=== PATIENT | female | born 1940 | race Caucasian/White ===

== ENCOUNTER 2017-08-31 05:53 | Emergency (ER) | payer OTHER ==
[~2017-08-31] VITALS: Ht 165.1 cm; Wt 63.6 kg
[~2017-08-31 05:53] MED LIST: ASPI81TA28 PO; CALC-338 PO; DOXA2TAB PO; MISCCAP80 PO
[2017-08-31 06:11] VITALS: TEMP 37.9; Ht 165.1 cm; Wt 63.6 kg
[2017-08-31] MEDS ORDERED: ASPIRIN 81 MG CHEW PO STA (06:12)
[2017-08-31 06:17] LABS: BASO % 0.3 %; BASO ABS # 0.02 K/uL (0-0.2); EOS % 0.3 %; EOS ABS # 0.02 K/uL (0-0.5); HEMATOCRIT 38.4 % (37-47); HEMOGLOBIN 13.2 g/dL (12.0-16.0); IG# 0.01 K/uL (0.00-0.02); LYMPH % 4.6 %; MEAN CELL VOLUME 92.1 fL (80-100); MEAN CORPUSCULAR HEMOGLOBIN 31.7 pg (25-34); MEAN CORPUSCULAR HGB CONC 34.4 g/dl (32-36); MEAN PLATELET VOLUME 9.7 fL (7.4-10.4); MONO % 6.8 %; MONO ABS # 0.44 K/uL (0.11-0.59); NEUT % 87.8 %; NEUT ABS # 5.68 K/uL (1.4-6.5); PLATELET COUNT 130 K/uL (130-400); RED CELL DISTRIBUTION WIDTH CV 12.9 % (11.5-14.5); RED CELL DISTRIBUTION WIDTH SD 43.2 fL (36.4-46.3); WHITE BLOOD COUNT 6.47 K/uL (4.8-10.8)
--- NOTE | 2017-08-31 06:20 | EMERGENCY ROOM VISIT NOTE ---
History Report prepared by Steven: Jocelyn Aguila Under the Supervision of: Dr. Altagracia Webber M.D. First contact with patient: 06:08 Chief Complaint: CHEST PAIN Stated Complaint: CHEST PAIN History of Present Illness The patient is a 76 year old female who presents to the Emergency Room with complaints of chest pain beginning this morning. The patient describes the pain as a sharp pain. She states that coughing exacerbates the pain. The patient also reports being febrile at 100.5 last night. The patient denies having shortness of breath while sitting, but states that she does get short of breath with exertion. She denies having urinary symptoms. The patient reports that she has had a sinus infection and that she also has a sore throat from the drainage. The patient states that she is not a smoker and denies a history of heart disease. The patient states that she was not given aspirin or nitroglycerin en route. Source of History: patient Onset: this morning Position: chest Quality: sharp Modifying Factors (Worsening): other (coughing ) Associated Symptoms: + fevers, + sorethroat, No urinary symptoms Review of Systems See HPI for pertinent positives & negatives. A total of 10 systems reviewed and were otherwise negative. Past Medical & Surgical Medical Problems: (1) ACUTE APPENDICITIS NOS (2) Appendectomy (3) Bronchitis (4) HYPERTENSION NOS (5) IRRITABLE BOWEL SYNDROME Family History Cancer Diabetes mellitus Diabetes mellitus Hypertension Lung disease Social History Smoking Status: Never Smoker Alcohol Use: occasionally Marital Status: Housing Status: lives with significant other Occupation Status: retired Current/Historical Medications Scheduled Amoxicillin & Pot Clavulanate (Augmentin 875-125 mg), 875 MG PO BID Aspirin (Aspirin Ec), 81 MG PO 3XWK Calcium Citrate-Vitamin D (Citracal + D3 Maximum), 1 TAB PO 3XWK Doxazosin Mesylate (Cardura), 2 MG PO QPM Fluticasone Furoate (Flonase Sensimist), 2 SPRAY JASON DAILY Probiotic Product (Probiotic), 1 CAP PO QPM Allergies Coded Allergies: Nitrates, Organic (Verified Allergy, Severe, HEAD ACHE, 08/31/17) Isosorbide Nitrate (Verified Allergy, Unknown, PAINFUL, 08/31/17) Physical Exam Vital Signs Date Time Temp Pulse Resp B/P (MAP) Pulse Ox O2 Delivery O2 Flow Rate FiO2 08/31/17 07:33 95 28 93 08/31/17 07:30 116/58 08/31/17 07:23 92 21 91 08/31/17 07:17 119/59 08/31/17 06:53 93 31 08/31/17 06:43 81 18 94 08/31/17 06:23 90 23 94 08/31/17 06:16 Room Air 08/31/17 06:13 94 24 94 08/31/17 06:11 37.9 92 20 121/69 94 Room Air 08/31/17 06:03 90 30 95 08/31/17 06:02 91 08/31/17 06:00 130/61 08/31/17 05:58 121/69 Physical Exam Vital signs reviewed. General: Well-appearing female, in no significant distress. HEENT: No scleral icterus, PERRLA, neck supple. Atraumatic. Cardiovascular: Regular rate and rhythm, no extra sounds. Pulmonary: Clear to auscultation bilaterally, normal work of breathing. Abdomen: Soft, nontender, nondistended, positive bowel sounds. Musculoskeletal: Atraumatic, no peripheral edema. Neurologic: Patient awake alert and oriented x 3, full strength in all 4 extremities. Cranial nerves 2 through 12 grossly intact. Skin: Warm, dry, no rash Medical Decision & Procedures ER Provider Diagnostic Interpretation: Radiology results as stated below per my review and radiologist interpretation: CHEST ONE VIEW PORTABLE CLINICAL HISTORY: cough, CP dysphagia COMPARISON STUDY: No previous studies for comparison. FINDINGS: Focal atelectatic change left base. Lungs otherwise are clear. Diaphragms are smooth. No evidence for cardiac enlargement. IMPRESSION: Focal atelectasis left base. Otherwise negative study. The above report was generated using voice recognition software. It may contain grammatical, syntax or spelling errors. Electronically signed by: Kike Lawson M.D. 08/31/2017 6:29 AM Dictated Date/Time: 08/31/2017 6:28 AM The status of this report is Signed. Laboratory Results 08/31/17 05:57 Red Blood Count 4.17, Mean Corpuscular Volume 92.1, Mean Corpuscular Hemoglobin 31.7, Mean Corpuscular Hemoglobin Concent 34.4, Mean Platelet Volume 9.7, Neutrophils (%) (Auto) 87.8, Lymphocytes (%) (Auto) 4.6, Monocytes (%) (Auto) 6.8, Eosinophils (%) (Auto) 0.3, Basophils (%) (Auto) 0.3, Neutrophils # (Auto) 5.68, Lymphocytes # (Auto) 0.30, Monocytes # (Auto) 0.44, Eosinophils # (Auto) 0.02, Basophils # (Auto) 0.02 08/31/17 05:57 Test 08/31/17 05:57 08/31/17 06:25 08/31/17 06:35 08/31/17 06:37 White Blood Count 6.47 K/uL (4.8-10.8) Red Blood Count 4.17 M/uL (4.2-5.4) Hemoglobin 13.2 g/dL (12.0-16.0) Hematocrit 38.4 % (37-47) Mean Corpuscular Volume 92.1 fL (80-100) Mean Corpuscular Hemoglobin 31.7 pg (25-34) Mean Corpuscular Hemoglobin Concent 34.4 g/dl (32-36) Platelet Count 130 K/uL (130-400) Mean Platelet Volume 9.7 fL (7.4-10.4) Neutrophils (%) (Auto) 87.8 % Lymphocytes (%) (Auto) 4.6 % Monocytes (%) (Auto) 6.8 % Eosinophils (%) (Auto) 0.3 % Basophils (%) (Auto) 0.3 % Neutrophils # (Auto) 5.68 K/uL (1.4-6.5) Lymphocytes # (Auto) 0.30 K/uL (1.2-3.4) Monocytes # (Auto) 0.44 K/uL (0.11-0.59) Eosinophils # (Auto) 0.02 K/uL (0-0.5) Basophils # (Auto) 0.02 K/uL (0-0.2) RDW Standard Deviation 43.2 fL (36.4-46.3) RDW Coefficient of Variation 12.9 % (11.5-14.5) Immature Granulocyte % (Auto) 0.2 % Immature Granulocyte # (Auto) 0.01 K/uL (0.00-0.02) Anion Gap 8.0 mmol/L (3-11) Est Creatinine Clear Calc Drug Dose 55.2 ml/min Estimated GFR () 85.6 Estimated GFR (Non- 73.8 BUN/Creatinine Ratio 24.6 (10-20) Calcium Level 8.3 mg/dl (8.5-10.1) Magnesium Level 1.9 mg/dl (1.8-2.4) Total Bilirubin 1.9 mg/dl (0.2-1) Direct Bilirubin 0.2 mg/dl (0-0.2) Aspartate Amino Transf (AST/SGOT) 16 U/L (15-37) Alanine Aminotransferase (ALT/SGPT) 18 U/L (12-78) Alkaline Phosphatase 59 U/L (45-117) Troponin I < 0.015 ng/ml (0-0.045) Total Protein 7.1 gm/dl (6.4-8.2) Albumin 3.3 gm/dl (3.4-5.0) Influenza Type A (RT-PCR) Neg for Influ A (NEG) Influenza Type B (RT-PCR) Neg for Influ B (NEG) Urine Color ORANGE Urine Appearance CLEAR (CLEAR) Urine pH 6.5 (4.5-7.5) Urine Specific [place] 1.021 (1.000-1.030) Urine Protein NEG (NEG) Urine Glucose (UA) NEG (NEG) Urine Ketones 1+ (NEG) Urine Occult Blood 1+ (NEG) Urine Nitrite NEG (NEG) Urine Bilirubin NEG (NEG) Urine Urobilinogen NEG (NEG) Urine Leukocyte Esterase TRACE (NEG) Urine WBC (Auto) 1-5 /hpf (0-5) Urine RBC (Auto) 5-10 /hpf (0-4) Urine Hyaline Casts (Auto) 1-5 /lpf (0-5) Urine Epithelial Cells (Auto) 5-10 /lpf (0-5) Urine Bacteria (Auto) NEG (NEG) Bedside Lactic Acid Venous 1.46 mmol/L (0.90-1.70) Laboratory results per my review. Medications Administered Medications (Trade) Dose Ordered Sig/[place] Route Start Time Stop Time Status Last Admin Dose Admin Aspirin (Aspirin Chew) 324 mg NOW STAT PO 08/31/17 06:12 08/31/17 06:14 DC 08/31/17 06:25 324 MG Acetaminophen (Tylenol Tab) 650 mg NOW STAT PO 08/31/17 06:35 08/31/17 06:36 DC 08/31/17 06:47 650 MG Amoxicillin/ Clavulanate Potassium (Augmentin Tab) 875 mg ONE ONCE PO 08/31/17 07:15 08/31/17 07:16 DC 08/31/17 07:52 875 MG ECG Per My Interpretation Indication: chest pain Rate (beats per minute): 94 Rhythm: normal sinus Findings: no acute ischemic change, no ectopy ED Course 0609: Past medical records reviewed. The patient was evaluated in room B9. A complete history and physical examination was performed. 0612: Ordered Aspirin 324 mg PO. 0635: Ordered Tylenol Tab 650 mg PO. Medical Decision Differentials: Acute coronary syndrome, pulmonary embolus, aortic dissection, musculoskeletal pain, pneumonia, pleural effusion, pneumothorax This patient was evaluated and appeared to be in no significant distress. Physical examination is fairly unrevealing. The patient was given 324 mg of aspirin to chew. Patient was given Tylenol 650 mg for headache. EKG reveals no evidence of acute ischemic change. Laboratory work reveals negative troponin. Chest x-ray is clear to my interpretation. CT scan of the sinuses was performed and reveals diffuse mucosal thickening consistent with a chronic sinusitis. Patient states she has had sinus pressure, sore throat and a cough for several weeks. I suspect she is having some postnasal drip causing sore throat nausea. Patient was placed on Augmentin 875 mg twice daily for 10 days, Flonase nasal spray and Tylenol as needed for pain. She will follow-up with her physician for reevaluation and return to the ER for worsening of symptoms or any medical concerns. Medication Reconcilliation Current Medication List: was personally reviewed by me Blood Pressure Screening Patient's blood pressure: Normal blood pressure Impression Primary Impression: Pleuritic chest pain Additional Impression: Sinusitis Scribe Attestation The scribe's documentation has been prepared under my direction and personally reviewed by me in its entirety. I confirm that the note above accurately reflects all work, treatment, procedures, and medical decision making performed by me. Departure Information Dispostion Home / Self-Care Prescriptions Fluticasone Furoate (Flonase Sensimist) 27.5 Mcg/[place] 2 SPRAY JASON DAILY for 14 Days, #1 BTL Prov: Altagracia Webber M.D. 08/31/17 Amoxicillin & Pot Clavulanate (Augmentin 875-125 mg) 1 Tab Tab 875 MG PO BID for 10 Days, #20 TAB Prov: Altagracia Webber M.D. 08/31/17 Referrals Kirit Simmons M.D. (PCP) Forms Call Back Authorization, HOME CARE DOCUMENTATION FORM, IMPORTANT VISIT INFORMATION Patient Instructions [facility] Problem Qualifiers
[2017-08-31 06:29] LABS: ALBUMIN 3.3 gm/dl (3.4-5.0); ALT/SGPT 18 U/L (12-78); AST/SGOT 16 U/L (15-37); BLOOD UREA NITROGEN 19 mg/dl (7-18); CALCIUM 8.3 mg/dl (8.5-10.1); CARBON DIOXIDE 26 mmol/L (21-32); CREATININE 0.78 mg/dl (0.60-1.20); GLUCOSE 152 mg/dl (70-99); POTASSIUM 3.7 mmol/L (3.5-5.1); SODIUM 137 mmol/L (136-145)
--- NOTE | 2017-08-31 06:30 | DIAGNOSTIC IMAGING REPORT ---
CHEST ONE VIEW PORTABLE CLINICAL HISTORY: cough, CP dysphagia COMPARISON STUDY: No previous studies for comparison. FINDINGS: Focal atelectatic change left base. Lungs otherwise are clear. Diaphragms are smooth. No evidence for cardiac enlargement. IMPRESSION: Focal atelectasis left base. Otherwise negative study. The above report was generated using voice recognition software. It may contain grammatical, syntax or spelling errors. Electronically signed by: Kike Lawson M.D. 08/31/2017 6:29 AM Dictated Date/Time: 08/31/2017 6:28 AM
[2017-08-31] MEDS ORDERED: CALC-279 PO (06:31)
[2017-08-31] MEDS ORDERED: CALC1TAB9 PO (06:33)
[2017-08-31 06:34] LABS: ALKALINE PHOSPHATASE 59 U/L (45-117); TOTAL PROTEIN 7.1 gm/dl (6.4-8.2)
[2017-08-31] MEDS ORDERED: ACETAMINOPHEN 325 MG TAB PO STA (06:35)
[2017-08-31] MEDS ORDERED: AMOXICILLIN/CLAVULANATE TAB 875 MG TAB PO ONE (07:15)
[2017-08-31] MEDS ORDERED: AMOX875T PO (07:16)
[2017-08-31 07:20] LABS: INFLUENZA A PCR Neg for Influ A (NEG); INFLUENZA B PCR Neg for Influ B (NEG)
[2017-08-31 07:30] VITALS: BP 116/58
--- NOTE | 2017-08-31 07:31 | DIAGNOSTIC IMAGING REPORT ---
SINUSES-MAXILLOFACIAL W/O CT DOSE: 269.19 mGycm HISTORY: Pain frontal sinus pain, fever TECHNIQUE: Multiaxial CT images of the paranasal sinuses were performed and reformatted in the coronal plane without the use of contrast. A dose lowering technique was utilized adhering to the principles of ALARA. COMPARISON: None. FINDINGS: Mild mucosal thickening in frontal sinuses. Significant mucosal thickening in the ethmoid sinuses. Moderate mucosal thickening of the right and to a lesser extent left maxillary sinus. Soft tissue narrowing of the ostiomeatal units bilaterally although they are still patent. Mild mucosal thickening of the sphenoid sinus at the anterior margins. Slight hypertrophic change nasal turbinates. No evidence for bony destructive process. The mastoid air cells are clear. The nasal septum is midline. The orbits are unremarkable. IMPRESSION: 1. Mild/moderate mucosal thickening of all major sinuses. 2. The appearance is suggestive of chronic sinus change. 3. Soft tissue narrowing of the ostiomeatal units bilaterally. 4. No evidence for bony destructive process. The above report was generated using voice recognition software. It may contain grammatical, syntax or spelling errors. Electronically signed by: Kike Lawson M.D. 08/31/2017 7:29 AM Dictated Date/Time: 08/31/2017 7:26 AM
[2017-08-31] MEDS ORDERED: FLUT27.53 NAE (07:32)
[2017-08-31 07:33] VITALS: PULSE 95; O2SAT 93
== END 2017-08-31 07:53 | disposition home or self-care (01) ==
LOC: EDBD 05:53 → C.EDB 05:55
DX: R07.9 Chest pain, unspecified (principal); J32.9 Chronic sinusitis, unspecified; I10 Essential (primary) hypertension; Z83.3 Family history of diabetes mellitus

== ENCOUNTER 2017-09-04 11:37 | Inpatient (IN) | payer OTHER ==
[~2017-09-04] VITALS: Ht 166.4 cm; Wt 62.1 kg
[~2017-09-04 11:37] MED LIST changes: +AMOX875T PO; -CALC-338 PO; +CALC1TAB9 PO; +FLUT27.53 NAE
[2017-09-04] MEDS ORDERED: ONDANSETRON INJ 2 MG/ML 2 ML VIAL IV STA (12:01)
[2017-09-04] MEDS ORDERED: SODIUM CHLORIDE 0.9% 1000ML 2,000 ML IV STA (12:01)
--- NOTE | 2017-09-04 12:26 | DIAGNOSTIC IMAGING REPORT ---
CHEST ONE VIEW PORTABLE CLINICAL HISTORY: fever COMPARISON STUDY: 08/31/2017 FINDINGS: The heart is normal in size. There is a suboptimal inspiration with bronchovascular crowding at the lung bases. No be difficult to exclude a superimposed inflammatory component. There is a suspected trace left pleural effusion. There is no overt failure.[ IMPRESSION: Suboptimal inspiration with hypoventilatory changes at the lung bases. It is not possible to exclude a superimposed inflammatory component. Suspected trace left pleural effusion. Electronically signed by: Tanner Ventura M.D. 09/04/2017 12:25 PM Dictated Date/Time: 09/04/2017 12:24 PM
[2017-09-04 12:28] LABS: BASO % 0.1 %; BASO ABS # 0.01 K/uL (0-0.2); EOS % 0.4 %; EOS ABS # 0.05 K/uL (0-0.5); HEMATOCRIT 36.9 % (37-47); HEMOGLOBIN 12.7 g/dL (12.0-16.0); LYMPH % 4.8 %; LYMPH ABS # 0.62 K/uL (1.2-3.4); MEAN CORPUSCULAR HEMOGLOBIN 31.7 pg (25-34); MEAN CORPUSCULAR HGB CONC 34.4 g/dl (32-36); MEAN PLATELET VOLUME 10.6 fL (7.4-10.4); MONO % 2.4 %; MONO ABS # 0.31 K/uL (0.11-0.59); NEUT % 91.5 %; NEUT ABS # 11.77 K/uL (1.4-6.5); PLATELET COUNT 158 K/uL (130-400); RED CELL DISTRIBUTION WIDTH CV 13.1 % (11.5-14.5); RED CELL DISTRIBUTION WIDTH SD 44.3 fL (36.4-46.3); WHITE BLOOD COUNT 12.86 K/uL (4.8-10.8)
[2017-09-04 12:35] LABS: INR 1.1 (0.9-1.1)
[2017-09-04] MEDS ORDERED: AMOX875T PO (13:04)
[2017-09-04] MEDS ORDERED: FLUT0.15 NAE (13:04)
[2017-09-04 13:18] LABS: BLOOD UREA NITROGEN 39 mg/dl (7-18); CALCIUM 8.5 mg/dl (8.5-10.1); CARBON DIOXIDE 22 mmol/L (21-32); CREATININE 1.07 mg/dl (0.60-1.20); GLUCOSE 113 mg/dl (70-99); POTASSIUM 3.4 mmol/L (3.5-5.1); SODIUM 135 mmol/L (136-145)
[2017-09-04 13:19] LABS: ALBUMIN 2.4 gm/dl (3.4-5.0); ALKALINE PHOSPHATASE 57 U/L (45-117); ALT/SGPT 22 U/L (12-78); AST/SGOT 17 U/L (15-37); CKMB 0.8 ng/ml (0.5-3.6); TOTAL PROTEIN 6.7 gm/dl (6.4-8.2)
[2017-09-04 13:39] LABS: ISTAT CREATININE 0.9 mg/dl (0.6-1.3); ISTAT IONIZED CALCIUM 0.82 mmol/l (1.12-1.32); ISTAT POTASSIUM 3.5 mEq/L (3.3-5.0)
[2017-09-04] MEDS ORDERED: OPTIRAY 320 IV PRN (14:15)
--- NOTE | 2017-09-04 15:07 | History and Physical ---
History & Physical Date & Time of Service: Sep 04, 2017 at 14:54 Chief Complaint: Weak,Dehydrated, Woodward, Pleurisy Primary Care Physician: Kirit Simmons M.D. History of Present Illness Source: patient, clinic records, hospital records Patient is a 76-year-old female with a PMH of HTN who presents with generalized weakness 5 days. Patient was seen by PCP a few weeks ago for chronic sinusitis and has been taking Augmentin. Was notified a week ago that she also tested positive for mono. Came to the ED last for chest pain as well as ongoing sinusitis. Had a CT face which showed chronic sinusitis and chest pain was determined as pleurisy. Patient was discharged from ED and noticed a diffuse red rash the next day. Also notes subjective fever and worsening generalized weakness (has been requiring assistance with all ambulation when she can walk independently at baseline). Continued to experience sore throat, postnasal drip as well as decreased appetite/poor fluid intake. Returned to the ED for further evaluation. Currently denies fever, chills, headache, lightheadedness, visual changes, chest pain, shortness of breath, abdominal pain , nausea, vomiting, bowel or bladder changes or LE swelling. Has completed Augmentin course with exception of 1 dose. Denies PCP is [facility]. In ED, was found to be hypotensive at 81/45 but BP improved with IVF to 103/69. Afebrile with leukocytosis of 12.86. D dimer elevated to 5940. Past Medical/Surgical History Medical Problems: (1) Hypertension Status: Chronic (2) Irritable bowel syndrome Status: Chronic Surgical Problems: (1) History of appendectomy Status: Chronic Family History Cancer Diabetes mellitus Diabetes mellitus Hypertension Lung disease Social History Smoking Status: Never Smoker Alcohol Use: none Marital Status: Housing status: lives with significant other Occupational Status: retired Immunizations History of Influenza Vaccine: No History of Tetanus Vaccine?: Yes History of Pneumococcal: No History of Hepatitis B Vaccine: No Allergies Coded Allergies: Nitrates, Organic (Verified Allergy, Severe, HEAD ACHE, 09/04/17) Isosorbide Nitrate (Verified Allergy, Unknown, PAINFUL, 09/04/17) Home Medications Scheduled Amoxicillin & Pot Clavulanate (Augmentin 875-125 mg), 1 TAB PO BID Aspirin (Aspirin Ec), 81 MG PO 3XWK Calcium Citrate-Vitamin D (Citracal + D3 Maximum), 1 TAB PO 3XWK Doxazosin Mesylate (Cardura), 2 MG PO QPM Fluticasone Propionate (Nasal) (Flonase Allergy Relief), 2 SPRAYS JASON DAILY Probiotic Product (Probiotic), 1 CAP PO QPM Review of Systems Constitutional: + fever, + weakness, + fatigue, + problem reported (loss of appetite) ENT: + nasal symptoms, + sore throat Respiratory: + dyspnea on exertion Musculoskeletal: + muscle pain Integumentary: + rash Physical Exam Vital Signs Date Time Temp Pulse Resp B/P (MAP) Pulse Ox O2 Delivery O2 Flow Rate FiO2 09/04/17 13:12 81 20 103/69 100 Room Air 09/04/17 11:57 36.7 79 20 100/62 98 Room Air 09/04/17 11:40 36.7 88 20 81/45 97 Room Air General Appearance: + mild distress Head: normocephalic, atraumatic Eyes: normal inspection, PERRL, sclerae normal ENT: hearing grossly normal, pharynx normal (dry mucous membranes), + pharyngeal erythema Neck: supple, trachea midline, + adenopathy present Respiratory/Chest: chest non-tender, lungs clear, normal breath sounds, no respiratory distress, no accessory muscle use Cardiovascular: regular rate, rhythm, no murmur, normal peripheral pulses Abdomen/GI: non tender, soft, no organomegaly Back: normal inspection Extremities/Musculoskelatal: normal inspection, no calf tenderness, normal capillary refill, no pedal edema Neurologic/Psych: no motor/sensory deficits, alert, normal mood/affect, oriented x 3, + abnormal gait (unsteady ) Skin: warm/dry, + pertinent finding (Diffuse head-to-toe maculopapular rash ) Diagnostics Laboratory Results Results Past 24 Hours Test 09/04/17 12:01 09/04/17 12:10 09/04/17 12:20 09/04/17 12:25 Range/Units Creatine Kinase MB Ratio 0-3.0 White Blood Count 12.86 4.8-10.8 K/uL Red Blood Count 4.01 4.2-5.4 M/uL Hemoglobin 12.7 12.0-16.0 g/dL Hematocrit 36.9 37-47 % Mean Corpuscular Volume 92.0 80-100 fL Mean Corpuscular Hemoglobin 31.7 25-34 pg Mean Corpuscular Hemoglobin Concent 34.4 32-36 g/dl Platelet Count 158 130-400 K/uL Mean Platelet Volume 10.6 7.4-10.4 fL Neutrophils (%) (Auto) 91.5 % Lymphocytes (%) (Auto) 4.8 % Monocytes (%) (Auto) 2.4 % Eosinophils (%) (Auto) 0.4 % Basophils (%) (Auto) 0.1 % Neutrophils # (Auto) 11.77 1.4-6.5 K/uL Lymphocytes # (Auto) 0.62 1.2-3.4 K/uL Monocytes # (Auto) 0.31 0.11-0.59 K/uL Eosinophils # (Auto) 0.05 0-0.5 K/uL Basophils # (Auto) 0.01 0-0.2 K/uL RDW Standard Deviation 44.3 36.4-46.3 fL RDW Coefficient of Variation 13.1 11.5-14.5 % Immature Granulocyte % (Auto) 0.8 % Immature Granulocyte # (Auto) 0.10 0.00-0.02 K/uL Prothrombin Time 11.1 9.0-12.0 SECONDS Prothromb Time International Ratio 1.1 0.9-1.1 D-Dimer 5940 0-500 ug/L FEU Sodium Level 135 136-145 mmol/L Potassium Level 3.4 3.5-5.1 mmol/L Chloride Level 102 98-107 mmol/L Carbon Dioxide Level 22 21-32 mmol/L Anion Gap 11.0 17.0 16-25 mmol/L Blood Urea Nitrogen 39 7-18 mg/dl Creatinine 1.07 0.60-1.20 mg/dl Estimated GFR () 58.4 Estimated GFR (Non- 50.4 BUN/Creatinine Ratio 36.4 10-20 Random Glucose 113 70-99 mg/dl Calcium Level 8.5 8.5-10.1 mg/dl Magnesium Level 2.3 1.8-2.4 mg/dl Total Bilirubin 1.6 0.2-1 mg/dl Direct Bilirubin 0.3 0-0.2 mg/dl Aspartate Amino Transf (AST/SGOT) 17 15-37 U/L Alanine Aminotransferase (ALT/SGPT) 22 12-78 U/L Alkaline Phosphatase 57 45-117 U/L Total Creatine Kinase 91 26-192 U/L Creatine Kinase MB 0.8 0.5-3.6 ng/ml Troponin I < 0.015 0-0.045 ng/ml Total Protein 6.7 6.4-8.2 gm/dl Albumin 2.4 3.4-5.0 gm/dl Bedside Lactic Acid Venous 2.97 0.90-1.70 mmol/L Bedside Hemoglobin 16.3 12.0-16.0 g/dl Bedside Hematocrit 48 37-47 % Bedside Sodium 136 135-144 mEq/L Bedside Potassium 3.5 3.3-5.0 mEq/L Bedside Chloride 102 101-112 mEq/L Bedside Total CO2 22 24-31 mEq/l Bedside Blood Urea Nitrogen 39 7-18 mg/dl Bedside Creatinine 0.9 0.6-1.3 mg/dl Bedside Glucose (other) 117 70-99 mg/dl Bedside Ionized Calcium ([place]) 0.82 1.12-1.32 mmol/l Microbiology Results 09/04/17 Blood Culture, Received Pending 09/04/17 Blood Culture, Received Pending Diagnostic Radiology CXR: IMPRESSION: Suboptimal inspiration with hypoventilatory changes at the lung bases. It is not possible to exclude a superimposed inflammatory component. Suspected trace left pleural effusion. EKG Sinus rhythm with Premature supraventricular complexes at 82 bpm. Impression Assessment and Plan Patient is a 76-year-old female with a PMH of HTN who presents with generalized weakness 5 days. Hypotension: -2/2 poor PO intake, infection -Improving with IVF resuscitation -Hold home antihypertensives Sinusitis: -Has almost completed course of Augmentin -Discontinue final dose due to likely allergic reaction -IV Levaquin -Blood cultures, procalcitonin pending -Nasal Flonase Elevated lactic acidosis: -Likely 2/2 dehydration -IVF resuscitation -Repeat lactate pending Elevated D dimer: -D dimer elevated to 5940 -Denies h/o DVT, PE -No chest pain -CTA chest/thorax pending Diffuse maculopapular rash: -Likely an allergic reaction to Augmentin vs. component of mono -Monitor Mononucleosis: -Cont supportive measures Generalized weakness: -2/2 dehydration, deconditioning, infection -No focal neuro deficits on exam -PT/OT eval and conditioning DVT Ppx: Code status: FULL PCP: [facility] Dispo: Admit to telemetry. Discharge planning ordered. Patient seen in collaboration with Dr. Miller. Please see addendum. ADDENDUM: This is a 76 year old female with a PMH of mono, HTN - presents with weakness/ fatigue. Sepsis secondary to Woodward and Acute Complicated Bronchitis - leukocytosis, lactic acidosis, hypotension - patient with mono as outpatient - presents with weakness, generalized rash after being on Augmentin - will check rapid strep, mono and reflex EBV - hold Augmentin - start Levaquin for acute bronchitis - IVFs; repeat lactic >2, recheck lactic at around 10PM and in AM - check procalcitonin - will start prednisone as well Chronic Sinusitis - start Flonase Generalized Weakness - PT/OT - will likely need placement vs. home health Resuscitation Status VTE Prophylaxis Will order VTE Prophylaxis: Yes
--- NOTE | 2017-09-04 15:32 | DIAGNOSTIC IMAGING REPORT ---
(CHEST FOR PE) ANGIO WITH CLINICAL HISTORY: 76 years-old Female presenting with ^+dd and near syncope w cp, pleurisy. TECHNIQUE: Multidetector CT angiography of the chest was performed after administration of intravenous contrast. 3-D volumetric and/or maximum intensity projection (MIP) images were subsequently reconstructed for review. IV contrast: 93 mL of Optiray 320. A dose lowering technique was used consistent with the principles of ALARA (as low as reasonably achievable). COMPARISON: Chest x-ray performed earlier the same day. CT DOSE (mGy.cm): The estimated cumulative dose is 254.92 mGy.cm. FINDINGS: Communications Tech topogram: Unremarkable. Pulmonary vasculature: The study is adequate for assessment of the pulmonary vascular tree. No filling defect within the pulmonary arteries to suggest embolus. Main pulmonary artery is not enlarged. No flattening of the interventricular septum. No intracardiac filling defect. No reflux of contrast into the hepatic veins. Remaining chest: On soft tissue windows, normal thyroid and thoracic inlet. Few small hilar lymph nodes may be present, right greater than left. Normal aorta. Normal heart size. No pericardial or pleural effusion. Upper abdomen normal. On lung windows, extensive dependent consolidation in the lower lobes. Mosaic attenuation with additional patchy groundglass opacity. Bronchial wall thickening diffusely. No significant interlobular septal thickening. Central airways patent. On bone windows, degenerative changes of the spine. IMPRESSION: 1. No evidence of pulmonary embolus. 2. Extensive dependent consolidation with bronchial wall thickening and mosaic attenuation with patchy groundglass opacity is greater than what is expected for atelectasis may suggest aspiration, reactive airways disease, or viral bronchitis/bronchiolitis. Pulmonary edema is felt to be less likely. Electronically signed by: Christopher Pelletier M.D. 09/04/2017 3:31 PM Dictated Date/Time: 09/04/2017 3:26 PM
[2017-09-04 16:05] VITALS: BP 107/67; PULSE 92; TEMP 37.1; O2SAT 97; Ht 166.4 cm; Wt 62.1 kg
[2017-09-04] MEDS ORDERED: POTASSIUM CHLORIDE 20 MEQ TABCR PO STA (16:32)
[2017-09-04] MEDS: LEVOFLOXACIN / D5W 750 MG in PREMIXED IN D5W 150 ML IV SCH (17:04)
[2017-09-04] MEDS: SODIUM CHLORIDE 0.9% 1000ML 1,000 ML IV SCH (17:05)
--- NOTE | 2017-09-04 17:28 | EMERGENCY ROOM VISIT NOTE ---
History Report prepared by Steven: Dory Sanchez Under the Supervision of: Dr. Elbert Vaughn D.O. First contact with patient: 11:50 Chief Complaint: WEAKNESS Stated Complaint: WEAK,DEHYDRATED, MONO, PLEURISY History of Present Illness The patient is a 76 year old female who presents to the Emergency Room with complaints of worsening weakness beginning about a month ago. The patient reports a fever for the past four days. She notes shortness of breath beginning a week ago.The patient is currently on Augmentin. She reports she only has one dose of her antibiotic left. The patient notes a rash beginning on Monday. She reports her rash started on her arms before spreading. She denies any recent travel or tic bites. She reports decreased appetite. The patient was diagnosed with Mchenry a week ago. She reports she was seen in the ED on for chest pain and was diagnosed with pleurisy. She notes a sorethroat and nasal drainage beginning a couple weeks ago. The patient was seen in the ED on August 31 where she had a CT face which showed chronic sinusitis. Pt denies headache, change in vision, abdominal pain, chest pain, nausea, vomiting, diarrhea, pain with urination, and melena. Source of History: patient Onset: a month ago Position: other (generalized) Quality: other (weakness) Timing: worsening Associated Symptoms: + fevers, + SOB, + weakness, No chest pain, No nausea, No vomiting, No diarrhea, No urinary symptoms Review of Systems See HPI for pertinent positives & negatives. A total of 10 systems reviewed and were otherwise negative. Past Medical & Surgical Medical Problems: (1) Hypertension (2) Irritable bowel syndrome Surgical Problems: (1) History of appendectomy Family History Cancer Diabetes mellitus Diabetes mellitus Hypertension Lung disease Social History Smoking Status: Never Smoker Alcohol Use: occasionally Marital Status: Housing Status: lives with significant other Occupation Status: retired Current/Historical Medications Scheduled Amoxicillin & Pot Clavulanate (Augmentin 875-125 mg), 1 TAB PO BID Aspirin (Aspirin Ec), 81 MG PO 3XWK Calcium Citrate-Vitamin D (Citracal + D3 Maximum), 1 TAB PO 3XWK Doxazosin Mesylate (Cardura), 2 MG PO QPM Fluticasone Propionate (Nasal) (Flonase Allergy Relief), 2 SPRAYS JASON DAILY Probiotic Product (Probiotic), 1 CAP PO QPM Allergies Coded Allergies: Nitrates, Organic (Verified Allergy, Severe, HEAD ACHE, 09/04/17) Isosorbide Nitrate (Verified Allergy, Unknown, PAINFUL, 09/04/17) Physical Exam Vital Signs Date Time Temp Pulse Resp B/P (MAP) Pulse Ox O2 Delivery O2 Flow Rate FiO2 09/04/17 13:12 81 20 103/69 100 Room Air 09/04/17 11:57 36.7 79 20 100/62 98 Room Air 09/04/17 11:40 36.7 88 20 81/45 97 Room Air Physical Exam GENERAL: Sitting up in bed, alert, ill and lethargic appearing, well nourished, mild distress, non-toxic EYE EXAM: normal conjunctiva. PERRL and EOM's grossly intact. OROPHARYNX: no exudate, no erythema, lips, buccal mucosa, and tongue normal and mucous membranes are moist NECK: supple, no nuchal rigidity, no adenopathy, non-tender LUNGS: Clear to auscultation. Normal chest wall mechanics HEART: no murmurs, S1 normal and S2 normal ABDOMEN: abdomen soft, non-tender, normo-active bowel sounds, no masses, no rebound or guarding. BACK: Back is symmetrical on inspection and there is no deformity, no midline tenderness, no CVA tenderness. SKIN: Diffuse erythematous macular/papular rash, negative Nikolsky signs, no petechiae. UPPER EXTREMITIES: upper extremities are grossly normal. LOWER EXTREMITIES: No pitting edema. NEURO EXAM: Normal sensorium, cranial nerves II-XII grossly intact, normal speech, no gross weakness of arms, no gross weakness of legs. Medical Decision & Procedures ER Provider Diagnostic Interpretation: Radiology results as stated below per my review and the radiologist's interpretation: CHEST ONE VIEW PORTABLE FINDINGS: The heart is normal in size. There is a suboptimal inspiration with bronchovascular crowding at the lung bases. No be difficult to exclude a superimposed inflammatory component. There is a suspected trace left pleural effusion. There is no overt failure.[ IMPRESSION: Suboptimal inspiration with hypoventilatory changes at the lung bases. It is not possible to exclude a superimposed inflammatory component. Suspected trace left pleural effusion. Electronically signed by: Tanner Ventura M.D. Laboratory Results 09/04/17 12:10 Red Blood Count 4.01, Mean Corpuscular Volume 92.0, Mean Corpuscular Hemoglobin 31.7, Mean Corpuscular Hemoglobin Concent 34.4, Mean Platelet Volume 10.6, Neutrophils (%) (Auto) 91.5, Lymphocytes (%) (Auto) 4.8, Monocytes (%) (Auto) 2.4, Eosinophils (%) (Auto) 0.4, Basophils (%) (Auto) 0.1, Neutrophils # (Auto) 11.77, Lymphocytes # (Auto) 0.62, Monocytes # (Auto) 0.31, Eosinophils # (Auto) 0.05, Basophils # (Auto) 0.01 09/04/17 12:10 Test 09/04/17 12:01 09/04/17 12:10 09/04/17 12:20 09/04/17 12:25 Creatine Kinase MB Ratio (0-3.0) White Blood Count 12.86 K/uL (4.8-10.8) Red Blood Count 4.01 M/uL (4.2-5.4) Hemoglobin 12.7 g/dL (12.0-16.0) Hematocrit 36.9 % (37-47) Mean Corpuscular Volume 92.0 fL (80-100) Mean Corpuscular Hemoglobin 31.7 pg (25-34) Mean Corpuscular Hemoglobin Concent 34.4 g/dl (32-36) Platelet Count 158 K/uL (130-400) Mean Platelet Volume 10.6 fL (7.4-10.4) Neutrophils (%) (Auto) 91.5 % Lymphocytes (%) (Auto) 4.8 % Monocytes (%) (Auto) 2.4 % Eosinophils (%) (Auto) 0.4 % Basophils (%) (Auto) 0.1 % Neutrophils # (Auto) 11.77 K/uL (1.4-6.5) Lymphocytes # (Auto) 0.62 K/uL (1.2-3.4) Monocytes # (Auto) 0.31 K/uL (0.11-0.59) Eosinophils # (Auto) 0.05 K/uL (0-0.5) Basophils # (Auto) 0.01 K/uL (0-0.2) RDW Standard Deviation 44.3 fL (36.4-46.3) RDW Coefficient of Variation 13.1 % (11.5-14.5) Immature Granulocyte % (Auto) 0.8 % Immature Granulocyte # (Auto) 0.10 K/uL (0.00-0.02) Prothrombin Time 11.1 SECONDS (9.0-12.0) Prothromb Time International Ratio 1.1 (0.9-1.1) D-Dimer 5940 ug/L FEU (0-500) Estimated GFR () 58.4 Estimated GFR (Non- 50.4 BUN/Creatinine Ratio 36.4 (10-20) Calcium Level 8.5 mg/dl (8.5-10.1) Magnesium Level 2.3 mg/dl (1.8-2.4) Total Bilirubin 1.6 mg/dl (0.2-1) Direct Bilirubin 0.3 mg/dl (0-0.2) Aspartate Amino Transf (AST/SGOT) 17 U/L (15-37) Alanine Aminotransferase (ALT/SGPT) 22 U/L (12-78) Alkaline Phosphatase 57 U/L (45-117) Total Creatine Kinase 91 U/L (26-192) Creatine Kinase MB 0.8 ng/ml (0.5-3.6) Troponin I < 0.015 ng/ml (0-0.045) Total Protein 6.7 gm/dl (6.4-8.2) Albumin 2.4 gm/dl (3.4-5.0) Bedside Lactic Acid Venous 2.97 mmol/L (0.90-1.70) Bedside Hemoglobin 16.3 g/dl (12.0-16.0) Bedside Hematocrit 48 % (37-47) Bedside Sodium 136 mEq/L (135-144) Bedside Potassium 3.5 mEq/L (3.3-5.0) Bedside Chloride 102 mEq/L (101-112) Bedside Total CO2 22 mEq/l (24-31) Anion Gap 17.0 mmol/L (16-25) Bedside Blood Urea Nitrogen 39 mg/dl (7-18) Bedside Creatinine 0.9 mg/dl (0.6-1.3) Bedside Glucose (other) 117 mg/dl (70-99) Bedside Ionized Calcium ([place]) 0.82 mmol/l (1.12-1.32) Laboratory results per my review. Medications Administered Medications (Trade) Dose Ordered Sig/[place] Route Start Time Stop Time Status Last Admin Dose Admin Sodium Chloride 2,000 ml @ 999 mls/hr Q2H1M STAT IV 09/04/17 12:01 09/04/17 14:01 DC 09/04/17 12:26 999 MLS/HR Ondansetron HCl (Zofran Inj) 4 mg NOW STAT IV 09/04/17 12:01 09/04/17 12:03 DC 09/04/17 12:26 4 MG ED Course ED COURSE: Vital signs were reviewed and showed hypotensive The patients medical record was reviewed The above diagnostic studies were performed and reviewed. ED treatments and interventions as stated above. 1153: The patient was evaluated in room A11B. A complete history and physical examination was performed. 1201: Ordered Zofran Inj 4 mg IV, Sodium Chloride 2000 ml @ 999 mls/hr IV. 1328: I updated the patient on her test results. Her blood pressure is now out of the 80's. 1342: I reviewed the patient's case with Sandra Hatfield. She will evaluate the patient for further management. 1410: Upon reevaluation, the patient is resting comfortably.I discussed my findings with the patient and she understands and agrees with the treatment plan. Based on the patients age, coexisting illnesses, exam and lab findings the decision to treat as an inpatient was made. The patient remained stable while under my care. The patient will be evaluated for further management. Medical Decision Differential Diagnosis includes but is not limited to dehydration, stroke, anemia, hypoglycemia, hyponatremia, hypernatremia, urinary tract infection, pneumonia, bronchitis, sepsis, gastroenteritis, additional abdominal pathology, metabolic abnormalities and infections. Is a 76-year-old female who presents the ER for weakness and lethargy. She also admits to significant amount dizziness. Upon presentation systolic pressures were in the 60s. She is given 2 L IV wide open. Systolic pressures improved to the 100s. CBC with a mild leukocytosis. BMP along with LFTs is fairly unremarkable. Troponin was negative. T bili was only slightly elevated. D-dimer was elevated at 6000. CT PE was performed just prior to admission and did result after admission. It did show likely aspiration pneumonia. Patient was updated and admitted to internal medicine. Medication Reconcilliation Current Medication List: was personally reviewed by me Blood Pressure Screening Patient's blood pressure: Low blood pressure Consults Time Called: 1335 Consulting Physician: Sandra Hatfield Returned Call: 1342 I reviewed the patient's case with Sandra Hatfield. She will evaluate the patient for further management. Impression Primary Impression: Hypotension Additional Impression: Dizziness Scribe Attestation The scribe's documentation has been prepared under my direction and personally reviewed by me in its entirety. I confirm that the note above accurately reflects all work, treatment, procedures, and medical decision making performed by me. Departure Information Dispostion Being Evaluated By Hospitalist Referrals Kirit Simmons M.D. (PCP) Patient Instructions My [facility] Problem Qualifiers Primary Impression: Hypotension Hypotension type: unspecified hypotension type Qualified Codes: I95.9 - Hypotension, unspecified
[2017-09-04] MEDS ORDERED: NON-FORMULARY MEDICATION (Probiotic Product (Probiotic) 1 CAP) PO SCH (21:00)
[2017-09-04] MEDS: GUAIFENESIN 600 MG TABCR PO SCH (21:43)
[2017-09-04] MEDS: HEPARIN SOD 5000 UNIT/0.5 ML CARP SQ SCH (22:01)
[2017-09-05 00:01] VITALS: BP 100/62; PULSE 92; TEMP 37; O2SAT 93
[2017-09-05 04:00] VITALS: BP 102/64; PULSE 84; TEMP 37; O2SAT 95
[2017-09-05] MEDS: SODIUM CHLORIDE 0.9% 1000ML 1,000 ML IV SCH (04:05)
[2017-09-05] MEDS: HEPARIN SOD 5000 UNIT/0.5 ML CARP SQ SCH ×3 (06:00→21:53)
[2017-09-05 07:00] LABS: HEMATOCRIT 32.2 % (37-47); HEMOGLOBIN 10.8 g/dL (12.0-16.0); MEAN CELL VOLUME 91.7 fL (80-100); MEAN CORPUSCULAR HEMOGLOBIN 30.8 pg (25-34); MEAN CORPUSCULAR HGB CONC 33.5 g/dl (32-36); MEAN PLATELET VOLUME 9.8 fL (7.4-10.4); PLATELET COUNT 151 K/uL (130-400); RED CELL DISTRIBUTION WIDTH CV 13.4 % (11.5-14.5); RED CELL DISTRIBUTION WIDTH SD 44.8 fL (36.4-46.3); WHITE BLOOD COUNT 8.75 K/uL (4.8-10.8)
[2017-09-05] MEDS: ACETAMINOPHEN 325 MG TAB PO PRN ×2 (07:21→21:54)
[2017-09-05 07:27] VITALS: BP 107/70; PULSE 78; TEMP 36.7; O2SAT 96
[2017-09-05 07:34] LABS: CALCIUM 7.8 mg/dl (8.5-10.1); CREATININE 0.7 mg/dl (0.60-1.20); POTASSIUM 3.5 mmol/L (3.5-5.1)
[2017-09-05] MEDS ORDERED: POTASSIUM CHLORIDE 20 MEQ TABCR PO ONE (09:00)
[2017-09-05] MEDS: GUAIFENESIN 600 MG TABCR PO SCH ×2 (09:29→21:52)
[2017-09-05] MEDS: FLUTICASONE PROPIONATE NA SPR 16 GM BTL NAE SCH (09:30)
[2017-09-05 15:36] VITALS: BP 105/69; PULSE 73; TEMP 36.6; O2SAT 98
[2017-09-05] MEDS: LEVOFLOXACIN / D5W 750 MG in PREMIXED IN D5W 150 ML IV SCH (15:52)
--- NOTE | 2017-09-05 17:49 | Progress Note ---
Internal Med Progress Note Date of Service: Sep 05, 2017. Provider Documentation: SUBJECTIVE: Denies shortness of breath or pain OBJECTIVE: General Appearance: no distress Head: normocephalic, atraumatic Eyes: normal inspection, PERRL, sclerae normal ENT: hearing grossly normal Neck: supple, trachea midline, + adenopathy present Respiratory/Chest: chest non-tender, lungs clear, normal breath sounds, no respiratory distress, no accessory muscle use Cardiovascular: regular rate, rhythm Abdomen/GI: non tender, soft, no organomegaly Back: normal inspection Extremities/Musculoskelatal: normal inspection, no calf tenderness, no pedal edema Skin: Diffuse head-to-toe maculopapular rash Neurologic/Psych: alert, normal mood/affect, oriented x 3 ASSESSMENT & PLAN: patient with mono as outpatient, presents with weakness, generalized rash after being on Augmentin -monoscreen negative, EBV labs pending Extensive dependent consolidation with bronchial wall thickening and mosaic attenuation with patchy ground glass opacity is greater than what is expected for atelectasis may suggest aspiration, reactive airways disease, or viral bronchitis/bronchiolitis -is breathing on room air -continue with Levaquin, blood culture pending Chronic Sinusitis - start Flonase Generalized Weakness -patient encouraged to walk - PT/OT DVT ppx Heparin Subcutaneous Disposition: awaiting blood culture results, continue Levaquin for now for possible respiratory disorder but has been afebrile and if blood cultures negative then will stop antibiotics, patient encouraged to walk and participate with PT/OT for the generalized weakness, will continue to monitor the diffuse skin rashes, vitals stable and no obvious signs of sepsis or tachycardia, transferred from telemetry to medical [facility] Vital Signs: Date Time Temp Pulse Resp B/P (MAP) Pulse Ox O2 Delivery O2 Flow Rate FiO2 09/05/17 15:36 36.6 73 20 105/69 (81) 98 Room Air 09/05/17 15:35 Room Air 09/05/17 08:00 Room Air 09/05/17 07:27 36.7 78 19 107/70 (82) 96 Room Air 09/05/17 04:00 37.0 84 16 102/64 (77) 95 Room Air 09/05/17 04:00 Room Air 09/05/17 00:01 37.0 92 19 100/62 (75) 93 Room Air 09/05/17 00:00 Room Air 09/04/17 20:00 Room Air Lab Results: Results Past 24 Hours Test 09/04/17 22:17 09/05/17 00:25 09/05/17 06:47 Range/Units Lactic Acid Level 1.3 1.3 0.4-2.0 mmol/L Urine Color YELLOW Urine Appearance CLEAR CLEAR Urine pH 6.5 4.5-7.5 Urine Specific [place] > 1.045 1.000-1.030 Urine Protein 1+ NEG Urine Glucose (UA) NEG NEG Urine Ketones NEG NEG Urine Occult Blood TRACE NEG Urine Nitrite NEG NEG Urine Bilirubin NEG NEG Urine Urobilinogen NEG NEG Urine Leukocyte Esterase TRACE NEG Urine WBC (Auto) 5-10 0-5 /hpf Urine RBC (Auto) 0-4 0-4 /hpf Urine Hyaline Casts (Auto) 0 0-5 /lpf Urine Epithelial Cells (Auto) >30 0-5 /lpf Urine Bacteria (Auto) NEG NEG White Blood Count 8.75 4.8-10.8 K/uL Red Blood Count 3.51 4.2-5.4 M/uL Hemoglobin 10.8 12.0-16.0 g/dL Hematocrit 32.2 37-47 % Mean Corpuscular Volume 91.7 80-100 fL Mean Corpuscular Hemoglobin 30.8 25-34 pg Mean Corpuscular Hemoglobin Concent 33.5 32-36 g/dl RDW Standard Deviation 44.8 36.4-46.3 fL RDW Coefficient of Variation 13.4 11.5-14.5 % Platelet Count 151 130-400 K/uL Mean Platelet Volume 9.8 7.4-10.4 fL Sodium Level 139 136-145 mmol/L Potassium Level 3.5 3.5-5.1 mmol/L Chloride Level 108 98-107 mmol/L Carbon Dioxide Level 23 21-32 mmol/L Anion Gap 8.0 3-11 mmol/L Blood Urea Nitrogen 21 7-18 mg/dl Creatinine 0.70 0.60-1.20 mg/dl Est Creatinine Clear Calc Drug Dose 62.8 ml/min Estimated GFR () 97.5 Estimated GFR (Non- 84.2 BUN/Creatinine Ratio 29.3 10-20 Random Glucose 110 70-99 mg/dl Calcium Level 7.8 8.5-10.1 mg/dl Magnesium Level 2.1 1.8-2.4 mg/dl Procalcitonin 3.27 0-0.5 ng/ml Thyroid Stimulating Hormone (TSH) 3.230 0.300-4.500 uIu/ml
[2017-09-05 23:43] VITALS: BP 113/75; PULSE 84; TEMP 36.9; O2SAT 97
[2017-09-06] MEDS: HEPARIN SOD 5000 UNIT/0.5 ML CARP SQ SCH ×3 (06:02→21:21)
[2017-09-06 07:18] VITALS: BP 105/62; PULSE 65; TEMP 36.6; O2SAT 99
[2017-09-06] MEDS: GUAIFENESIN 600 MG TABCR PO SCH ×2 (07:31→21:20)
[2017-09-06 07:38] LABS: BASO % 0.2 %; BASO ABS # 0.01 K/uL (0-0.2); EOS % 3.6 %; EOS ABS # 0.16 K/uL (0-0.5); HEMATOCRIT 33.7 % (37-47); HEMOGLOBIN 11.3 g/dL (12.0-16.0); IG# 0.04 K/uL (0.00-0.02); LYMPH % 28.2 %; LYMPH ABS # 1.24 K/uL (1.2-3.4); MEAN CELL VOLUME 92.3 fL (80-100); MEAN CORPUSCULAR HGB CONC 33.5 g/dl (32-36); MONO % 9.8 %; MONO ABS # 0.43 K/uL (0.11-0.59); NEUT % 57.3 %; NEUT ABS # 2.52 K/uL (1.4-6.5); PLATELET COUNT 172 K/uL (130-400); RED CELL DISTRIBUTION WIDTH CV 13.4 % (11.5-14.5)
[2017-09-06 08:00] VITALS: O2SAT 99
[2017-09-06 08:02] LABS: CALCIUM 8.1 mg/dl (8.5-10.1); CREATININE 0.74 mg/dl (0.60-1.20); POTASSIUM 4.1 mmol/L (3.5-5.1)
[2017-09-06] MEDS: FLUTICASONE PROPIONATE NA SPR 16 GM BTL NAE SCH (08:07)
[2017-09-06] MEDS ORDERED: ASPIRIN 81 MG ECTAB PO SCH (09:00)
[2017-09-06] MEDS ORDERED: CALCIUM 600MG + VIT D 400 IU TAB PO SCH (09:00)
--- NOTE | 2017-09-06 10:43 | Clinical Documentation Query ---
GARCIA Haskins : CLINICAL DOCUMENTATION QUERY Patient is a 76 year old female admitted for evaluation of generalized weakness. H&P documentation included "sepsis" in the setting of leukocytosis (12.86) , hypotension (81/45 mmHg) and lactic acidemia 2.97 ng/ml). Repeat lactic acid elevated (2.3 ng/ml) as was procalcitonin (4.91 ng/ml). Initially treated with 2L IV NSS bolus, maintenance IVF, and IV Levaquin. This documentation has been altered to "no obvious signs of sepsis". Additionally, documentation includes the following: "Extensive dependent consolidation with bronchial wall thickening and mosaic attenuation with patchy ground glass opacity is greater than what is expected for atelectasis may suggest aspiration, reactive airways disease, or viral bronchitis". In your clinical opinion is this patient being managed for: ( ) Sepsis, POA, secondary to (possible) aspiration pneumonia, reactive airway disease, and/or viral bronchitis, resolved ( x ) Not Agree ( ) Other explanation of clinical findings (Please Explain) ( ) Unable to determine (Please Define) ( ) Need to Discuss The medical record reflects the following clinical findings, treatment, and risk factors. Clinical Indicators: As above Treatment: As above Risk Factors: [place], ?aspiration pneumonia, viral bronchitis Please clarify and document your clinical opinion in the progress notes and discharge summary. Terms such as "probable", "suspected", "likely", "questionable", "possible", or "still to be ruled out" are acceptable. IF IN AGREEMENT, YOU MUST DOCUMENT ABOVE DIAGNOSTIC STATEMENT IN DAILY PROGRESS NOTES AND DISCHARGE SUMMARY. This document is not part of the patient's record. Thank You, Jonh Mosher, GENE [phone]
[2017-09-06 15:45] VITALS: BP 106/60; PULSE 74; TEMP 36.7; O2SAT 96
--- NOTE | 2017-09-06 18:42 | Progress Note ---
Internal Med Progress Note Date of Service: Sep 06, 2017. Provider Documentation: SUBJECTIVE: Denies shortness of breath or pain OBJECTIVE: General Appearance: no distress Head: normocephalic, atraumatic Eyes: normal inspection, PERRL, sclerae normal ENT: hearing grossly normal Respiratory/Chest: chest non-tender, lungs clear, normal breath sounds, no respiratory distress, no accessory muscle use Cardiovascular: regular rate, rhythm Abdomen/GI: non tender, soft, no organomegaly Extremities/Musculoskelatal: normal inspection, no calf tenderness, no pedal edema Skin: Diffuse head-to-toe maculopapular rash Neurologic/Psych: alert, normal mood/affect, oriented x 3 ASSESSMENT & PLAN: patient with mono as outpatient, presents with weakness, generalized rash after being on Augmentin -monoscreen negative, EBV labs pending Extensive dependent consolidation with bronchial wall thickening and mosaic attenuation with patchy ground glass opacity is greater than what is expected for atelectasis may suggest aspiration, reactive airways disease, or viral bronchitis/bronchiolitis -patient was initially on Levaquin but antibiotics stopped on 09/06/17 as blood cultures is negative and since she has been breathing on room air without fever there is minimal likely garza or a pulmonary infection Leukocytosis has downtrended significantly and blood pressure stable after initial admission IV fluids - possibly patient may have had combination of viral illness and dehydration which is resolving with supportive care Chronic Sinusitis -Flonase Generalized Weakness - PT/OT recommended inpatient rehab DVT ppx Heparin Subcutaneous Vital Signs: Date Time Temp Pulse Resp B/P (MAP) Pulse Ox O2 Delivery O2 Flow Rate FiO2 09/06/17 16:14 Room Air 09/06/17 15:45 36.7 74 17 106/60 (75) 96 Room Air 09/06/17 08:00 99 Room Air 09/06/17 07:18 36.6 65 18 105/62 (76) 99 Room Air 09/06/17 00:40 Room Air 09/05/17 23:43 36.9 84 20 113/75 (88) 97 Room Air Lab Results: Results Past 24 Hours Test 09/06/17 07:16 Range/Units White Blood Count 4.40 4.8-10.8 K/uL Red Blood Count 3.65 4.2-5.4 M/uL Hemoglobin 11.3 12.0-16.0 g/dL Hematocrit 33.7 37-47 % Mean Corpuscular Volume 92.3 80-100 fL Mean Corpuscular Hemoglobin 31.0 25-34 pg Mean Corpuscular Hemoglobin Concent 33.5 32-36 g/dl Platelet Count 172 130-400 K/uL Mean Platelet Volume 10.0 7.4-10.4 fL Neutrophils (%) (Auto) 57.3 % Lymphocytes (%) (Auto) 28.2 % Monocytes (%) (Auto) 9.8 % Eosinophils (%) (Auto) 3.6 % Basophils (%) (Auto) 0.2 % Neutrophils # (Auto) 2.52 1.4-6.5 K/uL Lymphocytes # (Auto) 1.24 1.2-3.4 K/uL Monocytes # (Auto) 0.43 0.11-0.59 K/uL Eosinophils # (Auto) 0.16 0-0.5 K/uL Basophils # (Auto) 0.01 0-0.2 K/uL RDW Standard Deviation 45.0 36.4-46.3 fL RDW Coefficient of Variation 13.4 11.5-14.5 % Immature Granulocyte % (Auto) 0.9 % Immature Granulocyte # (Auto) 0.04 0.00-0.02 K/uL Sodium Level 142 136-145 mmol/L Potassium Level 4.1 3.5-5.1 mmol/L Chloride Level 110 98-107 mmol/L Carbon Dioxide Level 26 21-32 mmol/L Anion Gap 6.0 3-11 mmol/L Blood Urea Nitrogen 23 7-18 mg/dl Creatinine 0.74 0.60-1.20 mg/dl Est Creatinine Clear Calc Drug Dose 59.4 ml/min Estimated GFR () 91.2 Estimated GFR (Non- 78.7 BUN/Creatinine Ratio 31.2 10-20 Random Glucose 90 70-99 mg/dl Calcium Level 8.1 8.5-10.1 mg/dl
[2017-09-06 23:52] VITALS: BP 122/61; PULSE 68; TEMP 37; O2SAT 97
[2017-09-07] MEDS: HEPARIN SOD 5000 UNIT/0.5 ML CARP SQ SCH ×2 (06:15→13:14)
[2017-09-07] MEDS: FLUTICASONE PROPIONATE NA SPR 16 GM BTL NAE SCH (07:16)
[2017-09-07] MEDS: GUAIFENESIN 600 MG TABCR PO SCH (07:16)
[2017-09-07 07:46] VITALS: BP 121/72; PULSE 72; TEMP 36.7; O2SAT 96
[2017-09-07 08:00] VITALS: O2SAT 96
--- NOTE | 2017-09-07 10:55 | Progress Note ---
Internal Med Progress Note Date of Service: Sep 07, 2017. Provider Documentation: SUBJECTIVE: Denies shortness of breath or pain. Reports rash is imparting - less pink OBJECTIVE: General Appearance: no distress Head: normocephalic, atraumatic Eyes: normal inspection, PERRL, sclerae normal ENT: hearing grossly normal Respiratory/Chest: chest non-tender, lungs clear, normal breath sounds, no respiratory distress, no accessory muscle use Cardiovascular: regular rate, rhythm Abdomen/GI: non tender, soft, no organomegaly Extremities/Musculoskelatal: normal inspection, no calf tenderness, no pedal edema Skin: Diffuse head-to-toe maculopapular rash with some resolution Neurologic/Psych: alert, normal mood/affect, oriented x 3 ASSESSMENT & PLAN: patient with mono as outpatient, presents with weakness, generalized rash after being on Augmentin -monoscreen negative, EBV labs positive for mononucleosis exposure (EBV capsid Ag IgM index is less than 36 however elevated EBV nuclear antigen Ab 94, elevated EBV EA Restrict+Diffuse 19.6, elevated EBV capsid Ag IgG Ab 492) Chest X ray: Extensive dependent consolidation with bronchial wall thickening and mosaic attenuation with patchy ground glass opacity is greater than what is expected for atelectasis may suggest aspiration, reactive airways disease, or viral bronchitis/bronchiolitis -patient was initially on Levaquin but antibiotics stopped on 09/06/17 as blood cultures is negative and since she has been breathing on room air without fever there is minimal likelihood of a pulmonary infection such as a bacterial pneumonia; may have had viral bronchitis Leukocytosis has downtrended significantly and blood pressure stable after initial admission IV fluids - possibly patient may have had combination of viral illness and dehydration which is resolving with supportive care Chronic Sinusitis -Flonase Generalized Weakness - PT/OT recommended inpatient rehab Patient to be transferred to [facility] Vital Signs: Date Time Temp Pulse Resp B/P (MAP) Pulse Ox O2 Delivery O2 Flow Rate FiO2 09/07/17 08:00 96 Room Air 09/07/17 07:46 36.7 72 18 121/72 (88) 96 Room Air 09/07/17 00:10 Room Air 09/06/17 23:52 37.0 68 20 122/61 (81) 97 Room Air 09/06/17 20:01 Room Air 09/06/17 16:14 Room Air 09/06/17 15:45 36.7 74 17 106/60 (75) 96 Room Air
[2017-09-07 11:04] VITALS: BP 121/72; PULSE 72; TEMP 36.7; O2SAT 96
--- NOTE | 2017-09-07 11:04 | Discharge Instructions ---
Discharge Instructions Date of Service Sep 07, 2017. Admission Reason for Admission: Dehydration; Sinusitis Discharge Discharge Diagnosis / Problem: mononucleosis, diffuse skin rash, viral bronchitis Discharge Goals Goal(s): Improve function Activity Recommendations Activity Limitations: per Instructions/Follow-up section Shower/Bathe: no limitations . Instructions / Follow-Up Instructions / Follow-Up patient with mono as outpatient, presents with weakness, generalized rash after being on Augmentin -monoscreen negative, EBV labs positive for mononucleosis exposure (EBV capsid Ag IgM index is less than 36 however elevated EBV nuclear antigen Ab 94, elevated EBV EA Restrict+Diffuse 19.6, elevated EBV capsid Ag IgG Ab 492) Chest X ray: Extensive dependent consolidation with bronchial wall thickening and mosaic attenuation with patchy ground glass opacity is greater than what is expected for atelectasis may suggest aspiration, reactive airways disease, or viral bronchitis/bronchiolitis -patient was initially on Levaquin but antibiotics stopped on 09/06/17 as blood cultures is negative and since she has been breathing on room air without fever there is minimal likelihood of a pulmonary infection such as a bacterial pneumonia; may have had viral bronchitis Leukocytosis has downtrended significantly and blood pressure stable after initial admission IV fluids - possibly patient may have had combination of viral illness and dehydration which is resolving with supportive care Chronic Sinusitis -Flonase Generalized Weakness - PT/OT recommended inpatient rehab Patient to be transferred to [facility] Diet Patient's current hospital diet: Low Sodium Diet (2gm Na) Discharge Diet Recommended Diet: Regular Diet Pending Studies Studies pending at discharge: no Laboratory Results 09/06/17 07:16 Red Blood Count 3.65, Mean Corpuscular Volume 92.3, Mean Corpuscular Hemoglobin 31.0, Mean Corpuscular Hemoglobin Concent 33.5, Mean Platelet Volume 10.0, Neutrophils (%) (Auto) 57.3, Lymphocytes (%) (Auto) 28.2, Monocytes (%) (Auto) 9.8, Eosinophils (%) (Auto) 3.6, Basophils (%) (Auto) 0.2, Neutrophils # (Auto) 2.52, Lymphocytes # (Auto) 1.24, Monocytes # (Auto) 0.43, Eosinophils # (Auto) 0.16, Basophils # (Auto) 0.01 09/06/17 07:16 Test 09/04/17 12:01 09/04/17 12:10 09/04/17 12:20 09/04/17 12:25 Creatine Kinase MB Ratio (0-3.0) Prothrombin Time 11.1 SECONDS (9.0-12.0) Prothromb Time International Ratio 1.1 (0.9-1.1) D-Dimer 5940 ug/L FEU (0-500) Total Bilirubin 1.6 mg/dl (0.2-1) Direct Bilirubin 0.3 mg/dl (0-0.2) Aspartate Amino Transf (AST/SGOT) 17 U/L (15-37) Alanine Aminotransferase (ALT/SGPT) 22 U/L (12-78) Alkaline Phosphatase 57 U/L (45-117) Total Creatine Kinase 91 U/L (26-192) Creatine Kinase MB 0.8 ng/ml (0.5-3.6) Troponin I < 0.015 ng/ml (0-0.045) Total Protein 6.7 gm/dl (6.4-8.2) Albumin 2.4 gm/dl (3.4-5.0) Bedside Lactic Acid Venous 2.97 mmol/L (0.90-1.70) Bedside Hemoglobin 16.3 g/dl (12.0-16.0) Bedside Hematocrit 48 % (37-47) Bedside Sodium 136 mEq/L (135-144) Bedside Potassium 3.5 mEq/L (3.3-5.0) Bedside Chloride 102 mEq/L (101-112) Bedside Total CO2 22 mEq/l (24-31) Bedside Blood Urea Nitrogen 39 mg/dl (7-18) Bedside Creatinine 0.9 mg/dl (0.6-1.3) Bedside Glucose (other) 117 mg/dl (70-99) Bedside Ionized Calcium ([place]) 0.82 mmol/l (1.12-1.32) Test 09/04/17 16:56 09/05/17 00:25 09/05/17 06:47 09/06/17 07:16 Wesley-Marquez Virus Capsid Ag IgG Ab 492.00 U/ML E-B Virus Capsid Ag IgM Ab Index < 36.00 U/ML EBV Early Ag Ab (Restrict +Diffuse) 19.60 U/ML Wesley-Marquez Virus Nuclear Ag Ab 94.00 U/ML Monoscreen NEG (NEG) Urine Color YELLOW Urine Appearance CLEAR (CLEAR) Urine pH 6.5 (4.5-7.5) Urine Specific [place] > 1.045 (1.000-1.030) Urine Protein 1+ (NEG) Urine Glucose (UA) NEG (NEG) Urine Ketones NEG (NEG) Urine Occult Blood TRACE (NEG) Urine Nitrite NEG (NEG) Urine Bilirubin NEG (NEG) Urine Urobilinogen NEG (NEG) Urine Leukocyte Esterase TRACE (NEG) Urine WBC (Auto) 5-10 /hpf (0-5) Urine RBC (Auto) 0-4 /hpf (0-4) Urine Hyaline Casts (Auto) 0 /lpf (0-5) Urine Epithelial Cells (Auto) >30 /lpf (0-5) Urine Bacteria (Auto) NEG (NEG) Lactic Acid Level 1.3 mmol/L (0.4-2.0) Magnesium Level 2.1 mg/dl (1.8-2.4) Procalcitonin 3.27 ng/ml (0-0.5) Thyroid Stimulating Hormone (TSH) 3.230 uIu/ml (0.300-4.500) White Blood Count 4.40 K/uL (4.8-10.8) Red Blood Count 3.65 M/uL (4.2-5.4) Hemoglobin 11.3 g/dL (12.0-16.0) Hematocrit 33.7 % (37-47) Mean Corpuscular Volume 92.3 fL (80-100) Mean Corpuscular Hemoglobin 31.0 pg (25-34) Mean Corpuscular Hemoglobin Concent 33.5 g/dl (32-36) Platelet Count 172 K/uL (130-400) Mean Platelet Volume 10.0 fL (7.4-10.4) Neutrophils (%) (Auto) 57.3 % Lymphocytes (%) (Auto) 28.2 % Monocytes (%) (Auto) 9.8 % Eosinophils (%) (Auto) 3.6 % Basophils (%) (Auto) 0.2 % Neutrophils # (Auto) 2.52 K/uL (1.4-6.5) Lymphocytes # (Auto) 1.24 K/uL (1.2-3.4) Monocytes # (Auto) 0.43 K/uL (0.11-0.59) Eosinophils # (Auto) 0.16 K/uL (0-0.5) Basophils # (Auto) 0.01 K/uL (0-0.2) RDW Standard Deviation 45.0 fL (36.4-46.3) RDW Coefficient of Variation 13.4 % (11.5-14.5) Immature Granulocyte % (Auto) 0.9 % Immature Granulocyte # (Auto) 0.04 K/uL (0.00-0.02) Anion Gap 6.0 mmol/L (3-11) Est Creatinine Clear Calc Drug Dose 59.4 ml/min Estimated GFR () 91.2 Estimated GFR (Non- 78.7 BUN/Creatinine Ratio 31.2 (10-20) Calcium Level 8.1 mg/dl (8.5-10.1) Date/Time Source Procedure Growth Status 09/04/17 12:15 Blood Blood Culture - Preliminary NO GROWTH TO DATE. Resulted Medical Emergencies . Who to Call and When: Medical Emergencies: If at any time you feel your situation is an emergency, please call 911 immediately. . Non-Emergent Contact Non-Emergency issues call your: Primary Care Provider . . "Provider Documentation" section prepared by Homer Cabello. .
--- NOTE | 2017-09-07 11:05 | Discharge Summary ---
Discharge Summary Date of Service Sep 07, 2017. Discharge Summary Admission Date: Sep 04, 2017 at 14:43 Discharge Date: Sep 07, 2017 Discharge Disposition: Rehab ([facility]) Principal Diagnosis: mononucleosis, diffuse skin rash, viral bronchitis Medication Reconciliation Continued Medications: Aspirin (Aspirin Ec) 81 Mg Tab 81 MG PO 3XWK mon/wed/fri Calcium Citrate-Vitamin D (Citracal + D3 Maximum) 1 Tab Tab 1 TAB PO 3XWK mon/wed/fri Doxazosin Mesylate (Cardura) 2 Mg Tab 2 MG PO QPM, TAB Fluticasone Propionate (Nasal) (Flonase Allergy Relief) 50 Mcg/Act Spr 2 SPRAYS JASON DAILY hasn't started yet Probiotic Product (Probiotic) 1 Cap Cap 1 CAP PO QPM Discontinued Medications: Amoxicillin & Pot Clavulanate (Augmentin 875-125 mg) 1 Tab Tab 1 TAB PO BID 1 day left Admission Information HPI (per Admitting provider): Patient is a 76-year-old female with a PMH of HTN who presents with generalized weakness 5 days. Patient was seen by PCP a few weeks ago for chronic sinusitis and has been taking Augmentin. Was notified a week ago that she also tested positive for mono. Came to the ED last for chest pain as well as ongoing sinusitis. Had a CT face which showed chronic sinusitis and chest pain was determined as pleurisy. Patient was discharged from ED and noticed a diffuse red rash the next day. Also notes subjective fever and worsening generalized weakness (has been requiring assistance with all ambulation when she can walk independently at baseline). Continued to experience sore throat, postnasal drip as well as decreased appetite/poor fluid intake. Returned to the ED for further evaluation. Currently denies fever, chills, headache, lightheadedness, visual changes, chest pain, shortness of breath, abdominal pain , nausea, vomiting, bowel or bladder changes or LE swelling. Has completed Augmentin course with exception of 1 dose. Denies PCP is [facility]. In ED, was found to be hypotensive at 81/45 but BP improved with IVF to 103/69. Afebrile with leukocytosis of 12.86. D dimer elevated to 5940. Physical Exam (per Admitting): General Appearance: + mild distress Head: normocephalic, atraumatic Eyes: normal inspection, PERRL, sclerae normal ENT: hearing grossly normal, pharynx normal (dry mucous membranes), + pharyngeal erythema Neck: supple, trachea midline, + adenopathy present Respiratory/Chest: chest non-tender, lungs clear, normal breath sounds, no respiratory distress, no accessory muscle use Cardiovascular: regular rate, rhythm, no murmur, normal peripheral pulses Abdomen/GI: non tender, soft, no organomegaly Back: normal inspection Extremities/Musculoskelatal: normal inspection, no calf tenderness, normal capillary refill, no pedal edema Neurologic/Psych: no motor/sensory deficits, alert, normal mood/affect, oriented x 3, + abnormal gait (unsteady ) Skin: warm/dry, + pertinent finding (Diffuse head-to-toe maculopapular rash ) Hospital Course patient with mono as outpatient, presents with weakness, generalized rash after being on Augmentin -monoscreen negative, EBV labs positive for mononucleosis exposure (EBV capsid Ag IgM index is less than 36 however elevated EBV nuclear antigen Ab 94, elevated EBV EA Restrict+Diffuse 19.6, elevated EBV capsid Ag IgG Ab 492) Chest X ray: Extensive dependent consolidation with bronchial wall thickening and mosaic attenuation with patchy ground glass opacity is greater than what is expected for atelectasis may suggest aspiration, reactive airways disease, or viral bronchitis/bronchiolitis -patient was initially on Levaquin but antibiotics stopped on 09/06/17 as blood cultures is negative and since she has been breathing on room air without fever there is minimal likelihood of a pulmonary infection such as a bacterial pneumonia; may have had viral bronchitis Leukocytosis has downtrended significantly and blood pressure stable after initial admission IV fluids - possibly patient may have had combination of viral illness and dehydration which is resolving with supportive care Chronic Sinusitis -Flonase Generalized Weakness - PT/OT recommended inpatient rehab Patient to be transferred to [facility] Total time spent on discharge = 40 minutes This includes examination of the patient, discharge planning, medication reconciliation, and communication with other providers. Discharge Instructions see above
== END 2017-09-07 13:25 | DRG 202 ==
LOC: C.EDB 11:39 → C.2T 14:43 → ENRESERV 14:48 → C.MS2W 09-05 10:10
PROVIDERS: ADMIT Family Medicine; ATTEND Hospitalist
DX: J20.8 Acute bronchitis due to other specified organisms (principal); E87.2 Acidosis; B27.90 Infectious mononucleosis, unspecified without complication; I10 Essential (primary) hypertension; K58.9 Irritable bowel syndrome, unspecified; R21 Rash and other nonspecific skin eruption; D72.829 Elevated white blood cell count, unspecified; I95.9 Hypotension, unspecified; E86.0 Dehydration; J32.9 Chronic sinusitis, unspecified; R79.1 Abnormal coagulation profile; Z79.82 Long term (current) use of aspirin; Z82.49 Family history of ischemic heart disease and other diseases of the circulatory system; Z83.3 Family history of diabetes mellitus; Z80.9 Family history of malignant neoplasm, unspecified

== ENCOUNTER → 2017-10-02 | Outpatient (CLI) | payer OTHER ==
[~2017-10-02] MED LIST changes: -AMOX875T PO; +FLUT0.15 NAE; -FLUT27.53 NAE
[2017-10-02 10:38] LABS: HEMATOCRIT 39.7 % (37-47); HEMOGLOBIN 13.4 g/dL (12.0-16.0); MEAN CELL VOLUME 92.8 fL (80-100); MEAN CORPUSCULAR HEMOGLOBIN 31.3 pg (25-34); MEAN CORPUSCULAR HGB CONC 33.8 g/dl (32-36); MEAN PLATELET VOLUME 10.5 fL (7.4-10.4); PLATELET COUNT 162 K/uL (130-400); RED CELL DISTRIBUTION WIDTH SD 47.1 fL (36.4-46.3); WHITE BLOOD COUNT 5.61 K/uL (4.8-10.8)
[2017-10-02 10:46] LABS: ALT/SGPT 36 U/L (12-78); AST/SGOT 25 U/L (15-37); BLOOD UREA NITROGEN 19 mg/dl (7-18); CALCIUM 8.4 mg/dl (8.5-10.1); CARBON DIOXIDE 26 mmol/L (21-32); CREATININE 0.57 mg/dl (0.60-1.20); GLUCOSE 96 mg/dl (70-99); POTASSIUM 4.2 mmol/L (3.5-5.1); SODIUM 142 mmol/L (136-145)
[2017-10-02 10:49] LABS: ALKALINE PHOSPHATASE 55 U/L (45-117)
== END | disposition home or self-care (01) ==
LOC: C.LABSPEC 10:05
PROVIDERS: ATTEND Internal Medicine
DX: B27.90 Infectious mononucleosis, unspecified without complication (principal); J32.9 Chronic sinusitis, unspecified; R21 Rash and other nonspecific skin eruption

== ENCOUNTER 2019-10-11 17:36 | Inpatient (IN) ==
[2019-10-11] MEDS ORDERED: ACETAMINOPHEN 325 MG TAB PO STA (17:59)
[2019-10-11] MEDS ORDERED: SODIUM CHLORIDE 0.9% 1000ML 1,000 ML IV ONE (17:59)
--- NOTE | 2019-10-11 18:04 | Emergency Department Note ---
History of Present Illness General Chief complaint: Weakness Stated complaint: weakness loss of appetite Time Seen by Provider: 10/11/19 17:50 Source: patient Mode of arrival: ambulatory Limitations: no limitations History of Present Illness Patient comes in for evaluation of weakness since yesterday. She did feels diffusely weak. She also had a fever that started today. She has had some sinus symptoms. She has had no cough or shortness of breath. She has been at home for the last month with her has had no exposures to COVID. Denies dysuria hematuria. No abdominal pain no muscle aches. No rash or redness or swelling. No fall or trauma. No significant headache neck pain or stiffness. Home Medications Home Medications Medication Instructions Recorded Confirmed Type calcium citrate-vitamin D3 1 tab PO 3XWK #0 08/31/17 10/11/19 History [Calcium Citrate + D] PreserVision AREDS 1 tab PO BID #0 tab 12/18/17 10/11/19 History Lactobacillus acidophilus 1 tab PO 2XWK 10/11/19 10/11/19 History [Acidophilus] doxazosin 1 mg PO DAILY 10/11/19 10/11/19 History pantoprazole 20 mg PO QAM 10/11/19 10/11/19 History Allergies Allergy/AdvReac Type Severity Reaction Status Date / Time amoxicillin Allergy Severe RASH Verified 10/11/19 18:56 clavulanic acid Allergy Severe RASH Verified 10/11/19 18:56 Nitrate Analogues AdvReac Severe HEAD ACHE Verified 10/11/19 18:56 isosorbide AdvReac Unknown PAINFUL Verified 10/11/19 18:56 Past Med/Surg History Medical History Bronchitis Chronic back pain Depression Hypertension (Chronic) Irritable bowel syndrome (Chronic) Osteoarthritis Surgical History H/O eye surgery History of appendectomy (Chronic) History of cataract surgery 12/27/17. 2mg versed. no issues. History of colonoscopy History of laparoscopy Family History Other No significant family history Social History Preferred Language: Luxembourger Communication Ability: Effective Beliefs That Will Affect Care: None Current Living Situation: Spouse Feels Safe at Home: Yes Smoking Status: Never smoker Second Hand Exposure: No ; Hx Alcohol Use: No Hx Substance Use: No Review of Systems A total of 10 systems reviewed and were otherwise negative Physical Exam Vital Signs Vital Signs - 24 hr 10/11/19 17:39 10/11/19 18:20 10/11/19 18:30 Temperature 38.8 C H Temperature Source Oral Pulse Rate 105 H 89 89 Pulse Rate [Apical] Respiratory Rate 20 17 17 Respiratory Effort / Characteristics Respiratory Depth Blood Pressure 152/70 H 137/70 144/81 H Blood Pressure [Left Arm] Blood Pressure Mean 97 96 105 Blood Pressure Mean [Left Arm] Pulse Oximetry 96 97 97 Oxygen Delivery Method Room Air Room Air Room Air Oxygen Flow Rate Sepsis Recent Fever Within 48 Hours Yes Sepsis New/Unexplained Change in Mental Status No Sepsis Action Taken by Nursing No Action Required 10/11/19 19:00 10/11/19 19:37 10/11/19 19:38 Temperature Temperature Source Oral Pulse Rate 89 Pulse Rate [Apical] 90 Respiratory Rate 22 18 Respiratory Effort / Characteristics Non-Labored Respiratory Depth Normal Blood Pressure 137/75 Blood Pressure [Left Arm] 138/69 Blood Pressure Mean 93 Blood Pressure Mean [Left Arm] 92 Pulse Oximetry 94 Oxygen Delivery Method Room Air Room Air Oxygen Flow Rate 94 Sepsis Recent Fever Within 48 Hours Sepsis New/Unexplained Change in Mental Status Sepsis Action Taken by Nursing 10/11/19 19:39 Temperature 37.5 C Temperature Source Oral Pulse Rate Pulse Rate [Apical] Respiratory Rate Respiratory Effort / Characteristics Respiratory Depth Blood Pressure Blood Pressure [Left Arm] Blood Pressure Mean Blood Pressure Mean [Left Arm] Pulse Oximetry Oxygen Delivery Method Oxygen Flow Rate Sepsis Recent Fever Within 48 Hours Sepsis New/Unexplained Change in Mental Status Sepsis Action Taken by Nursing General: Well developed well nourished older female who appears in no acute distress, breathing comfortably on room air. Normal speech HEENT: Normal cephalic atraumatic. Pupils are equal round and reactive to light. Extraocular movements are intact. Oropharynx is pink with moist mucous membranes. No swelling of the mouth lips or tongue. Neck: Supple with a midline trachea. No meningeal signs or stiffness, no JVD or bruits. No Stridor. Chest: Clear to auscultation bilaterally. No wheezes or rhonchi. No increased work of breathing. Heart: Regular rate and rhythm without murmurs or gallops. Abdomen: Soft nontender, nondistended without rebound guarding or rigidity. Extremities: No cyanosis clubbing or edema. No calf tenderness or assymetry Spine/Back. Non tender to palpation. No CVA tenderness Skin: Good turgor without rashes. Neurologic exam: Cranial nerves two through 12 are intact. Motor and sensation are intact and symmetrical throughout. No tremor. Course Administered Medications Discontinued Medications Acetaminophen (Tylenol) 650 mg PO NOW STA Stop: 10/11/19 18:00 Last Admin: 10/11/19 18:17 Dose: 650 mg Documented by: [id number] Sodium Chloride (Nss 1000ml) 1,000 mls @ 999 mls/hr IV .[id number] ONE Stop: 10/11/19 18:59 Last Infusion: 10/11/19 19:00 Dose: 0 mls/hr Documented by: [id number] Admin: 10/11/19 18:17 Dose: 999 mls/hr Documented by: [id number] Cefepime HCl (Maxipime) 2,000 mg in 20 mls @ 5 mls/min IV NOW STA Stop: 10/11/19 18:48 Last Admin: 10/11/19 19:44 Dose: 5 mls/min Documented by: [id number] Doxycycline Hyclate 100 mg/ (Dextrose) 110 mls @ 50 mls/hr IV NOW STA Stop: 10/11/19 22:11 Last Admin: 10/11/19 21:17 Dose: 50 mls/hr Documented by: [id number] Medical Decision Making Differential Diagnosis Differential diagnosis includes but is not limited to: Sepsis, pneumonia, UTI, viral illness, COVID, cardiac disease, electrolyte or metabolic abnormalities, mononucleosis Medical Records Attestation: I reviewed the patient's medical records. Home Medications Current Medication List: was personally reviewed by me Laboratory Data Attestation: I reviewed the patient's lab results. Result diagrams: 10/11/19 18:00 10/11/19 18:00 Lab Results 10/11/19 10/11/19 10/11/19 Range/Units 18:00 18:00 18:00 WBC 2.44 L (4.8-10.8) K/uL RBC 4.39 (4.2-5.4) M/uL Hgb 13.8 (12.0-16.0) g/dL Hct 41.2 (37-47) % MCV 93.8 (80-100) fL MCH 31.4 (25-34) pg MCHC 33.5 (32-36) g/dL RDW Std Deviation 44.5 (36.4-46.3) fL RDW Coeff of Heriberto 13.0 (11.5-14.5) % Plt Count 110 L (130-400) K/uL MPV 10.0 (7.4-10.4) fL Immature Gran % (Auto) 0.0 % Neut % (Auto) 78.3 % Lymph % (Auto) 13.9 % [place] % (Auto) 7.4 % Eos % (Auto) 0.0 % Baso % (Auto) 0.4 % Immature Gran # (Auto) 0.00 (0.00-0.02) K/uL Neut # (Auto) 1.91 (1.4-6.5) K/uL Lymph # (Auto) 0.34 L (1.2-3.4) K/uL [place] # (Auto) 0.18 (0.11-0.59) K/uL Eos # (Auto) 0.00 (0-0.5) K/uL Baso # (Auto) 0.01 (0-0.2) K/uL PT 11.4 (9.0-12.0) Seconds INR 1.1 (0.9-1.1) APTT 25.0 (21.0-31.0) Seconds PTT Ratio 0.9 Sodium (136-145) mmol/L Potassium (3.5-5.1) mmol/L Chloride (98-107) mmol/L Carbon Dioxide (21-32) mmol/L Anion Gap (3-11) BUN (7-18) mg/dl Creatinine (0.6-1.2) mg/dl Est Cr Clr Drug Dosing ml/min Est GFR ( Amer) Est GFR (Non-Af Amer) BUN/Creatinine Ratio (10-20) Glucose (70-99) mg/dl Lactate (0.4-2.0) mmol/L Calcium (8.5-10.1) mg/dl Magnesium (1.8-2.4) mg/dl Total Bilirubin (0.2-1) mg/dl AST (15-37) U/L ALT (12-78) U/L Alkaline Phosphatase (45-117) U/L Troponin I (0-0.045) ng/ml Total Protein (6.4-8.2) gm/dl Albumin (3.4-5.0) gm/dl Globulin (2.5-4.0) gm/dl Albumin/Globulin Ratio (0.9-2) Procalcitonin 0.26 (0-0.5) ng/ml Adenovirus (PCR) (NotDetected) Anaplasma Smear See Comment B. pertussis DNA (PCR) (NotDetected) B.parapertussis DNA PCR (NotDetected) Lyme Disease IgG Ab (Negative) Lyme Disease IgM Ab (Negative) C. pneumoniae DNA (PCR) (NotDetected) Coronavirus OC43 (PCR) (NotDetected) Coronavirus HKU1 (PCR) (NotDetected) Coronavirus 229E (PCR) (NotDetected) COVID-19 PCR (Negative) Coronavirus NL63 (PCR) (NotDetected) Human Metapneumovir PCR (NotDetected) Influenza Type A (PCR) (NotDetected) Influenza Type B (PCR) (NotDetected) M. pneumoniae (PCR) (NotDetected) Parainfluenza 1 (PCR) (NotDetected) Parainfluenza 2 (PCR) (NotDetected) Parainfluenza 3 (PCR) (NotDetected) Parainfluenza 4 (PCR) (NotDetected) RSV (PCR) (NotDetected) Entero/Rhino (PCR) (NotDetected) SARS-CoV-2 RNA (RT-PCR) 10/11/19 10/11/19 10/11/19 Range/Units 18:00 18:00 18:00 WBC (4.8-10.8) K/uL RBC (4.2-5.4) M/uL Hgb (12.0-16.0) g/dL Hct (37-47) % MCV (80-100) fL MCH (25-34) pg MCHC (32-36) g/dL RDW Std Deviation (36.4-46.3) fL RDW Coeff of Heriberto (11.5-14.5) % Plt Count (130-400) K/uL MPV (7.4-10.4) fL Immature Gran % (Auto) % Neut % (Auto) % Lymph % (Auto) % [place] % (Auto) % Eos % (Auto) % Baso % (Auto) % Immature Gran # (Auto) (0.00-0.02) K/uL Neut # (Auto) (1.4-6.5) K/uL Lymph # (Auto) (1.2-3.4) K/uL [place] # (Auto) (0.11-0.59) K/uL Eos # (Auto) (0-0.5) K/uL Baso # (Auto) (0-0.2) K/uL PT (9.0-12.0) Seconds INR (0.9-1.1) APTT (21.0-31.0) Seconds PTT Ratio Sodium 138 (136-145) mmol/L Potassium 3.8 (3.5-5.1) mmol/L Chloride 106 (98-107) mmol/L Carbon Dioxide 24 (21-32) mmol/L Anion Gap 8.0 (3-11) BUN 17 (7-18) mg/dl Creatinine 0.73 (0.6-1.2) mg/dl Est Cr Clr Drug Dosing 58.2 ml/min Est GFR ( Amer) 90.8 Est GFR (Non-Af Amer) 78.3 BUN/Creatinine Ratio 23.4 H (10-20) Glucose 126 H (70-99) mg/dl Lactate 1.4 (0.4-2.0) mmol/L Calcium 8.3 L (8.5-10.1) mg/dl Magnesium 2.0 (1.8-2.4) mg/dl Total Bilirubin 1.2 H (0.2-1) mg/dl AST 17 (15-37) U/L ALT 19 (12-78) U/L Alkaline Phosphatase 65 (45-117) U/L Troponin I < 0.015 (0-0.045) ng/ml Total Protein 7.2 (6.4-8.2) gm/dl Albumin 3.5 (3.4-5.0) gm/dl Globulin 3.7 (2.5-4.0) gm/dl Albumin/Globulin Ratio 0.9 (0.9-2) Procalcitonin (0-0.5) ng/ml Adenovirus (PCR) (NotDetected) Anaplasma Smear B. pertussis DNA (PCR) (NotDetected) B.parapertussis DNA PCR (NotDetected) Lyme Disease IgG Ab Positive A (Negative) Lyme Disease IgM Ab Negative (Negative) C. pneumoniae DNA (PCR) (NotDetected) Coronavirus OC43 (PCR) (NotDetected) Coronavirus HKU1 (PCR) (NotDetected) Coronavirus 229E (PCR) (NotDetected) COVID-19 PCR (Negative) Coronavirus NL63 (PCR) (NotDetected) Human Metapneumovir PCR (NotDetected) Influenza Type A (PCR) (NotDetected) Influenza Type B (PCR) (NotDetected) M. pneumoniae (PCR) (NotDetected) Parainfluenza 1 (PCR) (NotDetected) Parainfluenza 2 (PCR) (NotDetected) Parainfluenza 3 (PCR) (NotDetected) Parainfluenza 4 (PCR) (NotDetected) RSV (PCR) (NotDetected) Entero/Rhino (PCR) (NotDetected) SARS-CoV-2 RNA (RT-PCR) 10/11/19 10/11/19 10/11/19 Range/Units 19:40 19:40 19:40 WBC (4.8-10.8) K/uL RBC (4.2-5.4) M/uL Hgb (12.0-16.0) g/dL Hct (37-47) % MCV (80-100) fL MCH (25-34) pg MCHC (32-36) g/dL RDW Std Deviation (36.4-46.3) fL RDW Coeff of Heriberto (11.5-14.5) % Plt Count (130-400) K/uL MPV (7.4-10.4) fL Immature Gran % (Auto) % Neut % (Auto) % Lymph % (Auto) % [place] % (Auto) % Eos % (Auto) % Baso % (Auto) % Immature Gran # (Auto) (0.00-0.02) K/uL Neut # (Auto) (1.4-6.5) K/uL Lymph # (Auto) (1.2-3.4) K/uL [place] # (Auto) (0.11-0.59) K/uL Eos # (Auto) (0-0.5) K/uL Baso # (Auto) (0-0.2) K/uL PT (9.0-12.0) Seconds INR (0.9-1.1) APTT (21.0-31.0) Seconds PTT Ratio Sodium (136-145) mmol/L Potassium (3.5-5.1) mmol/L Chloride (98-107) mmol/L Carbon Dioxide (21-32) mmol/L Anion Gap (3-11) BUN (7-18) mg/dl Creatinine (0.6-1.2) mg/dl Est Cr Clr Drug Dosing ml/min Est GFR ( Amer) Est GFR (Non-Af Amer) BUN/Creatinine Ratio (10-20) Glucose (70-99) mg/dl Lactate (0.4-2.0) mmol/L Calcium (8.5-10.1) mg/dl Magnesium (1.8-2.4) mg/dl Total Bilirubin (0.2-1) mg/dl AST (15-37) U/L ALT (12-78) U/L Alkaline Phosphatase (45-117) U/L Troponin I (0-0.045) ng/ml Total Protein (6.4-8.2) gm/dl Albumin (3.4-5.0) gm/dl Globulin (2.5-4.0) gm/dl Albumin/Globulin Ratio (0.9-2) Procalcitonin (0-0.5) ng/ml Adenovirus (PCR) Not Detected (NotDetected) Anaplasma Smear B. pertussis DNA (PCR) Not Detected (NotDetected) B.parapertussis DNA PCR Not Detected (NotDetected) Lyme Disease IgG Ab (Negative) Lyme Disease IgM Ab (Negative) C. pneumoniae DNA (PCR) Not Detected (NotDetected) Coronavirus OC43 (PCR) Not Detected (NotDetected) Coronavirus HKU1 (PCR) Not Detected (NotDetected) Coronavirus 229E (PCR) Not Detected (NotDetected) COVID-19 PCR (Negative) Coronavirus NL63 (PCR) Not Detected (NotDetected) Human Metapneumovir PCR Not Detected (NotDetected) Influenza Type A (PCR) Not Detected Cancelled (NotDetected) Influenza Type B (PCR) Not Detected Cancelled (NotDetected) M. pneumoniae (PCR) Not Detected (NotDetected) Parainfluenza 1 (PCR) Not Detected (NotDetected) Parainfluenza 2 (PCR) Not Detected (NotDetected) Parainfluenza 3 (PCR) Not Detected (NotDetected) Parainfluenza 4 (PCR) Not Detected (NotDetected) RSV (PCR) Not Detected (NotDetected) Entero/Rhino (PCR) Not Detected (NotDetected) SARS-CoV-2 RNA (RT-PCR) Cancelled 10/11/19 Range/Units 19:40 WBC (4.8-10.8) K/uL RBC (4.2-5.4) M/uL Hgb (12.0-16.0) g/dL Hct (37-47) % MCV (80-100) fL MCH (25-34) pg MCHC (32-36) g/dL RDW Std Deviation (36.4-46.3) fL RDW Coeff of Heriberto (11.5-14.5) % Plt Count (130-400) K/uL MPV (7.4-10.4) fL Immature Gran % (Auto) % Neut % (Auto) % Lymph % (Auto) % [place] % (Auto) % Eos % (Auto) % Baso % (Auto) % Immature Gran # (Auto) (0.00-0.02) K/uL Neut # (Auto) (1.4-6.5) K/uL Lymph # (Auto) (1.2-3.4) K/uL [place] # (Auto) (0.11-0.59) K/uL Eos # (Auto) (0-0.5) K/uL Baso # (Auto) (0-0.2) K/uL PT (9.0-12.0) Seconds INR (0.9-1.1) APTT (21.0-31.0) Seconds PTT Ratio Sodium (136-145) mmol/L Potassium (3.5-5.1) mmol/L Chloride (98-107) mmol/L Carbon Dioxide (21-32) mmol/L Anion Gap (3-11) BUN (7-18) mg/dl Creatinine (0.6-1.2) mg/dl Est Cr Clr Drug Dosing ml/min Est GFR ( Amer) Est GFR (Non-Af Amer) BUN/Creatinine Ratio (10-20) Glucose (70-99) mg/dl Lactate (0.4-2.0) mmol/L Calcium (8.5-10.1) mg/dl Magnesium (1.8-2.4) mg/dl Total Bilirubin (0.2-1) mg/dl AST (15-37) U/L ALT (12-78) U/L Alkaline Phosphatase (45-117) U/L Troponin I (0-0.045) ng/ml Total Protein (6.4-8.2) gm/dl Albumin (3.4-5.0) gm/dl Globulin (2.5-4.0) gm/dl Albumin/Globulin Ratio (0.9-2) Procalcitonin (0-0.5) ng/ml Adenovirus (PCR) (NotDetected) Anaplasma Smear B. pertussis DNA (PCR) (NotDetected) B.parapertussis DNA PCR (NotDetected) Lyme Disease IgG Ab (Negative) Lyme Disease IgM Ab (Negative) C. pneumoniae DNA (PCR) (NotDetected) Coronavirus OC43 (PCR) (NotDetected) Coronavirus HKU1 (PCR) (NotDetected) Coronavirus 229E (PCR) (NotDetected) COVID-19 PCR NEGATIVE (Negative) Coronavirus NL63 (PCR) (NotDetected) Human Metapneumovir PCR (NotDetected) Influenza Type A (PCR) (NotDetected) Influenza Type B (PCR) (NotDetected) M. pneumoniae (PCR) (NotDetected) Parainfluenza 1 (PCR) (NotDetected) Parainfluenza 2 (PCR) (NotDetected) Parainfluenza 3 (PCR) (NotDetected) Parainfluenza 4 (PCR) (NotDetected) RSV (PCR) (NotDetected) Entero/Rhino (PCR) (NotDetected) SARS-CoV-2 RNA (RT-PCR) Imaging Data Attestation: I personally reviewed and interpreted this imaging study as follows: My Impression: Chest x-ray: No acute infiltrate, failure, pneumothorax seen ECG Data Attestation: I personally reviewed and interpreted this ECG as follows: Indication: + weakness Rate (beats per minute): 85 Rhythm: + normal sinus ECG Intervals/blocks: + Normal QRS, + Normal QT and + Normal SC ECG [place]: + Normal ECG ST segments: + Normal ST segments ECG Findings: no PACs and no PVCs Comparison ECG Date: from (09/04/17) Additional Comments: PreMature beats are now absent Blood Pressure Blood Pressure Findings: Elevated blood pressure Blood Pressure Disposition: elevated BP felt to be situational MDM Narrative This patient comes in with weakness and fever. She has a normal neurologic exam is diffusely weak I do not suspect stroke. She does have a fever and thus the concern is for infection. I did a full sepsis work-up. This included a chest x-ray and urinalysis and culture. She denies that she has any COVID exposure and does not have classic COVID type symptoms. White count was actually low she does tend to run low but was on the lower side going more along with a viral type illness. She also had a low platelet count at just above 100. She denies any tick bites and that she does not spend much time outside and does not think she has any tick borne illness. I did add labs looking for anaplasmosis and Lyme. She has no significant electrolyte or metabolic abnormalities. Chest x-r ay does not show pneumonia or pneumonia or CHF. EKG was unremarkable. Her lactic acid was not elevated which would go against sepsis. UA was pending however she has no urinary symptoms so far. I did give her cefepime 2 g IV for broad-spectrum coverage. I did discuss COVID testing with the admitting team. They feel that we should do COVID testing and in light of this I did order COVID testing as well as a bio fire. She will be seen by the [facility] hospitalist. Continous court recording monitor note: Due to the patient's weakness and concern for sepsis, an order was placed for cardiac monitoring and she was placed on a continuous court recording monitor. She was noted to be in normal sinus rhythm with a rate of 89. Impression & Plan Weakness, Sepsis, Thrombocytopenia, Dehydration Discharge Plan Visit Data *Final* Discharge Date/Time: 10/11/19 21:52 Chief Complaint: Weakness Stated Complaint: weakness loss of appetite ED Provider: Jonh Olson Discharge Problem: Weakness, Sepsis, Thrombocytopenia, Dehydration Patient Disposition: Admitted As Inpatient Discharge Instructions Interventions: ED Discharge Assessment Last Done: 10/11/19 21:52 Discharge Problem: Sepsis Qualifiers: Sepsis type: sepsis due to unspecified organism Sepsis acute organ dysfunction status: without acute organ dysfunction Qualified Code(s): A41.9 - Sepsis, unspecified organism
--- NOTE | 2019-10-11 18:14 | XRay Report ---
XR chest 1V portable CLINICAL HISTORY: SEPSIS dyspnea COMPARISON STUDY: 09/04/2017 FINDINGS: The bones soft tissues and hemidiaphragms are normal. The cardiomediastinal silhouette is n ormal. The lungs are clear. The pulmonary vasculature is normal. IMPRESSION: Negative chest. ACT 112: Negative or not required by law. The above report was generated using voice recognition software. It may contain grammatical, syntax or spelling errors. Electronically signed by: Kike Lawson M.D. 10/11/2019 6:13 PM
[2019-10-11 18:17] LABS: Basophils # (auto) 0.01 K/uL (0-0.2); Basophils % (auto) 0.4 %; Hematocrit (blood only) 41.2 % (37-47); Hemoglobin 13.8 g/dL (12.0-16.0); Lymphocytes # (auto) 0.34 K/uL (1.2-3.4); Lymphocytes % (auto) 13.9 %; Mean Corpuscular Hemoglobin 31.4 pg (25-34); Mean Corpuscular Hgb Conc 33.5 g/dL (32-36); Mean Corpuscular Volume 93.8 fL (80-100); Monocytes # (auto) 0.18 K/uL (0.11-0.59); Monocytes % (auto) 7.4 %; Neutrophils # (auto) 1.91 K/uL (1.4-6.5); Neutrophils % (auto) 78.3 %; Platelet Count 110 K/uL (130-400); RDW Standard Deviation 44.5 fL (36.4-46.3); Red Blood Count 4.39 M/uL (4.2-5.4); White Blood Count 2.44 K/uL (4.8-10.8)
[2019-10-11 18:35] LABS: Alanine Aminotransferase 19 U/L (12-78); Albumin Level 3.5 gm/dl (3.4-5.0); Aspartate Aminotransferase 17 U/L (15-37); BUN Creatinine Ratio 23.4 (10-20); Blood Urea Nitrogen 17 mg/dl (7-18); Calcium 8.3 mg/dl (8.5-10.1); Carbon Dioxide 24 mmol/L (21-32); Chloride 106 mmol/L (98-107); Creatinine Clr Calc Pharmacy 58.2 ml/min; Est GFR (African American) 90.8; Est GFR (Non-African American) 78.3; Glucose 126 mg/dl (70-99); INR 1.1 (0.9-1.1); Partial Thromboplastin Ratio 0.9; Potassium 3.8 mmol/L (3.5-5.1); Prothrombin Time 11.4 Seconds (9.0-12.0); Sodium 138 mmol/L (136-145)
[2019-10-11 18:40] LABS: Albumin Globulin Ratio 0.9 (0.9-2); Alkaline Phosphatase 65 U/L (45-117); Bilirubin,Total 1.2 mg/dl (0.2-1); Globulin 3.7 gm/dl (2.5-4.0); Total Protein 7.2 gm/dl (6.4-8.2); Troponin I < 0.015 ng/ml (0-0.045)
[2019-10-11] MEDS ORDERED: CEFEPIME 2,000 MG/20 ML VIAL IV STA (18:45)
[2019-10-11 19:30] LABS: Lyme Ab IgM w/WB Rflx Negative (Negative)
[2019-10-11 19:52] LABS: Lyme Ab IgG w/WB Rflx Positive (Negative)
[2019-10-11] MEDS ORDERED: DOXYCYCLINE HYCLATE 100 MG CAP PO STA (19:56)
--- NOTE | 2019-10-11 19:56 | History & Physical Report ---
Date of Service October 11, 2019 Assessment & Plan (1) Fever: With abnormal Lyme screen, abnormal LFTs, thrombocytopenia Possible tickborne illness Hypertension, slight elevated Hyperglycemia rule out DM OBS GMF Follow final Lyme screen and tick panel results. Doxycycline for now. ID consult RE fever with abnormal Lyme screen Check hemoglobin A1c DVT prophylaxis. SCDs RE thrombocytopenia Full code Text document was generated using Wire voice recognition software. It may contain grammatical or spelling errors. Kindly contact undersigned for clarification of any documentation item in question. History of Present Illness Chief Complaint: Generalized weakness, fever Primary Care Provider: Kirit Simmons History obtained from patient and records. Medical history significant for hypertension, irritable bowel syndrome as per records Last confinement September 2017 for infectious mononucleosis. Patient noted generalized weakness since yesterday. Low-grade fever today. Clear sinus drainage. No chest pain, no S OB, no cough. No abdominal pain, dysuria, diarrhea. No known sick contacts or recent out-of-town travel. No recollection of recent tick bites although there are ticks where she resides. At the ER, patient received Cefepime. MEDICAL HISTORY: As above. SURGICAL HISTORY: Appendectomy. Hysterectomy. Eye surgery FAMILY HISTORY: hypertension. Heart disease, diabetes, stroke PERSONAL SOCIAL HISTORY: Nonsmoker. 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 Allergies Allergy/AdvReac Type Severity Reaction Status Date / Time amoxicillin Allergy Severe RASH Verified 10/11/19 18:56 clavulanic acid Allergy Severe RASH Verified 10/11/19 18:56 Nitrate Analogues AdvReac Severe HEAD ACHE Verified 10/11/19 18:56 isosorbide AdvReac Unknown PAINFUL Verified 10/11/19 18:56 Home Medications Home Medications Medication Instructions Recorded Confirmed Type calcium citrate-vitamin D3 1 tab PO 3XWK #0 08/31/17 10/11/19 History [Calcium Citrate + D] PreserVision AREDS 1 tab PO BID #0 tab 12/18/17 10/11/19 History Lactobacillus acidophilus 1 tab PO 2XWK 10/11/19 10/11/19 History [Acidophilus] doxazosin 1 mg PO DAILY 10/11/19 10/11/19 History pantoprazole 20 mg PO QAM 10/11/19 10/11/19 History Past Med/Surg History Medical History Bronchitis Chronic back pain Depression Hypertension (Chronic) Irritable bowel syndrome (Chronic) Osteoarthritis Surgical History H/O eye surgery History of appendectomy (Chronic) History of cataract surgery 12/27/17. 2mg versed. no issues. 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: No Beliefs That Will Affect Care: None Current Living Situation: Spouse Other Information That Helps Us Care for You: No Feels Safe at Home: Yes Safety Concerns: Feels Safe At This Time Smoking Status: Never smoker Do You Dip or Chew Tobacco: No ; Second Hand Exposure: No ; Tobacco Cessation Education Requested by Patient: No Hx Alcohol Use: No Hx Substance Use: No Review of Systems Review of Systems: As per HPI, all 10 systems reviewed, all other ROS negative Physical Exam Physical Exam: GENERAL: Comfortable, slightly anxious, pleasant, no respiratory distress SKIN: Normal color, warm HEENT: Bespectacled, [place] palpebral conjunctivae, no ptosis, dry buccal mucosa NECK : Supple, no tenderness CHEST : CTA, no tenderness HEART : RRR, no obvious murmurs ABDOMEN: Some distention, nontender EXTREMITIES : No LE swelling/tenderness, no other conspicuous deformities noted NEUROLOGIC : Coherent, no facial asymmetry, no other gross focality Results & Data Results & Data ([facility]) Vital Signs (Past 12 Hours) Vital Signs Temp Pulse Pulse Resp BP BP Pulse Ox 10/11/19 19:39 37.5 C 10/11/19 19:37 90 18 138/69 94 10/11/19 19:00 89 22 137/75 10/11/19 18:30 89 17 144/81 H 97 10/11/19 18:20 89 17 137/70 97 10/11/19 17:39 38.8 C H 105 H 20 152/70 H 96 Laboratory Results Laboratory Results WBC 2.44 K/uL (4.8-10.8) L 10/11/19 18:00 RBC 4.39 M/uL (4.2-5.4) 10/11/19 18:00 Hgb 13.8 g/dL (12.0-16.0) 10/11/19 18:00 Hct 41.2 % (37-47) 10/11/19 18:00 MCV 93.8 fL (80-100) 10/11/19 18:00 MCH 31.4 pg (25-34) 10/11/19 18:00 MCHC 33.5 g/dL (32-36) 10/11/19 18:00 RDW Std Deviation 44.5 fL (36.4-46.3) 10/11/19 18:00 RDW Coeff of Heriberto 13.0 % (11.5-14.5) 10/11/19 18:00 Plt Count 110 K/uL (130-400) L 10/11/19 18:00 MPV 10.0 fL (7.4-10.4) 10/11/19 18:00 Immature Gran % (Auto) 0.0 % 10/11/19 18:00 Neut % (Auto) 78.3 % 10/11/19 18:00 Lymph % (Auto) 13.9 % 10/11/19 18:00 [place] % (Auto) 7.4 % 10/11/19 18:00 Eos % (Auto) 0.0 % 10/11/19 18:00 Baso % (Auto) 0.4 % 10/11/19 18:00 Immature Gran # (Auto) 0.00 K/uL (0.00-0.02) 10/11/19 18:00 Neut # (Auto) 1.91 K/uL (1.4-6.5) 10/11/19 18:00 Lymph # (Auto) 0.34 K/uL (1.2-3.4) L 10/11/19 18:00 [place] # (Auto) 0.18 K/uL (0.11-0.59) 10/11/19 18:00 Eos # (Auto) 0.00 K/uL (0-0.5) 10/11/19 18:00 Baso # (Auto) 0.01 K/uL (0-0.2) 10/11/19 18:00 PT 11.4 Seconds (9.0-12.0) 10/11/19 18:00 INR 1.1 (0.9-1.1) 10/11/19 18:00 APTT 25.0 Seconds (21.0-31.0) 10/11/19 18:00 PTT Ratio 0.9 10/11/19 18:00 Sodium 138 mmol/L (136-145) 10/11/19 18:00 Potassium 3.8 mmol/L (3.5-5.1) 10/11/19 18:00 Chloride 106 mmol/L (98-107) 10/11/19 18:00 Carbon Dioxide 24 mmol/L (21-32) 10/11/19 18:00 Anion Gap 8.0 (3-11) 10/11/19 18:00 BUN 17 mg/dl (7-18) 10/11/19 18:00 Creatinine 0.73 mg/dl (0.6-1.2) 10/11/19 18:00 Est Cr Clr Drug Dosing 58.2 ml/min 10/11/19 18:00 Est GFR ( Amer) 90.8 10/11/19 18:00 Est GFR (Non-Af Amer) 78.3 10/11/19 18:00 BUN/Creatinine Ratio 23.4 (10-20) H 10/11/19 18:00 Glucose 126 mg/dl (70-99) H 10/11/19 18:00 Lactate 1.4 mmol/L (0.4-2.0) 10/11/19 18:00 Calcium 8.3 mg/dl (8.5-10.1) L 10/11/19 18:00 Magnesium 2.0 mg/dl (1.8-2.4) 10/11/19 18:00 Total Bilirubin 1.2 mg/dl (0.2-1) H 10/11/19 18:00 AST 17 U/L (15-37) 10/11/19 18:00 ALT 19 U/L (12-78) 10/11/19 18:00 Alkaline Phosphatase 65 U/L (45-117) 10/11/19 18:00 Troponin I < 0.015 ng/ml (0-0.045) 10/11/19 18:00 Total Protein 7.2 gm/dl (6.4-8.2) 10/11/19 18:00 Albumin 3.5 gm/dl (3.4-5.0) 10/11/19 18:00 Globulin 3.7 gm/dl (2.5-4.0) 10/11/19 18:00 Albumin/Globulin Ratio 0.9 (0.9-2) 10/11/19 18:00 Procalcitonin 0.26 ng/ml (0-0.5) 10/11/19 18:00 Anaplasma Smear See Comment 10/11/19 18:00 Lyme Disease IgG Ab Positive (Negative) A 10/11/19 18:00 Lyme Disease IgM Ab Negative (Negative) 10/11/19 18:00 Influenza Type A (PCR) Cancelled 10/11/19 19:40 Influenza Type B (PCR) Cancelled 10/11/19 19:40 SARS-CoV-2 RNA (RT-PCR) Cancelled 10/11/19 19:40 Diagnostic Findings Chest x-ray : Negative chest. EKG as per my interpretation : Rate 85, NSR, LAD, LAFB, no ischemia
[2019-10-11] MEDS ORDERED: DOXYCYCLINE HYCLATE 100 MG in DEXTROSE 5% 100 ML IV STA (20:00)
[2019-10-11 21:12] LABS: Adenovirus PCR Not Detected (NotDetected); Bordetella parapertussis PCR Not Detected (NotDetected); Bordetella pertussis PCR Not Detected (NotDetected); Chlamydia pneumoniae PCR Not Detected (NotDetected); Coronavirus 229E PCR Not Detected (NotDetected); Coronavirus HKU1 PCR Not Detected (NotDetected); Coronavirus NL63 PCR Not Detected (NotDetected); Coronavirus OC43PCR Not Detected (NotDetected); Human Metapneumovirus PCR Not Detected (NotDetected); Influenza A PCR Not Detected (NotDetected); Influenza B PCR Not Detected (NotDetected); Mycoplasma pneumoniae PCR Not Detected (NotDetected); Parainfluenza Virus 1 PCR Not Detected (NotDetected); Parainfluenza Virus 2 PCR Not Detected (NotDetected); Parainfluenza Virus 3 PCR Not Detected (NotDetected); Parainfluenza Virus 4 PCR Not Detected (NotDetected); Respiratory Syncytial VirusPCR Not Detected (NotDetected); Rhinovirus/Enterovirus PCR Not Detected (NotDetected)
[2019-10-11 21:33] LABS: Appearance Urine Clear (Clear); Bacteria Urine Automated Negative (Negative); Bilirubin Urine Negative (Negative); Blood Urine Negative (Negative); Color Urine Yellow; Epithelial Cell Urine Auto 20-30 /lpf (0-5); Glucose Urine UA Negative (Negative); Ketones Urine 1+ (Negative); Leukocyte Esterase Urine Trace (Negative); Nitrite Urine Negative (Negative); Protein Urine Negative (Negative); RBC Urine Automated 0-4 /hpf (0-4); Specific Gravity Urine 1.009 (1.000-1.030); Urobilinogen Urine Negative (Negative); pH Urine 7.5 (4.5-7.5)
[2019-10-11] MEDS ORDERED: ACETAMINOPHEN 325 MG TAB PO PRN (22:29)
[2019-10-11] MEDS ORDERED: PROMETHAZINE HCL 12.5 MG in SODIUM CHLORIDE 0.9% 50 ML IV PRN (22:29)
[2019-10-11] MEDS ORDERED: LACTOBACILLUS ACIDOPHILUS PO SCH (22:29)
[2019-10-11] MEDS ORDERED: NSS + 20MEQ KCL 20 MEQ/1,000 ML BAG IV ONE (23:00)
[2019-10-12] MEDS: PANTOprazole 40 MG TAB PO SCH (05:54)
[2019-10-12] MEDS: CEROVITE ADV FORMULA TAB PO SCH ×2 (05:54→18:30)
[2019-10-12 06:28] LABS: Hemoglobin 12.2 g/dL (12.0-16.0); Mean Corpuscular Hemoglobin 31.5 pg (25-34); Mean Corpuscular Hgb Conc 33.9 g/dL (32-36); RDW Coefficient of Variation 13.2 % (11.5-14.5); RDW Standard Deviation 44.5 fL (36.4-46.3); Red Blood Count 3.87 M/uL (4.2-5.4); White Blood Count 1.42 K/uL (4.8-10.8)
[2019-10-12 06:52] LABS: Albumin Level 2.7 gm/dl (3.4-5.0); BUN Creatinine Ratio 21.2 (10-20); Calcium 7.8 mg/dl (8.5-10.1); Creatinine Clr Calc Pharmacy 59.6 ml/min; Est GFR (African American) 99.9; Est GFR (Non-African American) 86.2; Potassium 3.6 mmol/L (3.5-5.1)
[2019-10-12 07:01] LABS: Albumin Globulin Ratio 0.9 (0.9-2); Bilirubin,Total 0.9 mg/dl (0.2-1); Total Protein 5.7 gm/dl (6.4-8.2)
[2019-10-12 07:07] LABS: Mean Platelet Volume 9.8 fL (7.4-10.4); Platelet Count 92 K/uL (130-400)
[2019-10-12 07:11] LABS: Lymphocytes # (auto) 0.31 K/uL (1.2-3.4); Lymphocytes % (auto) 21.8 %; Monocytes # (auto) 0.23 K/uL (0.11-0.59); Monocytes % (auto) 16.2 %; Neutrophils # (auto) 0.88 K/uL (1.4-6.5); Platelet Estimate Decreased (Normal)
[2019-10-12 07:26] LABS: Estimated Average Glucose 117 mg/dl; Hemoglobin A1C 5.7 % (4.5-5.6)
[2019-10-12] MEDS: DOXYCYCLINE HYCLATE 100 MG CAP PO SCH ×2 (08:13→20:03)
[2019-10-12] MEDS ORDERED: DOXAZOSIN MESYLATE 1 MG TAB PO SCH (09:00)
--- NOTE | 2019-10-12 15:50 | Hospitalist Progress Note ---
Date of Service October 12, 2019 Assessment & Plan (1) Fever: 79-year-old female with history of hypertension presented with fever and weakness x2 days. Fever, likely secondary to tickborne illness-Lyme versus anaplasmosis --Afebrile since yesterday, clinically improving -- WBC down from 2.4-1.4 Platelet down from 1 10-92 Hemoglobin down from 13.8-12.2 --Lyme Western blot: Pending Anaplasmosis DNA: Pending --Blood cultures: Pending --Improving with empiric doxycycline 100 mg p.o. twice daily, continue Hypertension --BP improved, continue prazosin Hyperglycemia --A1c 5.7 --Follow-up as outpatient DVT prophylaxis. SCDs RE thrombocytopenia Full code Admission and Anticipated Discharge Date Admission Date: October 11, 2019 Subjective Follow-up for fever, weakness Seen resting in bed, comfortable, not in distress Afebrile overnight States that she feels improved compared to yesterday Denies headache, dizziness, chest pain, shortness of breath, cough, sore throat, abdominal pain, problems with urination or bowel movement No bleeding No other symptoms Review of Systems Review of Systems: All systems reviewed & are unremarkable except as noted in HPI & below Physical Exam Physical Exam: General- oriented x 3, not in distress, speaks in sentences with no effort or accessory muscle use Head- atraumatic Eyes- PERRL, EOMI, anicteric ENT- oropharynx clear Neck- supple, no JVD, no adenopathy, no thyromegaly; carotids +2/2, no bruits appreciated Lungs- clear to auscultation bilaterally, no rales/wheezes Heart- normal rate, regular rhythm; no murmur, no gallop, no rub appreciated Abdomen- normal bowel sounds, nondistended, soft, nontender, no masses or hepatosplenomegaly Extremities- no pretibial edema, no calf tenderness; peripheral pulses intact Neuro- alert, oriented x 3; CN 2-12 grossly intact; motor 5/5 bilaterally;sensation 100% on all extremities; no other gross focal neurologic deficits Skin- warm & dry Results & Data Results & Data ([facility]) Vital Signs (Past 12 Hours) Vital Signs Temp Pulse Pulse Resp BP Pulse Ox 10/12/19 15:12 37.2 C 69 16 121/57 L 95 10/12/19 07:34 36.6 C 80 16 153/81 H 95 10/12/19 03:57 36.8 C 66 20 132/77 95 Laboratory Results Laboratory Results - last 24 hr 10/11/19 10/11/19 10/11/19 18:00 18:00 18:00 WBC 2.44 L RBC 4.39 Hgb 13.8 Hct 41.2 MCV 93.8 MCH 31.4 MCHC 33.5 RDW Std Deviation 44.5 RDW Coeff of Heriberto 13.0 Plt Count 110 L MPV 10.0 Immature Gran % (Auto) 0.0 Neut % (Auto) 78.3 Lymph % (Auto) 13.9 [place] % (Auto) 7.4 Eos % (Auto) 0.0 Baso % (Auto) 0.4 Immature Gran # (Auto) 0.00 Neut # (Auto) 1.91 Lymph # (Auto) 0.34 L [place] # (Auto) 0.18 Eos # (Auto) 0.00 Baso # (Auto) 0.01 Platelet Estimate Peripher Smr Path Cons PT 11.4 INR 1.1 APTT 25.0 PTT Ratio 0.9 Sodium Potassium Chloride Carbon Dioxide Anion Gap BUN Creatinine Est Cr Clr Drug Dosing Est GFR ( Amer) Est GFR (Non-Af Amer) BUN/Creatinine Ratio Glucose Estimat Average Glucose Hemoglobin A1c Lactate Calcium Magnesium Total Bilirubin AST ALT Alkaline Phosphatase Troponin I Total Protein Albumin Globulin Albumin/Globulin Ratio Procalcitonin 0.26 TSH Urine Color Urine Appearance Urine pH Ur Specific [place] Urine Protein Urine Glucose (UA) Urine Ketones Urine Blood Urine Nitrite Urine Bilirubin Urine Urobilinogen Ur Leukocyte Esterase Urine WBC (Auto) Urine RBC (Auto) U Hyaline Cast (Auto) U Epithel Cells (Auto) Urine Bacteria (Auto) Adenovirus (PCR) Anaplasma Smear See Comment A. phagocytophilum DNA B. pertussis DNA (PCR) B.parapertussis DNA PCR Lyme Disease IgG Ab Lyme IgG (Western Blot) Lyme IgG 18 kDa Band Lyme IgG 23 kDa Band Lyme IgG 28 kDa Band Lyme IgG 30 kDa Band Lyme IgG 39 kDa Band Lyme IgG 41 kDa Band Lyme IgG 45 kDa Band Lyme IgG 58 kDa Band Lyme IgG 66 kDa Band Lyme IgG 93 kDa Band Lyme IgM Ab (WB) Lyme Disease IgM Ab Lyme IgM 23 kDa Band Lyme IgM 39 kDa Band Lyme IgM 41 kDa Band C. pneumoniae DNA (PCR) Coronavirus OC43 (PCR) Coronavirus HKU1 (PCR) Coronavirus 229E (PCR) COVID-19 PCR Coronavirus NL63 (PCR) EBV Capsid Ag IgG Ab EBV Capsid Ag IgM Ab EBV Nuclear Antigen Ab EBV Antibody Interp Human Metapneumovir PCR Influenza Type A (PCR) Influenza Type B (PCR) M. pneumoniae (PCR) Parainfluenza 1 (PCR) Parainfluenza 2 (PCR) Parainfluenza 3 (PCR) Parainfluenza 4 (PCR) RSV (PCR) Entero/Rhino (PCR) SARS-CoV-2 RNA (RT-PCR) 10/11/19 10/11/19 10/11/19 18:00 18:00 18:00 WBC RBC Hgb Hct MCV MCH MCHC RDW Std Deviation RDW Coeff of Heriberto Plt Count MPV Immature Gran % (Auto) Neut % (Auto) Lymph % (Auto) [place] % (Auto) Eos % (Auto) Baso % (Auto) Immature Gran # (Auto) Neut # (Auto) Lymph # (Auto) [place] # (Auto) Eos # (Auto) Baso # (Auto) Platelet Estimate Peripher Smr Path Cons PT INR APTT PTT Ratio Sodium 138 Potassium 3.8 Chloride 106 Carbon Dioxide 24 Anion Gap 8.0 BUN 17 Creatinine 0.73 Est Cr Clr Drug Dosing 58.2 Est GFR ( Amer) 90.8 Est GFR (Non-Af Amer) 78.3 BUN/Creatinine Ratio 23.4 H Glucose 126 H Estimat Average Glucose Hemoglobin A1c Lactate 1.4 Calcium 8.3 L Magnesium 2.0 Total Bilirubin 1.2 H AST 17 ALT 19 Alkaline Phosphatase 65 Troponin I < 0.015 Total Protein 7.2 Albumin 3.5 Globulin 3.7 Albumin/Globulin Ratio 0.9 Procalcitonin TSH Urine Color Urine Appearance Urine pH Ur Specific [place] Urine Protein Urine Glucose (UA) Urine Ketones Urine Blood Urine Nitrite Urine Bilirubin Urine Urobilinogen Ur Leukocyte Esterase Urine WBC (Auto) Urine RBC (Auto) U Hyaline Cast (Auto) U Epithel Cells (Auto) Urine Bacteria (Auto) Adenovirus (PCR) Anaplasma Smear A. phagocytophilum DNA B. pertussis DNA (PCR) B.parapertussis DNA PCR Lyme Disease IgG Ab Lyme IgG (Western Blot) Lyme IgG 18 kDa Band Lyme IgG 23 kDa Band Lyme IgG 28 kDa Band Lyme IgG 30 kDa Band Lyme IgG 39 kDa Band Lyme IgG 41 kDa Band Lyme IgG 45 kDa Band Lyme IgG 58 kDa Band Lyme IgG 66 kDa Band Lyme IgG 93 kDa Band Lyme IgM Ab (WB) Lyme Disease IgM Ab Lyme IgM 23 kDa Band Lyme IgM 39 kDa Band Lyme IgM 41 kDa Band C. pneumoniae DNA (PCR) Coronavirus OC43 (PCR) Coronavirus HKU1 (PCR) Coronavirus 229E (PCR) COVID-19 PCR Coronavirus NL63 (PCR) EBV Capsid Ag IgG Ab Pending EBV Capsid Ag IgM Ab Pending EBV Nuclear Antigen Ab Pending EBV Antibody Interp Pending Human Metapneumovir PCR Influenza Type A (PCR) Influenza Type B (PCR) M. pneumoniae (PCR) Parainfluenza 1 (PCR) Parainfluenza 2 (PCR) Parainfluenza 3 (PCR) Parainfluenza 4 (PCR) RSV (PCR) Entero/Rhino (PCR) SARS-CoV-2 RNA (RT-PCR) 10/11/19 10/11/19 10/11/19 18:00 18:00 18:00 WBC RBC Hgb Hct MCV MCH MCHC RDW Std Deviation RDW Coeff of Heriberto Plt Count MPV Immature Gran % (Auto) Neut % (Auto) Lymph % (Auto) [place] % (Auto) Eos % (Auto) Baso % (Auto) Immature Gran # (Auto) Neut # (Auto) Lymph # (Auto) [place] # (Auto) Eos # (Auto) Baso # (Auto) Platelet Estimate Peripher Smr Path Cons PT INR APTT PTT Ratio Sodium Potassium Chloride Carbon Dioxide Anion Gap BUN Creatinine Est Cr Clr Drug Dosing Est GFR ( Amer) Est GFR (Non-Af Amer) BUN/Creatinine Ratio Glucose Estimat Average Glucose Hemoglobin A1c Lactate Calcium Magnesium Total Bilirubin AST ALT Alkaline Phosphatase Troponin I Total Protein Albumin Globulin Albumin/Globulin Ratio Procalcitonin TSH Urine Color Urine Appearance Urine pH Ur Specific [place] Urine Protein Urine Glucose (UA) Urine Ketones Urine Blood Urine Nitrite Urine Bilirubin Urine Urobilinogen Ur Leukocyte Esterase Urine WBC (Auto) Urine RBC (Auto) U Hyaline Cast (Auto) U Epithel Cells (Auto) Urine Bacteria (Auto) Adenovirus (PCR) Anaplasma Smear A. phagocytophilum DNA Pending B. pertussis DNA (PCR) B.parapertussis DNA PCR Lyme Disease IgG Ab Positive A Lyme IgG (Western Blot) Pending Lyme IgG 18 kDa Band Pending Lyme IgG 23 kDa Band Pending Lyme IgG 28 kDa Band Pending Lyme IgG 30 kDa Band Pending Lyme IgG 39 kDa Band Pending Lyme IgG 41 kDa Band Pending Lyme IgG 45 kDa Band Pending Lyme IgG 58 kDa Band Pending Lyme IgG 66 kDa Band Pending Lyme IgG 93 kDa Band Pending Lyme IgM Ab (WB) Pending Lyme Disease IgM Ab Negative Lyme IgM 23 kDa Band Pending Lyme IgM 39 kDa Band Pending Lyme IgM 41 kDa Band Pending C. pneumoniae DNA (PCR) Coronavirus OC43 (PCR) Coronavirus HKU1 (PCR) Coronavirus 229E (PCR) COVID-19 PCR Coronavirus NL63 (PCR) EBV Capsid Ag IgG Ab EBV Capsid Ag IgM Ab EBV Nuclear Antigen Ab EBV Antibody Interp Human Metapneumovir PCR Influenza Type A (PCR) Influenza Type B (PCR) M. pneumoniae (PCR) Parainfluenza 1 (PCR) Parainfluenza 2 (PCR) Parainfluenza 3 (PCR) Parainfluenza 4 (PCR) RSV (PCR) Entero/Rhino (PCR) SARS-CoV-2 RNA (RT-PCR) 10/11/19 10/11/19 10/11/19 19:40 19:40 19:40 WBC RBC Hgb Hct MCV MCH MCHC RDW Std Deviation RDW Coeff of Heriberto Plt Count MPV Immature Gran % (Auto) Neut % (Auto) Lymph % (Auto) [place] % (Auto) Eos % (Auto) Baso % (Auto) Immature Gran # (Auto) Neut # (Auto) Lymph # (Auto) [place] # (Auto) Eos # (Auto) Baso # (Auto) Platelet Estimate Peripher Smr Path Cons PT INR APTT PTT Ratio Sodium Potassium Chloride Carbon Dioxide Anion Gap BUN Creatinine Est Cr Clr Drug Dosing Est GFR ( Amer) Est GFR (Non-Af Amer) BUN/Creatinine Ratio Glucose Estimat Average Glucose Hemoglobin A1c Lactate Calcium Magnesium Total Bilirubin AST ALT Alkaline Phosphatase Troponin I Total Protein Albumin Globulin Albumin/Globulin Ratio Procalcitonin TSH Urine Color Urine Appearance Urine pH Ur Specific [place] Urine Protein Urine Glucose (UA) Urine Ketones Urine Blood Urine Nitrite Urine Bilirubin Urine Urobilinogen Ur Leukocyte Esterase Urine WBC (Auto) Urine RBC (Auto) U Hyaline Cast (Auto) U Epithel Cells (Auto) Urine Bacteria (Auto) Adenovirus (PCR) Not Detected Anaplasma Smear A. phagocytophilum DNA B. pertussis DNA (PCR) Not Detected B.parapertussis DNA PCR Not Detected Lyme Disease IgG Ab Lyme IgG (Western Blot) Lyme IgG 18 kDa Band Lyme IgG 23 kDa Band Lyme IgG 28 kDa Band Lyme IgG 30 kDa Band Lyme IgG 39 kDa Band Lyme IgG 41 kDa Band Lyme IgG 45 kDa Band Lyme IgG 58 kDa Band Lyme IgG 66 kDa Band Lyme IgG 93 kDa Band Lyme IgM Ab (WB) Lyme Disease IgM Ab Lyme IgM 23 kDa Band Lyme IgM 39 kDa Band Lyme IgM 41 kDa Band C. pneumoniae DNA (PCR) Not Detected Coronavirus OC43 (PCR) Not Detected Coronavirus HKU1 (PCR) Not Detected Coronavirus 229E (PCR) Not Detected COVID-19 PCR Coronavirus NL63 (PCR) Not Detected EBV Capsid Ag IgG Ab EBV Capsid Ag IgM Ab EBV Nuclear Antigen Ab EBV Antibody Interp Human Metapneumovir PCR Not Detected Influenza Type A (PCR) Not Detected Cancelled Influenza Type B (PCR) Not Detected Cancelled M. pneumoniae (PCR) Not Detected Parainfluenza 1 (PCR) Not Detected Parainfluenza 2 (PCR) Not Detected Parainfluenza 3 (PCR) Not Detected Parainfluenza 4 (PCR) Not Detected RSV (PCR) Not Detected Entero/Rhino (PCR) Not Detected SARS-CoV-2 RNA (RT-PCR) Cancelled 10/11/19 10/11/19 10/11/19 19:40 20:10 21:15 WBC RBC Hgb Hct MCV MCH MCHC RDW Std Deviation RDW Coeff of Heriberto Plt Count MPV Immature Gran % (Auto) Neut % (Auto) Lymph % (Auto) [place] % (Auto) Eos % (Auto) Baso % (Auto) Immature Gran # (Auto) Neut # (Auto) Lymph # (Auto) [place] # (Auto) Eos # (Auto) Baso # (Auto) Platelet Estimate Peripher Smr Path Cons PT INR APTT PTT Ratio Sodium Potassium Chloride Carbon Dioxide Anion Gap BUN Creatinine Est Cr Clr Drug Dosing Est GFR ( Amer) Est GFR (Non-Af Amer) BUN/Creatinine Ratio Glucose Estimat Average Glucose Hemoglobin A1c Lactate Calcium Magnesium Total Bilirubin AST ALT Alkaline Phosphatase Troponin I Total Protein Albumin Globulin Albumin/Globulin Ratio Procalcitonin TSH 0.411 Urine Color Yellow Urine Appearance Clear Urine pH 7.5 Ur Specific [place] 1.009 Urine Protein Negative Urine Glucose (UA) Negative Urine Ketones 1+ H Urine Blood Negative Urine Nitrite Negative Urine Bilirubin Negative Urine Urobilinogen Negative Ur Leukocyte Esterase Trace H Urine WBC (Auto) 5-10 H Urine RBC (Auto) 0-4 U Hyaline Cast (Auto) 1-5 U Epithel Cells (Auto) 20-30 H Urine Bacteria (Auto) Negative Adenovirus (PCR) Anaplasma Smear A. phagocytophilum DNA B. pertussis DNA (PCR) B.parapertussis DNA PCR Lyme Disease IgG Ab Lyme IgG (Western Blot) Lyme IgG 18 kDa Band Lyme IgG 23 kDa Band Lyme IgG 28 kDa Band Lyme IgG 30 kDa Band Lyme IgG 39 kDa Band Lyme IgG 41 kDa Band Lyme IgG 45 kDa Band Lyme IgG 58 kDa Band Lyme IgG 66 kDa Band Lyme IgG 93 kDa Band Lyme IgM Ab (WB) Lyme Disease IgM Ab Lyme IgM 23 kDa Band Lyme IgM 39 kDa Band Lyme IgM 41 kDa Band C. pneumoniae DNA (PCR) Coronavirus OC43 (PCR) Coronavirus HKU1 (PCR) Coronavirus 229E (PCR) COVID-19 PCR NEGATIVE Coronavirus NL63 (PCR) EBV Capsid Ag IgG Ab EBV Capsid Ag IgM Ab EBV Nuclear Antigen Ab EBV Antibody Interp Human Metapneumovir PCR Influenza Type A (PCR) Influenza Type B (PCR) M. pneumoniae (PCR) Parainfluenza 1 (PCR) Parainfluenza 2 (PCR) Parainfluenza 3 (PCR) Parainfluenza 4 (PCR) RSV (PCR) Entero/Rhino (PCR) SARS-CoV-2 RNA (RT-PCR) 10/12/19 10/12/19 10/12/19 06:08 06:08 06:08 WBC 1.42 L RBC 3.87 L Hgb 12.2 Hct 36.0 L MCV 93.0 MCH 31.5 MCHC 33.9 RDW Std Deviation 44.5 RDW Coeff of Heriberto 13.2 Plt Count 92 L MPV 9.8 Immature Gran % (Auto) 0.0 Neut % (Auto) 62.0 Lymph % (Auto) 21.8 [place] % (Auto) 16.2 Eos % (Auto) 0.0 Baso % (Auto) 0.0 Immature Gran # (Auto) 0.00 Neut # (Auto) 0.88 L* Lymph # (Auto) 0.31 L [place] # (Auto) 0.23 Eos # (Auto) 0.00 Baso # (Auto) 0.00 Platelet Estimate Decreased L Peripher Smr Path Cons Pending PT INR APTT PTT Ratio Sodium 141 Potassium 3.6 Chloride 111 H Carbon Dioxide 24 Anion Gap 6.0 BUN 13 Creatinine 0.61 Est Cr Clr Drug Dosing 59.6 Est GFR ( Amer) 99.9 Est GFR (Non-Af Amer) 86.2 BUN/Creatinine Ratio 21.2 H Glucose 97 Estimat Average Glucose 117 Hemoglobin A1c 5.7 H Lactate Calcium 7.8 L Magnesium Total Bilirubin 0.9 AST 18 ALT 17 Alkaline Phosphatase 51 Troponin I Total Protein 5.7 L D Albumin 2.7 L Globulin 3.0 Albumin/Globulin Ratio 0.9 Procalcitonin TSH Urine Color Urine Appearance Urine pH Ur Specific [place] Urine Protein Urine Glucose (UA) Urine Ketones Urine Blood Urine Nitrite Urine Bilirubin Urine Urobilinogen Ur Leukocyte Esterase Urine WBC (Auto) Urine RBC (Auto) U Hyaline Cast (Auto) U Epithel Cells (Auto) Urine Bacteria (Auto) Adenovirus (PCR) Anaplasma Smear A. phagocytophilum DNA B. pertussis DNA (PCR) B.parapertussis DNA PCR Lyme Disease IgG Ab Lyme IgG (Western Blot) Lyme IgG 18 kDa Band Lyme IgG 23 kDa Band Lyme IgG 28 kDa Band Lyme IgG 30 kDa Band Lyme IgG 39 kDa Band Lyme IgG 41 kDa Band Lyme IgG 45 kDa Band Lyme IgG 58 kDa Band Lyme IgG 66 kDa Band Lyme IgG 93 kDa Band Lyme IgM Ab (WB) Lyme Disease IgM Ab Lyme IgM 23 kDa Band Lyme IgM 39 kDa Band Lyme IgM 41 kDa Band C. pneumoniae DNA (PCR) Coronavirus OC43 (PCR) Coronavirus HKU1 (PCR) Coronavirus 229E (PCR) COVID-19 PCR Coronavirus NL63 (PCR) EBV Capsid Ag IgG Ab EBV Capsid Ag IgM Ab EBV Nuclear Antigen Ab EBV Antibody Interp Human Metapneumovir PCR Influenza Type A (PCR) Influenza Type B (PCR) M. pneumoniae (PCR) Parainfluenza 1 (PCR) Parainfluenza 2 (PCR) Parainfluenza 3 (PCR) Parainfluenza 4 (PCR) RSV (PCR) Entero/Rhino (PCR) SARS-CoV-2 RNA (RT-PCR)
[2019-10-12] MEDS: DOXAZOSIN MESYLATE 1 MG TAB PO SCH (18:27)
--- NOTE | 2019-10-12 21:50 | Electrocardiogram Report ---
Test Reason : Blood Pressure : / mmHG Vent. Rate : 085 BPM Atrial Rate : 085 BPM P-R Int : 160 ms QRS Dur : 074 ms QT Int : 358 ms P-R-T Axes : 069 -12 062 degrees QTc Int : 426 ms Normal sinus rhythm Normal ECG When compared with ECG of 04-SEP-2017 12:34, Premature supraventricular complexes are no longer Present Confirmed by Doug Brunner ([id number]) on 10/12/2019 9:49:56 PM Referred By: REFERRED SELF Confirmed By:Doug Brunner
[2019-10-13] MEDS: CEROVITE ADV FORMULA TAB PO SCH ×2 (06:33→17:18)
[2019-10-13] MEDS: PANTOprazole 40 MG TAB PO SCH (06:33)
[2019-10-13 07:20] LABS: Calcium 7.9 mg/dl (8.5-10.1); Creatinine Clr Calc Pharmacy 50.5 ml/min; Est GFR (African American) 92.3; Est GFR (Non-African American) 79.7; Potassium 3.7 mmol/L (3.5-5.1)
[2019-10-13] MEDS: DOXYCYCLINE HYCLATE 100 MG CAP PO SCH ×2 (08:41→21:13)
[2019-10-13 09:59] LABS: Hematocrit (blood only) 36.7 % (37-47); Hemoglobin 12.2 g/dL (12.0-16.0); Mean Corpuscular Hemoglobin 31.2 pg (25-34); Mean Corpuscular Hgb Conc 33.2 g/dL (32-36); Mean Corpuscular Volume 93.9 fL (80-100); Nucleated RBC # (auto) 0.03 K/uL (0-0); Nucleated RBC % (auto) 1.4 %; RDW Coefficient of Variation 13.4 % (11.5-14.5); Red Blood Count 3.91 M/uL (4.2-5.4); White Blood Count 2.03 K/uL (4.8-10.8)
[2019-10-13 10:22] LABS: Mean Platelet Volume 10.2 fL (7.4-10.4); Platelet Count 92 K/uL (130-400)
[2019-10-13 10:50] LABS: ALC (manual) 1.44 K/uL (1.2-3.4); ANC (manual) 0.46 K/uL (1.4-6.5); Basophils # (manual) 0.02 K/uL (0-0.2); Basophils % (manual) 0.9 %; Eosinophils # (manual) 0.04 K/uL (0-0.5); Eosinophils % (manual) 1.8 %; Lymphocytes # (manual) 1.44 K/uL (1.2-3.4); Monocytes # (manual) 0.07 K/uL (0.11-0.59); Monocytes % (manual) 3.5 %; Neutrophils # (manual) 0.46 K/uL (1.4-6.5); Neutrophils % (manual) 22.8 %
--- NOTE | 2019-10-13 17:43 | Hospitalist Progress Note ---
Date of Service October 13, 2019 Assessment & Plan (1) Fever: 79-year-old female with history of hypertension presented with fever and weakness x2 days. Fever, likely secondary to tickborne illness-Lyme versus anaplasmosis --Afebrile since admission, continues to improve clinically -- WBC 2.4-1.4-2.03 Platelet down from 110-92-92 Hemoglobin 13.8-12.2-12.2 --Lyme Western blot: Pending Anaplasmosis DNA: Pending --Blood cultures: Pending --Improving with empiric doxycycline 100 mg p.o. twice daily, continue Hypertension --BP improved, continue prazosin Hyperglycemia --A1c 5.7 --Follow-up as outpatient DVT prophylaxis. SCDs RE thrombocytopenia Full code Admission and Anticipated Discharge Date Admission Date: October 13, 2019 Subjective ff up for fever, weakness seen resting in bed, comfortable, in good spirits states she felt lightheaded while coming back from the bathroom today, this is resolved States she feels improved compared to admission, no chills Weakness also improving Denies cough, shortness of breath, headache, abdominal pain, problems with urination or bowel movement No bleeding No other symptoms Review of Systems Review of Systems: All systems reviewed & are unremarkable except as noted in HPI & below Physical Exam Physical Exam: General- oriented x 3, not in distress, speaks in sentences with no effort or accessory muscle use Eyes- anicteric Neck- no JVD Lungs- clear breath sounds bilaterally, no crackles, no wheezing bilaterally Heart- normal rate, regular rhythm; no murmurs Abdomen- normal bowel sounds, nondistended, soft, nontender Extremities- no pretibial edema, no calf tenderness No rashes, no petechiae Neuro- alert, oriented x 3; no gross focal neurologic deficits Skin- warm & dry Results & Data Results & Data ([facility]) Vital Signs (Past 12 Hours) Vital Signs Temp Pulse Resp BP Pulse Ox 10/13/19 15:16 36.4 C L 69 16 154/75 H 99 10/13/19 07:30 36.7 C 58 L 18 145/78 H 97
[2019-10-13] MEDS: DOXAZOSIN MESYLATE 1 MG TAB PO SCH (21:14)
[2019-10-14] MEDS: CEROVITE ADV FORMULA TAB PO SCH ×2 (05:14→18:14)
[2019-10-14 06:47] LABS: Hematocrit (blood only) 37.3 % (37-47); Hemoglobin 12.3 g/dL (12.0-16.0); Mean Corpuscular Hemoglobin 30.8 pg (25-34); Mean Corpuscular Volume 93.5 fL (80-100); RDW Coefficient of Variation 13.2 % (11.5-14.5); RDW Standard Deviation 44.9 fL (36.4-46.3); Red Blood Count 3.99 M/uL (4.2-5.4); White Blood Count 2.58 K/uL (4.8-10.8)
[2019-10-14 06:51] LABS: Mean Platelet Volume 10.7 fL (7.4-10.4); Platelet Count 96 K/uL (130-400)
[2019-10-14 07:15] LABS: BUN Creatinine Ratio 36.8 (10-20); Calcium 8.1 mg/dl (8.5-10.1); Creatinine Clr Calc Pharmacy 59.6 ml/min; Est GFR (African American) 99.9; Est GFR (Non-African American) 86.2; Potassium 3.7 mmol/L (3.5-5.1)
[2019-10-14 07:28] LABS: RBC Morphology Unremarkable
[2019-10-14 07:35] LABS: ALC (manual) 1.49 K/uL (1.2-3.4); ANC (manual) 0.97 K/uL (1.4-6.5); Eosinophils # (manual) 0.02 K/uL (0-0.5); Eosinophils % (manual) 0.9 %; Lymphocytes # (manual) 0.95 K/uL (1.2-3.4); Lymphocytes % (manual) 36.8 %; Monocytes # (manual) 0.09 K/uL (0.11-0.59); Monocytes % (manual) 3.5 %; Neutrophils # (manual) 0.97 K/uL (1.4-6.5); Neutrophils % (manual) 37.7 %; Reactive Lymphocytes # (manual) 0.54 K/uL; Reactive Lymphocytes % (manual) 21.1 %
[2019-10-14] MEDS: DOXYCYCLINE HYCLATE 100 MG CAP PO SCH ×2 (08:05→18:14)
[2019-10-14] MEDS: PANTOprazole 40 MG TAB PO SCH (08:05)
--- NOTE | 2019-10-14 10:13 | Infectious Disease Consult ---
Date of Consultation October 14, 2019 Assessment & Plan (1) Lyme disease: western blot pending, but highly concerned for tick borne illness, especially anaplasma due to pancytopenia, pcr pending. would suggest doxy x 14 days. ok for d/c from ID standpoint when otherwise stable. History of Present Illness Attending Physician: Carlos Alberto Butler MD pt admitted with weakness, sob and fever. Covid testing negative, afebrile since admission. wbc low 1.4, plateltes low, 92, LFTS and creat normal. lyme screen +, western blot pending, Anaplasma smear negative, PCR pending. she is on doxy and tolerating well. no f/c since admission, overall feeling much better, ambulating without difficulty, no cp, sob, cough, no abd pain, no n/v/d. no gu sympotms. no rash, no joint pain, no knonw tick bite. oob to chair on my exam. Allergies Allergy/AdvReac Type Severity Reaction Status Date / Time amoxicillin Allergy Severe RASH Verified 10/11/19 18:56 clavulanic acid Allergy Severe RASH Verified 10/11/19 18:56 Nitrate Analogues AdvReac Severe HEAD ACHE Verified 10/11/19 18:56 isosorbide AdvReac Unknown PAINFUL Verified 10/11/19 18:56 Home Medications Home Medications Medication Instructions Recorded Confirmed Type calcium citrate-vitamin D3 1 tab PO 3XWK #0 08/31/17 10/11/19 History [Calcium Citrate + D] PreserVision AREDS 1 tab PO BID #0 tab 12/18/17 10/11/19 History Lactobacillus acidophilus 1 tab PO 2XWK 10/11/19 10/11/19 History [Acidophilus] doxazosin 1 mg PO DAILY 10/11/19 10/11/19 History pantoprazole 20 mg PO QAM 10/11/19 10/11/19 History Patient History Medical History Bronchitis Chronic back pain Depression Hypertension (Chronic) Irritable bowel syndrome (Chronic) Osteoarthritis Surgical History H/O eye surgery History of appendectomy (Chronic) History of cataract surgery 12/27/17. 2mg versed. no issues. 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 Required: No Beliefs That Will Affect Care: None Current Living Situation: Spouse Other Information That Helps Us Care for You: No Feels Safe at Home: Yes Safety Concerns: Feels Safe At This Time Smoking Status: Never smoker Do You Dip or Chew Tobacco: No ; Second Hand Exposure: No ; Tobacco Cessation Education Requested by Patient: No Hx Alcohol Use: No Hx Substance Use: No Review of Systems Review of Systems: All systems reviewed & are unremarkable except as noted in HPI & below Physical Exam Constitutional: WD/WN, vitals as above Eyes: PERRL, conjunctivae normal, anicteric sclerae ENMT: external ear and nose normal, oropharynx normal Neck: normal visual inspection Respiratory: normal respiratory effort, lungs clear to auscultation Cardiovascular: RRR, no murmur, no edema Gastrointestinal (Abdomen): normal bowel sounds, soft, nontender, no hepatosplenomegaly Musculoskeletal: no cyanosis or clubbing, extremities motor strength 5/5 Skin: no rashes, warm and dry Psychiatric: A+Ox3, euthymic affect Results & Data ([facility]) Vital Signs (Past 12 Hours) Vital Signs Temp Pulse Pulse Resp BP Pulse Ox 10/14/19 07:36 36.4 C L 68 68 16 153/78 H 96 10/13/19 23:14 36.7 C 63 17 127/84 94 Laboratory Results Microbiology 10/11/19 18:56 Blood Aerobic Blood Culture - Preliminary No growth in Aerobic bottle after 48 hours. 10/11/19 18:56 Blood Anaerobic Blood Culture - Preliminary No growth in Anaerobic bottle after 48 hours. 10/11/19 18:00 Blood Aerobic Blood Culture - Preliminary No growth in Aerobic bottle after 48 hours. 10/11/19 18:00 Blood Anaerobic Blood Culture - Preliminary No growth in Anaerobic bottle after 48 hours. PG Care Time/CCT Total # of Minutes Spent Total Time Spent with Patient: Total time spent is greater than 50% in coordination of care (as documented) at patient's floor/unit and/or counseling patient: Coding Level of Care Code 52904 Inpt Consult Level 4 Diagnoses Lyme disease A69.20
--- NOTE | 2019-10-14 15:18 | Hospitalist Progress Note ---
Date of Service October 14, 2019 Assessment & Plan (1) Fever: 79-year-old female with history of hypertension presented with fever and weakness x2 days. Fever, likely secondary to tickborne illness-Lyme versus anaplasmosis --Afebrile since admission, continues to improve clinically with Doxycycline PO 100mg BID -- WBC 2.4-1.4-2.03--> 2.58 ANC 1.9-0.88-0.46 --> 0.97 Platelet down from 110-92-92--> 96 Hemoglobin 13.8-12.2-12.2 --> 12.3 -- Peripheral smear: The medical record, peripheral smear and CBC are reviewed. Smear review reveals the white cell count to be decreased. Granulocytes predominate within the differential and appear mature. No overt dysplastic features are identified. No anaplasmosis is identified. Lymphocytes are morphologically unremarkable. No blasts are identified. The red blood cells are morphologically unremarkable. No increase in spherocytes or schistocytes is noted. No nucleated red blood cells are seen. Platelets appear adequate in number with unremarkable morphology. No significant platelet clumping is identified. The CBC is remarkable for leukopenia (WBC 1.42) and thrombocytopenia (PLT 92). The morphologic features of the smear are nonspecific. The patient presents with fever and malaise. Lyme serology is positive. The differential includes infection, drug reaction and primary marrow disorder such as myelodysplasia. No anaplasmosis is identified. No dysplasia or malignancy is identified. Followup is suggested. --Lyme Western blot: Pending Anaplasmosis DNA: Pending --Blood cultures: Negative --Improving with empiric doxycycline 100 mg p.o. twice daily, continue x 7 more days to complete 10 days therapy will follow up Lyme Western blot and Anaplasmosis final results repeat CBC on Monday10/16/19 if CBC not improving and/or if Lyme Western blot and Anaplasmosis tests negative, will need to refer to Environmental Field Office Manager Hypertension --BP improved, continue prazosin Hyperglycemia --A1c 5.7 --Follow-up as outpatient DVT prophylaxis. SCDs RE thrombocytopenia Full code Disposition d/c home ff up with PCP Dr. Simmons this week if CBC not improving and/or if Lyme Western blot and Anaplasmosis tests negative, will need to refer to Environmental Field Office Manager Admission and Anticipated Discharge Date Admission Date: October 13, 2019 Subjective ff up for fever, weakness possible lyme vs. anaplasmosis seen sitting up in bed, comfortable states she feels fine overall denies weakness, dizziness, chills no headache, chest pain, SOB, abdominal pain, bleeding appetite is good no other symptoms states she is ready and would like to be discharged today Review of Systems Review of Systems: All systems reviewed & are unremarkable except as noted in HPI & below Physical Exam Physical Exam: General- oriented x 3, not in distress, speaks in sentences with no effort or accessory muscle use Eyes- anicteric Neck- no JVD Lungs- clear breath sounds bilaterally Heart- normal rate, regular rhythm; no murmurs Abdomen- normal bowel sounds, nondistended, soft, nontender Extremities- no pretibial edema, no calf tenderness no rashes Neuro- alert, oriented x 3; no gross focal neurologic deficits Skin- warm & dry Results & Data Results & Data ([facility]) Vital Signs (Past 12 Hours) Vital Signs Temp Pulse Pulse Resp BP Pulse Ox 10/14/19 07:36 36.4 C L 68 68 16 153/78 H 96 Laboratory Results Laboratory Results - last 24 hr 10/11/19 10/12/19 10/14/19 20:10 06:08 06:16 WBC RBC Hgb Hct MCV MCH MCHC RDW Std Deviation RDW Coeff of Heriberto Plt Count MPV Neutrophils % (Manual) Lymphocytes % (Manual) Reactive Lymphs % (Man) Monocytes % (Manual) Eosinophils % (Manual) Neutrophils # (Manual) Total Absolute Neuts Lymphocytes # (Manual) Reactive Lymphs # Total Abs Lymphocytes Monocytes # (Manual) Eosinophils # (Manual) RBC Morphology Peripher Smr Path Cons Sodium 142 Potassium 3.7 Chloride 110 H Carbon Dioxide 24 Anion Gap 8.0 BUN 22 H Creatinine 0.61 Est Cr Clr Drug Dosing 59.6 Est GFR ( Amer) 99.9 Est GFR (Non-Af Amer) 86.2 BUN/Creatinine Ratio 36.8 H Glucose 92 Calcium 8.1 L EBV Capsid Ag IgG Ab 740.00 H EBV Capsid Ag IgM Ab <36.00 EBV Nuclear Antigen Ab 88.70 H EBV Antibody Interp SEE NOTE 10/14/19 06:16 WBC 2.58 L RBC 3.99 L Hgb 12.3 Hct 37.3 MCV 93.5 MCH 30.8 MCHC 33.0 RDW Std Deviation 44.9 RDW Coeff of Heriberto 13.2 Plt Count 96 L MPV 10.7 H Neutrophils % (Manual) 37.7 Lymphocytes % (Manual) 36.8 Reactive Lymphs % (Man) 21.1 Monocytes % (Manual) 3.5 Eosinophils % (Manual) 0.9 Neutrophils # (Manual) 0.97 L Total Absolute Neuts 0.97 L* Lymphocytes # (Manual) 0.95 L Reactive Lymphs # 0.54 Total Abs Lymphocytes 1.49 Monocytes # (Manual) 0.09 L Eosinophils # (Manual) 0.02 RBC Morphology Unremarkable Peripher Smr Path Cons Sodium Potassium Chloride Carbon Dioxide Anion Gap BUN Creatinine Est Cr Clr Drug Dosing Est GFR ( Amer) Est GFR (Non-Af Amer) BUN/Creatinine Ratio Glucose Calcium EBV Capsid Ag IgG Ab EBV Capsid Ag IgM Ab EBV Nuclear Antigen Ab EBV Antibody Interp
--- NOTE | 2019-10-14 15:52 | Discharge Summary ---
Date of Service October 14, 2019 Admission HPI Per Admitting Provider History obtained from patient and records. Medical history significant for hypertension, irritable bowel syndrome as per records Last confinement September 2017 for infectious mononucleosis. Patient noted generalized weakness since yesterday. Low-grade fever today. Clear sinus drainage. No chest pain, no S OB, no cough. No abdominal pain, dysuria, diarrhea. No known sick contacts or recent out-of-town travel. No recollection of recent tick bites although there are ticks where she resides. At the ER, patient received Cefepime. MEDICAL HISTORY: As above. SURGICAL HISTORY: Appendectomy. Hysterectomy. Eye surgery FAMILY HISTORY: hypertension. Heart disease, diabetes, stroke PERSONAL SOCIAL HISTORY: Nonsmoker. 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 Admission Exam Per Admitting Provider GENERAL: Comfortable, slightly anxious, pleasant, no respiratory distress SKIN: Normal color, warm HEENT: Bespectacled, Icard palpebral conjunctivae, no ptosis, dry buccal mucosa NECK : Supple, no tenderness CHEST : CTA, no tenderness HEART : RRR, no obvious murmurs ABDOMEN: Some distention, nontender EXTREMITIES : No LE swelling/tenderness, no other conspicuous deformities noted NEUROLOGIC : Coherent, no facial asymmetry, no other gross focality Principal Diagnosis Fever, with neutropenia and thrombocytopenia, likely secondary to tickborne illness-Lyme versus anaplasmosis Discharge Exam General- oriented x 3, not in distress, speaks in sentences with no effort or accessory muscle use Eyes- anicteric Neck- no JVD Lungs- clear breath sounds bilaterally Heart- normal rate, regular rhythm; no murmurs Abdomen- normal bowel sounds, nondistended, soft, nontender Extremities- no pretibial edema, no calf tenderness no rashes Neuro- alert, oriented x 3; no gross focal neurologic deficits Skin- warm & dry Discharge Data Allergies Allergy/AdvReac Type Severity Reaction Status Date / Time amoxicillin Allergy Severe RASH Verified 10/11/19 18:56 clavulanic acid Allergy Severe RASH Verified 10/11/19 18:56 Nitrate Analogues AdvReac Severe HEAD ACHE Verified 10/11/19 18:56 isosorbide AdvReac Unknown PAINFUL Verified 10/11/19 18:56 Consultations 10/11/19 18:58 ED Decision to Admit Stat 10/11/19 22:29 Consult Infectious Diseases Routine Hospital Course (1) Fever: 79-year-old female with history of hypertension presented with fever and weakness x2 days. Fever, with Neutropenia and Thrombocytopenia, likely secondary to tickborne illness-Lyme versus anaplasmosis --Afebrile since admission, continues to improve clinically with Doxycycline PO 100mg BID -- WBC and Plt gradually increasing WBC 2.4-1.4-2.03--> 2.58 ANC 1.9-0.88-0.46 --> 0.97 Platelets 110-92-92--> 96 Hemoglobin 13.8-12.2-12.2 --> 12.3 -- Peripheral smear: The medical record, peripheral smear and CBC are reviewed. Smear review reveals the white cell count to be decreased. Granulocytes predominate within the differential and appear mature. No overt dysplastic features are identified. No anaplasmosis is identified. Lymphocytes are morphologically unremarkable. No blasts are identified. The red blood cells are morphologically unremarkable. No increase in spherocytes or schistocytes is noted. No nucleated red blood cells are seen. Platelets appear adequate in number with unremarkable morphology. No significant platelet clumping is identified. The CBC is remarkable for leukopenia (WBC 1.42) and thrombocytopenia (PLT 92). The morphologic features of the smear are nonspecific. The patient presents with fever and malaise. Lyme serology is positive. The differential includes infection, drug reaction and primary marrow disorder such as myelodysplasia. No anaplasmosis is identified. No dysplasia or malignancy is identified. Followup is suggested. --Lyme Western blot: Pending Anaplasmosis DNA: Pending --Blood cultures: Negative --Improving with empiric doxycycline 100 mg p.o. twice daily, continue x 7 more days to complete 10 days therapy follow up Lyme Western blot and Anaplasmosis final results repeat CBC on Monday10/16/19 ff up with PCP 10/17/19 if CBC not improving and/or if Lyme Western blot and Anaplasmosis tests negative, will need to refer to Home Demonstrator, possible myelodysplastic syndrome Hypertension --BP improved, continue prazosin Hyperglycemia --A1c 5.7 --Follow-up as outpatient DVT prophylaxis. SCDs only RE thrombocytopenia Full code Disposition d/c home ff up with PCP Dr. Simmons this week if CBC not improving and/or if Lyme Western blot and Anaplasmosis tests negative, will need to refer to Home Demonstrator Total Time Total Time Spent Total Time Spent (In Minutes): 50 Discharge Plan Discharge Items Patient Disposition: Home - Self-Care Reason For Visit: FEVER Discharge Diagnosis: FEVER, WEAKNESS, POSSIBLE TICK-BORNE INFECTION: LYME DISEASE VERSUS ANAPLASMOSIS Activity: Resume your previous activity Activity Comment: GRADUALLY TOLERATED Driving/Machine Use: NO DRIVING UNTIL RE-EVALUATED AND ALLOWED BY PRIMARY CARE PHYSICIAN Non-emergency contact: Primary Care Provider Call non-emergency contact if: you have any medication questions, your symptoms worsen and you have a fever Follow-up/Referrals: Kirit Simmons [Primary Care Provider] - Diet: Heart Healthy Ambulatory Orders: Complete Blood Count with Diff (Routine) Timeframe: 2 Days Location: Determined by Patient Ordered By: Carlos Alberto Sharif Addlavern Attending Provider Instructions: THE FINAL RESULT FOR THE LYME AND ANAPLASMOSIS TEST IS STILL PENDING. DR. SHARIF WILL CALL YOU WITH THE RESULTS THIS WEEK. FOR NOW, PLEASE TAKE AN ANTIBIOTIC CALLED DOXYCYCLINE X 7 DAYS WITH FOOD. DRINK PLENTY OF WATER. STAY WELL HYDRATED. TAKE A PROBIOTIC OR EAT YOGURT DAILY X AT LEAST 2 WEEKS. YOU NEED A REPEAT BLOODWORK ON Monday10/16/19. PLEASE HAVE RESULTS FORWARDED TO DR. SIMMONS'S OFFICE. PLEASE FOLLOW UP WITH DR. SIMMONS WITHIN 1 WEEK. PLEASE CALL HER OFFICE FOR AN APPOINTMENT AND REQUEST THEIR OFFICE TO OBTAIN YOUR DISCHARGE SUMMARY FROM THE HOSPITAL. CALL PRIMARY CARE PHYSICIAN OR RETURN TO THE ER IMMEDIATELY IF WITH RECURRENCE OF SYMPTOMS, FEVER/CHILLS, WEAKNESS, SHORTNESS OF BREATH, BLEEDING. YOUR WHITE BLOOD CELL COUNT IS STILL LOW, DO NOT BE EXPOSED TO SICK CONTACTS, AND AVOID HAVING VISITORS AT HOME, DO NOT TAKE PROBIOTICS YET, UNTIL YOUR PRIMARY CARE PHYSICIAN ALLOWS YOU. WASH YOUR HANDS FREQUENTLY WITH SOAP AND WATER. YOUR PLATELET COUNT IS STILL LOW. DO NOT TAKE MEDICATIONS UNDER THE CLASS OF NSAID'S INCLUDING IBUPROFEN, NAPROXEN, ETC. THIS MAY INCREASE YOUR BLEEDING RISK. Pending Studies at Discharge: Yes Studies:: FINAL RESULTS OF LYME WESTERN BLOT AND ANAPLASMOSIS TEST; REPEAT BLOOD WORK - COMPLETE BLOOD COUNT- ON Monday10/16/19 Stand-Alone Forms: [employer] [facility], Smoking Cessation Medications and DC Order Prescriptions: New doxycycline hyclate 100 mg Capsule 100 mg PO BID Qty: 14 RF: 0 Continued calcium citrate-vitamin D3 [Calcium Citrate + D] 315-200 mg-unit Tablet 1 tab PO 3XWK Qty: 0 RF: 0 PreserVision AREDS 7,160-113-100 [id number] Tablet 1 tab PO BID Qty: 0 RF: 0 doxazosin 1 mg tablet 1 mg PO DAILY RF: 0 pantoprazole 20 mg tablet,delayed release (DR/EC) 20 mg PO QAM RF: 0 Discontinued Acidophilus Tablet,Chewable 1 tab PO 2XWK RF: 0 Discharge Orders: Discharge Order (Routine); Ordered 10/14/19 Ordered By: Carlos Alberto Fay/Other Patient Handouts: Lyme Disease Prevent, Tick Bites, ED Lyme Disease Admission Data Admit Date/Time: 10/13/19 14:13 Attending Provider: Carlos Alberto Sharif Admit Provider: Eduar Rubin Primary Care Provider: Kirit Simmons Other Providers: Jarred Santiago ; Laurence Mcdermott Other Interventions: Discharge Summary Assessment (RN) Last Done: 10/14/19 17:41
[2019-10-14] MEDS: DOXAZOSIN MESYLATE 1 MG TAB PO SCH (18:14)
[2019-10-14] MEDS ORDERED: DOXYCYCLINE HYCLATE 100 MG CAP PO SCH ×2 (18:15→18:20)
[2019-10-16 01:59] LABS: 18KDIGG Band NON-REACTIVE; 23KDIGG Band NON-REACTIVE; 23KDIGM Band NON-REACTIVE; 28KDIGG Band NON-REACTIVE; 30KDIGG Band NON-REACTIVE; 39KDIGG Band NON-REACTIVE; 39KDIGM Band NON-REACTIVE; 41KDIGG Band NON-REACTIVE; 41KDIGM Band NON-REACTIVE; 45KDIGG Band NON-REACTIVE; 58KDIGG Band NON-REACTIVE; 66KDIGG Band NON-REACTIVE; 93KDIGG Band NON-REACTIVE; Lyme Antibodies, WB IgG NEGATIVE (NEGATIVE); Lyme Antibodies, WB IgM NEGATIVE (NEGATIVE)
== END 2019-10-14 18:30 | disposition home or self-care (01) | DRG 869 ==
LOC: 3E 17:36 → ED 17:36 → SUATTDRO 20:00 → 3E 21:52

== ENCOUNTER 2023-01-31 12:07 | Observation (INO) ==
[2023-01-31 12:51] LABS: Partial Thromboplastin Ratio 0.8; Partial Thromboplastin Time 21.4 Seconds (21.0-31.0); Prothrombin Time 10.9 Seconds (9.0-12.0)
[2023-01-31 12:57] LABS: Basophils # (auto) 0.01 K/uL (0.00-0.20); Basophils % (auto) 0.2 %; Eosinophils # (auto) 0.03 K/uL (0.00-0.50); Eosinophils % (auto) 0.6 %; Hematocrit (blood only) 34.9 % (37.0-47.0); Hemoglobin 11.9 g/dl (12.0-16.0); Immature Granulocytes # (auto) 0.03 K/uL (0.01-0.20); Immature Granulocytes % (auto) 0.6 %; Lymphocytes # (auto) 1.35 K/uL (1.20-3.40); Lymphocytes % (auto) 26.1 %; Mean Corpuscular Hemoglobin 32.2 pg (25.0-34.0); Mean Corpuscular Hgb Conc 34.1 g/dL (32.0-36.0); Mean Corpuscular Volume 94.3 fL (80.0-100.0); Mean Platelet Volume 9.8 fL (9.4-12.4); Monocytes # (auto) 0.44 K/uL (0.11-0.59); Monocytes % (auto) 8.5 %; Neutrophils # (auto) 3.32 K/uL (1.40-6.50); Platelet Count 150 K/uL (130-400); RDW Coefficient of Variation 14.6 % (11.5-14.5); RDW Standard Deviation 49.9 fL (36.4-46.3); White Blood Count 5.18 K/ul (4.8-10.8)
[2023-01-31 13:14] LABS: Alanine Aminotransferase 20 U/L (7-52); Albumin Globulin Ratio 1.6 (0.9-2); Albumin Level 4.2 gm/dl (3.4-5.0); Alkaline Phosphatase 55 U/L (34-104); Anion Gap 7 (3-11); Aspartate Aminotransferase 23 U/L (13-39); BUN Creatinine Ratio 41.3 (10-20); Bilirubin,Total 1.6 mg/dl (0.2-1.0); Blood Urea Nitrogen 26 mg/dl (6-23); Calcium 9.2 mg/dl (8.6-10.3); Carbon Dioxide 26 mmol/L (21-32); Chloride 107 mmol/L (98-107); Est GFR (African American) 96.8 ml/min; Est GFR (Non-African American) 83.5 ml/min; Globulin 2.7 gm/dl (2.5-4.0); Glucose 87 mg/dl (70-99(Fasting)); Potassium 3.9 mmol/L (3.5-5.1); Sodium 140 mmol/L (136-145); Total Protein 6.9 gm/dl (6.0-8.3)
[2023-01-31 13:20] LABS: Troponin I High Sensitivity 3.9 pg/ml (0-14)
--- NOTE | 2023-01-31 13:21 | XRay Report ---
SINGLE VIEW CHEST CLINICAL HISTORY: Atypical chest pain. FINDINGS: A PA chest radiograph is compared to study dated 11/18/2022. The cardiomediastinal silhouett e is unremarkable. There is mild elevation of the right hemidiaphragm. The lungs and pleural spaces a re clear. No pneumothorax is seen. The skeletal structures are osteopenic. The bony thorax is grossly intact. There is mild degenerative change and scoliosis seen in the spine. IMPRESSION: No active disease in the chest. ACT 112: Negative or not required by law. Electronically signed by: Nehemias Lin M.D. 01/31/2023 1:20 PM
[2023-01-31 16:32] LABS: D Dimer 2010 ug/L FEU (0-500)
[2023-01-31] MEDS ORDERED: IOVERSOL 350 MG 125mL Prefilled Syringe IV ONE (17:00)
--- NOTE | 2023-01-31 17:14 | CT Scan Report ---
CT angio chest PE protocol CLINICAL HISTORY: ro PE TECHNIQUE: Multidetector row helical CT of the chest was performed with angiographic protocol. Portillo l and sagittal reformations were obtained. Coronal and sagittal MIPS were obtained from the axial bola a set and were submitted for review. Automated dose lowering techniques and/or adjustment according to patient size were utilized for this exam. CT DOSE: 573.27 mGy.cm Comparison: None available at the time of this dictation. FINDINGS: Lungs and pleura: Atelectasis versus scarring is seen in the dependent portions of the lungs. Heart and pericardium: Heart size is normal. No pericardial effusion. Vessels: No evidence of pulmonary embolism. Mediastinum and alejandro: Unremarkable. Chest wall and lower neck: Unremarkable. Abdomen: Unremarkable. Bones: Degenerative changes in the thoracic spine. Old healed sternal fracture is seen. There is a we dge deformity of the C2 vertebral body which is new from the prior exam but appears chronic. IMPRESSION: 1. No acute abnormality and in particular no evidence of pulmonary embolus. 2. Mediastinal lymph nodes are seen. 3. Additional findings as above. ACT 112: Negative or not required by law. Electronically signed by: James Ibanez M.D. 01/31/2023 5:13 PM
--- NOTE | 2023-01-31 18:12 | History & Physical Report ---
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 Atypical, doubt ACS. R sided, intermittent, occurs at rest. Possibly multifactorial given ongoing WRIGHT, dysphagia as below D dimer elevated >2,000 but CTA chest negative for PE Troponin negative x 2 Following with [facility], recent evaluation did not feel CP was cardiac, underwent resting echo in December 2022 with EF 60%, grade 1 diastolic dysfunction, mild mitral regurg, mild-mod tricuspid regurg, mild elevated pulm artery pressure Trend trop x 1 more, telemetry overnight (2) Dysphagia: Plan: Notably worsened over past month, difficulty swallowing pills, early satiety, PCP interested in GI involvement as well. Continue Pepcid, GI consulted, NPO @ [place] in case of EGD (3) WRIGHT (dyspnea on exertion): Plan: Worsening WRIGHT now following with Robin villatoro. Received recent PFTs and do not feel they are consistent with COPD diagnosis from prior but more so within range for patient's age. 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 Will order PRN supplemental O2 HS DVT Ppx: SQ heparin Code status: FULL PCP: Iris Dispo: Observation med tele Patient seen in collaboration with Dr. Rios. Please see addendum. 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 Had a chest pressure across her chest while sitting in [place]ze on Monday that lasted for 20 minutes before resolving. Had an episode this morning while having a virtual appointment with Robin villatoro and was directed to ED for further evaluation. Endorses non- specific chest pain across chest intermittently over the past few months that mostly occurs at rest. Follows with Rohini MORENO with [facility] cardiology and had an outpatient echo done recently. Family is unsure of results and I cannot see in EMR. Pain is non-radiating and not associated with nausea, vomiting or diaphoresis. Progressive SOB over the past year and following with pulm, even more SOB over past week. Has a chronic dry cough but no recent known infection, fever of chills. Also endorsing increased difficulty with swallowing and "feeling full" in AM before eating. Feels like its difficult to even get fluids down in AM. Denies any unintentional weight loss. Lives with family and a mbulates with a walker. No lightheadedness, headache, nausea, vomiting, abdominal pain, dysuria, diarrhea or constipation. Allergies Allergy/AdvReac Type Severity Reaction Status Date / Time amoxicillin Allergy Severe RASH Verified 01/31/23 17:35 clavulanic acid Allergy Severe RASH Verified 01/31/23 17:35 Nitrate Analogues AdvReac Severe HEAD ACHE Verified 01/31/23 17:35 isosorbide AdvReac Intermediate PAINFUL Verified 01/31/23 17:35 Home Medications Medication Instructions Recorded Confirmed Type calcium citrate 315 mg-vitamin D3 1 tab PO QAM ##0 08/31/17 01/31/23 History 5 mcg (200 unit) tablet (Calcium Citrate + D) vitamins A,C,M-wihm-qzsizd 2,148 1 tab PO BID #0 tabs 12/18/17 01/31/23 History mcg-113 mg-45 mg-17.4 mg tablet (PreserVision AREDS) doxazosin 1 mg tablet 1 mg PO QPM 10/11/19 01/31/23 History albuterol sulfate 90 mcg/actuation 2 puff inhalation QID PRN 01/31/23 01/31/23 History aerosol inhaler Shortness Of Breath Or Wheezing ascorbic acid (vitamin C) 500 mg 500 mg PO QPM 01/31/23 01/31/23 History tablet (Vitamin C) cholecalciferol (vitamin D3) 125 250 mcg PO WK 01/31/23 01/31/23 History mcg (5,000 unit) tablet (Vitamin D3) famotidine 20 mg tablet 20 mg PO DAILYBB 01/31/23 01/31/23 History fluticasone furoate 100 1 inh inhalation DAILY 01/31/23 01/31/23 History mcg-vilanterol 25 mcg/dose inhalation powder (Breo Ellipta) levothyroxine 25 mcg tablet 25 mcg PO DAILYBB 01/31/23 01/31/23 History zinc acetate 50 mg (zinc) capsule 50 mg PO QPM 01/31/23 01/31/23 History Past Med/Surg History Medical History (Updated 01/31/23 @ 20:29 by Marlys Barton PA-C) Bronchitis Chronic back pain Depression WRIGHT (dyspnea on exertion) Hypertension Hypothyroidism Irritable bowel syndrome Nocturnal hypoxia Osteoarthritis Surgical History H/O eye surgery History of appendectomy History of cataract surgery 12/27/17. 2mg versed. no issues. 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 Physical Exam Physical Exam: General Appearance: WD/WN, vitals as above, NAD, sitting up in bed, pleasant, conversing easily Head: normocephalic, atraumatic Eyes: normal inspection, PERRL, conjunctivae normal, anicteric sclerae ENT: external ear and nose normal, oropharynx normal Neck: normal visual inspection, trachea midline, no thyromegaly Respiratory: normal respiratory effort, lungs clear to auscultation, no wheeze, rales, rhonchi. No accessory muscle use Cardiovascular: regular rate, rhythm, no murmur, normal peripheral pulses, no BLE edema. Vessels: no JVD Chest: normal inspection of chest, cp not reproducible on palpation Abdomen/GI: normal bowel sounds, soft, nontender, no hepatosplenomegaly Extremities/Musculoskeletal: no cyanosis or clubbing, extremities motor strength 5/5 Neurologic: PERRL, EOMI, accommodation nl, no face palsy, no dysarthria, CN's II-XI intact bilaterally and moves all extremities Psychiatric: A+Ox3, euthymic affect Skin: no rashes, normal color, warm/dry Results & Data Results & Data Vital Signs (Past 12 Hours) Vital Signs Temp Pulse Pulse Resp BP BP Pulse Ox 01/31/23 17:10 99 H 20 98 01/31/23 17:04 102 H 15 98 01/31/23 16:50 76 13 95 01/31/23 16:44 146/82 H 01/31/23 16:44 77 18 100 01/31/23 16:40 87 34 H 98 01/31/23 16:30 82 19 100 01/31/23 16:20 78 26 H 100 01/31/23 16:10 84 25 H 98 01/31/23 16:04 89 25 H 100 01/31/23 16:07 83 20 180/77 H 100 01/31/23 16:07 92 H 01/31/23 12:14 36.5 C 69 20 156/81 H 100 O2 Del Method 01/31/23 17:10 01/31/23 17:04 01/31/23 16:50 01/31/23 16:44 01/31/23 16:44 01/31/23 16:40 01/31/23 16:30 01/31/23 16:20 01/31/23 16:10 01/31/23 16:04 01/31/23 16:07 Room Air 01/31/23 16:07 01/31/23 12:14 Room Air Laboratory Results Short CBC 01/31/23 Range/Units 12:30 WBC 5.18 (4.8-10.8) K/ul Hgb 11.9 L (12.0-16.0) g/dl Hct 34.9 L (37.0-47.0) % Plt Count 150 (130-400) K/uL BMP 01/31/23 12:30 Sodium 140 Potassium 3.9 Chloride 107 Carbon Dioxide 26 BUN 26 H Creatinine 0.63 Glucose 87 Calcium 9.2 Liver Function 01/31/23 Range/Units 12:30 Total Bilirubin 1.6 H (0.2-1.0) mg/dl AST 23 (13-39) U/L ALT 20 (7-52) U/L Alkaline Phosphatase 55 (34-104) U/L Albumin 4.2 (3.4-5.0) gm/dl Diagnostic Findings Chest X-Ray 01/31/23 12:18 SINGLE VIEW CHEST CLINICAL HISTORY: Atypical chest pain. FINDINGS: A PA chest radiograph is compared to study dated 11/18/2022. The cardiomediastinal silhouette is unremarkable. There is mild elevation of the right hemidiaphragm. The lungs and pleural spaces are clear. No pneumothorax is seen. The skeletal structures are osteopenic. The bony thorax is grossly intact. There is mild degenerative change and scoliosis seen in the spine. IMPRESSION: No active disease in the chest. ACT 112: Negative or not required by law. Electronically signed by: Nehemias Lin M.D. 01/31/2023 1:20 PM Chest CTA 01/31/23 16:37 CT angio chest PE protocol CLINICAL HISTORY: ro PE TECHNIQUE: Multidetector row helical CT of the chest was performed with angiographic protocol. Coronal and sagittal reformations were obtained. Coronal and sagittal MIPS were obtained from the axial data set and were submitted for review. Automated dose lowering techniques and/or adjustment according to patient size were utilized for this exam. CT DOSE: 573.27 mGy.cm Comparison: None available at the time of this dictation. FINDINGS: Lungs and pleura: Atelectasis versus scarring is seen in the dependent portions of the lungs. Heart and pericardium: Heart size is normal. No pericardial effusion. Vessels: No evidence of pulmonary embolism. Mediastinum and alejandro: Unremarkable. Chest wall and lower neck: Unremarkable. Abdomen: Unremarkable. Bones: Degenerative changes in the thoracic spine. Old healed sternal fracture is seen. There is a wedge deformity of the C2 vertebral body which is new from the prior exam but appears chronic. IMPRESSION: 1. No acute abnormality and in particular no evidence of pulmonary embolus. 2. Mediastinal lymph nodes are seen. 3. Additional findings as above. ACT 112: Negative or not required by law. Electronically signed by: James Ibanez M.D. 01/31/2023 5:13 PM Supervising Physician Co-Signing Physician Notes 82 year old with intermittent chest pain unlikely to be cardiac ( negative ekg and negative trops) will get a gi evalution because of concerns of difficulty in swallowing
[2023-01-31] MEDS ORDERED: ACETAMINOPHEN 325 MG TAB PO PRN (20:57)
[2023-01-31] MEDS ORDERED: ONDANSETRON INJ 2 MG/ML 2 ML VIAL IV PRN (20:57)
[2023-01-31] MEDS ORDERED: POLYETHYLENE (MIRALAX) 17 GM PACK PO PRN (20:57)
[2023-01-31] MEDS ORDERED: ALBUTEROL HFA 8 GM INHALER INH PRN (22:09)
[2023-01-31] MEDS ORDERED: guaiFENesin/CODEINE 100MG/10MG 5ML UDC PO PRN (22:45)
--- NOTE | 2023-01-31 23:00 | Emergency Department Note ---
History of Present Illness General Chief Complaint: Chest Pain Stated Complaint: REF BY , CHEST PAIN, SOB Time Seen by Provider: 01/31/23 15:56 History of Present Illness Provider Complaint: chest pain Time: 11:00 Duration: now resolved Onset: during exertion Pain Location: right chest Pain Radiation: none Current Pain Intensity: 0 Quality: + heaviness Relieved By: + nothing Exacerbated By: + nothing Context: no recent illness, no recent surgery, no recent immobilization, no recent travel, no trauma/injury, no new medications or no history of DVT/PE Associated symptoms: + dyspnea; no vomiting, no diaphoresis, no syncope, no pa lpitations, no fever, no cough or no leg swelling Daughter at bedside reports that the patient has been having intermittent chest pain and difficulty breathing for the last month that is worse with exertion. Home Medications Medication Instructions Recorded Confirmed Type calcium citrate 315 mg-vitamin D3 1 tab PO QAM ##0 08/31/17 01/31/23 History 5 mcg (200 unit) tablet (Calcium Citrate + D) vitamins A,C,[id number] 2,148 1 tab PO BID #0 tabs 12/18/17 01/31/23 History mcg-113 mg-45 mg-17.4 mg tablet (PreserVision AREDS) doxazosin 1 mg tablet 1 mg PO QPM 10/11/19 01/31/23 History albuterol sulfate 90 mcg/actuation 2 puff inhalation QID PRN 01/31/23 01/31/23 History aerosol inhaler Shortness Of Breath Or Wheezing ascorbic acid (vitamin C) 500 mg 500 mg PO QPM 01/31/23 01/31/23 History tablet (Vitamin C) cholecalciferol (vitamin D3) 125 250 mcg PO WK 01/31/23 01/31/23 History mcg (5,000 unit) tablet (Vitamin D3) famotidine 20 mg tablet 20 mg PO DAILYBB 01/31/23 01/31/23 History fluticasone furoate 100 1 inh inhalation DAILY 01/31/23 01/31/23 History mcg-vilanterol 25 mcg/dose inhalation powder (Breo Ellipta) levothyroxine 25 mcg tablet 25 mcg PO DAILYBB 01/31/23 01/31/23 History zinc acetate 50 mg (zinc) capsule 50 mg PO QPM 01/31/23 01/31/23 History Allergies Allergy/AdvReac Type Severity Reaction Status Date / Time amoxicillin Allergy Severe RASH Verified 01/31/23 17:35 clavulanic acid Allergy Severe RASH Verified 01/31/23 17:35 Nitrate Analogues AdvReac Severe HEAD ACHE Verified 01/31/23 17:35 isosorbide AdvReac Intermediate PAINFUL Verified 01/31/23 17:35 Past Med/Surg History Medical History Bronchitis Chronic back pain Depression WRIGHT (dyspnea on exertion) Hypertension Hypothyroidism Irritable bowel syndrome Nocturnal hypoxia Osteoarthritis Surgical History H/O eye surgery History of appendectomy History of cataract surgery 12/27/17. 2mg versed. no issues. 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 Required: No Beliefs That Will Affect Care: None Current Living Situation: Spouse Feels Safe at Home: Yes Assistive Devices: Walker Physical Exam Vital Signs Vital Signs - 24 hr 01/31/23 12:14 01/31/23 12:14 01/31/23 16:07 Temperature 36.5 C Temperature Source Temporal Artery Scan Pulse Rate 69 92 H Pulse Rate [Apical] Pulse Rate from SpO2 Sensor Respiratory Rate 20 Respiratory Effort / Characteristics SOB on Exertion Blood Pressure 156/81 H Blood Pressure [Right Arm] Blood Pressure Mean 106 Blood Pressure Mean [Right Arm] Blood Pressure Position [Right Arm] Pulse Oximetry 100 Oxygen Delivery Method Room Air Sepsis Recent Fever Within 48 Hours No Sepsis New/Unexplained Change in Mental Status N/A Sepsis Action Taken by Nursing No Action Required 01/31/23 16:07 01/31/23 16:04 01/31/23 16:10 Temperature Temperature Source Pulse Rate 89 84 Pulse Rate [Apical] 83 Pulse Rate from SpO2 Sensor 88 82 Respiratory Rate 20 25 H 25 H Respiratory Effort / Characteristics Blood Pressure Blood Pressure [Right Arm] 180/77 H Blood Pressure Mean Blood Pressure Mean [Right Arm] 111 Blood Pressure Position [Right Arm] Lying Pulse Oximetry 100 100 98 Oxygen Delivery Method Room Air Sepsis Recent Fever Within 48 Hours Sepsis New/Unexplained Change in Mental Status Sepsis Action Taken by Nursing 01/31/23 16:20 01/31/23 16:30 01/31/23 16:40 Temperature Temperature Source Pulse Rate 78 82 87 Pulse Rate [Apical] Pulse Rate from SpO2 Sensor 79 79 79 Respiratory Rate 26 H 19 34 H Respiratory Effort / Characteristics Blood Pressure Blood Pressure [Right Arm] Blood Pressure Mean Blood Pressure Mean [Right Arm] Blood Pressure Position [Right Arm] Pulse Oximetry 100 100 98 Oxygen Delivery Method Sepsis Recent Fever Within 48 Hours Sepsis New/Unexplained Change in Mental Status Sepsis Action Taken by Nursing 01/31/23 16:44 01/31/23 16:44 01/31/23 16:50 Temperature Temperature Source Pulse Rate 77 76 Pulse Rate [Apical] Pulse Rate from SpO2 Sensor 74 72 Respiratory Rate 18 13 Respiratory Effort / Characteristics Blood Pressure 146/82 H Blood Pressure [Right Arm] Blood Pressure Mean 103 Blood Pressure Mean [Right Arm] Blood Pressure Position [Right Arm] Pulse Oximetry 100 95 Oxygen Delivery Method Sepsis Recent Fever Within 48 Hours Sepsis New/Unexplained Change in Mental Status Sepsis Action Taken by Nursing 01/31/23 17:04 01/31/23 17:10 01/31/23 17:22 Temperature Temperature Source Pulse Rate 102 H 99 H 110 H Pulse Rate [Apical] Pulse Rate from SpO2 Sensor 101 H 99 H 102 H Respiratory Rate 15 20 22 Respiratory Effort / Characteristics Blood Pressure Blood Pressure [Right Arm] Blood Pressure Mean Blood Pressure Mean [Right Arm] Blood Pressure Position [Right Arm] Pulse Oximetry 98 98 93 Oxygen Delivery Method Sepsis Recent Fever Within 48 Hours Sepsis New/Unexplained Change in Mental Status Sepsis Action Taken by Nursing 01/31/23 17:30 01/31/23 17:40 01/31/23 17:50 Temperature Temperature Source Pulse Rate 79 78 75 Pulse Rate [Apical] Pulse Rate from SpO2 Sensor 79 80 74 Respiratory Rate 15 13 24 Respiratory Effort / Characteristics Blood Pressure Blood Pressure [Right Arm] Blood Pressure Mean Blood Pressure Mean [Right Arm] Blood Pressure Position [Right Arm] Pulse Oximetry 100 97 99 Oxygen Delivery Method Sepsis Recent Fever Within 48 Hours Sepsis New/Unexplained Change in Mental Status Sepsis Action Taken by Nursing 01/31/23 18:00 01/31/23 18:00 Temperature Temperature Source Pulse Rate 72 Pulse Rate [Apical] Pulse Rate from SpO2 Sensor 72 Respiratory Rate 14 Respiratory Effort / Characteristics Blood Pressure 133/89 Blood Pressure [Right Arm] Blood Pressure Mean 103 Blood Pressure Mean [Right Arm] Blood Pressure Position [Right Arm] Pulse Oximetry 96 Oxygen Delivery Method Sepsis Recent Fever Within 48 Hours Sepsis New/Unexplained Change in Mental Status Sepsis Action Taken by Nursing Physical Exam GENERAL: oriented to person, place, and time. appears well-developed and well- nourished. HENT: Exam performed. - Head: Normocephalic and atraumatic. EYES: Conjunctivae and EOM are normal. Right eye exhibits no discharge. Left eye exhibits no discharge. No scleral icterus. NECK: Normal range of motion. Neck supple. No JVD present. CV: Normal rate, regular rhythm, normal heart sounds and intact distal pulses. There is no peripheral edema. Palpable radial pulses bue. PULM/CHEST: Effort normal and breath sounds normal. No respiratory distress. No stridor. no wheezes. no rales. ABD: The abdomen is soft. There is no tenderness. NEURO: Motor and sensation grossly intact. SKIN: Skin is warm and dry. He is not diaphoretic. PSYCH: normal mood and affect. Behavior is normal. Judgment and thought content normal. Course Course 1556: The patient was evaluated in room A4. A complete history and physical exam was performed Cardiac monitoring: An order was placed for continuous cardiac monitoring. The monitor shows a rate of 80 with sinus rhythm interpreted by me Patient was seen during a time of extreme volume and extreme acuity in the emergency department. Nursing triage protocols were initiated and labs were drawn by protocol in the triage area. Labs are within normal limits including initial troponin which was negative. We will conduct delta troponin as well as D-dimer given the patient's right-sided chest pain and exertional dyspnea. 1745: Vital signs stable. D-dimer was elevated however CTA of the chest was negative for PE. Delta troponin negative. Patient reporting no chest pain at rest however the patient has been having exertional dyspnea and chest pain over the last month. Patient will be admitted to the [facility] team for chest pain rule out ACS. Administered Medications Discontinued Medications Ioversol (Ioversol 350 Mg 125ml Prefilled Syringe) 116 ml IV ONCE ONE Stop: 01/31/23 17:01 Last Admin: 01/31/23 17:01 Dose: 116 ml Documented By: TAI Medical Decision Making Laboratory Data Attestation: I reviewed the patient's lab results. 01/31/23 12:30 01/31/23 12:30 Labs: Lab Results 01/31/23 01/31/23 01/31/23 Range/Units 12:30 12:30 12:30 WBC 5.18 (4.8-10.8) K/ul RBC 3.70 L (4.20-5.40) M/uL Hgb 11.9 L (12.0-16.0) g/dl Hct 34.9 L (37.0-47.0) % MCV 94.3 (80.0-100.0) fL MCH 32.2 (25.0-34.0) pg MCHC 34.1 (32.0-36.0) g/dL RDW Std Deviation 49.9 H (36.4-46.3) fL RDW Coeff of Heriberto 14.6 H (11.5-14.5) % Plt Count 150 (130-400) K/uL MPV 9.8 (9.4-12.4) fL Immature Gran % (Auto) 0.6 % Neut % (Auto) 64.0 % Lymph % (Auto) 26.1 % [place] % (Auto) 8.5 % Eos % (Auto) 0.6 % Baso % (Auto) 0.2 % Neut # (Auto) 3.32 (1.40-6.50) K/uL Lymph # (Auto) 1.35 (1.20-3.40) K/uL [place] # (Auto) 0.44 (0.11-0.59) K/uL Eos # (Auto) 0.03 (0.00-0.50) K/uL Baso # (Auto) 0.01 (0.00-0.20) K/uL Immature Gran # (Auto) 0.03 (0.01-0.20) K/uL PT 10.9 (9.0-12.0) Seconds INR 1.0 (0.9-1.1) APTT 21.4 (21.0-31.0) Seconds PTT Ratio 0.8 D-Dimer (0-500) ug/L FEU Sodium 140 (136-145) mmol/L Potassium 3.9 (3.5-5.1) mmol/L Chloride 107 (98-107) mmol/L Carbon Dioxide 26 (21-32) mmol/L Anion Gap 7 (3-11) BUN 26 H (6-23) mg/dl Creatinine 0.63 (0.6-1.2) mg/dl Est Cr Clr Drug Dosing Not Reportable Est GFR ( Amer) 96.8 ml/min Est GFR (Non-Af Amer) 83.5 ml/min BUN/Creatinine Ratio 41.3 H (10-20) Glucose 87 (70-99(Fasting)) mg/dl Calcium 9.2 (8.6-10.3) mg/dl Total Bilirubin 1.6 H (0.2-1.0) mg/dl AST 23 (13-39) U/L ALT 20 (7-52) U/L Alkaline Phosphatase 55 (34-104) U/L Troponin I High Sens 3.9 (0-14) pg/ml B-Natriuretic Peptide (0-100) pg/ml Total Protein 6.9 (6.0-8.3) gm/dl Albumin 4.2 (3.4-5.0) gm/dl Globulin 2.7 (2.5-4.0) gm/dl Albumin/Globulin Ratio 1.6 (0.9-2) 01/31/23 01/31/23 01/31/23 Range/Units 12:30 16:19 16:19 WBC (4.8-10.8) K/ul RBC (4.20-5.40) M/uL Hgb (12.0-16.0) g/dl Hct (37.0-47.0) % MCV (80.0-100.0) fL MCH (25.0-34.0) pg MCHC (32.0-36.0) g/dL RDW Std Deviation (36.4-46.3) fL RDW Coeff of Heriberto (11.5-14.5) % Plt Count (130-400) K/uL MPV (9.4-12.4) fL Immature Gran % (Auto) % Neut % (Auto) % Lymph % (Auto) % [place] % (Auto) % Eos % (Auto) % Baso % (Auto) % Neut # (Auto) (1.40-6.50) K/uL Lymph # (Auto) (1.20-3.40) K/uL [place] # (Auto) (0.11-0.59) K/uL Eos # (Auto) (0.00-0.50) K/uL Baso # (Auto) (0.00-0.20) K/uL Immature Gran # (Auto) (0.01-0.20) K/uL PT (9.0-12.0) Seconds INR (0.9-1.1) APTT (21.0-31.0) Seconds PTT Ratio D-Dimer 2009 H* (0-500) ug/L FEU Sodium (136-145) mmol/L Potassium (3.5-5.1) mmol/L Chloride (98-107) mmol/L Carbon Dioxide (21-32) mmol/L Anion Gap (3-11) BUN (6-23) mg/dl Creatinine (0.6-1.2) mg/dl Est Cr Clr Drug Dosing Est GFR ( Amer) ml/min Est GFR (Non-Af Amer) ml/min BUN/Creatinine Ratio (10-20) Glucose (70-99(Fasting)) mg/dl Calcium (8.6-10.3) mg/dl Total Bilirubin (0.2-1.0) mg/dl AST (13-39) U/L ALT (7-52) U/L Alkaline Phosphatase (34-104) U/L Troponin I High Sens 4.3 (0-14) pg/ml B-Natriuretic Peptide 41 (0-100) pg/ml Total Protein (6.0-8.3) gm/dl Albumin (3.4-5.0) gm/dl Globulin (2.5-4.0) gm/dl Albumin/Globulin Ratio (0.9-2) Imaging Data Chest x-ray: Attestation: I personally reviewed and interpreted this imaging study as follows: My impression: Chest x-ray negative. Airway clear. No pneumothorax. No consolidation. No cardiomegaly or cephalization.. No free air under the diaphragm. No fractures of the skeletal structures. Radiologist's impression: SINGLE VIEW CHEST CLINICAL HISTORY: Atypical chest pain. FINDINGS: A PA chest radiograph is compared to study dated 11/18/2022. The cardiomediastinal silhouette is unremarkable. There is mild elevation of the right hemidiaphragm. The lungs and pleural spaces are clear. No pneumothorax is seen. The skeletal structures are osteopenic. The bony thorax is grossly intact. There is mild degenerative change and scoliosis seen in the spine. IMPRESSION: No active disease in the chest. ACT 112: Negative or not required by law. Electronically signed by: Nehemias Lin M.D. 01/31/2023 1:20 PM Dictated:01/31/23 1319 Transcribed: 01/31/231318 CT scan - chest: Radiologist's impression: CT angio chest PE protocol CLINICAL HISTORY: ro PE TECHNIQUE: Multidetector row helical CT of the chest was performed with angiographic protocol. Coronal and sagittal reformations were obtained. Coronal and sagittal MIPS were obtained from the axial data set and were submitted for review. Automated dose lowering techniques and/or adjustment according to patient size were utilized for this exam. CT DOSE: 573.27 mGy.cm Comparison: None available at the time of this dictation. FINDINGS: Lungs and pleura: Atelectasis versus scarring is seen in the dependent portions of the lungs. Heart and pericardium: Heart size is normal. No pericardial effusion. Vessels: No evidence of pulmonary embolism. Mediastinum and alejandro: Unremarkable. Chest wall and lower neck: Unremarkable. Abdomen: Unremarkable. Bones: Degenerative changes in the thoracic spine. Old healed sternal fracture is seen. There is a wedge deformity of the C2 vertebral body which is new from the prior exam but appears chronic. IMPRESSION: 1. No acute abnormality and in particular no evidence of pulmonary embolus. 2. Mediastinal lymph nodes are seen. 3. Additional findings as above. ACT 112: Negative or not required by law. Electronically signed by: James Ibanez M.D. 01/31/2023 5:13 PM Dictated:01/31/23 1708 Transcribed: 01/31/231707 ECG Data Attestation: I personally reviewed and interpreted this ECG as follows: Indication: chest pain Rate (beats per minute): 78 Rhythm: sinus with SA Findings: no ST depression, no ST elevation or no prolonged QT Additional Comments: QRS 74 MDM Narrative 1556: The patient was evaluated in room A4. A complete history and physical exam was performed Cardiac monitoring: An order was placed for continuous cardiac monitoring. The monitor shows a rate of 80 with sinus rhythm interpreted by me Patient was seen during a time of extreme volume and extreme acuity in the emerg ency department. Nursing triage protocols were initiated and labs were drawn by protocol in the triage area. Labs are within normal limits including initial troponin which was negative. We will conduct delta troponin as well as D-dimer given the patient's right-sided chest pain and exertional dyspnea. 1745: Vital signs stable. D-dimer was elevated however CTA of the chest was negative for PE. Delta troponin negative. Patient reporting no chest pain at rest however the patient has been having exertional dyspnea and chest pain over the last month. Patient will be admitted to the [facility] team for chest pain rule out ACS. Impression & Plan Chest pain Discharge Plan Visit Data Chief Complaint: Chest Pain Stated Complaint: REF BY , CHEST PAIN, SOB ED Provider: Carlos Aviles Discharge Problem: Chest pain Patient Disposition: Admitted As Inpatient Discharge Instructions Interventions: ED Discharge Assessment Last Done: 01/31/23 20:14
[2023-01-31] MEDS: DOXAZOSIN MESYLATE 1 MG TAB PO SCH (23:03)
[2023-01-31] MEDS: PANTOprazole 40 MG TAB PO SCH (23:03)
[2023-02-01] MEDS: LEVOTHYROXINE SODIUM 25 MCG TABLET PO SCH (04:53)
[2023-02-01] MEDS: FAMOTIDINE 20 MG TAB PO SCH (04:54)
[2023-02-01 06:58] LABS: Hematocrit (blood only) 32.6 % (37.0-47.0); Mean Corpuscular Hemoglobin 31.6 pg (25.0-34.0); Mean Corpuscular Hgb Conc 33.7 g/dL (32.0-36.0); Mean Corpuscular Volume 93.7 fL (80.0-100.0); Mean Platelet Volume 9.7 fL (9.4-12.4); Platelet Count 136 K/uL (130-400); RDW Coefficient of Variation 14.5 % (11.5-14.5); Red Blood Count 3.48 M/uL (4.20-5.40); White Blood Count 3.79 K/ul (4.8-10.8)
[2023-02-01 07:21] LABS: BUN Creatinine Ratio 44.4 (10-20); Calcium 8.6 mg/dl (8.6-10.3); Creatinine Clr Calc Pharmacy 54.5 ml/min; Est GFR (African American) 96.8 ml/min; Est GFR (Non-African American) 83.5 ml/min; Potassium 4.1 mmol/L (3.5-5.1)
--- NOTE | 2023-02-01 08:30 | Gastrointestinal Consultation ---
Date of Consultation February 01, 2023 Assessment & Plan (1) Dysphagia: (2) Chest pain: (3) WRIGHT (dyspnea on exertion): Plan This is an 82 y/o female with multiple co-morbidities, chronic issues with intermittent chest pain, WRIGHT and was admitted for chest pain, and we are consulted for worsening difficulties with swallowing, heartburn/regurgitation. She describes both oropharyngeal and esophageal dysphagia symptoms; has not had EGD to evaluate this. - Keep NPO - Supportive care with IVF - Continue PPI daily - Continue famotidine 20 mg daily - Will plan EGD today to evaluate her swallowing complaints for esophageal pathology - Will also ask that cardiology see her for pre-op evaluation given her presenting complaints of chest discomfort, SOB Thank you for allowing us to participate in the care of this patient. Please call with any acute changes, questions or concerns. Please see addendum below with additional recommendation from my supervising physician. Supervising Physician Co-Signing Physician Notes I have seen and examined the patient with Milly Alicia PA-C whose note reflects our fidnings and plan. EGD today to further evaluate the complaints of weeks of dysphagia. 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 She's had intermittent chest pain and SOB on a chronic basis over the last year, following with both [facility] pul and [facility] [place] cardiology; recent resting echo 12/2022 w/ LVEF 60%; mild MR/TR, elevated PA pressure. Recent PFTs not consistent with COPD; possible ILD. She was admitted after being sent yesterday by her community resource officer as pt was c/o chest discomfort while sitting in nondenominational on Monday and again prior to coming in. In the ER troponin negative, chest CTA neg for PE; nonacute. EKG w/ sinus with SA. HGB 12->11, PLT, creatinine WNL. She's been intermittently hypertensive; satting well on room air. We are consulted as she is complaining of worsening trouble swallowing. For the last year or so she says she chokes at times when she swallows liquids>foods; it can even happen with saliva. She will get frequent coughing episodes after eating. In addition she often has fullness in her chest upon swallowing food and also feels food stuck in her chest at times. Doesn't matter what type of food she eats. Has intermittent regurgitation/indigestion as well. In addition she has felt her voice has changed over the last few years; says it's weaker. She takes a daily antacid but doesn't feel it helps. Feels symptoms are getting worse. Denies weight loss. She said she is able to eat and eats well despite her symptoms. No nausea, vomiting, abd pain, change in BMs, melena, hematochezia. Currently denies CP. Has chronic intermittent SOB. Resting comfortably in bed currently. Never had EGD. No ETOH, tobacco, NSAIDs. Surgical hx: Appendectomy Allergies Allergy/AdvReac Type Severity Reaction Status Date / Time amoxicillin Allergy Severe RASH Verified 01/31/23 17:35 clavulanic acid Allergy Severe RASH Verified 01/31/23 17:35 Nitrate Analogues AdvReac Severe HEAD ACHE Verified 01/31/23 17:35 isosorbide AdvReac Intermediate PAINFUL Verified 01/31/23 17:35 Home Medications Medication Instructions Recorded Confirmed Type calcium citrate 315 mg-vitamin D3 1 tab PO QAM ##0 08/31/17 01/31/23 History 5 mcg (200 unit) tablet (Calcium Citrate + D) vitamins A,C,Y-hwnz-[id number] 2,148 1 tab PO BID #0 tabs 12/18/17 01/31/23 History mcg-113 mg-45 mg-17.4 mg tablet (PreserVision AREDS) doxazosin 1 mg tablet 1 mg PO QPM 10/11/19 01/31/23 History albuterol sulfate 90 mcg/actuation 2 puff inhalation QID PRN 01/31/23 01/31/23 History aerosol inhaler Shortness Of Breath Or Wheezing ascorbic acid (vitamin C) 500 mg 500 mg PO QPM 01/31/23 01/31/23 History tablet (Vitamin C) cholecalciferol (vitamin D3) 125 250 mcg PO WK 01/31/23 01/31/23 History mcg (5,000 unit) tablet (Vitamin D3) famotidine 20 mg tablet 20 mg PO DAILYBB 01/31/23 01/31/23 History fluticasone furoate 100 1 inh inhalation DAILY 01/31/23 01/31/23 History mcg-vilanterol 25 mcg/dose inhalation powder (Breo Ellipta) levothyroxine 25 mcg tablet 25 mcg PO DAILYBB 01/31/23 01/31/23 History zinc acetate 50 mg (zinc) capsule 50 mg PO QPM 01/31/23 01/31/23 History Patient History Medical History Bronchitis Chronic back pain Depression WRIGHT (dyspnea on exertion) Hypertension Hypothyroidism Irritable bowel syndrome Nocturnal hypoxia Osteoarthritis Surgical History H/O eye surgery History of appendectomy History of cataract surgery 12/27/17. 2mg versed. no issues. History of colonoscopy History of laparoscopy Family History Other Diabetes Heart disease No significant family history Social History Smoking Status: Never smoker Second Hand Exposure: No; Do You Dip or Chew Tobacco: No; Hx Alcohol Use: No Hx Substance Use: No Preferred Language: Icelandic Communication Ability: Effective Correspondence School Instructor Required: No Beliefs That Will Affect Care: None Current Living Situation: Family Feels Safe at Home: Yes Safety Concerns: Feels Safe At This Time Assistive Devices: Walker Review of Systems Review of Systems: All systems reviewed & are unremarkable except as noted in HPI & below Physical Exam Constitutional: well developed, well nourished and comfortable; no acute distress chronically ill Eyes: Sclera anicteric, no conjunctival injection ENMT: moist mucous membranes, no pallor Neck: trachea midline supple Respiratory: normal respiratory effort, lungs clear to auscultation Cardiovascular: RRR, no murmur, no edema Gastrointestinal (Abdomen): normal bowel sounds, soft, nontender, no hepa tosplenomegaly Inspection/Auscultation: abdomen not distended Skin: no rashes, warm and dry Neurologic: alert and oriented x 3, no obvious focal neuro deficit Psychiatric: normal mood and affect Results & Data Vital Signs (Past 12 Hours) Vital Signs Temp Pulse Pulse Pulse Resp BP Pulse Ox 02/01/23 07:35 36.4 C L 60 16 165/92 H 97 02/01/23 03:52 36.8 C 64 18 127/82 96 02/01/23 03:09 36.6 C 88 20 168/79 H 97 02/01/23 02:57 02/01/23 00:00 74 01/31/23 20:46 68 01/31/23 21:00 94 01/31/23 22:28 36.5 C 79 18 148/81 H 95 O2 Del Method O2 Flow Rate 02/01/23 07:35 Room Air 02/01/23 03:52 Room Air 02/01/23 03:09 Room Air 02/01/23 02:57 Room Air 02/01/23 00:00 01/31/23 20:46 01/31/23 21:00 Room Air 0 01/31/23 22:28 Room Air Laboratory Results 02/01/23 02/01/23 01/31/23 Range/Units 06:08 06:08 22:40 WBC 3.79 L (4.8-10.8) K/ul RBC 3.48 L (4.20-5.40) M/uL Hgb 11.0 L (12.0-16.0) g/dl Hct 32.6 L (37.0-47.0) % MCV 93.7 (80.0-100.0) fL MCH 31.6 (25.0-34.0) pg MCHC 33.7 (32.0-36.0) g/dL RDW Std Deviation 49.0 H (36.4-46.3) fL RDW Coeff of Heriberto 14.5 (11.5-14.5) % Plt Count 136 (130-400) K/uL MPV 9.7 (9.4-12.4) fL Immature Gran % (Auto) % Neut % (Auto) % Lymph % (Auto) % Levy % (Auto) % Eos % (Auto) % Baso % (Auto) % Neut # (Auto) (1.40-6.50) K/uL Lymph # (Auto) (1.20-3.40) K/uL Levy # (Auto) (0.11-0.59) K/uL Eos # (Auto) (0.00-0.50) K/uL Baso # (Auto) (0.00-0.20) K/uL Immature Gran # (Auto) (0.01-0.20) K/uL PT (9.0-12.0) Seconds INR (0.9-1.1) APTT (21.0-31.0) Seconds PTT Ratio D-Dimer (0-500) ug/L FEU Sodium 142 (136-145) mmol/L Potassium 4.1 (3.5-5.1) mmol/L Chloride 109 H (98-107) mmol/L Carbon Dioxide 28 (21-32) mmol/L Anion Gap 5 (3-11) BUN 28 H (6-23) mg/dl Creatinine 0.63 (0.6-1.2) mg/dl Est Cr Clr Drug Dosing 54.5 Est GFR ( Amer) 96.8 ml/min Est GFR (Non-Af Amer) 83.5 ml/min BUN/Creatinine Ratio 44.4 H (10-20) Glucose 94 (70-99(Fasting)) mg/dl Calcium 8.6 (8.6-10.3) mg/dl Total Bilirubin (0.2-1.0) mg/dl AST (13-39) U/L ALT (7-52) U/L Alkaline Phosphatase (34-104) U/L Troponin I High Sens 6.3 (0-14) pg/ml B-Natriuretic Peptide (0-100) pg/ml Total Protein (6.0-8.3) gm/dl Albumin (3.4-5.0) gm/dl Globulin (2.5-4.0) gm/dl Albumin/Globulin Ratio (0.9-2) 01/31/23 01/31/23 01/31/23 Range/Units 16:19 16:19 12:30 WBC (4.8-10.8) K/ul RBC (4.20-5.40) M/uL Hgb (12.0-16.0) g/dl Hct (37.0-47.0) % MCV (80.0-100.0) fL MCH (25.0-34.0) pg MCHC (32.0-36.0) g/dL RDW Std Deviation (36.4-46.3) fL RDW Coeff of Heriberto (11.5-14.5) % Plt Count (130-400) K/uL MPV (9.4-12.4) fL Immature Gran % (Auto) % Neut % (Auto) % Lymph % (Auto) % Levy % (Auto) % Eos % (Auto) % Baso % (Auto) % Neut # (Auto) (1.40-6.50) K/uL Lymph # (Auto) (1.20-3.40) K/uL Levy # (Auto) (0.11-0.59) K/uL Eos # (Auto) (0.00-0.50) K/uL Baso # (Auto) (0.00-0.20) K/uL Immature Gran # (Auto) (0.01-0.20) K/uL PT (9.0-12.0) Seconds INR (0.9-1.1) APTT (21.0-31.0) Seconds PTT Ratio D-Dimer 2009 H* (0-500) ug/L FEU Sodium (136-145) mmol/L Potassium (3.5-5.1) mmol/L Chloride (98-107) mmol/L Carbon Dioxide (21-32) mmol/L Anion Gap (3-11) BUN (6-23) mg/dl Creatinine (0.6-1.2) mg/dl Est Cr Clr Drug Dosing Est GFR ( Amer) ml/min Est GFR (Non-Af Amer) ml/min BUN/Creatinine Ratio (10-20) Glucose (70-99(Fasting)) mg/dl Calcium (8.6-10.3) mg/dl Total Bilirubin (0.2-1.0) mg/dl AST (13-39) U/L ALT (7-52) U/L Alkaline Phosphatase (34-104) U/L Troponin I High Sens 4.3 (0-14) pg/ml B-Natriuretic Peptide 41 (0-100) pg/ml Total Protein (6.0-8.3) gm/dl Albumin (3.4-5.0) gm/dl Globulin (2.5-4.0) gm/dl Albumin/Globulin Ratio (0.9-2) 01/31/23 01/31/23 01/31/23 Range/Units 12:30 12:30 12:30 WBC 5.18 (4.8-10.8) K/ul RBC 3.70 L (4.20-5.40) M/uL Hgb 11.9 L (12.0-16.0) g/dl Hct 34.9 L (37.0-47.0) % MCV 94.3 (80.0-100.0) fL MCH 32.2 (25.0-34.0) pg MCHC 34.1 (32.0-36.0) g/dL RDW Std Deviation 49.9 H (36.4-46.3) fL RDW Coeff of Heriberto 14.6 H (11.5-14.5) % Plt Count 150 (130-400) K/uL MPV 9.8 (9.4-12.4) fL Immature Gran % (Auto) 0.6 % Neut % (Auto) 64.0 % Lymph % (Auto) 26.1 % Levy % (Auto) 8.5 % Eos % (Auto) 0.6 % Baso % (Auto) 0.2 % Neut # (Auto) 3.32 (1.40-6.50) K/uL Lymph # (Auto) 1.35 (1.20-3.40) K/uL Levy # (Auto) 0.44 (0.11-0.59) K/uL Eos # (Auto) 0.03 (0.00-0.50) K/uL Baso # (Auto) 0.01 (0.00-0.20) K/uL Immature Gran # (Auto) 0.03 (0.01-0.20) K/uL PT 10.9 (9.0-12.0) Seconds INR 1.0 (0.9-1.1) APTT 21.4 (21.0-31.0) Seconds PTT Ratio 0.8 D-Dimer (0-500) ug/L FEU Sodium 140 (136-145) mmol/L Potassium 3.9 (3.5-5.1) mmol/L Chloride 107 (98-107) mmol/L Carbon Dioxide 26 (21-32) mmol/L Anion Gap 7 (3-11) BUN 26 H (6-23) mg/dl Creatinine 0.63 (0.6-1.2) mg/dl Est Cr Clr Drug Dosing Not Reportable Est GFR ( Amer) 96.8 ml/min Est GFR (Non-Af Amer) 83.5 ml/min BUN/Creatinine Ratio 41.3 H (10-20) Glucose 87 (70-99(Fasting)) mg/dl Calcium 9.2 (8.6-10.3) mg/dl Total Bilirubin 1.6 H (0.2-1.0) mg/dl AST 23 (13-39) U/L ALT 20 (7-52) U/L Alkaline Phosphatase 55 (34-104) U/L Troponin I High Sens 3.9 (0-14) pg/ml B-Natriuretic Peptide (0-100) pg/ml Total Protein 6.9 (6.0-8.3) gm/dl Albumin 4.2 (3.4-5.0) gm/dl Globulin 2.7 (2.5-4.0) gm/dl Albumin/Globulin Ratio 1.6 (0.9-2) Diagnostic Findings Chest CTA: FINDINGS: Lungs and pleura: Atelectasis versus scarring is seen in the dependent portions of the lungs. Heart and pericardium: Heart size is normal. No pericardial effusion. Vessels: No evidence of pulmonary embolism. Mediastinum and alejandro: Unremarkable. Chest wall and lower neck: Unremarkable. Abdomen: Unremarkable. Bones: Degenerative changes in the thoracic spine. Old healed sternal fracture is seen. There is a wedge deformity of the C2 vertebral body which is new from the prior exam but appears chronic. IMPRESSION: 1. No acute abnormality and in particular no evidence of pulmonary embolus. 2. Mediastinal lymph nodes are seen. 3. Additional findings as above. (2) Chest pain Chest pain type: unspecified Qualified Code(s): R07.9 - Chest pain, unspecified
[2023-02-01] MEDS: CEROVITE ADV FORMULA TAB PO SCH (09:13)
[2023-02-01] MEDS: CALCIUM 600MG + VIT D 400 IU TAB PO SCH (09:13)
[2023-02-01] MEDS: HEPARIN SOD 5,000 UNIT/0.5 ML VIAL SQ SCH ×2 (09:13→20:24)
--- NOTE | 2023-02-01 10:25 | Anesthesiology Consultation ---
Date of Service February 01, 2023 Assessment & Plan Chart Review Chart Review: Acceptable Risk for Surgery and Patient NOT seen in Pre Admission Testing Consults Requested none ASA ASA3 Proposed Anesthesia Anesthesia Type: MAC Risk / Benefits Reviewed With: PT / POA / Parent / Guardian, Accepts Plan and Informed Consent Obtained History Surgery Operation Date: 02/01/23 16:30 Proposed Procedures p Esophagogastroduodenoscopy Dr Rodriguez - Kelsea Rodriguez, DO Height/Weight Height: 5 ft 2 in Weight: 57.7 kg Allergies Allergy/AdvReac Type Severity Reaction Status Date / Time amoxicillin Allergy Severe RASH Verified 01/31/23 17:35 clavulanic acid Allergy Severe RASH Verified 01/31/23 17:35 Nitrate Analogues AdvReac Severe HEAD ACHE Verified 01/31/23 17:35 isosorbide AdvReac Intermediate PAINFUL Verified 01/31/23 17:35 Medications Home Medications Medication Instructions Recorded Confirmed Last Taken calcium citrate 315 mg-vitamin D3 1 tab PO QAM ##0 08/31/17 01/31/23 01/31/23 5 mcg (200 unit) tablet (Calcium Citrate + D) vitamins A,C,J-ensx-cepdjy 2,148 1 tab PO BID #0 tabs 12/18/17 01/31/23 01/31/23 08:00 mcg-113 mg-45 mg-17.4 mg tablet (PreserVision AREDS) doxazosin 1 mg tablet 1 mg PO QPM 10/11/19 01/31/23 01/30/23 albuterol sulfate 90 mcg/actuation 2 puff inhalation QID PRN 01/31/23 01/31/23 01/31/23 aerosol inhaler Shortness Of Breath Or Wheezing ascorbic acid (vitamin C) 500 mg 500 mg PO QPM 01/31/23 01/31/23 01/30/23 tablet (Vitamin C) cholecalciferol (vitamin D3) 125 250 mcg PO WK 01/31/23 01/31/23 01/30/23 mcg (5,000 unit) tablet (Vitamin D3) famotidine 20 mg tablet 20 mg PO DAILYBB 01/31/23 01/31/23 01/31/23 fluticasone furoate 100 1 inh inhalation DAILY 01/31/23 01/31/23 01/31/23 mcg-vilanterol 25 mcg/dose inhalation powder (Breo Ellipta) levothyroxine 25 mcg tablet 25 mcg PO DAILYBB 01/31/23 01/31/23 01/31/23 zinc acetate 50 mg (zinc) capsule 50 mg PO QPM 01/31/23 01/31/23 01/30/23 Active Medications Generic Name Dose Route Start Last Admin Trade Name Freq PRN Reason Stop Dose Admin Calcium/Vitamin D 1 tab 02/01/23 09:00 02/01/23 09:13 Calcium 600mg + Vit D 400 Iu Tab PO 03/03/23 08:59 1 tab QAM ANNE Administration Doxazosin Mesylate 1 mg 01/31/23 22:10 01/31/23 23:03 Doxazosin Mesylate 1 Mg Tab PO 03/02/23 22:09 1 mg QPM ANNE Administration Famotidine 20 mg 02/01/23 06:30 02/01/23 04:54 Famotidine 20 Mg Tab PO 03/03/23 06:29 20 mg DAILYBB ANNE Administration Guaifenesin/Codeine Phosphate 5 ml 01/31/23 22:45 01/31/23 23:03 Guaifenesin/Codeine 100mg/10mg 5ml Udc PO 03/02/23 22:44 5 ml Q6H PRN Administration Cough Heparin Sodium (Porcine) 5,000 units 02/01/23 09:00 02/01/23 09:13 Heparin Sod 5,000 Unit/0.5 Ml Vial SQ 03/03/23 08:59 5,000 units Q12 ANNE Administration Levothyroxine Sodium 25 mcg 02/01/23 06:30 02/01/23 04:53 Levothyroxine Sodium 25 Mcg Tablet PO 03/03/23 06:29 25 mcg DAILYBB ANNE Administration Multivitamins/Minerals 1 tab 02/01/23 09:00 02/01/23 09:13 Cerovite Adv Formula Tab PO 03/03/23 08:59 1 tab DAILY ANNE Administration Pantoprazole Sodium 40 mg 01/31/23 21:00 01/31/23 23:03 Pantoprazole 40 Mg Tab PO 03/02/23 20:59 40 mg HS ANNE Administration Past Medical History Medical History Bronchitis Chronic back pain Depression WRIGHT (dyspnea on exertion) Hypertension Hypothyroidism Irritable bowel syndrome Nocturnal hypoxia Osteoarthritis Exercise / Class Metabolic Activity II 4-5 Yardwork/Stairs/Walk up hill Past Family History Family History Other Diabetes Heart disease No significant family history Past Surgical History Surgical History H/O eye surgery History of appendectomy History of cataract surgery 12/27/17. 2mg versed. no issues. History of colonoscopy History of laparoscopy Past Anesthesia History No Hx of Anesthesia Complications and No Family Hx of Anesthesia Complications History of PONV No Hx of PONV and No Hx of Motion Sickness Social History Smoking Status: Never smoker Do You Dip or Chew Tobacco: No Hx Alcohol Use: No Hx Substance Use: No substance use type: does not use Physical Exam Vital Signs Last Vital Signs Temp 36.4 C L 02/01/23 07:35 Pulse 60 02/01/23 07:35 Resp 16 02/01/23 07:35 BP 165/92 H 02/01/23 07:35 Pulse Ox 97 02/01/23 07:35 O2 Del Method Room Air 02/01/23 07:35 O2 Flow Rate 0 01/31/23 21:00 ENMT Mouth: + poor dentition Thyromental Distance: > or= 3.5 Finger Breadths Mallampati Class: II Neck normal visual inspection Respiratory normal respiratory effort Auscultation: lungs clear to auscultation bilaterally and + diminished lung sounds Cardiovascular Rate/Rhythm: regular rate and regular rhythm Psychiatric Orientation: alert Testing Laboratory Results 02/01/23 06:08 02/01/23 06:08 PT 10.9 Seconds (9.0-12.0) 01/31/23 12:30 INR 1.0 (0.9-1.1) 01/31/23 12:30 APTT 21.4 Seconds (21.0-31.0) 01/31/23 12:30
[2023-02-01] MEDS ORDERED: LIDOCAINE 2% 2 ML VIAL/AMP(20MG/ML) INFIL ONE (10:27)
[2023-02-01] MEDS ORDERED: PROPOFOL IV EMULSION 10 MG/ML 20 ML VIAL IV ONE (10:27)
--- NOTE | 2023-02-01 11:18 | GI REPORT ---
Patient Name: Alta Plunkett Procedure Date: 02/01/2023 10:53 AM Date of : 1940 Admit Type: Inpatient Age: 82 Gender: Female Attending MD: Kelsea Rodriguez DO, Procedure: Upper GI endoscopy Providers: Kelsea Rodriguez DO Referring MD: Bryan River Indications: Oropharyngeal phase dysphagia Medicines: Propofol per Anesthesia Complications: No immediate complications. Estimated blood loss: None. Estimated Blood Loss: Estimated blood loss: none. Procedure: Pre-Anesthesia Assessment: - Prior to the procedure, a History and Physical was performed, and patient medications, allergies and sensitivities were reviewed. The patient's tolerance of previous anesthesia was reviewed. - The risks and benefits of the procedure and the sedation options and risks were discussed with the patient. All questions were answered and informed consent was obtained. - Patient identification and proposed procedure were verified prior to the procedure by the physician and the nurse. The procedure was verified in the pre-procedure area in the procedure room. - Mental Status Examination: alert and oriented. Airway Examination: normal oropharyngeal airway and neck mobility. Respiratory Examination: clear to auscultation. CV Examination: normal. Abdominal Examination: bowel sounds present, abdomen soft and non-tender, no masses or organomegaly noted. - ASA Grade Assessment: III - A patient with severe systemic disease. After obtaining informed consent, the endoscope was passed under direct vision. Throughout the procedure, the patient's blood pressure, pulse, and oxygen saturations were monitored continuously. The Endoscope was introduced through the mouth, and advanced to the second part of duodenum. The upper GI endoscopy was accomplished without difficulty. The patient tolerated the procedure well. Findings: The esophagus was normal. The stomach was normal. The examined duodenum was normal. Impression: - Normal esophagus. - Normal stomach. - Normal examined duodenum. - No specimens collected. Recommendation: - Consider video swallow evaluation given patient's main complaint of dysphagia with liquids and sensation of choking on liquids. - Return patient to [facility] for [facility] care. Cece Durán DO 02/01/2023 11:17:45 AM This report has been signed electronically. Note Initiated On: 02/01/2023 10:53 AM Number of Addenda: 0 I attest to the content of the Intraoperative Record and orders documented therein, exceptions below {[id number]}
--- NOTE | 2023-02-01 11:22 | Anesthesiology Progress Note ---
Date of Service February 01, 2023 Anesthesia Post Procedure Vital Signs Vital Signs: Temp Pulse Pulse Pulse Resp BP BP 02/01/23 08:45 02/01/23 11:06 65 18 02/01/23 10:22 36.2 C L 65 18 02/01/23 07:35 36.4 C L 60 16 165/92 H 02/01/23 03:52 36.8 C 64 18 127/82 02/01/23 03:09 36.6 C 88 20 168/79 H 02/01/23 02:57 02/01/23 00:00 74 01/31/23 20:46 68 01/31/23 21:00 01/31/23 22:28 36.5 C 79 18 148/81 H 01/31/23 19:45 60 01/31/23 20:10 76 15 01/31/23 20:00 74 15 01/31/23 20:00 140/78 01/31/23 19:50 66 22 01/31/23 19:40 71 15 01/31/23 19:30 66 17 01/31/23 19:20 66 15 01/31/23 19:10 70 20 01/31/23 19:00 66 20 01/31/23 19:00 153/82 H 01/31/23 18:50 65 21 01/31/23 18:40 76 19 01/31/23 18:30 77 20 01/31/23 18:20 75 17 01/31/23 18:10 68 15 01/31/23 18:00 72 14 01/31/23 18:00 133/89 01/31/23 17:50 75 24 01/31/23 17:40 78 13 01/31/23 17:30 79 15 01/31/23 17:22 110 H 22 01/31/23 18:16 01/31/23 17:10 99 H 20 01/31/23 17:04 102 H 15 01/31/23 16:50 76 13 01/31/23 16:44 146/82 H 01/31/23 16:44 77 18 01/31/23 16:40 87 34 H 01/31/23 16:30 82 19 01/31/23 16:20 78 26 H 01/31/23 16:10 84 25 H 01/31/23 16:04 89 25 H 01/31/23 16:07 83 20 01/31/23 16:07 92 H 01/31/23 12:14 36.5 C 69 20 156/81 H BP Pulse Ox O2 Del Method O2 Flow Rate 02/01/23 08:45 Room Air 02/01/23 11:06 107/63 96 Room Air 02/01/23 10:22 165/80 H 99 Room Air 02/01/23 07:35 97 Room Air 02/01/23 03:52 96 Room Air 02/01/23 03:09 97 Room Air 02/01/23 02:57 Room Air 02/01/23 00:00 01/31/23 20:46 01/31/23 21:00 94 Room Air 0 01/31/23 22:28 95 Room Air 01/31/23 19:45 01/31/23 20:10 93 01/31/23 20:00 94 01/31/23 20:00 01/31/23 19:50 94 01/31/23 19:40 94 01/31/23 19:30 96 01/31/23 19:20 94 01/31/23 19:10 97 01/31/23 19:00 96 01/31/23 19:00 01/31/23 18:50 95 01/31/23 18:40 98 01/31/23 18:30 94 01/31/23 18:20 96 01/31/23 18:10 93 01/31/23 18:00 96 01/31/23 18:00 01/31/23 17:50 99 01/31/23 17:40 97 01/31/23 17:30 100 01/31/23 17:22 93 01/31/23 18:16 97 Room Air 0 01/31/23 17:10 98 01/31/23 17:04 98 01/31/23 16:50 95 01/31/23 16:44 01/31/23 16:44 100 01/31/23 16:40 98 01/31/23 16:30 100 01/31/23 16:20 100 01/31/23 16:10 98 01/31/23 16:04 100 01/31/23 16:07 180/77 H 100 Room Air 01/31/23 16:07 01/31/23 12:14 100 Room Air Transfer of Care Handoff Completed per policy Notes Mental Status: alert / awake / arousable Patient Amnestic to Procedure: Yes Nausea / Vomiting: adequately controlled Pain: adequately controlled Airway Patency, RR, SpO2: stable & adequate BP & HR: stable & adequate Hydration State: stable & adequate Anesthetic Complications: no major complications apparent
--- NOTE | 2023-02-01 16:02 | Hospitalist Progress Note ---
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 Atypical, doubt ACS. R sided, intermittent, occurs at rest. Possibly multifactorial given ongoing WRIGHT, dysphagia as below D dimer elevated >2,000 but CTA chest negative for PE Serial troponins did not support any ACS, EKG remains sinus bradycardia and otherwise normal Following with [facility], recent evaluation did not feel CP was cardiac, underwent resting echo in December 2022 with EF 60%, grade 1 diastolic dysfunction, mild mitral regurg, mild-mod tricuspid regurg, mild elevated pulm artery pressure Doubt the chest pain is cardiac origin Undergoing evaluation for dysphagia (2) Dysphagia: Plan: Notably worsened over past month, difficulty swallowing pills, early satiety, PCP interested in GI involvement as well. Continue Pepcid, GI consulted, NPO @ m[place] in case of EGD Status post negative EGD Appreciate speech evaluation and possible fluoroscopic study tomorrow (3) WRIGHT (dyspnea on exertion): Plan: Worsening WRIGHT now following with Robin villatoro. Received recent PFTs and do not feel they are consistent with COPD diagnosis from prior but more so within range for patient's age. 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 Will order PRN supplemental O2 HS DVT Ppx: SQ heparin Code status: FULL PCP: Iris Dispo: Observation med tele Admission and Anticipated Discharge Date Admission Date: January 31, 2023 Subjective 02/01/2023 The patient was seen and examined in medical telemetry unit She is status post negative EGD Awaiting speech evaluation Denies any chest pain, palpitation or shortness of breath at rest Complains to have shortness of breath with exertion Review of Systems Review of Systems: All systems reviewed and are unremarkable except as noted below Physical Exam Physical Exam: 6 lying in bed without any acute distress but is very anxious Constitutional: well developed, well nourished and average body habitus; not ill appearing Eyes: PERRL, conjunctivae normal, anicteric sclerae ENMT: external ear and nose normal, oropharynx normal Neck: trachea midline, no thyromegaly Respiratory: no respiratory distress Auscultation: lungs clear to auscultation bilaterally Cardiovascular: Rate/Rhythm: regular rate, regular rhythm and + bradycardic Heart Sounds: normal S1 and normal S2; no murmur Extremities: no edema Gastrointestinal (Abdomen): Inspection/Auscultation: normal bowel sounds; abdomen not distended Percussion/Palpation: abdomen soft; abdomen nontender Musculoskeletal: No acute arthritis involving any of the joint Neurologic: normal touch/pain/proprioception and moves all extremities; no focal motor deficits Psychiatric: A+Ox3, euthymic affect Lymphatic: no cervical or axillary lymphadenopathy Results & Data Results & Data Vital Signs (Past 12 Hours) Vital Signs Temp Pulse Pulse Resp BP BP Pulse Ox 02/01/23 15:46 36.8 C 59 L 16 136/66 98 02/01/23 12:20 36.5 C 64 16 162/74 H 95 02/01/23 08:45 02/01/23 11:34 61 18 127/79 99 02/01/23 11:22 62 18 118/86 95 02/01/23 11:06 65 18 107/63 96 02/01/23 10:22 36.2 C L 65 18 165/80 H 99 02/01/23 07:35 36.4 C L 60 16 165/92 H 97 O2 Del Method 02/01/23 15:46 Room Air 02/01/23 12:20 Room Air 02/01/23 08:45 Room Air 02/01/23 11:34 Room Air 02/01/23 11:22 Room Air 02/01/23 11:06 Room Air 02/01/23 10:22 Room Air 02/01/23 07:35 Room Air Laboratory Results Short CBC 02/01/23 Range/Units 06:08 WBC 3.79 L (4.8-10.8) K/ul Hgb 11.0 L (12.0-16.0) g/dl Hct 32.6 L (37.0-47.0) % Plt Count 136 (130-400) K/uL BMP 02/01/23 06:08 Sodium 142 Potassium 4.1 Chloride 109 H Carbon Dioxide 28 BUN 28 H Creatinine 0.63 Glucose 94 Calcium 8.6 Medications Administered Current Inpatient Medications Acetaminophen (Acetaminophen 325 Mg Tab) 650 mg PO Q4H PRN PRN Reason: Pain or Fever Stop: 03/02/23 20:56 Albuterol (Albuterol Hfa 8 Gm Inhaler) 2 puffs INH QID PRN PRN Reason: Shortness Of Breath Or Wheezin Stop: 03/02/23 22:08 Ascorbic Acid (Ascorbic Acid 500 Mg Tab) 500 mg PO QPM [facility] Stop: 03/03/23 20:59 Calcium/Vitamin D (Calcium 600mg + Vit D 400 Iu Tab) 1 tab PO QAM ANNE Stop: 03/03/23 08:59 Last Admin: 02/01/23 09:13 Dose: 1 tab Doxazosin Mesylate (Doxazosin Mesylate 1 Mg Tab) 1 mg PO QPM ANNE Stop: 03/02/23 22:09 Last Admin: 01/31/23 23:03 Dose: 1 mg Famotidine (Famotidine 20 Mg Tab) 20 mg PO DAILYBB [facility] Stop: 03/03/23 06:29 Last Admin: 02/01/23 04:54 Dose: 20 mg Guaifenesin/Codeine Phosphate (Guaifenesin/Codeine 100mg/10mg 5ml Udc) 5 ml PO Q6H PRN PRN Reason: Cough Stop: 03/02/23 22:44 Last Admin: 01/31/23 23:03 Dose: 5 ml Heparin Sodium (Porcine) (Heparin Sod 5,000 Unit/0.5 Ml Vial) 5,000 units SQ Q12 ANNE Stop: 03/03/23 08:59 Last Admin: 02/01/23 09:13 Dose: 5,000 units Levothyroxine Sodium (Levothyroxine Sodium 25 Mcg Tablet) 25 mcg PO DAILYBB [facility] Stop: 03/03/23 06:29 Last Admin: 02/01/23 04:53 Dose: 25 mcg Multivitamins/Minerals (Cerovite Adv Formula Tab) 1 tab PO DAILY ANNE Stop: 03/03/23 08:59 Last Admin: 02/01/23 09:13 Dose: 1 tab Ondansetron HCl (Ondansetron Inj 2 Mg/Ml 2 Ml Vial) 4 mg IV Q6H PRN PRN Reason: Nausea Stop: 03/02/23 20:56 Pantoprazole Sodium (Pantoprazole 40 Mg Tab) 40 mg PO HS ANNE Stop: 03/02/23 20:59 Last Admin: 01/31/23 23:03 Dose: 40 mg Polyethylene Glycol (Polyethylene (Miralax) 17 Gm Pack) 17 gm PO DAILY PRN PRN Reason: Constipation Stop: 03/02/23 20:56
[2023-02-01] MEDS: PANTOprazole 40 MG TAB PO SCH (20:25)
[2023-02-01] MEDS: DOXAZOSIN MESYLATE 1 MG TAB PO SCH (20:26)
[2023-02-01] MEDS ORDERED: DOXAZOSIN MESYLATE 1 MG TAB PO SCH (21:00)
[2023-02-01] MEDS ORDERED: ASCORBIC ACID 500 MG TAB PO SCH (21:00)
[2023-02-02] MEDS: FAMOTIDINE 20 MG TAB PO SCH (06:06)
[2023-02-02] MEDS: LEVOTHYROXINE SODIUM 25 MCG TABLET PO SCH (06:07)
[2023-02-02 08:08] VITALS: O2SAT 97
[2023-02-02] MEDS: CEROVITE ADV FORMULA TAB PO SCH (09:04)
[2023-02-02] MEDS: CALCIUM 600MG + VIT D 400 IU TAB PO SCH (09:04)
[2023-02-02] MEDS: HEPARIN SOD 5,000 UNIT/0.5 ML VIAL SQ SCH (09:04)
[2023-02-02 11:34] VITALS: TEMP 97.9
--- NOTE | 2023-02-02 13:23 | Hospitalist Progress Note ---
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 Atypical, doubt ACS. R sided, intermittent, occurs at rest. Possibly multifactorial given ongoing WRIGHT, dysphagia as below D dimer elevated >2,000 but CTA chest negative for PE Serial troponins did not support any ACS, EKG remains sinus bradycardia and otherwise normal Following with [facility], recent evaluation did not feel CP was cardiac, underwent resting echo in December 2022 with EF 60%, grade 1 diastolic dysfunction, mild mitral regurg, mild-mod tricuspid regurg, mild elevated pulm artery pressure Doubt the chest pain is cardiac origin Undergoing evaluation for dysphagia No more chest pain and/or palpitation and no shortness of breath at rest (2) Dysphagia: Plan: Notably worsened over past month, difficulty swallowing pills, early satiety, PCP interested in GI involvement as well. Continue Pepcid, GI consulted, NPO @ [place] in case of EGD Status post negative EGD Appreciate speech evaluation and possible fluoroscopic study tomorrow Videofluoroscopic test was negative for any aspiration She has been tolerating regular diet and will be sent home this afternoon (3) WRIGHT (dyspnea on exertion): Plan: Worsening WRIGHT now following with Robin villatoro. Received recent PFTs and do not feel they are consistent with COPD diagnosis from prior but more so within range for patient's age. 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 Will order PRN supplemental O2 HS DVT Ppx: SQ heparin Code status: FULL PCP: Iris Dispo: Observation med tele Discharge home this afternoon Admission and Anticipated Discharge Date Admission Date: January 31, 2023 Subjective 02/01/2023 The patient was seen and examined in medical telemetry unit She is status post negative EGD Awaiting speech evaluation Denies any chest pain, palpitation or shortness of breath at rest Complains to have shortness of breath with exertion 02/02/2023 The patient was seen and examined in medical telemetry unit She is a status post negative video swallow Started on regular diet and has been tolerating Denies any chest pain and her palpitation She will be discharged home this afternoon Review of Systems Review of Systems: All systems reviewed and are unremarkable except as noted below Physical Exam Physical Exam: Lying in bed without any acute distress Constitutional: well developed, well nourished and average body habitus; not ill appearing Eyes: PERRL, conjunctivae normal, anicteric sclerae ENMT: external ear and nose normal, oropharynx normal Neck: trachea midline, no thyromegaly Respiratory: no respiratory distress Auscultation: lungs clear to auscultation bilaterally Cardiovascular: Rate/Rhythm: regular rate, regular rhythm and + bradycardic Heart Sounds: normal S1 and normal S2; no murmur Extremities: no edema Gastrointestinal (Abdomen): Inspection/Auscultation: normal bowel sounds; abdomen not distended Percussion/Palpation: abdomen soft; abdomen nontender Neurologic: normal touch/pain/proprioception and moves all extremities; no focal motor deficits Psychiatric: A+Ox3, euthymic affect Lymphatic: no cervical or axillary lymphadenopathy Results & Data Results & Data Vital Signs (Past 12 Hours) Vital Signs Temp Pulse Pulse Resp BP BP Pulse Ox 02/02/23 11:33 36.6 C 66 18 144/67 H 97 02/02/23 08:00 67 02/02/23 08:07 36.8 C 78 18 129/76 97 02/02/23 05:11 36.6 C 59 L 18 139/76 96 O2 Del Method 02/02/23 11:33 Room Air 02/02/23 08:00 02/02/23 08:07 Room Air 02/02/23 05:11 Room Air Medications Administered Current Inpatient Medications Acetaminophen (Acetaminophen 325 Mg Tab) 650 mg PO Q4H PRN PRN Reason: Pain or Fever Stop: 03/02/23 20:56 Albuterol (Albuterol Hfa 8 Gm Inhaler) 2 puffs INH QID PRN PRN Reason: Shortness Of Breath Or Wheezin Stop: 03/02/23 22:08 Ascorbic Acid (Ascorbic Acid 500 Mg Tab) 500 mg PO QPM ANNE Stop: 03/03/23 20:59 Last Admin: 02/01/23 20:26 Dose: 500 mg Calcium/Vitamin D (Calcium 600mg + Vit D 400 Iu Tab) 1 tab PO QAM ANNE Stop: 03/03/23 08:59 Last Admin: 02/02/23 09:04 Dose: Not Given Doxazosin Mesylate (Doxazosin Mesylate 1 Mg Tab) 1 mg PO QPM ANNE Stop: 03/02/23 22:09 Last Admin: 02/01/23 20:26 Dose: 1 mg Famotidine (Famotidine 20 Mg Tab) 20 mg PO DAILYBB [facility] Stop: 03/03/23 06:29 Last Admin: 02/02/23 06:06 Dose: 20 mg Guaifenesin/Codeine Phosphate (Guaifenesin/Codeine 100mg/10mg 5ml Udc) 5 ml PO Q6H PRN PRN Reason: Cough Stop: 03/02/23 22:44 Last Admin: 01/31/23 23:03 Dose: 5 ml Heparin Sodium (Porcine) (Heparin Sod 5,000 Unit/0.5 Ml Vial) 5,000 units SQ Q12 ANNE Stop: 03/03/23 08:59 Last Admin: 02/02/23 09:04 Dose: Not Given Levothyroxine Sodium (Levothyroxine Sodium 25 Mcg Tablet) 25 mcg PO DAILYBB [facility] Stop: 03/03/23 06:29 Last Admin: 02/02/23 06:07 Dose: 25 mcg Multivitamins/Minerals (Cerovite Adv Formula Tab) 1 tab PO DAILY ANNE Stop: 03/03/23 08:59 Last Admin: 02/02/23 09:04 Dose: Not Given Ondansetron HCl (Ondansetron Inj 2 Mg/Ml 2 Ml Vial) 4 mg IV Q6H PRN PRN Reason: Nausea Stop: 03/02/23 20:56 Pantoprazole Sodium (Pantoprazole 40 Mg Tab) 40 mg PO HS [facility] Stop: 03/02/23 20:59 Last Admin: 02/01/23 20:25 Dose: 40 mg Polyethylene Glycol (Polyethylene (Miralax) 17 Gm Pack) 17 gm PO DAILY PRN PRN Reason: Constipation Stop: 03/02/23 20:56
[2023-02-02 13:35] VITALS: BP 139/76; PULSE 64
--- NOTE | 2023-02-02 14:21 | Fluoroscopy Report ---
MODIFIED BARIUM SWALLOW CLINICAL HISTORY: r/o aspiration COMPARISON STUDY: None. FLUOROSCOPY TIME: 1.55 minutes. Ka, r: 7.08 mGy. TECHNIQUE: A modified barium swallow was performed in conjunction with Speech Pathology. The patient ingested varying consistencies of barium containing material. Video fluoroscopy was performed. FINDINGS: No tracheal aspiration was identified by thin liquids by spoon or cup. There was no trachea l aspiration with nectar thick liquids, pudding or cracker and pudding consistency. Epiglottic invers ion was normal. Laryngeal elevation was normal. IMPRESSION: 1. No tracheal aspiration. Intact swallowing mechanism. 2. Full recommendations by Speech pathology to follow. ACT 112: Negative or not required by law. Electronically signed by: Deep Camacho M.D. 02/02/2023 2:20 PM
--- OUTSIDE RECORDS SUMMARY | 2023-02-03 13:01 | External Medical Summary | Continuity of Care Document ---
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 Name Role Phone Letty Simomns Primary Care Physician [phone] [id number] Date(s): 12/09/22 - 12/09/22 [facility] [address] [address], [address] [place] [address] [phone] Encounter Diagnosis WRIGHT (dyspnea on exertion)(Discharge Diagnosis) - 12/09/22 Generalized weakness(Discharge Diagnosis) - 12/09/22 Discharge Disposition: Home or Self Care Attending Physician: TIFFANIE Oconnell Sarah A Referring Physician: MD Simmons H Jeanne Assessment and Plan Extracted from: Title:Cardiology Office Visit Note Author:TIFFANIE Patel rd, Sarah A Date:12/09/22 Impression: 1. Dyspnea on exertion 2. Generalized weakness 3. HTN I reviewed Ms. Plunkett's visit to the ED on 11/18/22. Her EKG was without ischemic changes. She had a normal troponin. She was treated for COPD exacerbation. I thinkgiven herextended time frame of progressive weakness, her symptoms are unlikelyto be fromheart disease. Her limitingfactoris not so much anginaas generalized weakness although she does getsome shortness of breathwhen she isexerting herself. I reviewed her PFTs from 2019. Even back that bradford was too weak tosuccessfullycomplete the study. I would recommend consideration of a neuromuscular work-upespecially given her increasing weakness includinglosing her voice. I will defer orderinga NIF test to her pulmonology visitcoming up this summer. I will order an echocardiogram to ensure that pulmonary hypertension is not playing a role. She appears euvolemicand does not have symptoms of heart failure. She will return to the clinic in 2 months after herpulmonology visitwe can decide if any further cardiac work-up is warranted. Medications Albuterol (Eqv-ProAir HFA) 90 mcg/inh inhalation aerosol Start: 12/09/22 14:01:00 EDT Start Date: 12/09/22 Status: Ordered Breo Ellipta 100 mcg-25 mcg/inh inhalation powder Start: 12/09/22 14:02:00 EDT, 1 puff, inhaled, Daily, Disp# 1 each Start Date: 12/09/22 Stop Date: 01/08/23 Status: Ordered clobetasol 0.05% topical ointment Start: 12/09/22 14:01:00 EDT, 1 appl, topical, Daily Start Date: 12/09/22 Status: Ordered clobetasol 0.05% topical ointment Start: 12/09/22 14:03:00 EDT Start Date: 12/09/22 Status: Ordered doxazosin 1 mg oral tablet Start: 12/09/22 14:02:00 EDT, 1 tab, PO, Daily Start Date: 12/09/22 Status: Ordered hydrocortisone 1% topical cream Start: 12/09/22 14:05:00 EDT, 1 appl, topical, bid Start Date: 12/09/22 Status: Ordered PreserVision AREDS Start: 12/09/22 14:06:00 EDT, 1 mg =, PO, Daily Start Date: 12/09/22 Status: Ordered Vital-D Start: 12/09/22 14:05:00 EDT Start Date: 12/09/22 Status: Ordered Zinc Start: 12/09/22 14:04:00 EDT Start Date: 12/09/22 Status: Ordered Mental Status 12/09/22 Barriers to Learning one year None evide nt Mandatory Health Literacy Documentation Yes Health Literacy Communication Barriers N ever Primary Language German Problem List Diagnosis Diagnosis Type Effective Dates Health Status Clinical Service Informant WRIGHT (dyspnea on exertion) Discharge Diagnosis 12/09/22 Non-Specified Generalized weakness Discharge Diagnosis 12/09/22 Non-Specified Vital Signs Most recent to oldest [Reference Range]: 1 Patient Weight 57.4 kg (12/09/22 1:52 PM) Heart Rate 75 bpm (12/09/22 1:52 PM) Respiratory Rate 18 br/min (12/09/22 1:52 PM) Blood Pressure 118/70mmHg (12/09/22 1:52 PM) BP Location # 1 Right Arm (12/09/22 1:52 PM) Social History Social History Type Response Smoking Status Never smoked cigaret elian Sex Cardiology Outpatient Note * TIFFANIE Oconnell Rohini Rolanda: PERFORM, MODIFY, MODIFY, MODIFY Event Display: Cardiology Outpt Note Authored Date: [id number] Primary Care Provider MD Simmons H Jeanne Referring Provider MD Simmons H Jeanne Chief Complaint Hospital ER follow up SOB dizziness or lightheadedness feeling week and shaky denies resentchest pain Palpitations, heart racing, , - no edema noted. History of Present Illness Ms. Plunkett presents for evaluation of dyspnea on exertion. She notes that in the last few months she has had more sob and less and less energy. This goes backabout four years to when she had a mono infection. She had COVID in the fall which she also feelsshe never quite recovered from. If she walks from one end of her small house to the other twice sheis totally wiped out. A few months ago she could at least go to the grocery store but now she can'tdue to sob and weakness. She notes that she is losing her voice. She also feels like she can never get her throat clear and has a dry cough. She does not have chest pain with exertion. She does occasionally have fleeting chest pain at rest. [facility] 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 Respiratory: Lungs are clear to auscultation, Respirations are non-labored. Cardiovascular: Normal rate, Regular rhythm, No murmur, No edema Neurologic: Alert, Oriented. Cognition and Speech: Speech clear and coherent. Psychiatric: Cooperative, Appropriate mood & affect. Assessment/Plan Impression: 1. Dyspnea on exertion 2. Generalized weakness 3. HTN I reviewed Ms. Plunkett's visit to the ED on 11/18/22. Her EKG was without ischemic changes. She had a normal troponin. She was treated for COPD exacerbation. I thinkgiven herextended time frame of progressive weakness, her symptoms are unlikelyto be fromheart disease. Her limitingfactoris not so much anginaas generalized weakness although she does getsome shortness of breathwhenshe isexerting herself. I reviewed her PFTs from 2019. Even back that bradford was too weak tosuccessfullycomplete the study. I would recommend consideration of a neuromuscular work-upespecially given her increasing weakness includinglosing her voice. I will defer orderinga NIF test to her pulmonology visitcoming up this summer. I will order an echocardiogram to ensure that pulmonary hypertension is not playing a role. She appears euvolemicand does not have symptoms of heart failure. She will return to the clinic in 2 months after herpulmonology visitwe can decide if any further cardiac work-up is warranted. Medications albuterol(Albuterol (Eqv-ProAir HFA) 90 mcg/inh inhalation aerosol) clobetasol topical(clobetasol 0.05% topical ointment), 1 appl, topical, Daily clobetasol topical(clobetasol 0.05% topical ointment) doxazosin(doxazosin 1 mg oral tablet), 1 mg= 1 tab, PO, Daily fluticasone-vilanterol(Breo Ellipta 100 mcg-25 mcg/inh inhalation powder), 1 puff, inhaled, Daily hydrocortisone topical(hydrocortisone 1% topical cream), 1 appl, topical, bid multivitamin with minerals(PreserVision AREDS), 1 mg, PO, Daily multivitamin with minerals(Vital-D) zinc sulfate(Zinc) Social History Smoking Status Never smoked cigarettes Electronic Signature on File CC: Letty Simmons MD [address] [facility] [id number] * Electronically Reviewed/Signed by: TIFFANIE Woodward Author Signature Dt/Tm:12/09/2022 03:47 PM [facility] Patient Care team information Care Team Personnel Name: MD Simmons H Jeanne Position: Referring Member Role: Primary Care Provider Address: Address: [address] [place] [id number]
--- OUTSIDE RECORDS SUMMARY | 2023-02-03 13:01 | External Medical Summary | Summary of Care ---
Author Name Unknown Organization [facility] Address [address] [facility] [place] [address] Phone [phone] Care Team Providers Care Board Member Name Role Phone Selam Simmons MD Primary Care Provider [phone] Encounter Details Date Type Department Care Team Description 11/18/2022 Orders Only Pulmonary Medicine Eliane Colin [address] [phone] Foreign Dunaway MD [address] [address] Allergies Active Allergy Reactions Severity Noted Date Comments Amoxicillin 01/03/2023 Rash Clavulanic Acid 01/03/2023 Isosorbide Nitrate 12/02/2015 Levofloxacin 01/03/2023 Diarrhea Metronidazole 01/03/2023 Diarrhea documented as of this encounter (statuses as of 01/03/2023) Medications Medication Sig Dispensed Refills Start Date End Date Status TYLENOL ARTHRITIS PAIN 650 MG PO TBCR 1 tablet as directed as needed 0 Active CITRACAL + D 315-200 MG-UNIT PO TABS 1 capsule twice daily 0 Active doxazosin (CARDURA) 2 MG Tablet Take 0.5 Tablets by mouth at bedtime. 0 11/16/2015 Active Fluocinonide 0.05 % cream 0 11/09/2015 Active clobetasol propionate (TEMOVATE) 0.05 % cream Apply topically to affected area 2 times a day. Apply to affected area 0 Active Aspirin 81 MG TBEC Take 81 mg by mouth daily. 0 Active Probiotic Product (PROBIOTIC ACIDOPHILUS) Capsule Take 1 Cap by mouth three times a day with meals. 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 documented as of this encounter (statuses as of 01/03/2023) Immunizations Name Administration Dates Next Due Seasonal Influenza Virus Vac cine, Unspecified Formulation 03/30/2019 Seasonal Influenza, Quadriva lent, No Preserve, Adjuvanted, 65+ Yrs, IM 02/26/2020 Seasonal Influenza, Trivalent, Adjuvanted, 65+ y rs 03/30/2019 documented as of this encounter Social History Tobacco Use Types Packs/Day Years Used Date Smoking Tobacco: Never Smokeless Tobacco: Never Alcohol Use Standard Drinks/Week Comments No 0 (1 standard drink = 0.6 oz pur e alcohol) Sex Assigned at Date Recorded Not on file Job Start Date Occupation Industry Not on file Not on file Not on file documented as of this encounter Plan of Treatment Upcoming Encounters Date Type Specialty Care Team Description 01/04/2023 PulmDiagnostic Pulmonary Function [place], Pft [address] [place] [address] 01/31/2023 Telemedicine Pulmonary Christopher Goode MD [address] [place] [address] Cart, Telemed Pulm Gw [address] [place] [address] Health Maintenance Due Date Last Done Comments COVID-19 Vaccine (#1) 03/12/1941 Depression Screening, Annual for Pts 12 and Over 1952 DTaP,Tdap,and Td Vaccines (1 - Tdap) 09/11/1959 Zoster Vaccines (1 of 2) 1990 Pneumococcal Vaccine: 65+ Years (1 - PCV) 2005 DXA Scan 10/06/2022 10/07/2015 Influenza Vaccine (FLU shot) (#1) 2023 02/26/2020, 03/30/2019, 03/30/2019 GARDASIL-HPV IMMUNIZATION SERIES Aged Out No longer eligible b ased on patient's age to complete this topic Hepatitis B Aged Out No longer eligi ble based on patient's age to complete this topic MENINGOCOCCAL (MENACTRA/MENVEO) Aged Out No longer eligible b ased on patient's age to complete this topic documented as of this encounter Medical Devices Not on filedocumented as of this encounter Procedures Procedure Name Priority Date/Time Associated Diagnosis Comments RADIOLOGY EXAM - GENERAL RAD (IMAGES ONLY,NO REPORT) Routine 11/18/2022 9:20 AM EDT documented in this encounter Results * RADIOLOGY EXAM - GENERAL RAD (IMAGES ONLY,NO REPORT) (11/18/2022 9:20 AM EDT) 11/18/2022 9:17 AM EDT Narrative Scheduling, Silent - 01/03/2023 2:54 PM EDT This is an imaging study not interpreted or resulted by a [employer] or [employer] contracted radiologist. Foreign Dunaway MD RADIOLOGY (RAD GENERAL) documented in this encounter Care Teams Board Member Relationship Specialty Start Date End Date Selam Simmons MD [address] [place] [address] [place] [id number] PCP - General 06/09/03 documented as of this encounter
--- OUTSIDE RECORDS SUMMARY | 2023-02-03 13:01 | External Medical Summary | Summary of Care ---
Author Name Unknown Organization [facility] Address [address] [facility] [place] [address] Phone [phone] Care Team Providers Care Maintenance Apprentice Name Role Phone Selam Simmons MD Primary Care Provider [phone] Reason for Visit * Reason Onset Date Comments Oxygen Assessment 01/06/2023 NPO Encounter Details Date Type Department Care Team Description 01/06/2023 Telephone Pulmonary Medicine, [facility] [address] [facility] [place] [address] Foreign Dunaway MD [address] [facility] [place] [address] Oxygen Assessment (NPO) Allergies Active Allergy Reactions Severity Noted Date Comments Amoxicillin 01/03/2023 Rash Clavulanic Acid 01/03/2023 Isosorbide Nitrate 12/02/2015 Levofloxacin 01/03/2023 Diarrhea Metronidazole 01/03/2023 Diarrhea documented as of this encounter (statuses as of 01/06/2023) Medications Medication Sig Dispensed Refills Start Date [...] times a day with meals. 0 Active Fluticasone Furoate-Vilanterol 100-25 MCG/ACT Inhalation Aerosol Powder Breath Activated Inhale 1 Puff by mouth in the morning. 0 Active Vitamin C 500 MG Oral Tablet (Ascorbic Acid) Take 1 Tablet by mouth in the morning and 1 Tablet before bedtime. 0 Active Clotrimazole 1 % External Ointment (Alevazol) Apply topically to affected area. Apply to affected area 0 Active Famotidine 20 MG Oral Tablet (Pepcid) Take 1 Tablet by mouth in the morning and 1 Tablet before bedtime. 0 Active Levothyroxine Sodium 25 MCG Oral Tablet (Levoxyl) Take 1 Tablet by mouth daily first thing in the morning. (at least 30 min prior to breakfast or other meds) 0 Active PreserVision AREDS 2+Multi Vit Oral Capsule Take by mouth 2 times a day. 0 Active DULoxetine HCl 20 MG Oral Capsule Delayed Release Particles (duloxetine) Take 1 Capsule by mouth in the morning. 0 Active Melatonin 5 MG Oral Capsule Take 1 Capsule by mouth at bedtime. 0 Active Zinc 220 (50 Zn) MG Oral Capsule Take by mouth daily. 0 Active Albuterol Sulfate (sensor) 108 (90 Base) MCG/ACT Aerosol Powder Breath Activated Inhale by mouth. 0 Active Hospital, Clinic, or Other Facility Administered Medication Ordered Dose Route Frequency Start Date End Date Status Albuterol Sulfate (Proventil) (2.5 MG/3ML) 0.083% inhalation solution 2.5 mgIndications:Dyspnea and respiratory abnormalities 2.5 mg NEBULIZER PRN 01/03/2023 01/03/2024 Active Albuterol Sulfate (Proventil) (5 MG/ML) 0.5% *conc* inhalation solution 2.5 mgIndications:Dyspnea and respiratory abnormalities 2.5 mg NEBULIZER PRN 01/03/2023 01/03/2024 Active documented as of this encounter (statuses as of 01/06/2023) Active Problems Problem Noted Date Dyspnea and respiratory abnormalities Deviated nasal septum 06/27/2016 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 06/27/2016 Chronic rhinitis 06/27/2016 Postnasal drip 06/27/2016 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 documented as of this encounter (statuses as of 01/06/2023) Immunizations Name Administration Dates Next Due Seasonal [...] on file documented as of this encounter Miscellaneous Notes * Telephone Encounter - Coco Hammer LPN - 01/06/2023 2:13 PM EDT Pt's NPO order was entered into [facility] documented in this encounter Plan of Treatment Upcoming Encounters Date Type Specialty Care Team Description 01/31/2023 Telemedicine Pulmonary Christopher Goode MD [address] [facility] [place] [address] [facility] [address] [facility] Maintenance Due Date Last Done Comments COVID-19 Vaccine (#1) 03/12/1941 Pneumococcal Vaccine: 65+ Years (1 - PCV) 1946 Depression Screening, Annual for Pts 12 and Over 1952 DTaP,Tdap,and Td Vaccines (1 - Tdap) 09/11/1959 Zoster Vaccines (1 of 2) 1990 DXA Scan 10/06/2022 10/07/2015 TSH 12/20/2022 12/20/2021, 12/08/2020, 02/19/2020, Additional history exists Influenza Vaccine (FLU shot) (#1) 2023 02/26/2020, 03/30/2019, 03/30/2019 GARDASIL-HPV IMMUNIZATION SERIES Aged Out No longer eligible based on patient's age to complete this topic Hepatitis B Aged Out No longer eligi ble based on patient's age to complete this topic MENINGOCOCCAL (MENACTRA/MENVEO) Aged Out No longer eligible based on patient's age to complete this topic documented as of this encounter Medical Devices Not on filedocumented as of this encounter Care Teams Maintenance Apprentice Relationship Specialty Start Date End Date Selam Simmons MD [address] [place] [address] [place] [id number] PCP - General 06/09/03 documented as of this encounter
--- OUTSIDE RECORDS SUMMARY | 2023-02-03 13:01 | External Medical Summary | Summary of Care ---
Author Name Unknown Organization [facility] Address [address] [facility] [place] [address] Phone [phone] Care Team Providers Care Sack Lifter Name Role Phone Selam Simmons MD Primary Care Provider [phone] Reason for Visit * Reason Comments Pulmonary Function Test PFT with broncho dilator Oxygen Assessment [address] Encounter Details Date Type Department Care Team Description 01/04/2023 PulmDiagnostic Pulmonary Function Lab, [facility] [address] [place] [address] [place], [address] [facility] [place] [address] Dyspnea and respiratory abnormalities* Allergies Active Allergy Reactions Severity Noted Date Comments Amoxicillin 01/03/2023 Rash Clavulanic Acid 01/03/2023 Isosorbide Nitrate 12/02/2015 Levofloxacin 01/03/2023 Diarrhea Metronidazole 01/03/2023 Diarrhea documented as of this encounter (statuses as of 01/04/2023) Medications Medication Sig Dispensed Refills Start Date [...] as of this encounter (statuses as of 01/04/2023) Active Problems Problem Noted Date Dyspnea and respiratory abnormalities Deviated nasal septum 06/27/2016 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 06/27/2016 Chronic rhinitis 06/27/2016 Postnasal drip 06/27/2016 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 documented as of this encounter (statuses as of 01/04/2023) Immunizations Name Administration Dates Next Due Seasonal Influenza Virus Vac cine, Unspecified Formulation 03/30/2019 Seasonal Influenza, Quadriva lent, No Preserve, Adjuvanted, 65+ Yrs, IM 02/26/2020 Seasonal Influenza, Trivalent, Adjuvanted, 65+ y rs 03/30/2019 documented as of this encounter Social History Tobacco Use Types Packs/Day Years Used Date Smoking Tobacco: Never Smokeless Tobacco: Never Tobacco Cessation:Counseling Given: Not Answered Alcohol Use Standard Drinks/Week Comments No 0 (1 standard drink = 0.6 oz pur e alcohol) Sex Assigned at Date Recorded Not on file Job Start Date Occupation Industry Not on file Not on file Not on file documented as of this encounter Last Filed Vital Signs Vital Sign Reading Time Taken Comments Blood Pressure 120/76 01/04/2023 2:17 PM EDT Pulse 97 01/04/2023 2:17 PM EDT Temperature 36.2 C (97.1 F) 01/04/2023 2:17 PM ED T Respiratory Rate 18 01/04/2023 2:17 PM EDT Oxygen Saturation 96% 01/04/2023 2:17 PM EDT Inhaled Oxygen Concentration - - Weight 59.4 kg (130 lb 15.3 oz) 01/04/2023 2:17 PM EDT Height 157.5 cm (5' 2.01") 01/04/2023 2:17 PM ED T Body Mass Index 23.95 01/04/2023 2:17 PM EDT documented in this encounter Nursing Notes * Jhon Barker, DELIVERY REPRESENTATIVE - 01/04/2023 2:22 PM EDT Alta Plunkett was identified by name, Date of : (1940), and . Vitals were obtained for testing. Body mass index is 23.95 kg/m. 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 Spirometry, DLCO, RAW, and TGV performed. A slow volume nebulizer treatment of 0.5ml of albuterol in 3 ml of NSS was given. The proper method ofuse, as well as anticipated side effects, of this svn are discussed and demonstrated to the patient. Patient demonstrates adequate delivery. Exercise oximetry performed on room air x 6 minutes. Pt ambulated with a walker 870 feet/ 265 meters. No rest periods were required. Lowest SPO2 on room air was 94%. Administrations This Visit Albuterol Sulfate (Proventil) (5 MG/ML) 0.5% *conc* inhalation solution 2.5 mg Admin Date 01/04/2023 Action Given Dose 2.5 mg Route Nebulizer Administered By Jhon Barker RRT documented in this encounter Plan of Treatment Upcoming Encounters Date Type Specialty Care Team Description 01/31/2023 Telemedicine Pulmonary Christopher Goode MD [address] [place] [address] Cart, Telemed Pulm Gw [address] [place] [address] Pending Results Name Type Priority Associated Diagnoses Date /Time SPIROMETRY B/A BRONCHODILATOR Procedures Routine Dyspnea and respiratory abnormalities 01/04/2023 2:14 PM EDT LUNG VOLUMES (PLETHYSMOGRAPHY) Procedures Routine Dyspnea and respiratory abnormalities 01/04/2023 2:14 PM EDT DIFFUSION CAPACITY (DLCO) Procedures Routine Dyspnea and respiratory abnormalities 01/04/2023 2:14 PM EDT Health Maintenance Due Date Last Done Comments COVID-19 Vaccine (#1) 03/12/1941 Pneumococcal Vaccine: 65+ Years (1 - PCV) 1946 Depression Screening, Annual for Pts 12 and Over 1952 DTaP,Tdap,and Td Vaccines (1 - Tdap) 09/11/1959 Zoster Vaccines (1 of 2) 1990 DXA Scan 10/06/2022 10/07/2015 TSH 12/20/2022 12/20/2021, 12/2 08/2020, 02/19/2020, Additional history exists Influenza Vaccine (FLU [...] Procedure Name Priority Date/Time Associated Diagnosis Comments DIFFUSION CAPACITY (DLCO) Routine 2022 2:14 PM EDT Dyspnea and respiratory abnormalities LUNG VOLUMES (PLETHYSMOGRAPHY) Routine 01/04/2023 2:14 PM EDT Dyspnea and respiratory abnormalities SPIROMETRY B/A BRONCHODILATOR Routine 01/04/2023 2:14 PM EDT Dyspnea and respiratory abnormalities documented in this encounter Visit Diagnoses Diagnosis Dyspnea and respiratory abnormalities- Primary Other dyspnea and respiratory abnormality documented in this encounter Administered Medications Active Administered Medications - up to 3 most recent administrations Medication Order MAR Action Action Date Dose Rate Site Albuterol Sulfate (Proventil) (5 MG/ML) 0.5% *conc* inhalation solution 2.5 mg 2.5 mg, Nebulizer, PRN Other, for Pulmonary Function Testing, Starting on Mon01/03/23 at 1331, Until Mon01/03/24 at 1330, For 365 days, *Dilute with 0.9% saline IF needed Given 01/04/2023 1:54 PM EDT 2.5 mg documented in this encounter Care Teams Sack Lifter Relationship Specialty Start Date End Date Selam Simmons MD [address] [place] [address] [place] [address] PCP - General 06/09/03 documented as of this encounter
--- OUTSIDE RECORDS SUMMARY | 2023-02-03 13:01 | External Medical Summary | Summary of Care ---
Author Name Unknown Organization [facility] Address [address] [facility] [place] [address] Phone [phone] Care Team Providers Care Video Tape Transferrer Name Role Phone Selam Simmons MD Primary Care Provider [phone] Reason for Visit * Reason Comments NEW PATIENT Encounter Details Date Type Department Care Team Description 01/03/2023 Office Visit Pulmonary Medicine, [facility] [address] [facility] [place] [address] Foreign Dunaway MD [address] [facility] [place] [address] Dyspnea and respiratory abnormalities*; Other secondary pulmonary hypertension (HCC); Mild intermittent asthma, uncomplicated; Mild persistent asthma, uncomplicated Allergies Active Allergy Reactions Severity Noted Date [...] 100-25 MCG/ACT Inhalation Aerosol Powder Breath Activated (BREO ellipta) Inhale 1 Puff by mouth in the [...] Capsule Take by mouth daily. 0 Active Hospital, Clinic, or Other Facility [...] of 01/03/2023) Active Problems Problem Noted Date Dyspnea and [...] Sign Reading Time Taken Comments Blood Pressure 140/78 01/03/2023 12:49 PM EDT Pulse 77 01/03/2023 12:49 PM EDT Temperature 36.7 C (98 F) 01/03/2023 12:49 PM EDT Respiratory Rate 20 01/03/2023 12:49 PM EDT Oxygen Saturation 98% 01/03/2023 12:50 PM EDT ra, amb Inhaled Oxygen Concentration - - Weight 59.4 kg (131 lb) 01/03/2023 12:49 PM EDT Height 157.5 cm (5' 2") 01/03/2023 12:49 PM EDT Body Mass Index 23.96 01/03/2023 12:49 PM EDT documented in this encounter Progress Notes * Foreign Dunaway MD - 01/03/2023 12:59 PM EDT 01/03/2023 Pulmonary Medicine, [address] [place] [id number] [id number] Al[place] Plunkett 1940 female 82 year old Attending Physician Documentation: 82-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 Patient describes shortness of breath with minimal activities of daily living. Symptoms have been worsening over last 3 years. Denies cough, expectoration, lower extremity swelling. Family reports 1 episode of dizziness with low blood pressure although patient denies history of recurrent syncope, lightheadedness chest pain or palpitations. Patient recently completed 2 episodes of prednisone taper for worsening respiratory symptoms with partial improvement. Also reports history of COVID viral illness for which patient recuperated at home. Current bronchodilator regimen includes Breo and rescue albuterol. Patient uses Breo daily and rescue albuterol as needed. Physical examination is significant for class 2 throat, kyphosis, clear lung weinstein anteriorly withminimal wheezing posteriorly, regular cardiac rhythm, no evidence of volume overload and nonlateralizing Neuro examination. Echocardiogram December 2022 at [facility] revealed EF 60%, pulmonary artery pressure 36 mmHg. Overall clinical picture is consistent with multifactorial dyspnea. Differential diagnosis includesdeconditioning, reactive airway disease, hypothyroidism. We will proceed with baseline pulmonary diagnostic workup including PFT, nocturnal pulse oximetry and 6 minute walk test. Radiology records from [facility] will be requested. Baseline bronchodilator regimenincluding Breo and albuterol will be continued. Importance of maintaining physically active status was discussed. Fall precautions were discussed. Patient will be followed up in 4 weeks to reassess symptoms status and discuss results of above-mentioned diagnostic workup. Assessment Multifactorial dyspnea Ambulatory dysfunction Deconditioning History of reactive airway disease Hypothyroidism Follow Up: Return in about 4 weeks (around 01/31/2023) for Clinic Visit, Video to Clinic. | For: Clinic Visit, Video to Clinic | Check-out note: WRIGHT Hx of Reactive Airways Disease Hypothyroidism Echo [facility] 12/21/2022 EF 60%, PAP 36 mmHg Breo, Albuterol Ambulatory Dysfunction Deconditioning Plan: 6 MWT NPOX PFT Request CXR records from [facility] F/u 4 weeks Foreign Dunaway MD Subjective CC: Chief Complaint Patient presents with NEW PATIENT HPI: Nursing Notes: Tara Carroll LPN 01/03/23 1300 Addendum New pt referred for evaluation of SOB. MMRC Dyspnea Scale = 4 (I am too breathless to leave the house or I am breathless when dressing) Interm History/Respiratory Symptoms Cough: occasional, dry Hemoptysis: no Sinus Symptoms: drainage Hospitalizations: no ED Trips: [facility] approximately 2 months ago for SOB Triggers: exertion Nocturnal: no problems, sleeps with head elevated CPAP/BiPAP/O2: no Flu Vaccine: yes, unsure of date Pneumovax: yes, unsure of date Prevnar: yes, unsure of date COVID 19: yes, unsure of dates Objective Filed Vitals: 01/03/23 1249 01/03/23 1250 BP: 140/78 Pulse: 77 Resp: 20 Temp: 36.7 C (98 F) TempSrc: Tympanic SpO2: 98% 98% Weight: 59.4 kg (131 lb) Height: 1.575 m (5' 2") Exam: Const: No signs of acute distress present. Head/Face: Normal on inspection. Eyes: Conjunctivae clear. Pupils equal round and reactive to light. ENMT: Oropharynx: No erythema, exudate or masses. Posterior pharynx is normal. Neck: Supple and symmetric. Resp: Respiratory examination as outlined above CV: Rate is regular. Rhythm is regular. No heart murmur appreciated. Extremities: No edema of the lower limbs bilaterally. Abdomen: Positive bowel sounds. Palpation of the abdomen reveals softness, but no distension or tenderness. No palpable hepatosplenomegaly. Musculo: Walks with a normal gait. Skin: Skin is warm and dry. Neuro: Coordination normal. No involuntary movement. Psych: Patient's attitude is cooperative. Mood is normal. Affect is normal. Tests reviewed with the patient: No imaging results in the last 6 months Available Radiologic data was reviewed by me in PACS. The images were shown to the patient and findings were discussed with the patient. HOME MEDICATIONS: Clotrimazole 1 % External Ointment (Alevazol) DULoxetine HCl 20 MG Oral Capsule Delayed Release Particles (duloxetine) Famotidine 20 MG Oral Tablet (Pepcid) Fluticasone Furoate-Vilanterol 100-25 MCG/ACT Inhalation Aerosol Powder Breath Activated (BREO ellipta) Levothyroxine Sodium 25 MCG Oral Tablet (Levoxyl) Melatonin 5 MG Oral Capsule PreserVision AREDS 2+Multi Vit Oral Capsule Vitamin C 500 MG Oral Tablet (Ascorbic Acid) Zinc 220 (50 Zn) MG Oral Capsule clobetasol propionate (TEMOVATE) 0.05 % cream doxazosin (CARDURA) 2 MG Tablet CITRACAL + D 315-200 MG-UNIT PO TABS TYLENOL ARTHRITIS PAIN 650 MG PO TBCR Aspirin 81 MG TBEC Fluocinonide 0.05 % cream Probiotic Product (PROBIOTIC ACIDOPHILUS) Capsule ROS: No reported history of Hemoptysis, Hematemesis, Melena No reported history of Dysuria, Hematuria, Flank Pain No reported history of chronic headache, seizures No reported history of Fall or trauma . No reported history of recent change in weight or appetite. Past Medical History: Diagnosis Date Epiretinal membrane Nuclear senile cataract Presbyopia Tear film insufficiency Past Surgical History: Procedure Laterality Date REMOVAL OF APPENDIX Social History Socioeconomic History Marital status: Tobacco Use Smoking status: Never Smokeless tobacco: Never Vaping Use Vaping Use: Never used Substance and Sexual Activity Alcohol use: No Drug use: No Social History Narrative No pets. No mold. Family History Problem Relation Age of Onset Stroke Mother Heart Disorder Mother Prostate cancer Father No Known Problems Sister No Known Problems Sister Heart Disorder Brother Heart disease Brother Cancer Uncle (Unspecified) Diabetes Grandmother (Paternal) Thyroid Disorder None Eye Problems None Patient denies HX AMD, glaucoma, retinal detachments or blindness Review of patient's allergies indicates: Allergen Reactions Amoxicillin Rash Clavulanic Acid Isosorbide Nitrate Levaquin [Levofloxacin] Diarrhea Metronidazole Diarrhea documented in this encounter Nursing Notes * Tara Carroll LPN - 01/03/2023 12:42 PM EDT New pt referred for evaluation of SOB. MMRC Dyspnea Scale = 4 (I am too breathless to leave the house or I am breathless when dressing) Interm History/Respiratory Symptoms Cough: occasional, dry Hemoptysis: no Sinus Symptoms: drainage Hospitalizations: no ED Trips: [facility] approximately 2 months ago for SOB Triggers: exertion Nocturnal: no problems, sleeps with head elevated CPAP/BiPAP/O2: no Flu Vaccine: yes, unsure of date Pneumovax: yes, unsure of date Prevnar: yes, unsure of date COVID 19: yes, unsure of dates documented in this encounter Plan of Treatment Upcoming Encounters Date Type Specialty Care Team Description 01/04/2023 PulmDiagnostic Pulmonary Function [place], Pft [address] [place] [address] 01/31/2023 Telemedicine Pulmonary Christopher Goode MD [address] [place] [address] Cart, Telemed Pulm Gw [address] [place] [address] Scheduled Orders Name Type Priority Associated Diagnoses Orde r Schedule NOCTURNAL HOME OXIMETRY (OP) Procedures Routine Dyspnea and respiratory abnormalities Other secondary pulmonary hypertension (HCC) Ordered: 01/03/2023 PULMONARY STRESS TESTING Procedures Routine Dyspnea and respiratory abnormalities Expected: 01/04/2023, Expires: 02/04/2024 DIFFUSION CAPACITY (DLCO) Procedures Routine Dyspnea and respiratory abnormalities Expected: 01/10/2023, Expires: 02/04/2024 LUNG VOLUMES (PLETHYSMOGRAPHY) Procedures Routine Dyspnea and respiratory abnormalities Expected: 01/10/2023, Expires: 02/04/2024 SPIROMETRY B/A BRONCHODILATOR Procedures Routine Dyspnea and respiratory abnormalities Expected: 01/10/2023, Expires: 02/04/2024 [facility] IGE PROFILE Lab Routine Dyspnea and respiratory abnormalities Mild intermittent asthma, uncomplicated Expected: 01/03/2023 (Approximate), Expires: 01/04/2024 IGE Lab Routine Dyspnea and respiratory abnormalities Mild persistent asthma, uncomplicated Expected: 01/03/2023 (Approximate), Expires: 01/04/2024 ERYTHROCYTE SEDIMENTATION RATE (ESR) Lab Routine Dyspnea and respiratory abnormalities Expected: 01/10/2023, Expires: 01/04/2024 Health Maintenance Due Date Last Done Comments [...] Not on filedocumented as of this encounter Visit Diagnoses Diagnosis Dyspnea and respiratory abnormalities- Primary Other dyspnea and respiratory abnormality Other secondary pulmonary hypertension (HCC) Mild intermittent asthma, uncomplicated Unspecified asthma Mild persistent asthma, uncomplicated Unspecified asthma documented in this encounter Care Teams Video Tape Transferrer Relationship Specialty Start Date End Date Selam Simmons MD [address] [place] [address] [place] [address] PCP - General 06/09/03 documented as of this encounter
--- OUTSIDE RECORDS SUMMARY | 2023-02-03 13:01 | External Medical Summary | Summary of Care ---
Author Name Unknown Organization [facility] Address [address] [place] [address] Phone [phone] Care Team Providers Care Drying Room Supervisor Name Role Phone Selam Simmons MD Primary Care Provider [phone] Encounter Details Date Type Department Care Team Description 11/18/2022 Hospital Encounter Radiology Film File [address] [facility] [place] [address] Allergies Active Allergy Reactions Severity Noted Date [...] PulmDiagnostic Pulmonary Function [place], Pft [address] [place] [address] 01/31/2023 Telemedicine Pulmonary Christopher Goode MD [address] [place] [address] Cart, Telemed Pulm Gw [address] [place] [address] Health Maintenance Due Date Last Done Comments [...] study not interpreted or resulted by a [facility] or [facility] contracted radiologist. Foreign Dunaway MD RADIOLOGY (RAD GENERAL) documented in this encounter Care Teams Drying Room Supervisor Relationship Specialty Start Date End Date Selam Simmons MD [address] [place] [address] [place] [address] PCP - General 06/09/03 documented as of this encounter
--- OUTSIDE RECORDS SUMMARY | 2023-02-03 13:01 | External Medical Summary | Summary of Care ---
Author Name Unknown Organization [facility] Address [address] [facility] [place] [address] Phone [phone] Care Team Providers Care Pretzel Packer Name Role Phone Selam Simmons MD Primary Care Provider [phone] Reason for Visit * Reason Comments NEW PATIENT Encounter Details Date Type Department Care Team Description 01/03/2023 Office Visit Pulmonary Medicine, [facility] [address] [facility] [place] [address] Foreign García MD [address] [facility] [place] [address] Dyspnea and respiratory abnormalities*; Other secondary pulmonary hypertension (HCC); Mild intermittent asthma, uncomplicated; Mild persistent asthma, uncomplicated; Chronic respiratory failure with hypoxia (HCC) Allergies Active Allergy Reactions Severity Noted Date Comments Amoxicillin 01/03/2023 Rash Clavulanic Acid 01/03/2023 Isosorbide Nitrate 12/02/2015 Levofloxacin 01/03/2023 Diarrhea Metronidazole 01/03/2023 Diarrhea documented as of this encounter (statuses as of 01/24/2023) Medications Medication Sig Dispensed Refills Start Date [...] as of this encounter (statuses as of 01/24/2023) Active Problems Problem Noted Date Dyspnea and respiratory abnormalities Deviated nasal septum 06/27/2016 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 06/27/2016 Chronic rhinitis 06/27/2016 Postnasal drip 06/27/2016 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 documented as of this encounter (statuses as of 01/24/2023) Immunizations Name Administration Dates Next Due Season Influenza, Quad, PF, Adjuvanted, 65+ Yrs, IM (FLUAD) 02/26/2020 Seasonal Influenza Virus Vac cine, Unspecified Formulation 03/30/2019 Seasonal Influenza, Trivalent, Adjuvanted, 65+ y rs [...] in this encounter Progress Notes * Foreign García MD - 01/03/2023 12:59 PM EDT 01/03/2023 Pulmonary Medicine, [address] [place] [id number] Alta Plunkett 1940 female 82 year old Attending Physician Documentation: 82-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 Echocardiogram December 2022 at [facility] revealed EF 60%, pulmonary artery pressure 36 mmHg. Overall clinical picture is consistent with multifactorial dyspnea. Differential diagnosis includesdeconditioning, reactive airway disease, hypothyroidism. We will proceed with baseline pulmonary diagnostic workup including PFT, nocturnal pulse oximetry and 6 minute walk test. Radiology records from [facility] will be requested. Baseline bronchodilator regimenincluding [...] Hx of Reactive Airways Disease Hypothyroidism Echo [facility] 12/21/2022 EF 60%, PAP 36 mmHg Breo, Albuterol Ambulatory Dysfunction Deconditioning Plan: 6 MWT NPOX PFT Request CXR records from [facility] F/u 4 weeks Foreign García MD Subjective CC: Chief Complaint Patient presents with NEW PATIENT HPI: Nursing Notes: Tara Carroll LPN 01/03/23 1300 Addendum New pt referred for evaluation of SOB. MMRC Dyspnea Scale = 4 (I am too breathless to leave the house or I am breathless when dressing) Interm History/Respiratory Symptoms Cough: occasional, dry Hemoptysis: no Sinus Symptoms: drainage Hospitalizations: no ED Trips: [facility] approximately 2 months ago for SOB Triggers: [...] Sinus Symptoms: drainage Hospitalizations: no ED Trips: [facility] approximately 2 months ago for SOB Triggers: exertion Nocturnal: no problems, sleeps with head elevated CPAP/BiPAP/O2: no Flu Vaccine: yes, unsure of date Pneumovax: yes, unsure of date Prevnar: yes, unsure of date COVID 19: yes, unsure of dates documented in this encounter Miscellaneous Notes * Addendum Note - Foreign García MD - 01/24/2023 5:53 PM EDTAddended by: FOREIGN GARCÍA on: 01/24/2023 05:53 PM Modules accepted: Orders * Result Encounter Note - Foreign García MD - 01/24/2023 5:52 PM EDT Your recent nocturnal pulse oximetry study showed episodes of significant drops in oxygen levels through the night. We would recommend use of oxygen therapy while sleeping at night. Prescription will be submitted to a [employer], who will be contacting you for set up home oxygen for nighttime use. Please contact the office with any additional questions. Sincerely Dr. García documented in this encounter Plan of Treatment Upcoming Encounters Date Type Specialty Care Team Description 01/31/2023 Telemedicine Pulmonary Christopher Goode MD [address] [place] [address] Cart, Telemed Pulm [address] [place] [address] Scheduled Orders Name Type Priority Associated Diagnoses Orde r Schedule [facility] IGE PROFILE Lab Routine Dyspnea and respiratory [...] Procedure Name Priority Date/Time Associated Diagnosis Comments NOCTURNAL HOME OXIMETRY (OP) Routine 01/11/2023 Dyspnea and respiratory abnormalities Other secondary pulmonary hypertension (HCC) documented in this encounter Results * NOCTURNAL HOME OXIMETRY (OP) (01/11/2023) Foreign García MD MEDICINE * SPIROMETRY B/A BRONCHODILATOR (01/04/2023 2:14 PM EDT) FVC Actual Pre 2.14 L [facility] FVC Actual Pre %Predict 92 % [facility] FVC Actual Post 2.00 L DAMIR WON B[facility] FVC Actual Post %Change -6 % [facility] FEV1 Actual Pre 1.36 L DAMIR WON [facility] FEV1 Actual Pre %Predict 77 % [facility] FEV1 Actual Post 1.22 L [facility] FEV1 Actual Post %Change -8 % [facility] FEV1/FVC Actual Pre 64 % [facility] FEV1/FVC Actual Post 61 % [facility] FEF 25-75% Actual Pre 1.20 L/sec [facility] FEF 25-75% Actual Pre %Predict 83 % [facility] FEF 25-75% Actual Post 1.00 L/sec [facility] FEF 25-75% Actual Post %Change -16 % [facility] 01/04/2023 2:14 PM EDT Narrative [facility] - 01/04/2023 2:14 PM EDT Pulmonary function testing shows mild obstructive ventilatory pattern. FEV1 is 1.36 L, 77% of predicted. No bronchodilator response is noted. Flow volume loop shows mild obstruction. Normal lung volumes. Normal gas transfer. No hyperinflation noted. OVERALL IMPRESSION: MILD Obstructive Ventilatory Pattern.6 minute walk test showed stable oxygen saturation on room air while patient ambulated for 6 minutes and covered 870 ft/ 265 m.This interpretation has been electronically signed: FOREIGN GARCÍA DR. 01/09/2023 02:39:11 PM Foreign García MD MEDICINE [facility] * LUNG VOLUMES (PLETHYSMOGRAPHY) (01/04/2023 2:14 PM EDT) SVC Actual Pre 2.06 L [facility] NGER [facility] SVC Actual Pre %Predict 88 % [facility] IC Actual Pre 1.74 L [facility] MARILU [facility] IC Actual Pre %Predict 86 % [facility] ERV Actual Pre 0.25 L [facility] ERV Actual Pre %Predict 82 % [facility] TGV Actual Pre 2.61 L [facility] TGV Actual Pre %Predict 95 % [facility] RV (Pleth) Actual Pre 2.29 L [facility] RV (Pleth) Actual Pre %Predict 98 % [facility] TLC(Pleth) Actual Pre 4.35 L [facility] TLC (Pleth) Actual Pre %Predict 91 % [facility] RV/TLC (Pleth) Actual Pre 53 % [facility] 01/04/2023 2:14 PM EDT Narrative [facility] - 01/04/2023 2:14 PM EDT Pulmonary function testing shows mild obstructive ventilatory pattern. FEV1 is 1.36 L, 77% of predicted. No bronchodilator response is noted. Flow volume loop shows mild obstruction. Normal lung volumes. Normal gas transfer. No hyperinflation noted. OVERALL IMPRESSION: MILD Obstructive Ventilatory Pattern.6 minute walk test showed stable oxygen saturation on room air while patient ambulated for 6 minutes and covered 870 ft/ 265 m.This interpretation has been electronically signed: FOREIGN GARCÍA DR. 01/09/2023 02:39:11 PM Foreign García MD MEDICINE Performing Organization Address [facility] Co de Phone Number CELSO SORIANO * DIFFUSION CAPACITY (DLCO) (01/04/2023 2:14 PM EDT) DLCO Uncorrect Actual Pre 12.57 ml/min/mmH g BARIJOVITAORQUIDEA SNOWMARY ANNE DLCO Uncorrect Actual Pre %Predict 72 % ANNIEORQUIDEA CHRISTIE 01/04/2023 2:14 PM EDT Narrative ANNIEORQUIDEA CHRISTIE - 01/04/2023 2:14 PM EDT Pulmonary function testing shows mild obstructive ventilatory pattern. FEV1 is 1.36 L, 77% of predicted. No bronchodilator response is noted. Flow volume loop shows mild obstruction. Normal lung volumes. Normal gas transfer. No hyperinflation noted. OVERALL IMPRESSION: MILD Obstructive Ventilatory Pattern.6 minute walk test showed stable oxygen saturation on room air while patient ambulated for 6 minutes and covered 870 ft/ 265 m.This interpretation has been electronically signed: FOREIGN GARCÍA DR. 01/09/2023 02:39:11 PM Foreign CANDELARIA Performing Organization Address [facility] de Phone Number CELSO ARTEAGAParvin * PULMONARY STRESS TESTING (01/04/2023) 01/04/2023 Foreign CANDELARIA documented in this encounter Visit Diagnoses Diagnosis Dyspnea and respiratory abnormalities- Primary Other dyspnea and respiratory abnormality Other secondary pulmonary hypertension (HCC) Mild intermittent asthma, uncomplicated Unspecified asthma Mild persistent asthma, uncomplicated Unspecified asthma Chronic respiratory failure with hypoxia (HCC) Chronic respiratory failure Dyspnea and respiratory abnormalities- Primary Other dyspnea and respiratory abnormality documented in this encounter Care Teams Pretzel Packer Relationship Specialty Start Date End Date Selam Simmons MD [address] [place] [address] [place] [address] PCP - General 06/09/03 documented as of this encounter
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
--- OUTSIDE RECORDS SUMMARY | 2023-02-03 13:01 | External Medical Summary | Continuity of Care Document ---
Author Name Unknown Organization [address] Address [address] [place], [place] [id number] Care Team Providers Care Motorboat Mechanic Name Role Phone Letty Simmons Primary Care Physician [phone] [id number] Date(s): 12/20/22 - 12/20/22 [facility] [address] [address] [facility] [address] [place] [address] [phone] Discharge Disposition: Home or Self Care Attending Physician: TIFFANIE Oconnell Sarah A Referring Physician: TIFFANIE Oconnell Sarah A Medications Albuterol (Eqv-ProAir HFA) 90 mcg/inh inhalation [...] 14:04:00 EDT Start Date: 12/09/22 Status: Ordered Results Radiology Reports * Exam Date Time Procedure Performing Provider Status 12/20/22 3:55 PM Echo TransTHORacic TTE Complete Daniela Parsons; Final Notes: (Echo TransTHORacic TTE Complete) Reason For Exam: dyspnea on exertion Echo TransTHORacic TTE Complete Report Signatures Finalized by Dr. Luis Antonio Cross MD on 12/21/2022 09:30 AM [place] Act 112: No-No further action needed Summary 1. Small, under-filled left ventricle. 2. Normal left ventricular size and systolic function with no regional wall motion abnormalities. 3. Ejection fraction as calculated by Biplane Simpsons method is 60%. 4. 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 5. Grade I diastolic dysfunction of the left ventricle (impaired relaxation pattern) with normal left atrial pressure. 6. No MICHAEL or LVOT obstruction. 7. Normal right ventricular size and function. 8. Normal biatrial size. 9. Mild mitral regurgitation. 10. Mild to moderate tricuspid regurgitation. 11. Mildly elevated pulmonary artery pressures, estimated PASP 36 mmHg. 12. No prior studies for comparison. Patient Info Name: REGGIE MCCARTHY Age: 82 years : 1940 Gender: Female Ht: 165 cm Wt: 57 kg BSA: 1.61 m2 HR: 59 bpm BP: 118 / 70 mmHg Heart Rhythm: Sinus Rhythm Technical Quality: Fair Exam Date: 12/20/2022 3:00 PM Exam Location: [facility] Patient Status: Outpatient Staff Ordering Physician: Rohini Oconnell Development Writer: Daniela Parsons RDCS, RVT Attending Physician: Rohini Oconnell Study Info CPT 29457 - Indications R0600 - Dyspnea, unspecified Procedure(s) * A complete two-dimensional, color flow and Doppler transthoracic echocardiogram was performed. Exam Type: Cardiac Basic Left Ventricle Small, under-filled left ventricle. Normal left ventricular size and systolic function with no regional wall motion abnormalities. Ejection fraction as calculated by Biplane Simpsons method is 60%. 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 Grade I diastolic dysfunction of the left ventricle (impaired relaxation pattern) with normal left atrial pressure. No MICHAEL or LVOT obstruction. Right Ventricle Normal right ventricular size and function. TAPSE is normal, 1.8 cm. Left Atrium Normal left atrial size. Right Atrium Normal right atrial size. Atrial Septum Appears intact. Aortic Valve Normal, tricuspid aortic valve without stenosis or insufficiency. Pulmonic Valve Unremarkable pulmonic valve. Mitral Valve Structurally normal mitral valve. Mild mitral regurgitation. Tricuspid Valve Mild to moderate tricuspid regurgitation. Mildly elevated pulmonary artery pressures, estimated PASP 36 mmHg. Pericardium/Pleural No pericardial effusion. Inferior Vena Cava Dilated IVC with normal inspiratory collapse. Aorta Normal aortic root, ascending aorta and aortic arch. Left Ventricular Outflow Tract Name Value Normal LVOT 2D LVOT Diameter 1.9 cm LVOT Doppler LVOT Peak Velocity 1.01 m/s LVOT Mean Gradient 2 mmHg LVOT VTI 27.50 cm LVOT Stroke Volume 77.16 ml LVOT Stroke Volume Index 0.05 l/m2 LVOT Cardiac Output 4.55 l/min LVOT Cardiac Index 2.83 L/min/m2 Pulmonic Valve Name Value Normal PV 2D RVOT Diameter (2D) 1.6 cm 1.7-2.7 RVOT Doppler RVOT Peak Velocity 0.89 m/s PV Doppler PV Peak Velocity 0.88 m/s Mitral Valve Name Value Normal MV Doppler MV PHT 73 ms MV Diastolic Function MV E Peak Velocity 0.65 m/s <=0.50 MV A Peak Velocity 0.84 m/s MV E/A 0.76 <=0.80 MV Decel Time 250 ms MV Annular TDI MV Septal s' Velocity 5.87 cm/s MV Septal e' Velocity 5.17 cm/s >=7.00 MV E/e' (Septal) 12.5 <=8.0 MV Lateral s' Velocity 8.32 cm/s MV Lateral e' Velocity 5.96 cm/s >=10.00 MV E/e' (Lateral) 10.82 <=8.00 MV e' Average 5.57 MV E/e' (Average) 11.65 <=14.00 Tricuspid Valve Name Value Normal TV Regurgitation Doppler TR Peak Velocity 2.64 m/s <=2.80 Estimated PAP/RSVP RA Pressure 8 mmHg <=5 PA Systolic Pressure 36 mmHg <40 TV Diastolic Function TV E Peak Velocity 0.38 m/s TV A Peak Velocity 0.34 m/s TV E/A 1.11 0.80-2.00 TV Decel Time 222 ms >=120 TV Annular TDI TV Lateral Peace s' Velocity 14.5 cm/s 9.5-18.7 TV Lateral Peace e' Velocity 11.8 cm/s <7.8 TV E/e' 3.22 2.00-6.00 Aorta Name Value Normal Ascending Aorta Sinus of Valsalva Diameter 3.0 cm 2.7-3.3 Sinus of Valsalva Index 1.86 cm/m2 1.60-2.00 Prox Asc Ao Diameter 3.0 cm 2.3-3.1 Prox Asc Ao Diameter Index 1.89 cm/m2 1.30-1.90 Thoracic Aorta Ao Arch Diameter 2.3 cm Desc Ao Peak Velocity 0.69 m/s Desc Ao Peak Gradient 2 mmHg Venous Name Value Normal IVC/SVC IVC Diameter (Insp 2D) 0.6 cm IVC Diameter (Exp 2D) 2.4 cm <=2.1 IVC Diameter Percent Change (2D) 76 % >=50 Aortic Valve Name Value Normal AV Doppler AV Peak Velocity 1.20 m/s <2.00 AV Area (Cont Eq Rafat) 2.4 cm2 AV Area Index (Cont Eq Rafat) 1.47 cm2/m2 AV V1/V2 Ratio 0.84 AV Regurgitation 2D LVOT Area 2.8 cm2 Ventricles Name Value Normal LV Dimensions 2D/MM IVS Diastolic Thickness (2D) 1.4 cm 0.6-0.9 LVID Diastole (2D) 3.6 cm 3.3-5.1 LVIW Diastolic Thickness (2D) 1.0 cm 0.6-0.9 LVID Systole (2D) 1.9 cm 2.2-3.5 LVOT Diameter 1.9 cm LV Fractional Shortening/Ejection Fraction 2D/MM LV Diastolic Volume (4C MOD) 42 ml LV Diastolic Volume (2C MOD) 43 ml LV Diastolic Volume (BP MOD) 42 ml 46-106 LV Diastolic Volume Index (BP MOD) 26.05 ml/m2 29.00-61.00 LV Systolic Volume (BP MOD) 17 ml 14-42 LV Systolic Volume Index (BP MOD) 10.74 ml/m2 8.00-24.00 LV EF (BP MOD) 59 % 58-69 LV SV (BP MOD) 24.66 ml RV Dimensions 2D/MM RV Basal Diastolic Dimension 3.6 cm 2.5-4.1 TAPSE 1.8 cm >=1.7 Atria Name Value Normal LA Dimensions LA Area (4C) 11.0 cm2 LA Length (4C) 3.8 cm LA Area (2C) 13.4 cm2 LA Length (2C) 4.8 cm LA Volume (4C A-L) 26.85 ml LA Volume (2C A-L) 31.94 ml LA Volume (BP A-L) 33 ml 22-52 LA Volume Index (BP A-L) 20.33 ml/m2 <=34.00 RA Dimensions RA Area (4C) 13.8 cm2 <=18.0 Final Signed by:DO Cross Jason D Signed (Electronic Signature):12/20/2022 3:00 p Social History Social History Type Response Smoking Status Never smoked cigaret elian Sex US Heart Transthoracic * DO Cross Jason D: VERIFY, PERFORM, VERIFY Event Display: Report Authored Date: [id number] Report Signatures Finalized by Dr. Luis Antonio Cross MD on 12/21/2022 09:30 AM [place] Act 112: No-No further action needed Summary 1. Small, under-filled left ventricle. 2. Normal left ventricular size and systolic function with no regional wall motion abnormalities. 3. Ejection fraction as calculated by Biplane Simpsons method is 60%. 4. 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 5. Grade I diastolic dysfunction of the left ventricle (impaired relaxation pattern) with normal left atrial pressure. 6. No MICHAEL or LVOT obstruction. 7. Normal right ventricular size and function. 8. Normal biatrial size. 9. Mild mitral regurgitation. 10. Mild to moderate tricuspid regurgitation. 11. Mildly elevated pulmonary artery pressures, estimated PASP 36 mmHg. 12. No prior studies for comparison. Patient Info Name: REGGIE MCCARTHY Age: 82 years : 1940 Gender: Female Ht: 165 cm Wt: 57 kg BSA: 1.61 m2 HR: 59 bpm BP: 118 / 70 mmHg Heart Rhythm: Sinus Rhythm Technical Quality: Fair Exam Date: 12/20/2022 3:00 PM Exam Location: [facility] Patient Status: Outpatient Staff Ordering Physician: Rohini Oconnell Development Writer: Daniela Parsons RDCS, RVT Attending Physician: Rohini Oconnell Study Info CPT 34355 - Indications R0600 - Dyspnea, unspecified Procedure(s) * A complete two-dimensional, color flow and Doppler transthoracic echocardiogram was performed. Exam Type: Cardiac Basic Left Ventricle Small, under-filled left ventricle. Normal left ventricular size and systolic function with no regional wall motion abnormalities. Ejection fraction as calculated by Biplane Simpsons method is 60%. 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 Grade I diastolic dysfunction of the left ventricle (impaired relaxation pattern) with normal left atrial pressure. No MICHAEL or LVOT obstruction. Right Ventricle Normal right ventricular size and function. TAPSE is normal, 1.8 cm. Left Atrium Normal left atrial size. Right Atrium Normal right atrial size. Atrial Septum Appears intact. Aortic Valve Normal, tricuspid aortic valve without stenosis or insufficiency. Pulmonic Valve Unremarkable pulmonic valve. Mitral Valve Structurally normal mitral valve. Mild mitral regurgitation. Tricuspid Valve Mild to moderate tricuspid regurgitation. Mildly elevated pulmonary artery pressures, estimated PASP 36 mmHg. Pericardium/Pleural No pericardial effusion. Inferior Vena Cava Dilated IVC with normal inspiratory collapse. Aorta Normal aortic root, ascending aorta and aortic arch. Left Ventricular Outflow Tract Name Value Normal LVOT 2D LVOT Diameter 1.9 cm LVOT Doppler LVOT Peak Velocity 1.01 m/s LVOT Mean Gradient 2 mmHg LVOT VTI 27.50 cm LVOT Stroke Volume 77.16 ml LVOT Stroke Volume Index 0.05 l/m2 LVOT Cardiac Output 4.55 l/min LVOT Cardiac Index 2.83 L/min/m2 Pulmonic Valve Name Value Normal PV 2D RVOT Diameter (2D) 1.6 cm 1.7-2.7 RVOT Doppler RVOT Peak Velocity 0.89 m/s PV Doppler PV Peak Velocity 0.88 m/s Mitral Valve Name Value Normal MV Doppler MV PHT 73 ms MV Diastolic Function MV E Peak Velocity 0.65 m/s <=0.50 MV A Peak Velocity 0.84 m/s MV E/A 0.76 <=0.80 MV Decel Time 250 ms MV Annular TDI MV Septal s' Velocity 5.87 cm/s MV Septal e' Velocity 5.17 cm/s >=7.00 MV E/e' (Septal) 12.5 <=8.0 MV Lateral s' Velocity 8.32 cm/s MV Lateral e' Velocity 5.96 cm/s >=10.00 MV E/e' (Lateral) 10.82 <=8.00 MV e' Average 5.57 MV E/e' (Average) 11.65 <=14.00 Tricuspid Valve Name Value Normal TV Regurgitation Doppler TR Peak Velocity 2.64 m/s <=2.80 Estimated PAP/RSVP RA Pressure 8 mmHg <=5 PA Systolic Pressure 36 mmHg <40 TV Diastolic Function TV E Peak Velocity 0.38 m/s TV A Peak Velocity 0.34 m/s TV E/A 1.11 0.80-2.00 TV Decel Time 222 ms >=120 TV Annular TDI TV Lateral Peace s' Velocity 14.5 cm/s 9.5-18.7 TV Lateral Peace e' Velocity 11.8 cm/s <7.8 TV E/e' 3.22 2.00-6.00 Aorta Name Value Normal Ascending Aorta Sinus of Valsalva Diameter 3.0 cm 2.7-3.3 Sinus of Valsalva Index 1.86 cm/m2 1.60-2.00 Prox Asc Ao Diameter 3.0 cm 2.3-3.1 Prox Asc Ao Diameter Index 1.89 cm/m2 1.30-1.90 Thoracic Aorta Ao Arch Diameter 2.3 cm Desc Ao Peak Velocity 0.69 m/s Desc Ao Peak Gradient 2 mmHg Venous Name Value Normal IVC/SVC IVC Diameter (Insp 2D) 0.6 cm IVC Diameter (Exp 2D) 2.4 cm <=2.1 IVC Diameter Percent Change (2D) 76 % >=50 Aortic Valve Name Value Normal AV Doppler AV Peak Velocity 1.20 m/s <2.00 AV Area (Cont Eq Rafat) 2.4 cm2 AV Area Index (Cont Eq Rafat) 1.47 cm2/m2 AV V1/V2 Ratio 0.84 AV Regurgitation 2D LVOT Area 2.8 cm2 Ventricles Name Value Normal LV Dimensions 2D/MM IVS Diastolic Thickness (2D) 1.4 cm 0.6-0.9 LVID Diastole (2D) 3.6 cm 3.3-5.1 LVIW Diastolic Thickness (2D) 1.0 cm 0.6-0.9 LVID Systole (2D) 1.9 cm 2.2-3.5 LVOT Diameter 1.9 cm LV Fractional Shortening/Ejection Fraction 2D/MM LV Diastolic Volume (4C MOD) 42 ml LV Diastolic Volume (2C MOD) 43 ml LV Diastolic Volume (BP MOD) 42 ml 46-106 LV Diastolic Volume Index (BP MOD) 26.05 ml/m2 29.00-61.00 LV Systolic Volume (BP MOD) 17 ml 14-42 LV Systolic Volume Index (BP MOD) 10.74 ml/m2 8.00-24.00 LV EF (BP MOD) 59 % 58-69 LV SV (BP MOD) 24.66 ml RV Dimensions 2D/MM RV Basal Diastolic Dimension 3.6 cm 2.5-4.1 TAPSE 1.8 cm >=1.7 Atria Name Value Normal LA Dimensions LA Area (4C) 11.0 cm2 LA Length (4C) 3.8 cm LA Area (2C) 13.4 cm2 LA Length (2C) 4.8 cm LA Volume (4C A-L) 26.85 ml LA Volume (2C A-L) 31.94 ml LA Volume (BP A-L) 33 ml 22-52 LA Volume Index (BP A-L) 20.33 ml/m2 <=34.00 RA Dimensions RA Area (4C) 13.8 cm2 <=18.0 Final Signed by:DO Cross Jason D Signed (Electronic Signature):12/20/2022 3:00 p Patient Care team information Care Team Personnel Name: MD Simmons H Jeanne Position: Referring Member Role: Primary Care Provider Address: Address: [address] [place], [place] [id number] [place]
--- OUTSIDE RECORDS SUMMARY | 2023-02-03 13:02 | External Medical Summary ---
Author Name Unknown Address Unknown Organization [id number]:[facility] [address] [place] [address] Laboratory Report Ordering Provider Test Date Status JAYDON NOVAK 12/20/2021 10:21:38 Final Observation Date Value Abnormality Reference (Units ) Status T4, Free 12/20/2021 10:21:38 1.5 0.9-1.7 (n g/dL) Final Performing Location [facility] - [address] [place] [address]
--- OUTSIDE RECORDS SUMMARY | 2023-02-03 13:02 | External Medical Summary ---
Author Name Unknown Address Unknown Organization [id number]:[facility]ATORY [facility] [address] [place] [address] Laboratory Report Ordering Provider Test Date Status JYADON NOVAK 12/20/2021 10:21:38 Final Observation Date Value Abnormality Reference (Units ) Status WBC, Total 12/20/2021 10:21:38 4.54 4.00-10.8 0 (K/uL) Final RBC 12/20/2021 10:21:38 4.42 3.85-5.15 (M/uL) Final Hemoglobin 12/20/2021 10:21:38 13.7 12.0-15.3 (g/dL) Final HCT 12/20/2021 10:21:38 42.2 36.0-45.2 (%) Final MCV 12/20/2021 10:21:38 95.5 81.5-97.5 (fL) Final MCH 12/20/2021 10:21:38 31.0 27.0-34.0 (pg) Final MCHC 12/20/2021 10:21:38 32.5 32.0-36.0 (g/dL) Final RDW 12/20/2021 10:21:38 13.5 11.5-15.5 (%) Final Platelets 12/20/2021 10:21:38 177 140-400 (K /uL) Final MPV 12/20/2021 10:21:38 9.9 6.6-11.1 ( fL) Final Performing Location LABORATORY [facility] [address] [place] [address]
--- OUTSIDE RECORDS SUMMARY | 2023-02-03 13:02 | External Medical Summary | Summary of Care ---
Author Name Unknown Organization [facility] [address] Care Team Providers Care Projection Technician Name Role Phone Selam Simmons MD Primary Care Provider [phone] Reason for Visit * Reason Comments Outpatient Testing Encounter Details Date Type Department Care Team Description 05/27/2021 Laboratory Laboratory, [facility] [address] [facility] [place] [id number] [facility] [address] Lyme disease*; HTN, goal below 140/90; Hypothyroidism; Vitamin D deficiency Allergies Active Allergy Reactions Severity Noted Date Comments Isosorbide Nitrate 12/02/2015 documented as of this encounter (statuses as of 05/27/2021) Medications Medication Sig Dispensed Refills Start Date End Date Status TYLENOL ARTHRITIS PAIN 650 MG PO TBCR 1 tablet as directed as needed 0 Active CITRACAL + D 315-200 MG-UNIT PO TABS 1 capsule twice daily 0 Active doxazosin (CARDURA) 2 MG Tablet 0 11/16/2015 Active Fluocinonide 0.05 % cream [...] as of this encounter (statuses as of 05/27/2021) Active Problems Problem Noted Date Deviated nasal septum 06/27/2016 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 06/27/2016 Chronic rhinitis 06/27/2016 Postnasal drip 06/27/2016 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 documented as of this encounter (statuses as of 05/27/2021) Immunizations Name Administration Dates Next Due Seasonal Influenza, Trivalent, Adjuvanted, 65+ y rs 03/30/2019 documented as of this encounter Social History Tobacco Use Types Packs/Day Years Used Date Never Smoker Smokeless Tobacco: Never Used Alcohol Use Standard Drinks/Week Comments No 0 (1 standard drink = 0.6 oz pur e alcohol) Sex Assigned at Date Recorded Not on file Job Start Date Occupation Industry Not on file Not on file Not on file documented as of this encounter Plan of Treatment Pending Results Name Type Priority Associated Diagnoses Date /Time CBC WITH WBC DIFFERENTIAL Lab Routine Lyme disease 05/27/2021 9:35 AM EST COMPREHENSIVE METABOLIC PANEL Lab Routine HTN, goal below 140/90 05/27/2021 9:35 AM EST TSH Lab Routine Hypothyroidism 05/27/2021 9:35 AM EST T4, FREE Lab Routine Hypothyroidism 05/27/2021 9:35 AM EST T3, FREE Lab Routine Hypothyroidism 05/27/2021 9:35 AM EST 25-HYDROXY VITAMIN D Lab Routine Vitamin D deficiency 05/27/2021 9:35 AM EST CBC Lab Routine Lyme disease 05/27/2021 9:35 AM EST DIFFERENTIAL, AUTOMATED Lab Routine Lyme disease 05/27/2021 9:35 AM EST Scheduled Orders Name Type Priority Associated Diagnoses Orde r Schedule CBC WITH WBC DIFFERENTIAL Lab Routine Lyme disease Expected: 05/27/2021, Expires: 05/27/2022 COMPREHENSIVE METABOLIC PANEL Lab Routine HTN, goal below 140/90 Expected: 05/27/2021, Expires: 05/27/2022 TSH Lab Routine Hypothyroidism Expected: 05/27/2021, Expires: 05/27/2022 T4, FREE Lab Routine Hypothyroidism Expected: 05/27/2021, Expires: 05/27/2022 T3, FREE Lab Routine Hypothyroidism Expected: 05/27/2021, Expires: 05/27/2022 25-HYDROXY VITAMIN D Lab Routine Vitamin D deficiency Expected: 05/27/2021, Expires: 05/27/2022 Health Maintenance Due Date Last Done Comments COVID-19 Vaccine (1) 1945 Depression Screening, Annual for Pts 12 and Over 1952 DTaP,Tdap,and Td Vaccines (1 - Tdap) 09/11/1959 Zoster Vaccines (1 of 2) 1990 Pneumococcal Vaccine: 65+ Years (1 of 1 - PPSV23) 2005 Influenza Vaccine (FLU shot) (#1) 2021 03/30/2019, 03/30/2019 Dexa Scan 10/06/2022 10/07/2015 DIABETES SCREEN EVERY 3 YRS-AGE 45 AND ABOVE 06/29/2023 06/29/2020, 02/19/2020, 11/19/2019, Additional history exists MENINGOCOCCAL (MENACTRA/MENVEO) Aged Out No longer eligible based on patient's age to complete this topic documented as of this encounter Implants Not on filedocumented as of this encounter Visit Diagnoses Diagnosis Lyme disease- Primary HTN, goal below 140/90 Unspecified essential hypertension Hypothyroidism Unspecified hypothyroidism Vitamin D deficiency Unspecified vitamin D deficiency documented in this encounter Advance Directives Documents on File Type Date Recorded Patient Local Government Legislator Expl anation Advanced Directive Advanced Directive Advanced Directive Advanced Directive Care Teams Projection Technician Relationship Specialty Start Date End Date Selam Simmons MD [address] [place] [address] [place] [phone] PCP - General 06/09/03 documented as of this encounter
--- OUTSIDE RECORDS SUMMARY | 2023-02-03 13:02 | External Medical Summary ---
Author Name Unknown Address Unknown Organization [id number]:LABORATORY [facility] - [facility] [address] [place] [address] Laboratory Report Ordering Provider Test Date Status JAYDON NOVAK 11/16/2022 10:00:35 Final Observation Date Value Abnormality Reference (Units ) Status WBC, Total 11/16/2022 10:00:35 3.56 Below low normal 4.00-10.80 (K/uL) Final RBC 11/16/2022 10:00:35 4.29 3.85-5.15 (M/uL) Final Hemoglobin 11/16/2022 10:00:35 13.8 12.0-15.3 (g/dL) Final HCT 11/16/2022 10:00:35 42.7 36.0-45.2 (%) Final MCV 11/16/2022 10:00:35 99.5 81.5-97.5 (fL) Final MCH 11/16/2022 10:00:35 32.2 27.0-34.0 (pg) Final MCHC 11/16/2022 10:00:35 32.3 32.0-36.0 (g/dL) Final RDW 11/16/2022 10:00:35 13.2 11.5-15.5 (%) Final Platelets 11/16/2022 10:00:35 165 140-400 (K/uL) Final MPV 11/16/2022 10:00:35 10.6 6.6-11.1 (fL) Final Nucleated erythrocytes/100 leukocytes [Ratio] in Blood by Automated count 11/16/2022 10:00:35 0 <=0 (/100 WBCs) Final Performing Location LABORATORY [facility] - [address] [place] [address]
--- OUTSIDE RECORDS SUMMARY | 2023-02-03 13:02 | External Medical Summary ---
Author Name Unknown Address Unknown Organization K01:LABORATORY [facility] [place] - [address] [place] [address] Laboratory Report Ordering Provider Test Date Status KISHOREJAYDON 12/20/2021 10:21:38 Final Observation Date Value Abnormality Reference (Units ) Status 25-OH Vitamin D total 12/20/2021 10:21:38 99 >19 (ng/mL) Final Performing Location [facility] - [address] [place] [address]
--- OUTSIDE RECORDS SUMMARY | 2023-02-03 13:02 | External Medical Summary ---
Author Name Unknown Address Unknown Organization K0G:LAB[facility]ATORY [place] [address] [place] [address] Laboratory Report Ordering Provider Test Date Status JAYDON NOVAK 12/20/2021 10:21:38 Final Observation Date Value Abnormality Reference (Units ) Status BUN 12/20/2021 10:21:38 26 Above high normal 6-20 (mg/dL) Final Creatinine 12/20/2021 10:21:38 0.6 0.5-1.0 (mg/dL) Final Glomerular filtration rate/1.73 sq M.predicted [Volume Rate/Area] in Serum, Plasma or Blood by Creatinine-based formula (CKD-EPI) 12/20/2021 10:21:38 89 >=60 (mL/min) Final Performing Location LAB[facility]ATORY [facility] [address] [place] [address]
--- OUTSIDE RECORDS SUMMARY | 2023-02-03 13:02 | External Medical Summary ---
Author Name Unknown Address Unknown Organization K01:[facility] - [address] [place] [address] Laboratory Report Ordering Provider Test Date Status JAYDON NOVAK 11/16/2022 10:00:35 Final Observation Date Value Abnormality Reference (Units ) Status T3, Free 11/16/2022 10:00:35 2.7 2.5-4.3 (p g/mL) Final Performing Location [facility] - [address] [place] [address]
--- OUTSIDE RECORDS SUMMARY | 2023-02-03 13:02 | External Medical Summary ---
Author Name Unknown Address Unknown Organization K01:LABORATORY [facility] - [address] [facility] [place] [address] Laboratory Report Ordering Provider Test Date Status JAYDON NOVAK 11/16/2022 10:00:35 Final Observation Date Value Abnormality Reference (Units ) Status SYNC LEUKOCYTES IN BLOOD BY AUTOMATED COUNT 11/16/2022 10:00:35 3.56 Below low normal 4.00-10.80 (K/uL) Final Segs 11/16/2022 10:00:35 59.2 40.0-75.0 (%) Final Lymphs % 11/16/2022 10:00:35 29.5 18.0-42.0 (%) Final Monos 11/16/2022 10:00:35 9.3 1.0-11.0 (%) Final Eosinophils 11/16/2022 10:00:35 1.4 0.0-6.0 (%) Final Basos 11/16/2022 10:00:35 0.3 0.0-2.0 (%) Final Immature Granulocyte, Percent 11/16/2022 10:00:35 0.3 0.0-2.0 (%) Final Absolute Segs 11/16/2022 10:00:35 2.11 1.80-7.70 (K/uL) Final Lymphs, absolute 11/16/2022 10:00:35 1.05 1.00-4.80 (K/ul) Final Monos, Abs 11/16/2022 10:00:35 0.33 0.00-1.10 (K/uL) Final Eos, Abs 11/16/2022 10:00:35 0.05 0.00-0.70 (K/uL) Final Basos, Abs 11/16/2022 10:00:35 0.01 0.00-0.20 (K/uL) Final Immature Granulocytes, Number 11/16/2022 10:00:35 0.01 0.00-0.20 (K/uL) Final Performing Location LABORATORY [facility] - [facility][note 3] [address] [facility] [address]
--- OUTSIDE RECORDS SUMMARY | 2023-02-03 13:02 | External Medical Summary ---
Author Name Unknown Address Unknown Organization K01:[facility] - [address] [place] [address] Laboratory Report Ordering Provider Test Date Status JAYDON NOVAK 11/16/2022 10:00:35 Final Observation Date Value Abnormality Reference (Units ) Status T4, Free 11/16/2022 10:00:35 1.4 0.9-1.7 (n g/dL) Final Performing Location [facility] - [address] [place] [address]
--- OUTSIDE RECORDS SUMMARY | 2023-02-03 13:02 | External Medical Summary | Summary of Care ---
Author Name Unknown Organization [place] [address] Care Team Providers Care Hardness Inspector Name Role Phone Selam Simmons MD Primary Care Provider [phone] [phone] Reason for Visit * Reason Comments Outpatient Testing Encounter Details Date Type Department Care Team Description 12/20/2021 Laboratory Laboratory, [facility] 132 [facility] [place] [address] [facility] [address] Senile asthenia Allergies Active Allergy Reactions Severity Noted Date Comments Isosorbide Nitrate 12/02/2015 documented as of this encounter (statuses as of 12/20/2021) Medications Medication Sig Dispensed Refills Start Date [...] as of this encounter (statuses as of 12/20/2021) Active Problems Problem Noted Date Deviated nasal septum 06/27/2016 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 06/27/2016 Chronic rhinitis 06/27/2016 Postnasal drip 06/27/2016 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 documented as of this encounter (statuses as of 12/20/2021) Immunizations Name Administration Dates Next Due Seasonal [...] Name Type Priority Associated Diagnoses Date /Time T4, FREE Lab Routine Senile asthenia 12/20/2021 10:21 AM EDT TSH Lab Routine Senile asthenia 12/20/2021 10:21 AM EDT T3, FREE Lab Routine Senile asthenia 12/20/2021 10:21 AM EDT CBC WITH WBC DIFFERENTIAL Lab Routine Senile asthenia 12/20/2021 10:21 AM EDT COMPREHENSIVE METABOLIC PANEL Lab Routine Senile asthenia 12/20/2021 10:21 AM EDT 25-HYDROXY VITAMIN D Lab Routine Senile asthenia 12/20/2021 10:21 AM EDT CBC Lab Routine Senile asthenia 12/20/2021 10:21 AM EDT DIFFERENTIAL, AUTOMATED Lab Routine Senile asthenia 12/20/2021 10:21 AM EDT Health Maintenance Due Date Last Done Comments COVID-19 Vaccine (#1) 03/12/1941 Depression Screening, Annual for Pts 12 and Over 1952 DTaP,Tdap,and Td Vaccines (1 - Tdap) 09/11/1959 Zoster Vaccines (1 of 2) 1990 Pneumococcal Vaccine: 65+ Years (1 - PCV) 2005 Influenza Vaccine (FLU shot) (#1) 2022 03/30/2019, 03/30/2019 DXA Scan 10/06/2022 10/07/2015 GARDASIL-HPV IMMUNIZATION SERIES Aged Out No longer eligible b ased on patient's age to complete this topic MENINGOCOCCAL (MENACTRA/MENVEO) Aged Out No longer eligible b ased on patient's age to complete this topic documented as of this encounter Implants Not on filedocumented as of this encounter Visit Diagnoses Diagnosis 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
--- OUTSIDE RECORDS SUMMARY | 2023-02-03 13:02 | External Medical Summary ---
Author Name Unknown Address Unknown Organization [id number]:LABORATORY [facility] [place] [address] [place] [address] Laboratory Report Ordering Provider Test Date Status KISHOREJAYDON 11/16/2022 10:00:35 Final Observation Date Value Abnormality Reference (Units ) Status Ferritin 11/16/2022 10:00:35 185 Above high normal 13 -150 (ng/mL) Final Performing Location [facility] - [address] [place] [address]
--- OUTSIDE RECORDS SUMMARY | 2023-02-03 13:02 | External Medical Summary | Summary of Care ---
Author Name Unknown Organization [facility] Address [address] [place] [address] Phone [phone] Care Team Providers Care Flosser Name Role Phone Selam Simmons MD Primary Care Provider [phone] [phone] Reason for Visit * Reason Comments Outpatient Testing Encounter Details Date Type Department Care Team Description 11/16/2022 Laboratory Laboratory, [place] [address] [place] [address] [place] [address] [place] [address] Senile asthenia; Low iron; Screening for iron deficiency anemia; Hypothyroidism; HTN, goal below 140/90 Allergies Active Allergy Reactions Severity Noted Date Comments Isosorbide Nitrate 12/02/2015 documented as of this encounter (statuses as of 11/16/2022) Medications Medication Sig Dispensed Refills Start Date [...] as of this encounter (statuses as of 11/16/2022) Active Problems Problem Noted Date Deviated nasal septum 06/27/2016 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 06/27/2016 Chronic rhinitis 06/27/2016 Postnasal drip 06/27/2016 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 documented as of this encounter (statuses as of 11/16/2022) Immunizations Name Administration Dates Next Due Seasonal [...] /Time CBC WITH WBC DIFFERENTIAL Lab Routine Senile asthenia Low iron Screening for iron deficiency anemia Hypothyroidism HTN, goal below 140/90 11/16/2022 10:00 AM EDT IRON SCREEN, INCLUDING TIBC Lab Routine Senile asthenia Low iron Screening for iron deficiency anemia Hypothyroidism HTN, goal below 140/90 11/16/2022 10:00 AM EDT FERRITIN Lab Routine Senile asthenia Low iron Screening for iron deficiency anemia Hypothyroidism HTN, goal below 140/90 11/16/2022 10:00 AM EDT T4, FREE Lab Routine Senile asthenia Low iron Screening for iron deficiency anemia Hypothyroidism HTN, goal below 140/90 11/16/2022 10:00 AM EDT T3, FREE Lab Routine Senile asthenia Low iron Screening for iron deficiency anemia Hypothyroidism HTN, goal below 140/90 11/16/2022 10:00 AM EDT COMPREHENSIVE METABOLIC PANEL Lab Routine Senile asthenia Low iron Screening for iron deficiency anemia Hypothyroidism HTN, goal below 140/90 11/16/2022 10:00 AM EDT CBC Lab Routine Senile asthenia Low iron Screening for iron deficiency anemia Hypothyroidism HTN, goal below 140/90 11/16/2022 10:00 AM EDT DIFFERENTIAL, AUTOMATED Lab Routine Senile asthenia Low iron Screening for iron deficiency anemia Hypothyroidism HTN, goal below 140/90 11/16/2022 10:00 AM EDT Health Maintenance Due Date Last Done Comments COVID-19 Vaccine (#1) 03/12/1941 Depression Screening, Annual for Pts 12 and Over 1952 DTaP,Tdap,and Td Vaccines (1 - Tdap) 09/11/1959 Zoster Vaccines (1 of 2) 1990 Pneumococcal Vaccine: 65+ Years (1 - PCV) 2005 DXA Scan 10/06/2022 10/07/2015 Influenza Vaccine (FLU shot) (Season Ended) 2023 03/30/2019, 03/30/2019 GARDASIL-HPV IMMUNIZATION SERIES Aged Out [...] 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
--- OUTSIDE RECORDS SUMMARY | 2023-02-03 13:02 | External Medical Summary ---
Author Name Unknown Address Unknown Organization [id number]:LABORATORY [facility] - [address] [place] [address] Laboratory Report Ordering Provider Test Date Status JAYDON NOVAK 11/16/2022 10:00:35 Final Observation Date Value Abnormality Reference (Units ) Status Iron 11/16/2022 10:00:35 68 33-151 (ug /dL) Final Iron-binding capacity 11/16/2022 10:00:35 294 250-425 (ug/dL) Final Transferrin Sat % 11/16/2022 10:00:35 23 15 -55 (%) Final Performing Location [facility] - [address] [place] [address]
--- OUTSIDE RECORDS SUMMARY | 2023-02-03 13:02 | External Medical Summary ---
Author Name Unknown Address Unknown Organization [id number] [address] [place] [address] Laboratory Report Ordering Provider Test Date Status JAYDON NOVAK 12/20/2021 10:21:38 Final Observation Date Value Abnormality Reference (Units ) Status SYNC LEUKOCYTES IN BLOOD BY AUTOMATED COUNT 12/20/2021 10:21:38 4.54 4.00-10.80 (K/uL) Final Segs 12/20/2021 10:21:38 60.5 40.0-75.0 (%) Final Lymphs % 12/20/2021 10:21:38 28.9 18.0-42.0 (%) Final Monos 12/20/2021 10:21:38 9.3 1.0-11.0 (%) Final Eosinophils 12/20/2021 10:21:38 1.1 0.0-6.0 (%) Final Basos 12/20/2021 10:21:38 0.2 0.0-2.0 (%) Final Absolute Segs 12/20/2021 10:21:38 2.75 1.80-7.70 (K/uL) Final Lymphs, absolute 12/20/2021 10:21:38 1.31 1.00-4.80 (K/ul) Final Monos, Abs 12/20/2021 10:21:38 0.42 0.00-1.10 (K/uL) Final Eos, Abs 12/20/2021 10:21:38 0.05 0.00-0.70 (K/uL) Final Basos, Abs 12/20/2021 10:21:38 0.01 0.00-0.20 (K/uL) Final Performing Location LABORATORY [facility] [place] 57-1 0 - [address] [place] [address]
--- OUTSIDE RECORDS SUMMARY | 2023-02-03 13:02 | External Medical Summary ---
Author Name Unknown Address Unknown Organization [id number]:LABORATORY [facility] [place] - [address] [place] [address] Laboratory Report Ordering Provider Test Date Status JAYDON NOVAK 11/16/2022 10:00:35 Final Observation Date Value Abnormality Reference (Units ) Status BUN 11/16/2022 10:00:35 23 Above high normal 6-20 (mg/dL) Final Creatinine 11/16/2022 10:00:35 0.7 0.5-1.0 (mg/dL) Final Glomerular filtration rate/1.73 sq M.predicted [Volume Rate/Area] in Serum, Plasma or Blood by Creatinine-based formula (CKD-EPI) 11/16/2022 10:00:35 87 >=60 (mL/min) Final Performing Location LABORATORY [facility] [place] - [address] [place] [address]
--- OUTSIDE RECORDS SUMMARY | 2023-02-03 13:02 | External Medical Summary ---
Author Name Unknown Address Unknown Organization [id number]:LABORATORY [facility] [place] - [address] [place] [address] Laboratory Report Ordering Provider Test Date Status KISHOREJAYDON 12/20/2021 10:21:38 Final Observation Date Value Abnormality Reference (Units ) Status TSH 12/20/2021 10:21:38 2.17 0.27-4.20 (uIU/mL) Final Performing Location [facility] - [address] [place] [address]
--- OUTSIDE RECORDS SUMMARY | 2023-02-03 13:02 | External Medical Summary | Summary of Care ---
Author Name Unknown Organization [place] [address] Care Team Providers Care Insulation Supervisor Name Role Phone Selam Simmons MD Primary Care Provider [phone] [phone] Reason for Visit * Reason Comments Outpatient Testing Encounter Details Date Type Department Care Team Description 05/27/2021 Laboratory Laboratory, [facility] 132 [facility] [place] [address] [facility] [address] Lyme disease*; HTN, goal below 140/90; Hypothyroidism; [...] Documents on File Type Date Recorded Patient Brancher Expl anation Advanced Directive Advanced Directive Advanced Directive Advanced Directive Care Teams Insulation Supervisor Relationship Specialty Start Date End Date Selam Simmons MD [address] [place] [address] [place] [phone] PCP - General 06/09/03 documented as of this encounter
--- OUTSIDE RECORDS SUMMARY | 2023-02-03 13:02 | External Medical Summary ---
Author Name Unknown Address Unknown Organization K01:LABORATORY [facility] - [address] [place] [address] Laboratory Report Ordering Provider Test Date Status JAYDON NOVAK 12/20/2021 10:21:38 Final Observation Date Value Abnormality Reference (Units ) Status T3, Free 12/20/2021 10:21:38 2.8 2.5-4.3 (p g/mL) Final Performing Location [facility] - [address] [place] [address]
--- OUTSIDE RECORDS SUMMARY | 2023-02-03 13:03 | External Medical Summary ---
Author Name Unknown Address [facility] [address] Phone Organization K01:[place] [id number] Laboratory Report Ordering Provider Test Date Status JAYDON NOVAK 11/19/2019 15:19:00 Final Observation Date Value Abnormality Reference (Units ) Status 25-OH Vitamin D total 11/19/2019 22:38 36 > 19 (ng/mL) Final Performing Location [address] [address]
--- OUTSIDE RECORDS SUMMARY | 2023-02-03 13:03 | External Medical Summary ---
Author Name Unknown Address [facility] [place] [address] Phone Organization K01:[place] [address] [address] [place] [id number] Laboratory Report Ordering Provider Test Date Status JAYDON NOVAK 02/19/2020 10:58:00 Final Observation Date Value Abnormality Reference (Units ) Status T4, Free 02/19/2020 19:41 1.51 0.9-1.7 (ng/d L) Final Performing Location [place] [id number]
--- OUTSIDE RECORDS SUMMARY | 2023-02-03 13:03 | External Medical Summary | Summary of Care ---
Author Name Unknown Organization [place] [address] Care Team Providers Care Window Shade Cutter Name Role Phone Selam Simmons MD Primary Care Provider [phone] [phone] Reason for Visit * Reason Comments Outpatient Testing Encounter Details Date Type Department Care Team Description 05/27/2021 Laboratory Laboratory, [facility] 132 [facility] [place] [address] [facility] [address] Lyme disease*; HTN, goal below 140/90; Hypothyroidism; [...] Documents on File Type Date Recorded Patient Admissions Officer Expl anation Advanced Directive Advanced Directive Advanced Directive Advanced Directive Care Teams Window Shade Cutter Relationship Specialty Start Date End Date Selam Simmons MD [address] [place] [address] [place] CENTENO [phone] PCP - General 06/09/03 documented as of this encounter
--- OUTSIDE RECORDS SUMMARY | 2023-02-03 13:03 | External Medical Summary ---
Author Name Unknown Address Unknown Organization K01:LABORATORY [facility] - [address] [place] [address] Laboratory Report Ordering Provider Test Date Status KISHOREJAYDON 05/27/2021 09:35:34 Final Observation Date Value Abnormality Reference (Units ) Status T3, Free 05/27/2021 09:35:34 2.7 2.5-4.3 (p g/mL) Final Performing Location [facility] - [address] [place] [address]
--- OUTSIDE RECORDS SUMMARY | 2023-02-03 13:03 | External Medical Summary ---
Author Name Unknown Address [facility] [place] [address] Phone Organization K01:[place] [id number] Laboratory Report Ordering Provider Test Date Status JAYDON NOVAK 02/19/2020 10:58:00 Final Observation Date Value Abnormality Reference (Units ) Status TSH 02/19/2020 19:41 1.54 0.27-4.2 (uIU /mL) Final Performing Location [place] [id number]
--- OUTSIDE RECORDS SUMMARY | 2023-02-03 13:03 | External Medical Summary ---
Author Name Unknown Address Unknown Organization K01:LAB[facility]ATORY [facility] - [address] [place] [address] Laboratory Report Ordering Provider Test Date Status JAYDON NOVAK 05/27/2021 09:35:34 Final Observation Date Value Abnormality Reference (Units ) Status T4, Free 05/27/2021 09:35:34 1.6 0.9-1.7 (n g/dL) Final Performing Location [facility] - [address] [place] [address]
--- OUTSIDE RECORDS SUMMARY | 2023-02-03 13:03 | External Medical Summary ---
Author Name Unknown Address [facility] [place] [address] Phone Organization K01:[place] [address] [place] [phone] Laboratory Report Ordering Provider Test Date Status JAYDON NOVAK 02/19/2020 10:58:00 Final Observation Date Value Abnormality Reference (Units ) Status T3, Free 02/19/2020 19:41 2.4 Below low normal 2.5-4. 3 (pg/mL) Final Performing Location [place] [id number]
--- OUTSIDE RECORDS SUMMARY | 2023-02-03 13:03 | External Medical Summary | Summary of Care ---
Author Name Unknown Organization [place] [address] Care Team Providers Care State Pilot Name Role Phone Selam Simmons MD Primary Care Provider [phone] [phone] Encounter Details Date Type Department Care Team Description 04/27/2021 Orders Only Access [facility], [place] [address] *DO NOT REMOVE THIS DEPARTMENT* [place] [address] Requisition, External Radiology [address] [place] [address] Encounter for screening mammogram for malignant neoplasm of breast* Allergies Active Allergy Reactions Severity Noted Date Comments Isosorbide Nitrate 12/02/2015 documented as of this encounter (statuses as of 04/27/2021) Medications Medication Sig Dispensed Refills Start Date [...] as of this encounter (statuses as of 04/27/2021) Active Problems Problem Noted Date Deviated nasal septum 06/27/2016 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 06/27/2016 Chronic rhinitis 06/27/2016 Postnasal drip 06/27/2016 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 documented as of this encounter (statuses as of 04/27/2021) Immunizations Name Administration Dates Next Due Seasonal Influenza, Trivalent, Adjuvanted, 65+ y rs 03/30/2019 documented as of this encounter Social History Tobacco Use Types Packs/Day Years Used Date Never Smoker Smokeless Tobacco: Never Used Alcohol Use Standard Drinks/Week Comments No 0 (1 standard drink = 0.6 oz pur e alcohol) Sex Assigned at Date Recorded Not on file documented as of this encounter Plan of Treatment Upcoming Encounters Date Type Specialty Care Team Description 05/25/2021 Imaging Radiology Scheduled Orders Name Type Priority Associated Diagnoses Orde r Schedule MAMMOGRAM SCREENING BILATERAL Medical Imaging Routine Encounter for screening mammogram for malignant neoplasm of breast Expected: 05/27/2021, Expires: 05/27/2022 Health Maintenance Due Date Last Done Comments COVID-19 Vaccine (1) 1952 DTaP,Tdap,and Td Vaccines (1 - Tdap) 09[birth year]11/1959 Zoster Vaccines (1 of 2) 1990 Pneumococcal Vaccine: 65+ Years (1 of 1 - PPSV23) 2005 *DEPRESSION SCREENING,ANNUAL FOR PTS 12 AND OVER 12/05/2015 Influenza Vaccine (FLU shot) (#1) 2021 03/30/2019, 03/30/2019 Dexa Scan 10/06/2022 10/07/2015 DIABETES SCREEN EVERY 3 YRS-AGE 45 AND ABOVE 06/29/2023 06/29/2020, 02/19/2020, 11/19/2019, Additional history exists MENINGOCOCCAL (MENACTRA/MENVEO) Aged Out No longer eligible based on patient's age to complete this topic documented as of this encounter Implants Not on filedocumented as of this encounter Visit Diagnoses Diagnosis Encounter for screening mammogram for malignant neoplasm of breast- Primary Other screening mammogram documented in this encounter Advance Directives Documents on File Type Date Recorded Patient Club Lounge Attendant Expl anation Advanced Directive Advanced Directive Advanced Directive Care Teams State Pilot Relationship Specialty Start Date End Date Selam Simmons MD [address] [place] [address] [place] [id number] PCP - General 06/09/03 documented as of this encounter
--- OUTSIDE RECORDS SUMMARY | 2023-02-03 13:03 | External Medical Summary ---
Author Name Unknown Address Unknown Organization [facility] [address] [place] [address] Laboratory Report Ordering Provider Test Date Status JAYDON NOVAK 05/27/2021 09:35:34 Final Observation Date Value Abnormality Reference (Units ) Status SYNC LEUKOCYTES IN BLOOD BY AUTOMATED COUNT 05/27/2021 09:35:34 5.15 4.00-10.80 (K/uL) Final Segs 05/27/2021 09:35:34 66.2 40.0-75.0 (%) Final Lymphs % 05/27/2021 09:35:34 24.1 18.0-42.0 (%) Final Monos 05/27/2021 09:35:34 8.5 1.0-11.0 (%) Final Eosinophils 05/27/2021 09:35:34 1.0 0.0-6.0 (%) Final Basos 05/27/2021 09:35:34 0.2 0.0-2.0 (%) Final Absolute Segs 05/27/2021 09:35:34 3.41 1.80-7.70 (K/uL) Final Lymphs, absolute 05/27/2021 09:35:34 1.24 1.00-4.80 (K/ul) Final Monos, Abs 05/27/2021 09:35:34 0.44 0.00-1.10 (K/uL) Final Eos, Abs 05/27/2021 09:35:34 0.05 0.00-0.70 (K/uL) Final Basos, Abs 05/27/2021 09:35:34 0.01 0.00-0.20 (K/uL) Final Performing Location LABORATORY [facility] [place] 57-1 0 - [address] [place] [address]
--- OUTSIDE RECORDS SUMMARY | 2023-02-03 13:03 | External Medical Summary ---
Author Name Unknown Address 132 [facility] [place] [address] Phone Organization K0G:[facility] [place] [employer] [address] [facility] [place] [address] Laboratory Report Ordering Provider Test Date Status JAYDON NOVAK 02/19/2020 10:58:00 Final Observation Date Value Abnormality Reference (Units ) Status BUN 02/19/2020 12:40 22 Above high normal 6-20 (mg/dL) Final Creatinine 02/19/2020 12:40 0.7 0.5-1.0 (mg/ dL) Final E Glom Filt Rate 02/19/2020 12:40 >60.0 >60 Final Performing Location [facility] [employer] [address] [facility] [place] [address]
--- OUTSIDE RECORDS SUMMARY | 2023-02-03 13:03 | External Medical Summary ---
Author Name Unknown Address [address] [place] [address] Phone Organization K0G[place] [place] [employer] Castañeda 132 [facility] [place] [address] Laboratory Report Ordering Provider Test Date Status JAYDON NOVAK 02/19/2020 10:58:00 Final Observation Date Value Abnormality Reference (Units ) Status WBC, Total 02/19/2020 11:15 5.98 4.00-10.80 (K/uL) Final RBC 02/19/2020 11:15 4.35 3.85-5.15 (M/uL) Final Hemoglobin 02/19/2020 11:15 13.9 12.0-15.3 (g/dL) Final HCT 02/19/2020 11:15 42.6 36.0-45.2 (%) Final MCV 02/19/2020 11:15 97.9 Above high normal 81.5-97.5 (fL) Final MCH 02/19/2020 11:15 32.0 27.0-34.0 (pg) Final MCHC 02/19/2020 11:15 32.6 32.0-36.0 (g/dL) Final RDW 02/19/2020 11:15 13.7 11.5-15.5 (%) Final Platelets 02/19/2020 11:15 166 140-400 (K/uL) Final MPV 02/19/2020 11:15 9.8 6.6-11.1 (fL) Final Segs 02/19/2020 11:15 72.6 40-75 (%) Final Lymphs % 02/19/2020 11:15 19.7 18-42 (%) Final Monos 02/19/2020 11:15 7.2 1-11 (%) Final Eosinophils 02/19/2020 11:15 0.5 0-6 (%) Final Basos 02/19/2020 11:15 0 0-2 (%) Final Neutrophils [#/volume] in Blood 02/19/2020 11:15 4.34 1.8-7.7 (K/uL) Final Lymphs, absolute 02/19/2020 11:15 1.18 1.0-4.8 (K/uL) Final Monos, Abs 02/19/2020 11:15 0.43 0.0-1.1 (K/uL) Final Eos, Abs 02/19/2020 11:15 0.03 0.0-0.7 (K/uL) Final Performing Location [address] [place] [address]
--- OUTSIDE RECORDS SUMMARY | 2023-02-03 13:03 | External Medical Summary ---
Author Name Unknown Address 132 [facility] [place] [address] Phone Organization K0G:[facility] [place] [employer] [address] [facility] [address] Laboratory Report Ordering Provider Test Date Status JAYDON NOVAK 06/29/2020 13:52:00 Final Observation Date Value Abnormality Reference (Units ) Status BUN 06/29/2020 16:30 29 Above high normal 6-20 (mg/dL) Final Creatinine 06/29/2020 16:30 0.9 0.5-1.0 (mg/ dL) Final E Glom Filt Rate 06/29/2020 16:30 >60.0 >60 Final Performing Location [facility] [place] [facility] [employer] [address] [place] [address]
--- OUTSIDE RECORDS SUMMARY | 2023-02-03 13:03 | External Medical Summary ---
Author Name Unknown Address [address] [place] [address] Phone Organization K01:[place] [phone] Laboratory Report Ordering Provider Test Date Status JAYDON NOVAK 06/29/2020 13:52:00 Final Observation Date Value Abnormality Reference (Units ) Status 25-OH Vitamin D total 06/30/2020 00:29 47 > 19 (ng/mL) Final Performing Location [place] [id number]
--- OUTSIDE RECORDS SUMMARY | 2023-02-03 13:03 | External Medical Summary ---
Author Name Unknown Address Unknown Organization K0G:LABORATORY [facility] [place] 57[address] - [address] [place] [address] Laboratory Report Ordering Provider Test Date Status JAYDON NOVAK 05/27/2021 09:35:34 Final Observation Date Value Abnormality Reference (Units ) Status WBC, Total 05/27/2021 09:35:34 5.15 4.00-10.8 0 (K/uL) Final RBC 05/27/2021 09:35:34 4.43 3.85-5.15 (M/uL) Final Hemoglobin 05/27/2021 09:35:34 13.7 12.0-15.3 (g/dL) Final HCT 05/27/2021 09:35:34 42.1 36.0-45.2 (%) Final MCV 05/27/2021 09:35:34 95.0 81.5-97.5 (fL) Final MCH 05/27/2021 09:35:34 30.9 27.0-34.0 (pg) Final MCHC 05/27/2021 09:35:34 32.5 32.0-36.0 (g/dL) Final RDW 05/27/2021 09:35:34 13.5 11.5-15.5 (%) Final Platelets 05/27/2021 09:35:34 158 140-400 (K /uL) Final MPV 05/27/2021 09:35:34 10.2 6.6-11.1 ( fL) Final Performing Location LABORATORY [facility] [place] 57-1 0 - [address] [place] [address]
--- OUTSIDE RECORDS SUMMARY | 2023-02-03 13:03 | External Medical Summary ---
Author Name Unknown Address Unknown Organization [id number]:[facility] [place] [address] [place] [address] Laboratory Report Ordering Provider Test Date Status KISHOREJAYDON 05/27/2021 09:35:34 Final Observation Date Value Abnormality Reference (Units ) Status 25-OH Vitamin D total 05/27/2021 09:35:34 86 >19 (ng/mL) Final Performing Location [facility] [place] [address] [place] [address]
--- OUTSIDE RECORDS SUMMARY | 2023-02-03 13:03 | External Medical Summary ---
Author Name Unknown Address Unknown Organization K0G:[facility] [address] - [address] [place] [address] Laboratory Report Ordering Provider Test Date Status JAYDON NOVAK 05/27/2021 09:35:34 Final Observation Date Value Abnormality Reference (Units ) Status BUN 05/27/2021 09:35:34 25 Above high normal 6-20 (mg/dL) Final Creatinine 05/27/2021 09:35:34 0.7 0.5-1.0 (mg/dL) Final Glomerular filtration rate/1.73 sq M.predicted [Volume Rate/Area] in Serum, Plasma or Blood by Creatinine-based formula (CKD-EPI) 05/27/2021 09:35:34 83 >=60 (mL/min) Final Performing Location [facility] 57-[address] - [address] [place] [address]
--- OUTSIDE RECORDS SUMMARY | 2023-02-03 13:03 | External Medical Summary | Summary of Care ---
Author Name Unknown Organization [place] [address] Care Team Providers Care Managed Care Director Name Role Phone Selam Simmons MD Primary Care Provider [phone] [phone] Encounter Details Date Type Department Care Team Description 04/21/2020 Orders Only Radiology [address] [address] Requisition, External Radiology [address] [place] [address] Screening mammogram for high-risk patient* Allergies Active Allergy Reactions Severity Noted Date Comments Isosorbide Nitrate 12/02/2015 documented as of this encounter (statuses as of 04/21/2020) Medications Medication Sig Dispensed Refills Start Date [...] as of this encounter (statuses as of 04/21/2020) Active Problems Problem Noted Date Deviated nasal septum 06/27/2016 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 06/27/2016 Chronic rhinitis 06/27/2016 Postnasal drip 06/27/2016 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 documented as of this encounter (statuses as of 04/21/2020) Immunizations Name Administration Dates Next Due Seasonal Influenza, Trivalent, Adjuvanted, 65+ y rs 03/30/2019 documented as of this encounter Social History Tobacco Use Types Packs/Day Years Used Date Never Smoker Smokeless Tobacco: Never Used Alcohol Use Drinks/Week oz/Week Comments No Sex Assigned at Date Recorded Not on file documented as of this encounter Plan of Treatment Upcoming Encounters Date Type Specialty Care Team Description 05/19/2020 Imaging Radiology Scheduled Orders Name Type Priority Associated Diagnoses Orde r Schedule MAMMOGRAM SCREENING BILATERAL Medical Imaging Routine Screening mammogram for high-risk patient Ordered: 04/21/2020 Health Maintenance Due Date Last Done Comments DTaP,Tdap,and Td Vaccines (1 - Tdap) 09/11/1959 Zoster Vaccines (1 of 2) 1990 Pneumococcal Vaccine: 65+ Years (1 of 1 - PPSV23) 2005 *DEPRESSION SCREENING,ANNUAL FOR PTS 12 AND OVER 12/05/2015 Influenza Vaccine (FLU shot) (#1) 2020 03/30/2019, 03/30/2019 Dexa Scan 10/06/2022 10/07/2015 DIABETES SCREEN EVERY 3 YRS-AGE 45 AND ABOVE 02/18/2023 02/19/2020, 11/19/2019, 05/14/2019, Additional history exists MENINGOCOCCAL (MENACTRA/MENVEO) Aged Out No longer eligible based on patient's age to complete this topic documented as of this encounter Implants Not on filedocumented as of this encounter Visit Diagnoses Diagnosis Screening mammogram for high-risk patient- Primary documented in this encounter Advance Directives Documents on File Type Date Recorded Patient Panel Maker Expl anation Advanced Directive
--- OUTSIDE RECORDS SUMMARY | 2023-02-03 13:03 | External Medical Summary | Summary of Care ---
Author Name Unknown Organization [place] [address] Care Team Providers Care Electrical Maintenance Mechanic Name Role Phone Selam Simmons MD Primary Care Provider [phone] [phone] Reason for Visit * Reason Comments Outpatient Testing Encounter Details Date Type Department Care Team Description 05/27/2021 Laboratory Laboratory, [facility] 132 [facility] [place] [address] [facility] [address] Lyme disease*; HTN, goal below 140/90; Hypothyroidism; [...] Documents on File Type Date Recorded Patient Camera Operator Expl anation Advanced Directive Advanced Directive Advanced Directive Advanced Directive Care Teams Electrical Maintenance Mechanic Relationship Specialty Start Date End Date Selam Simmons MD [address] [place] [address] [place] [id number] PCP - General 06/09/03 documented as of this encounter
--- OUTSIDE RECORDS SUMMARY | 2023-02-03 13:03 | External Medical Summary ---
Author Name Unknown Address [address] [place] [address] Phone Organization [id number]:[facility] [facility] 132 [facility] [place] [address] Laboratory Report Ordering Provider Test Date Status JAYDON NOVAK 06/29/2020 13:52:00 Final Observation Date Value Abnormality Reference (Units ) Status WBC, Total 06/29/2020 14:13 5.21 4.00-10.80 (K/uL) Final RBC 06/29/2020 14:13 4.09 3.85-5.15 (M/uL) Final Hemoglobin 06/29/2020 14:13 13.0 12.0-15.3 (g/dL) Final HCT 06/29/2020 14:13 40.8 36.0-45.2 (%) Final MCV 06/29/2020 14:13 99.8 Above high normal 81.5-97.5 (fL) Final MCH 06/29/2020 14:13 31.8 27.0-34.0 (pg) Final MCHC 06/29/2020 14:13 31.9 Below low normal 32.0-36.0 (g/dL) Final RDW 06/29/2020 14:13 12.6 11.5-15.5 (%) Final Platelets 06/29/2020 14:13 142 140-400 (K/uL) Final MPV 06/29/2020 14:13 10.5 6.6-11.1 (fL) Final Segs 06/29/2020 14:13 66.0 40-75 (%) Final Lymphs % 06/29/2020 14:13 22.8 18-42 (%) Final Monos 06/29/2020 14:13 10.0 1-11 (%) Final Eosinophils 06/29/2020 14:13 1.0 0-6 (%) Final Basos 06/29/2020 14:13 0.2 0-2 (%) Final Neutrophils [#/volume] in Blood 06/29/2020 14:13 3.44 1.8-7.7 (K/uL) Final Lymphs, absolute 06/29/2020 14:13 1.19 1.0-4.8 (K/uL) Final Monos, Abs 06/29/2020 14:13 0.52 0.0-1.1 (K/uL) Final Eos, Abs 06/29/2020 14:13 0.05 0.0-0.7 (K/uL) Final Basos, Abs 06/29/2020 14:13 0.01 0.0-0.2 (K/uL) Final Performing Location [address] [address]
--- OUTSIDE RECORDS SUMMARY | 2023-02-03 13:03 | External Medical Summary ---
Author Name Unknown Address Unknown Organization [id number]:[facility]ATORY [facility] [place] [address] [place] [address] Laboratory Report Ordering Provider Test Date Status TANA NOVAKER 05/27/2021 09:35:34 Final Observation Date Value Abnormality Reference (Units ) Status TSH 05/27/2021 09:35:34 2.40 0.27-4.20 (uIU/mL) Final Performing Location [facility]ATORY [facility] - [address] [place] [address]
--- OUTSIDE RECORDS SUMMARY | 2023-02-03 13:03 | External Medical Summary ---
Author Name Unknown Address [address] [place] [address] Phone Organization K0G:[facility] [place] [facility] 132 [facility] [place] [address] Laboratory Report Ordering Provider Test Date Status JAYDON NOVAK 11/19/2019 15:19:00 Final Observation Date Value Abnormality Reference (Units ) Status WBC, Total 11/19/2019 15:31 4.67 4.00-10.80 ( K/uL) Final RBC 11/19/2019 15:31 4.14 3.85-5.15 (M/ uL) Final Hemoglobin 11/19/2019 15:31 13.1 12.0-15.3 (g /dL) Final HCT 11/19/2019 15:31 40.3 36.0-45.2 (%) Final MCV 11/19/2019 15:31 97.3 81.5-97.5 (fL ) Final MCH 11/19/2019 15:31 31.6 27.0-34.0 (pg ) Final MCHC 11/19/2019 15:31 32.5 32.0-36.0 (g/ dL) Final RDW 11/19/2019 15:31 13.3 11.5-15.5 (%) Final Platelets 11/19/2019 15:31 155 140-400 (K/uL ) Final MPV 11/19/2019 15:31 10.1 6.6-11.1 (fL) Final Segs 11/19/2019 15:31 63.0 40-75 (%) Fin al Lymphs % 11/19/2019 15:31 26.3 18-42 (%) Fin al Monos 11/19/2019 15:31 9.6 1-11 (%) Fin al Eosinophils 11/19/2019 15:31 0.9 0-6 (%) F inal Basos 11/19/2019 15:31 0.2 0-2 (%) Fin al Neutrophils Bld 11/19/2019 15:31 2.94 1.8-7.7 (K/uL) Final Lymphs, absolute 11/19/2019 15:31 1.23 1.0-4. 8 (K/uL) Final Monos, Abs 11/19/2019 15:31 0.45 0.0-1.1 (K/u L) Final Eos, Abs 11/19/2019 15:31 0.04 0.0-0.7 (K/uL ) Final Basos, Abs 11/19/2019 15:31 0.01 0.0-0.2 (K/u L) Final Performing Location [address] [place] [address]
--- OUTSIDE RECORDS SUMMARY | 2023-02-03 13:04 | External Medical Summary ---
Author Name Unknown Address 132 [facility] [place] [address] Phone Organization [id number]:[facility] [employer] [address] [facility] [place] [address] Laboratory Report Ordering Provider Test Date Status JAYDON NOVAK 05/14/2019 08:17:00 Final Observation Date Value Abnormality Reference Status BUN 05/14/2019 09:14 22 Above high normal 6-20 Final Creatinine 05/14/2019 09:14 0.8 0.5-1.0 Fi nal E Glom Filt Rate 05/14/2019 09:14 >60.0 >60 Final Performing Location [facility] [employer] [address] [place] [address]
--- OUTSIDE RECORDS SUMMARY | 2023-02-03 13:04 | External Medical Summary ---
Author Name Unknown Address [address] [place] [address] Phone Organization K01:[facility] [address] [facility] [place] [address] Laboratory Report Ordering Provider Test Date Status TANA NOVAKER 09/25/2018 08:51:00 Final Observation Date Value Abnormality Reference Status 25-OH Vitamin D total 09/25/2018 15:24 33 > 19 Final Performing Location [facility] [address] [facility] [address]
--- OUTSIDE RECORDS SUMMARY | 2023-02-03 13:04 | External Medical Summary ---
Author Name Unknown Address [address] [place] [address] Phone Organization K0G:[facility] [place] [facility] [place] [address] Laboratory Report Ordering Provider Test Date Status JAYDON NOVAK 09/13/2017 06:45:00 Final Observation Date Value Abnormality Reference Status BUN 09/13/2017 09:40 17 6-20 Fin al Creatinine 09/13/2017 09:40 0.7 0.5-1.0 Fi nal Performing Location [facility] [employer] [place] [address] [place] [address]
--- OUTSIDE RECORDS SUMMARY | 2023-02-03 13:04 | External Medical Summary ---
Author Name Unknown Address [address] [place] [address] Phone Organization K0G:[facility] [place] [facility] [place] [address] Laboratory Report Ordering Provider Test Date Status JAYDON NOVAK 09/18/2017 06:30:00 Final Observation Date Value Abnormality Reference Status BUN 09/18/2017 09:29 19 6-20 Fin al Creatinine 09/18/2017 09:29 0.7 0.5-1.0 Fi nal Performing Location [facility] [place] [employer] [address] [place] [address]
--- OUTSIDE RECORDS SUMMARY | 2023-02-03 13:04 | External Medical Summary | Summary of Care ---
Author Name Unknown Organization [place] [address] Care Team Providers Care Ward Maid Name Role Phone Selam Simmons MD Primary Care Provider [phone] [phone] Reason for Visit * Reason Comments Medication Administration Flu and/or Pne umo Inj Encounter Details Date Type Department Care Team Description 03/30/2019 Immunization/In jection [facility] 132 [facility] [place] [address] [facility] 132 [facility] [place] [address] Need for prophylactic vaccination and inoculation against influenza* Allergies Active Allergy Reactions Severity Noted Date Comments Isosorbide Nitrate 12/02/2015 documented as of this encounter (statuses as of 03/30/2019) Medications Medication Sig Dispensed Refills Start Date [...] as of this encounter (statuses as of 03/30/2019) Active Problems Problem Noted Date Deviated nasal septum 06/27/2016 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 06/27/2016 Chronic rhinitis 06/27/2016 Postnasal drip 06/27/2016 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 documented as of this encounter (statuses as of 03/30/2019) Immunizations Name Administration Dates Next Due Seasonal Influenza, Trivalent, Adjuvanted, 65+ y rs 03/30/2019 documented as of this encounter Social History Tobacco Use Types Packs/Day Years Used Date Never Smoker Smokeless Tobacco: Never Used Alcohol Use Drinks/Week oz/Week Comments No Sex Assigned at Date Recorded Not on file Job Start Date Occupation Industry Not on file Not on file Not on file Travel History Travel Start Travel End documented as of this encounter Progress Notes * Claire Parr LPN - 03/30/2019 11:47 AM EDT PRE - ADMINISTRATION DOCUMENTATION Are you allergic to latex? No Are you experiencing any cold symptoms or fever? No Have you had Guillain-Casa Syndrome (an illness that causes paralysis) within the last 6 weeks? No Have you had the flu shot in the past? YES Have you ever had a reaction to the flu shot? No Claire Parr LPN, 03/30/2019 11:47 AM Immunization Administration Documentation Time Out Procedure Performed: Yes Patient Identified (Ask Name/Date of ): Yes Does the patient have a fever greater than 101 degrees today? No Patient allergic to latex? No VFC Stock: No Immunization(s) verified: Yes, Immunization Name: Flu, VIS Sheet(s) given: Yes Verified Side and Site: Yes Verified Shot(s) with Parent(s)/Patient: Yes documented in this encounter Plan of Treatment Upcoming Encounters Date Type Specialty Care Team Description 05/13/2019 Imaging Radiology Health Maintenance Due Date Last Done Comments DTaP,Tdap,and Td Vaccines (1 - Tdap) 09/11/1959 Pneumococcal Vaccine: 65+ Years (1 of 2 - PCV13) 2005 *DEPRESSION SCREENING,ANNUAL FOR PTS 12 AND OVER 12/05/2015 Influenza Vaccine (FLU shot) (#1) 2019 DIABETES SCREEN EVERY 3 YRS-AGE 45 AND ABOVE 09/25/2021 09/25/2018, 09/18/2017, 09/13/2017, Additional history exists DXA-SCREENING EVERY 7 YRS-USE SMARTSET# 3348 TO ORDER 10/06/2022 10/07/2015 MENINGOCOCCAL (MENACTRA) Aged Out No longer eligible based on patient's age to complete this topic documented as of this encounter Implants Not on filedocumented as of this encounter Visit Diagnoses Diagnosis Need for prophylactic vaccination and inoculation against influenza- Primary documented in this encounter Advance Directives Documents on File Type Date Recorded Patient Pouncer Expl anation Advanced Directive
--- OUTSIDE RECORDS SUMMARY | 2023-02-03 13:04 | External Medical Summary | Summary of Care ---
Author Name Unknown Organization [place] [address] Phone Care Team Providers Care Waste Disposal Leakage Tester Name Role Phone Selam Simmons MD Primary Care Provider [phone] [phone] Encounter Details Date Type Department Care Team Description 03/27/2018 Orders Only Radiology [address] [address] Requisition, External Radiology [address] [place] [address] Screening for malignant neoplasm of breast* Allergies Active Allergy Reactions Severity Noted Date Comments Isosorbide Nitrate 12/02/2015 as of this encounter Medications Prescription Sig. Disp. Refills Start Date End Date Status TYLENOL ARTHRITIS PAIN 650 MG PO TBCR 1 tablet as directed as needed Active CITRACAL + D 315-200 MG-UNIT PO TABS 1 capsule twice daily Active doxazosin (CARDURA) 2 MG Tablet 11/16/2015 Active Fluocinonide 0.05 % cream 11/09/2015 Active clobetasol propionate (TEMOVATE) 0.05 % cream Apply topically to affected area 2 times a day. Apply to affected area Active Aspirin 81 MG TBEC Take 81 mg by mouth daily. Active Probiotic Product (PROBIOTIC ACIDOPHILUS) Capsule Take 1 Cap by mouth three times a day with meals. 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 as of this encounter Social History Tobacco Use Types Packs/Day Years Used Date Never Smoker Smokeless Tobacco: Never Used Alcohol Use Drinks/Week oz/Week Comments No Sex Assigned at Date Recorded Not on file as of this encounter Plan of Treatment Upcoming Encounters Date Type Specialty Care Team Description 05/10/2018 Imaging Radiology Scheduled Tests Name Priority Associated Diagnoses Order S chedule MAMMOGRAM SCREENING BILATERAL Routine Screening for malignant neoplasm of breast Ordered: 03/27/2018 Health Maintenance Due Date Last Done Comments DTaP,Tdap,and Td Vaccines (1 - Tdap) 09/11/1959 PNEUMOCOCCAL ADULT 65 YRS AN D OVER (1 of 2 - PCV13) 2005 *DEPRESSION SCREENING, AISHWARYA Hernandez FOR PTS 18 AND OVER 12/05/2015 Influenza Vaccine (FLU shot) (#1) 2018 DIABETES SCREEN EVERY 3 YRS- AGE 45 AND ABOVE 09/18/2020 09/18/2017, 09/13/2017, 09/11/2017, Additional history exists DXA-SCREENING EVERY 7 YRS-US E SMARTSET# 3348 TO ORDER 10/06/2022 10/07/2015 as of this encounter Implants Not on fileas of this encounter Visit Diagnoses Diagnosis Screening for malignant neop lasm of breast - Primary Breast screening, unspecified in this encounter
--- OUTSIDE RECORDS SUMMARY | 2023-02-03 13:04 | External Medical Summary ---
Author Name Unknown Address [address] [facility] [place] [address] Phone Organization K0G:[facility] [employer] [address] [facility] [place] [address] Laboratory Report Ordering Provider Test Date Status JAYDON NOVAK 09/25/2018 08:51:00 Final Observation Date Value Abnormality Reference Status BUN 09/25/2018 10:34 24 Above high normal 6-20 Final Creatinine 09/25/2018 10:34 0.6 0.5-1.0 Fi nal Performing Location [facility] [employer] [address] [place] [address]
--- OUTSIDE RECORDS SUMMARY | 2023-02-03 13:04 | External Medical Summary ---
Author Name Unknown Address 100 [address] [facility] [place] [address] Phone Organization K01:[facility] 100 [address] [facility] [place] [address] Laboratory Report Ordering Provider Test Date Status KISHORE,JAYDON 09/25/2018 08:51:00 Final Observation Date Value Abnormality Reference Status T3, Free 09/25/2018 15:24 2.7 2.5-4.3 Fin al Performing Location [facility] 100 [address] [facility] [address]
--- OUTSIDE RECORDS SUMMARY | 2023-02-03 13:04 | External Medical Summary | Summary of Care ---
Author Name Unknown Organization [place] [address] Care Team Providers Care Pcb Designer Name Role Phone Selam Simmons MD Primary Care Provider [phone] [phone] Encounter Details Date Type Department Care Team Description 01/22/2019 Orders Only Radiology [address] [address] Requisition, External Radiology [address] [place] [address] Screening for malignant neoplasm of breast* Allergies Active Allergy Reactions Severity Noted Date Comments Isosorbide Nitrate 12/02/2015 documented as of this encounter (statuses as of 01/22/2019) Medications Medication Sig Dispensed Refills Start Date [...] as of this encounter (statuses as of 01/22/2019) Active Problems Problem Noted Date Deviated nasal septum 06/27/2016 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 06/27/2016 Chronic rhinitis 06/27/2016 Postnasal drip 06/27/2016 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 documented as of this encounter (statuses as of 01/22/2019) Social History Tobacco Use Types Packs/Day Years Used Date Never Smoker Smokeless Tobacco: Never Used Alcohol Use Drinks/Week oz/Week Comments No Sex Assigned at Date Recorded Not on file Job Start Date Occupation Industry Not on file Not on file Not on file Travel History Travel Start Travel End documented as of this encounter Plan of Treatment Upcoming Encounters Date Type Specialty Care Team Description 05/13/2019 Imaging Radiology Scheduled Orders Name Type Priority Associated Diagnoses Orde r Schedule MAMMOGRAM SCREENING BILATERAL Medical Imaging Routine Screening for malignant neoplasm of breast Ordered: 01/22/2019 Health Maintenance Due Date Last Done Comments DTaP,Tdap,and Td Vaccines (1 - Tdap) 09/11/1959 PNEUMOCOCCAL ADULT 65 YRS AND OVER (1 of 2 - PCV13) 2005 [...] encounter Visit Diagnoses Diagnosis Screening for malignant neoplasm of breast- Primary Breast screening, unspecified documented in this encounter Advance Directives Documents on File Type Date Recorded Patient Fringe Weaver Expl anation Advanced Directive
--- OUTSIDE RECORDS SUMMARY | 2023-02-03 13:04 | External Medical Summary ---
Author Name Unknown Address [address] [place] [address] Phone Organization K01:[facility] [address] [place] [id number] Laboratory Report Ordering Provider Test Date Status JAYDON NOVAK 09/25/2018 08:51:00 Final Observation Date Value Abnormality Reference Status TSH 09/25/2018 15:24 2.89 0.27-4.2 Fin al Performing Location [address] [address]
--- OUTSIDE RECORDS SUMMARY | 2023-02-03 13:04 | External Medical Summary ---
Author Name Unknown Address [address] [place] [address] Phone Organization K0G:[facility] [place] Tiffanie Castañeda 132 [facility] [place] [address] Laboratory Report Ordering Provider Test Date Status JAYDON NOVAK 09/25/2018 08:51:00 Final Observation Date Value Abnormality Reference Status WBC, Total 09/25/2018 09:15 3.86 Below low normal 4.00- 10.80 Final RBC 09/25/2018 09:15 4.22 3.85-5.15 Fin al Hemoglobin 09/25/2018 09:15 13.4 12.0-15.3 Fi nal HCT 09/25/2018 09:15 40.6 36.0-45.2 Fin al MCV 09/25/2018 09:15 96.2 81.5-97.5 Fin al MCH 09/25/2018 09:15 31.8 27.0-34.0 Fin al MCHC 09/25/2018 09:15 33.0 32.0-36.0 Fin al RDW 09/25/2018 09:15 13.4 11.5-15.5 Fin al Platelets 09/25/2018 09:15 157 140-400 Fin al MPV 09/25/2018 09:15 10.0 6.6-11.1 Fin al Segs 09/25/2018 09:15 57.0 40-75 Fin al Lymphs % 09/25/2018 09:15 32.1 18-42 Fin al Monos 09/25/2018 09:15 9.3 1-11 Fin al Eosinophils 09/25/2018 09:15 1.3 0-6 F inal Basos 09/25/2018 09:15 0.3 0-2 Fin al Absolute Segs 09/25/2018 09:15 2.20 1.8-7.7 Final Lymphs, absolute 09/25/2018 09:15 1.24 1.0-4. 8 Final Monos, Abs 09/25/2018 09:15 0.36 0.0-1.1 Fi nal Eos, Abs 09/25/2018 09:15 0.05 0.0-0.7 Fin al Basos, Abs 09/25/2018 09:15 0.01 0.0-0.2 Fi nal Performing Location [address] [address]
--- OUTSIDE RECORDS SUMMARY | 2023-02-03 13:04 | External Medical Summary ---
Author Name Unknown Address 132 [facility] [place] [address] Phone Organization K0G:[place]ya Castañeda [address] [place] [address] [place] [address] Laboratory Report Ordering Provider Test Date Status JAYDON NOVAK 09/18/2017 06:30:00 Final Observation Date Value Abnormality Reference Status ESR 09/18/2017 08:50 34 Above high normal 0-20 Final Performing Location [facility] [place] [facility] Cast[facility] [address] [place] [address]
--- OUTSIDE RECORDS SUMMARY | 2023-02-03 13:04 | External Medical Summary ---
Author Name Unknown Address [facility] [place] [address] Phone Organization K01:[place] [id number] Laboratory Report Ordering Provider Test Date Status JAYDON NOVAK 09/11/2017 06:20:00 Final Observation Date Value Abnormality Reference Status D-dimer, Quant. 09/11/2017 14:53 2.22 Above high normal <0.50 Final Performing Location [address] [address]
--- OUTSIDE RECORDS SUMMARY | 2023-02-03 13:04 | External Medical Summary ---
Author Name Unknown Address [address] [place] [address] Phone Organization K01:[facility] [address] [place] [place] [id number] Laboratory Report Ordering Provider Test Date Status KISHOREJAYDON 09/25/2018 08:51:00 Final Observation Date Value Abnormality Reference Status [facility] SerP IRP2-aCnc 09/25/2018 14:44 54.3 25. 8-134.8 Final Performing Location [facility] [address] [place] [id number]
--- OUTSIDE RECORDS SUMMARY | 2023-02-03 13:04 | External Medical Summary ---
Author Name Unknown Address [address] [facility] [place] [address] Phone Organization K01:[facility] 100 [address] [facility] [place] [address] Laboratory Report Ordering Provider Test Date Status TANA NOVAKER 09/25/2018 08:51:00 Final Observation Date Value Abnormality Reference Status T4, Free 09/25/2018 15:24 1.41 0.9-1.7 Fin al Performing Location [facility] [address] [facility] [address]
--- OUTSIDE RECORDS SUMMARY | 2023-02-03 13:04 | External Medical Summary | Summary of Care ---
Author Name Unknown Organization [place] [address] Phone Care Team Providers Care Sewer Name Role Phone Selam Simmons MD Primary Care Provider [phone] Encounter Details Date Type Department Care Team Description 09/11/2017 Orders Only Radiology [address] [address] Requisition, External Radiology [address] [place] [address] Abnormal mammogram* Allergies Active Allergy Reactions Severity Noted Date [...] Encounters Date Type Specialty Care Team Description 11/23/2017 Imaging Radiology Mammography1, [place] [address] [facility] [place] [address] [phone] 11/23/2017 Imaging Radiology Mov, Tech Ultrasound [address] [facility] [place] [address] [phone] Scheduled Tests Name Priority Associated Diagnoses Order S chedule MAMMOGRAM DIAGNOSTIC UNILATERAL Routine Abnormal mammogram Ordered: 09/11/2017 Health Maintenance Due Date Last Done Comments DTaP,Tdap,and Td Vaccines (1 - Tdap) 09/11/1959 PNEUMOCOCCAL ADULT 65 YRS AN D OVER (1 of 2 - PCV13) 2005 *ADVANCE DIRECTIVE NOT ON FILE 12/05/2015 *DEPRESSION SCREENING, ANNUA David FOR PTS 18 AND OVER 12/05/2015 Influenza Vaccine (FLU shot) (#1) 2017 DIABETES SCREEN EVERY 3 YRS- AGE 45 AND ABOVE 08/24/2020 08/24/2017, 04/21/2017, 01/05/2017, Additional history exists DXA-SCREENING EVERY 7 YRS-US E SMARTSET# 3348 TO ORDER 10/06/2022 10/07/2015 as of this encounter Implants Not on fileas of this encounter Visit Diagnoses Diagnosis Abnormal mammogram - Primary Abnormal mammogram, unspecified in this encounter Insurance Payer Benefit Plan / Group Subscriber ID Type Phone Address MEDICARE MEDICARE A AND B [id number] Medicare [facility] [id number] as of this encounter
--- OUTSIDE RECORDS SUMMARY | 2023-02-03 13:04 | External Medical Summary ---
Author Name Unknown Address [address] [place] [address] Phone Organization K01:[place] [id number] Laboratory Report Ordering Provider Test Date Status JAYDON NOVAK 09/25/2018 08:51:00 Final Observation Date Value Abnormality Reference Status EBV NA IgG Ser Ql EIA 09/26/2018 09:32 POSITIVE Abnormal N EG Final EBV NA IgG Ser EIA-[facility] 09/26/2018 09:32 117 Above hig h normal <18.1 Final EBV VCA IgG Avidity Ser Ql EIA 09/26/2018 09:39 POSITIVE Abnormal NEG Final EBV VCA IgG Ser EIA-[facility] 09/26/2018 09:39 >750.0 Above hi gh normal <18.1 Final EBV VCA IgM Ser Ql EIA 09/26/2018 09:34 NEGATIVE NEG Final EBV VCA IgM Ser EIA-[facility] 09/26/2018 09:34 <10.0 <36.1 Final Performing Location [address] [address]
--- OUTSIDE RECORDS SUMMARY | 2023-02-03 13:04 | External Medical Summary ---
Author Name Unknown Address [facility] [place] [address] Phone Organization K01:[facility] [address] [place] [id number] Laboratory Report Ordering Provider Test Date Status JAYDON NOVAK 09/25/2018 08:51:00 Final Observation Date Value Abnormality Reference Status B burgdor IgG+IgM Ser EIA-Imp 09/26/2018 09:34 NEGATIVE NEG Final B. burgdorferi IgG / IgM Index (Lyme Dz) 09/26/2018 09:34 0.0526 <0.91 Final Testosterone Comment 09/26/2018 09:34 Lyme screen negative,per CDC guidelines Western blot testing not performed. Final Performing Location [facility] [address] [facility] [address]
--- OUTSIDE RECORDS SUMMARY | 2023-02-03 13:04 | External Medical Summary ---
Author Name Unknown Address [address] [place] [address] Phone Organization K0G:[facility] Tiffanie Castañeda [facility] [place] [address] Laboratory Report Ordering Provider Test Date Status KOLE BARBOUR 10/16/2019 10:23:00 Final Observation Date Value Abnormality Reference (Units ) Status WBC, Total 10/16/2019 10:41 3.72 Below low normal 4.00- 10.80 (K/uL) Final RBC 10/16/2019 10:41 3.99 3.85-5.15 (M/ uL) Final Hemoglobin 10/16/2019 10:41 12.5 12.0-15.3 (g /dL) Final HCT 10/16/2019 10:41 38.6 36.0-45.2 (%) Final MCV 10/16/2019 10:41 96.7 81.5-97.5 (fL ) Final MCH 10/16/2019 10:41 31.3 27.0-34.0 (pg ) Final MCHC 10/16/2019 10:41 32.4 32.0-36.0 (g/ dL) Final RDW 10/16/2019 10:41 13.1 11.5-15.5 (%) Final Platelets 10/16/2019 10:41 109 Below low normal 140-40 0 (K/uL) Final MPV 10/16/2019 10:41 10.4 6.6-11.1 (fL) Final Segs 10/16/2019 10:41 56.5 40-75 (%) Fin al Lymphs % 10/16/2019 10:41 34.4 18-42 (%) Fin al Monos 10/16/2019 10:41 8.3 1-11 (%) Fin al Eosinophils 10/16/2019 10:41 0.8 0-6 (%) F inal Basos 10/16/2019 10:41 0 0-2 (%) Fin al Neutrophils Bld 10/16/2019 10:41 2.10 1.8-7.7 (K/uL) Final Lymphs, absolute 10/16/2019 10:41 1.28 1.0-4. 8 (K/uL) Final Monos, Abs 10/16/2019 10:41 0.31 0.0-1.1 (K/u L) Final Eos, Abs 10/16/2019 10:41 0.03 0.0-0.7 (K/uL ) Final Performing Location [address] [address]
--- OUTSIDE RECORDS SUMMARY | 2023-02-03 13:04 | External Medical Summary ---
Author Name Unknown Address [address] [place] [address] Phone Organization K0G:[facility] Tiffanie Castañeda 132 [facility] [place] [address] Laboratory Report Ordering Provider Test Date Status JAYDON NOVAK 01/14/2019 08:58:00 Final Observation Date Value Abnormality Reference Status WBC, Total 01/14/2019 09:18 3.73 Below low normal 4.00- 10.80 Final RBC 01/14/2019 09:18 4.24 3.85-5.15 Fin al Hemoglobin 01/14/2019 09:18 13.2 12.0-15.3 Fi nal HCT 01/14/2019 09:18 41.2 36.0-45.2 Fin al MCV 01/14/2019 09:18 97.2 81.5-97.5 Fin al MCH 01/14/2019 09:18 31.1 27.0-34.0 Fin al MCHC 01/14/2019 09:18 32.0 32.0-36.0 Fin al RDW 01/14/2019 09:18 13.3 11.5-15.5 Fin al Platelets 01/14/2019 09:18 158 140-400 Fin al MPV 01/14/2019 09:18 10.1 6.6-11.1 Fin al Segs 01/14/2019 09:18 57.3 40-75 Fin al Lymphs % 01/14/2019 09:18 31.9 18-42 Fin al Monos 01/14/2019 09:18 8.6 1-11 Fin al Eosinophils 01/14/2019 09:18 1.9 0-6 F inal Basos 01/14/2019 09:18 0.3 0-2 Fin al Neutrophils Bld 01/14/2019 09:18 2.14 1.8-7.7 Final Lymphs, absolute 01/14/2019 09:18 1.19 1.0-4. 8 Final Monos, Abs 01/14/2019 09:18 0.32 0.0-1.1 Fi nal Eos, Abs 01/14/2019 09:18 0.07 0.0-0.7 Fin al Basos, Abs 01/14/2019 09:18 0.01 0.0-0.2 Fi nal Performing Location [address] [address]
--- OUTSIDE RECORDS SUMMARY | 2023-02-03 13:04 | External Medical Summary ---
Author Name Unknown Address 132 [facility] [place] [address] Phone Organization K0G:[facility] [employer] 132 [facility] [place] [address] Laboratory Report Ordering Provider Test Date Status JAYDON NOVAK 11/19/2019 15:19:00 Final Observation Date Value Abnormality Reference (Units ) Status BUN 11/19/2019 16:24 28 Above high normal 6-20 (mg/dL) Final Creatinine 11/19/2019 16:24 0.7 0.5-1.0 (mg/ dL) Final E Glom Filt Rate 11/19/2019 16:24 >60.0 >60 Final Performing Location [facility] [employer] [address] [facility] [place] [address]
--- OUTSIDE RECORDS SUMMARY | 2023-02-03 13:04 | External Medical Summary ---
Author Name Unknown Address [address] [place] [address] Phone Organization K0G:[facility] Tiffanie Castañeda 132 [facility] [place] [address] Laboratory Report Ordering Provider Test Date Status JAYDON NOVAK 05/14/2019 08:17:00 Final Observation Date Value Abnormality Reference Status WBC, Total 05/14/2019 08:34 3.68 Below low normal 4.00- 10.80 Final RBC 05/14/2019 08:34 4.39 3.85-5.15 Fin al Hemoglobin 05/14/2019 08:34 13.7 12.0-15.3 Fi nal HCT 05/14/2019 08:34 43.0 36.0-45.2 Fin al MCV 05/14/2019 08:34 97.9 Above high normal 81.5- 97.5 Final MCH 05/14/2019 08:34 31.2 27.0-34.0 Fin al MCHC 05/14/2019 08:34 31.9 Below low normal 32.0-3 6.0 Final RDW 05/14/2019 08:34 13.0 11.5-15.5 Fin al Platelets 05/14/2019 08:34 164 140-400 Fin al MPV 05/14/2019 08:34 10.0 6.6-11.1 Fin al Segs 05/14/2019 08:34 49.5 40-75 Fin al Lymphs % 05/14/2019 08:34 37.2 18-42 Fin al Monos 05/14/2019 08:34 11.4 Above high normal 1-11 Final Eosinophils 05/14/2019 08:34 1.6 0-6 F inal Basos 05/14/2019 08:34 0.3 0-2 Fin al Neutrophils Bld 05/14/2019 08:34 1.82 1.8-7.7 Final Lymphs, absolute 05/14/2019 08:34 1.37 1.0-4. 8 Final Monos, Abs 05/14/2019 08:34 0.42 0.0-1.1 Fi nal Eos, Abs 05/14/2019 08:34 0.06 0.0-0.7 Fin al Basos, Abs 05/14/2019 08:34 0.01 0.0-0.2 Fi nal Performing Location [address] [address]
--- OUTSIDE RECORDS SUMMARY | 2023-02-03 13:04 | External Medical Summary ---
Author Name Unknown Address 132 [facility] [place] [address] Phone Organization K0G:[facility] [address] [facility] [place] [address] Laboratory Report Ordering Provider Test Date Status JAYDON NOVAK 09/13/2017 06:45:00 Final Observation Date Value Abnormality Reference Status WBC, Total 09/13/2017 08:31 5.55 4.00-10.80 F inal RBC 09/13/2017 08:31 3.90 3.85-5.15 Fin al Hemoglobin 09/13/2017 08:31 12.1 12.0-15.3 Fi nal HCT 09/13/2017 08:31 38.3 36.0-45.2 Fin al MCV 09/13/2017 08:31 98.2 Above high normal 81.5- 97.5 Final MCH 09/13/2017 08:31 31.0 27.0-34.0 Fin al MCHC 09/13/2017 08:31 31.6 Below low normal 32.0-3 6.0 Final RDW 09/13/2017 08:31 13.4 11.5-15.5 Fin al Platelets 09/13/2017 08:31 300 140-400 Fin al MPV 09/13/2017 08:31 9.5 6.6-11.1 Fin al Performing Location [facility] [address] [facility] [place] [address]
--- OUTSIDE RECORDS SUMMARY | 2023-02-03 13:04 | External Medical Summary ---
Author Name Unknown Address 132 [facility] [place] [address] Phone Organization K0G:[facility] Tiffanie Castañeda [address] [place] [address] [place] [address] Laboratory Report Ordering Provider Test Date Status JAYDON NOVAK 09/11/2017 06:20:00 Final Observation Date Value Abnormality Reference Status ESR 09/11/2017 10:51 44 Above high normal 0-20 Final Performing Location [facility] Tiffanie Castañeda [facility] Karen [facility] [place] [address]
--- OUTSIDE RECORDS SUMMARY | 2023-02-03 13:04 | External Medical Summary ---
Author Name Unknown Address 132 [facility] [place] [address] Phone Organization K0G:[facility] 132 [facility] [place] [address] Laboratory Report Ordering Provider Test Date Status JAYDON NOVAK 09/11/2017 06:20:00 Final Observation Date Value Abnormality Reference Status WBC, Total 09/11/2017 08:58 4.51 4.00-10.80 F inal RBC 09/11/2017 08:58 3.65 Below low normal 3.85-5 .15 Final Hemoglobin 09/11/2017 08:58 11.3 Below low normal 12.0- 15.3 Final HCT 09/11/2017 08:58 35.4 Below low normal 36.0-4 5.2 Final MCV 09/11/2017 08:58 97.0 81.5-97.5 Fin al MCH 09/11/2017 08:58 31.0 27.0-34.0 Fin al MCHC 09/11/2017 08:58 31.9 Below low normal 32.0-3 6.0 Final RDW 09/11/2017 08:58 13.3 11.5-15.5 Fin al Platelets 09/11/2017 08:58 251 140-400 Fin al MPV 09/11/2017 08:58 9.7 6.6-11.1 Fin al Performing Location [facility] 132 [facility] [place] [address]
--- OUTSIDE RECORDS SUMMARY | 2023-02-03 13:04 | External Medical Summary ---
Author Name Unknown Address [address] [place] [address] Phone Organization K01:[facility] [address] [facility] [address] Laboratory Report Ordering Provider Test Date Status JAYDON NOVAK 09/13/2017 17:00:00 Final Observation Date Value Abnormality Reference Status Occult Blood (EIA) 09/15/2017 07:48 NEGATIVE NEG Final Performing Location [facility] [address] [facility] [address]
--- OUTSIDE RECORDS SUMMARY | 2023-02-03 13:05 | External Medical Summary ---
Author Name Unknown Address [address] [facility] [place] [address] Phone Organization K01:[facility] 100 [address] [place] [id number] Laboratory Report Ordering Provider Test Date Status JAYDON NOVAK 08/24/2017 16:07:00 Final Observation Date Value Abnormality Reference Status BUN 08/24/2017 22:20 28 Above high normal 6-20 Final Creatinine 08/24/2017 22:20 0.8 0.5-1.0 Fi nal Performing Location [facility] [address] [facility] [address]
--- OUTSIDE RECORDS SUMMARY | 2023-02-03 13:05 | External Medical Summary ---
Author Name Unknown Address [facility] N [facility] [place] [address] Phone Organization K01:[place] [address] [address] [facility] [place] [address] Laboratory Report Ordering Provider Test Date Status KISHORE,JAYDON 01/05/2017 08:52:00 Final Observation Date Value Abnormality Reference Status T4, Free 01/05/2017 14:13 1.39 0.9-1.7 Fin al Performing Location [address] [address]
--- OUTSIDE RECORDS SUMMARY | 2023-02-03 13:05 | External Medical Summary ---
Author Name Unknown Address [facility] [place] [address] Phone Organization K01:[place] [address] [address] [place] [id number] Laboratory Report Ordering Provider Test Date Status JAYDON NOVAK 01/05/2017 08:52:00 Final Observation Date Value Abnormality Reference Status TSH 01/05/2017 14:13 2.48 0.27-4.2 Fin al Performing Location [address] [address]
--- OUTSIDE RECORDS SUMMARY | 2023-02-03 13:05 | External Medical Summary ---
Author Name Unknown Address [facility] [address] Phone Organization K01:[place] [address] [address] [place] [address] Laboratory Report Ordering Provider Test Date Status JAYDON NOVAK MD 03/31/2016 09:20:00 Final Obs # Observation Date Value Abnormality Reference Status Performing Location 0 Borrelia burgdorferi IgG and IgM [Interpretation] in Serum by Immunoassay 04/01/20 16 12:00 NEGATIVE NEG Final [address] [address] 1 B. burgdorferi IgG / IgM Index (Lyme Dz) 04/01/20 16 12:00 0.06 <0.91 Final 2 Testosterone Comment 04/01/20 16 12:00 Lyme screen negative,per CDC guidelines Western blot testing not performed. Final
--- OUTSIDE RECORDS SUMMARY | 2023-02-03 13:05 | External Medical Summary | Summary of Care ---
Author Name Unknown Organization [place] [address] Phone Care Team Providers Care Golf Club Assembler Name Role Phone Selam Simmons MD Primary Care Provider [phone] Encounter Details Date Type Department Care Team Description 05/03/2017 Orders Only Radiology [address] [address] Requisition, External Radiology [address] [place] [address] Screening for malignant neoplasm of [...] Encounters Date Type Specialty Care Team Description 05/08/2017 Imaging Radiology Mammography1, [address] [place] [address] [phone] Scheduled Tests Name Priority Associated Diagnoses Order S chedule MAMMOGRAM, SCREENING, BILAT Routine Screening for malignant neoplasm of breast Ordered: 05/03/2017 Health Maintenance Due Date Last Done Comments PNEUMOCOCCAL ADULT 65 YRS AN D OVER (1 of 2 - PCV13) 2005 TETANUS EVERY 10 YEARS-TDAP (BOOSTRIX OR ADACEL) SUGGESTED IF NOT RECEIVED IN THE PAST. 2005 *ADVANCE DIRECTIVE NOT ON FILE 12/05/2015 *DEPRESSION SCREENING, CHRISTIANUA David FOR PTS 18 AND OVER 12/05/2015 Influenza Vaccine (FLU shot) (#1) 2017 DIABETES SCREEN EVERY 3 YRS- AGE 45 AND ABOVE 04/21/2020 04/21/2017, 01/05/2017, 11/05/2015, Additional history exists DXA-SCREENING EVERY 7 YRS-US E SMARTSET# 3348 TO ORDER 10/06/2022 10/07/2015 as of this encounter Implants Not on fileas of this encounter Visit Diagnoses Diagnosis Screening for malignant neop lasm of breast - Primary Breast screening, unspecified in this encounter Insurance Payer Benefit Plan / Group Subscriber ID Type Phone Address MEDICARE MEDICARE A AND B [id number] Medicare ANEL REAVES [facility] [employer] [id number] as of this encounter
--- OUTSIDE RECORDS SUMMARY | 2023-02-03 13:05 | External Medical Summary ---
Author Name Unknown Address [facility] N [place] [id number] Phone Organization K01:[place] [address] [address] [place] [id number] Laboratory Report Ordering Provider Test Date Status JAYDON NOVAK 01/05/2017 08:52:00 Final Observation Date Value Abnormality Reference Status Borrelia burgdorferi IgG and IgM [Interpretation] in Serum by Immunoassay 01/06/2017 14:56 NEGATIVE NEG Final B. burgdorferi IgG / IgM Index (Lyme Dz) 01/06/2017 14:56 0.03 <0.91 Final Testosterone Comment 01/06/2017 14:56 Lyme screen negative,per CDC guidelines Western blot testing not performed. Final Performing Location [facility] [address] [facility] [address]
--- OUTSIDE RECORDS SUMMARY | 2023-02-03 13:05 | External Medical Summary ---
Author Name Unknown Address [address] [place] [address] Phone Organization K01:[facility] 100 [address] [place] [id number] Laboratory Report Ordering Provider Test Date Status JAYDON NOVAK 04/21/2017 11:03:00 Final Observation Date Value Abnormality Reference Status Reference lab test name 04/21/2017 11:12 [id number] Final Performing Location [facility] 100 [address] [facility] [address]
--- OUTSIDE RECORDS SUMMARY | 2023-02-03 13:05 | External Medical Summary ---
Author Name Unknown Address [address] [place] [address] Phone Organization K0G:[facility] Tiffanie Castañeda 132 [facility] [place] [address] Laboratory Report Ordering Provider Test Date Status JAYDON NOVAK 08/30/2017 12:06:00 Final Observation Date Value Abnormality Reference Status WBC, Total 08/30/2017 12:23 5.33 4.00-10.80 F inal RBC 08/30/2017 12:23 4.14 3.85-5.15 Fin al Hemoglobin 08/30/2017 12:23 13.0 12.0-15.3 Fi nal HCT 08/30/2017 12:23 40.5 36.0-45.2 Fin al MCV 08/30/2017 12:23 97.8 Above high normal 81.5- 97.5 Final MCH 08/30/2017 12:23 31.4 27.0-34.0 Fin al MCHC 08/30/2017 12:23 32.1 32.0-36.0 Fin al RDW 08/30/2017 12:23 12.6 11.5-15.5 Fin al Platelets 08/30/2017 12:23 150 140-400 Fin al MPV 08/30/2017 12:23 9.8 6.6-11.1 Fin al Segs 08/30/2017 12:23 75.3 Above high normal 40-75 Final Lymphs % 08/30/2017 12:23 14.6 Below low normal 18-42 Final Monos 08/30/2017 12:23 8.6 1-11 Fin al Eosinophils 08/30/2017 12:23 1.3 0-6 F inal Basos 08/30/2017 12:23 0.2 0-2 Fin al Absolute Segs 08/30/2017 12:23 4.01 1.8-7.7 Final Lymphs, absolute 08/30/2017 12:23 0.78 Below low normal 1.0-4.8 Final Monos, Abs 08/30/2017 12:23 0.46 0.0-1.1 Fi nal Eos, Abs 08/30/2017 12:23 0.07 0.0-0.7 Fin al Maryos, Abs 08/30/2017 12:23 0.01 0.0-0.2 Fi nal Performing Location [address] [address]
--- OUTSIDE RECORDS SUMMARY | 2023-02-03 13:05 | External Medical Summary ---
Author Name Unknown Address 100 N [facility] [place] [address] Phone Organization K01:[facility] 100 [address] [facility] [place] [address] Laboratory Report Ordering Provider Test Date Status JAYDON NOVAK 08/24/2017 16:07:00 Final Observation Date Value Abnormality Reference Status T4, Free 08/26/2017 12:51 1.20 0.9-1.7 Fin al Performing Location [facility] 100 N [facility] [address]
--- OUTSIDE RECORDS SUMMARY | 2023-02-03 13:05 | External Medical Summary ---
Author Name Unknown Address [facility] [place] [address] Phone Organization K01:[place] [address] [address] [place] [id number] Laboratory Report Ordering Provider Test Date Status JAYDON NOVAK 08/24/2017 16:07:00 Final Observation Date Value Abnormality Reference Status Borrelia burgdorferi IgG and IgM [Interpretation] in Serum by Immunoassay 08/25/2017 08:42 NEGATIVE NEG Final B. burgdorferi IgG / IgM Index (Lyme Dz) 08/25/2017 08:42 0.0227 <0.91 Final Testosterone Comment 08/25/2017 08:42 Lyme screen negative,per CDC guidelines Western blot testing not performed. Final Performing Location [facility] 100 N [facility] [address]
--- OUTSIDE RECORDS SUMMARY | 2023-02-03 13:05 | External Medical Summary ---
Author Name Unknown Address 100 N [facility] [place] [address] Phone Organization K01:[facility] 100 [address] [facility] [place] [address] Laboratory Report Ordering Provider Test Date Status KISHORE,JAYDON 08/24/2017 16:07:00 Final Observation Date Value Abnormality Reference Status T3, Free 08/26/2017 12:51 2.5 2.5-4.3 Fin al Performing Location [facility] 100 [address] [facility] [address]
--- OUTSIDE RECORDS SUMMARY | 2023-02-03 13:05 | External Medical Summary ---
Author Name Unknown Address 100 N [facility] [place] [address] Phone Organization K01:[facility] 100 N [facility] [place] [address] Laboratory Report Ordering Provider Test Date Status JAYDON NOVAK 08/24/2017 16:07:00 Final Observation Date Value Abnormality Reference Status WBC, Total 08/24/2017 21:52 4.10 4.00-10.80 F inal RBC 08/24/2017 21:52 4.22 3.85-5.15 Fin al Hemoglobin 08/24/2017 21:52 13.1 12.0-15.3 Fi nal HCT 08/24/2017 21:52 41.3 36.0-45.2 Fin al MCV 08/24/2017 21:52 97.9 Above high normal 81.5- 97.5 Final MCH 08/24/2017 21:52 31.0 27.0-34.0 Fin al MCHC 08/24/2017 21:52 31.7 Below low normal 32.0-3 6.0 Final RDW 08/24/2017 21:52 12.7 11.5-15.5 Fin al Platelets 08/24/2017 21:52 151 140-400 Fin al MPV 08/24/2017 21:52 10.5 6.6-11.1 Fin al Segs 08/24/2017 21:52 57.7 40-75 Fin al Lymphs % 08/24/2017 21:52 29.5 18-42 Fin al Monos 08/24/2017 21:52 11.2 Above high normal 1-11 Final Eosinophils 08/24/2017 21:52 1.2 0-6 F inal Basos 08/24/2017 21:52 0.2 0-2 Fin al Immature Granulocyte, Percent 08/24/2017 21:52 0.2 0-2 Final Absolute Segs 08/24/2017 21:52 2.36 1.8-7.7 Final Lymphs, absolute 08/24/2017 21:52 1.21 1.0-4. 8 Final Monos, Abs 08/24/2017 21:52 0.46 0.0-1.1 Fi nal Eos, Abs 08/24/2017 21:52 0.05 0.0-0.7 Fin al Basos, Abs 08/24/2017 21:52 0.01 0.0-0.2 Fi nal Immature Granulocytes, Number 08/24/2017 21:52 0.01 0.0-0.2 Final Performing Location [facility] [address] [facility] [id number]
--- OUTSIDE RECORDS SUMMARY | 2023-02-03 13:05 | External Medical Summary ---
Author Name Unknown Address [facility] N [facility] Phone Organization K01:[place] [address] [address] [facility] [address] Laboratory Report Ordering Provider Test Date Status JAYDON NOVAK 08/30/2017 12:06:00 Final Observation Date Value Abnormality Reference Status Wesley Marquez virus early Ab [Units/volume] in Serum by Immunoassay 08/31/2017 13:00 25.4 Above high normal <9.0 Final Wesley Marquez virus early Ab [Presence] in Serum by Immunoassay 08/31/2017 13:00 POSITIVE Final Testosterone Comment 08/31/2017 13:00 ASSAY CROSS-REACTIVITY HAS BEEN NOTED WITH SOME SPECIMENS CONTAINING ANTIBODY TO HUMAN IMMUNODEFICIENCY VIRUS (HIV). Final Performing Location [facility] 100 [address] [facility] [address]
--- OUTSIDE RECORDS SUMMARY | 2023-02-03 13:05 | External Medical Summary ---
Author Name Unknown Address [address] [facility] [place] [address] Phone Organization K0G:[facility] Tiffanie Castañeda [address] [place], [place] [address]gail [facility] [place] [address] Laboratory Report Ordering Provider Test Date Status JAYDON NOVAK 04/21/2017 11:03:00 Final Observation Date Value Abnormality Reference Status BUN 04/21/2017 12:04 19 6-20 Fin al Creatinine 04/21/2017 12:04 0.8 0.5-1.0 Fi nal Performing Location [facility] Tiffanie Castañeda [address] [place] [address]
--- OUTSIDE RECORDS SUMMARY | 2023-02-03 13:05 | External Medical Summary | Summary of Care ---
Author Name Unknown Organization [place] [address] Phone Care Team Providers Care Mill Representative Name Role Phone Selam Simmons MD Primary Care Provider [phone] Reason for Visit * Reason Comments OUTPATIENT TESTING Encounter Details Date Type Department Care Team Description 05/09/2017 Telephone [address] [place] [address] [place] [address], [address] [place] [id number] OUTPATIENT TESTING Allergies Active Allergy Reactions Severity Noted Date [...] Not on file as of this encounter Miscellaneous Notes * Telephone Encounter - Kay Albert, RT - 05/09/2017 2:14 PM EST Tried calling patient to schedule additional mammogram views and breast ultrasound, no answer. Willcall patient back again. in this encounter Plan of Treatment Health Maintenance Due Date Last Done Comments PNEUMOCOCCAL ADULT 65 YRS AN D OVER (1 of 2 - PCV13) 2005 TETANUS EVERY 10 YEARS-TDAP (BOOSTRIX OR ADACEL) SUGGESTED IF NOT RECEIVED IN THE PAST. 2005 *ADVANCE DIRECTIVE NOT ON FILE 12/05/2015 *DEPRESSION SCREENING, AISHWARYA Hernandez FOR PTS 18 AND OVER 12/05/2015 Influenza Vaccine (FLU shot) (#1) 2017 DIABETES SCREEN EVERY 3 YRS- AGE 45 AND ABOVE 04/21/2020 04/21/2017, 01/05/2017, 11/05/2015, Additional history exists DXA-SCREENING EVERY 7 YRS-US E SMARTSET# 3348 TO ORDER 10/06/2022 10/07/2015 as of this encounter Implants Not on fileas of this encounter Insurance Payer Benefit Plan / Group Subscriber ID Type Phone Address MEDICARE MEDICARE A AND B [id number] Medicare ANEL REAVES [facility] HEALTH OPTIONS [id number] as of this encounter
--- OUTSIDE RECORDS SUMMARY | 2023-02-03 13:05 | External Medical Summary ---
Author Name Unknown Address [address] [place] [address] Phone Organization K0G:[facility] [place] Tiffanie Castañeda 132 [facility] [place] [address] Laboratory Report Ordering Provider Test Date Status JAYDON NOVAK 01/05/2017 08:52:00 Final Observation Date Value Abnormality Reference Status WBC, Total 01/05/2017 09:16 3.52 Below low normal 4.00- 10.80 Final RBC 01/05/2017 09:16 3.94 3.85-5.15 Fin al Hemoglobin 01/05/2017 09:16 12.9 12.0-15.3 Fi nal HCT 01/05/2017 09:16 38.9 36.0-45.2 Fin al MCV 01/05/2017 09:16 98.7 Above high normal 81.5- 97.5 Final MCH 01/05/2017 09:16 32.7 27.0-34.0 Fin al MCHC 01/05/2017 09:16 33.2 32.0-36.0 Fin al RDW 01/05/2017 09:16 12.8 11.5-15.5 Fin al Platelets 01/05/2017 09:16 150 140-400 Fin al MPV 01/05/2017 09:16 9.8 6.6-11.1 Fin al Segs 01/05/2017 09:16 60.5 40-75 Fin al Lymphs % 01/05/2017 09:16 29.0 18-42 Fin al Monos 01/05/2017 09:16 8.8 1-11 Fin al Eosinophils 01/05/2017 09:16 1.1 0-6 F inal Basos 01/05/2017 09:16 0.6 0-2 Fin al Absolute Segs 01/05/2017 09:16 2.13 1.8-7.7 Final Lymphs, absolute 01/05/2017 09:16 1.02 1.0-4. 8 Final Monos, Abs 01/05/2017 09:16 0.31 0.0-1.1 Fi nal Eos, Abs 01/05/2017 09:16 0.04 0.0-0.7 Fin al Evelyn, Abs 01/05/2017 09:16 0.02 0.0-0.2 Fi nal Performing Location [address] [address]
--- OUTSIDE RECORDS SUMMARY | 2023-02-03 13:05 | External Medical Summary ---
Author Name Unknown Address [address] [place] [address] Phone Organization K0G:[facility] [place] [employer] [address] [place] [address] Laboratory Report Ordering Provider Test Date Status JAYDON NOVAK 01/05/2017 08:52:00 Final Observation Date Value Abnormality Reference Status BUN 01/05/2017 11:24 25 Above high normal 6-20 Final Creatinine 01/05/2017 11:24 0.7 0.5-1.0 Fi nal Performing Location [facility] [place] [employer] [address] [place] [address]
--- OUTSIDE RECORDS SUMMARY | 2023-02-03 13:05 | External Medical Summary ---
Author Name Unknown Address [address] [place] [address] Phone Organization K01:[facility] 100 [address] [facility] [place] [address] Laboratory Report Ordering Provider Test Date Status KISHOREJAYDON 01/05/2017 08:52:00 Final Observation Date Value Abnormality Reference Status 25-OH Vitamin D total 01/05/2017 14:13 35 > 19 Final Performing Location [facility] [address] [facility] [address]
--- OUTSIDE RECORDS SUMMARY | 2023-02-03 13:05 | External Medical Summary ---
Author Name Unknown Address [facility] [place] [address] Phone Organization K01:[place] [address] [address] [place] [id number] Laboratory Report Ordering Provider Test Date Status JAYDON NOVAK 08/24/2017 16:07:00 Final Observation Date Value Abnormality Reference Status TSH 08/26/2017 15:04 2.18 0.27-4.2 Fin al Performing Location [address] [address]
--- OUTSIDE RECORDS SUMMARY | 2023-02-03 13:05 | External Medical Summary ---
Author Name Unknown Address 132 [facility] [place] [address] Phone Organization K0G:[facility] [place] Tiffanie Castañeda [address] [place], [place] [address]gail [facility] [place] [address] Laboratory Report Ordering Provider Test Date Status TANA NOVAKER 09/11/2017 06:20:00 Final Observation Date Value Abnormality Reference Status BUN 09/11/2017 10:04 17 6-20 Fin al Creatinine 09/11/2017 10:04 0.7 0.5-1.0 Fi nal Performing Location [facility] [employer] [address] [place] [address]
--- OUTSIDE RECORDS SUMMARY | 2023-02-03 13:05 | External Medical Summary ---
Author Name Unknown Address 132 [facility] [place] [address] Phone Organization K0G:[facility] [address] [facility] [place] [address] Laboratory Report Ordering Provider Test Date Status JAYDON NOVAK 04/21/2017 11:03:00 Final Observation Date Value Abnormality Reference Status WBC, Total 04/21/2017 11:25 5.05 4.00-10.80 F inal RBC 04/21/2017 11:25 4.25 3.85-5.15 Fin al Hemoglobin 04/21/2017 11:25 13.5 12.0-15.3 Fi nal HCT 04/21/2017 11:25 41.6 36.0-45.2 Fin al MCV 04/21/2017 11:25 97.9 Above high normal 81.5- 97.5 Final MCH 04/21/2017 11:25 31.8 27.0-34.0 Fin al MCHC 04/21/2017 11:25 32.5 32.0-36.0 Fin al RDW 04/21/2017 11:25 12.7 11.5-15.5 Fin al Platelets 04/21/2017 11:25 164 140-400 Fin al MPV 04/21/2017 11:25 10.0 6.6-11.1 Fin al Performing Location [facility] 132 [facility] [place] [address]
--- OUTSIDE RECORDS SUMMARY | 2023-02-03 13:05 | External Medical Summary | Summary of Care ---
Author Name Unknown Organization [place] [address] Phone Care Team Providers Care Resource Agent Name Role Phone Selam Simmons MD Primary Care Provider [phone] Encounter Details Date Type Department Care Team Description 05/09/2017 Orders Only Radiology [address] [address] Requisition, External Radiology [address] [place] [address] Inconclusive mammogram* Allergies Active Allergy Reactions Severity Noted [...] as of this encounter Plan of Treatment Scheduled Tests Name Priority Associated Diagnoses Order S chedule MAMMOGRAM, DIAGNOSTIC, UNILAT Routine Inconclusive mammogram Ordered: 05/09/2017 US BREAST-UNILATERAL LIMITED Routine Inconclusive mammogram Ordered: 05/09/2017 Health Maintenance Due Date Last Done Comments [...] fileas of this encounter Visit Diagnoses Diagnosis Inconclusive mammogram - Anne Marie ross in this encounter Insurance Payer Benefit Plan / Group Subscriber ID Type Phone Address MEDICARE MEDICARE A AND B [id number] Medicare ANEL REAVES [facility] HEALTH OPTIONS [id number] as of this encounter
--- OUTSIDE RECORDS SUMMARY | 2023-02-03 13:05 | External Medical Summary | Summary of Care ---
Author Name Unknown Organization [place] [address] Phone Care Team Providers Care Regulatory Compliance Officer Name Role Phone Selam Simmons MD Primary Care Provider [phone] Encounter Details Date Type Department Care Team Description 06/07/2017 Orders Only Radiology [address] [address] Requisition, External Radiology [address] [place] [address] Fever*;Cough Allergies Active Allergy Reactions Severity Noted Date [...] Specialty Care Team Description 11/23/2017 Imaging Radiology Mov, Tech Ultrasound [address] [place] [address] [place] [address] [phone] Scheduled Tests Name Priority Associated Diagnoses Order S chedule XR CHEST 2 VIEWS Routine Fever Cough Ordered: 06/07/2017 Health Maintenance Due Date Last Done Comments [...] fileas of this encounter Visit Diagnoses Diagnosis Fever - Primary Fever, unspecified Cough in this encounter Insurance Payer Benefit Plan / Group Subscriber ID Type Phone Address MEDICARE MEDICARE A AND B [id number] Medicare ANEL REAVES [facility] [employer] HEALTH OPTIONS [id number] as of this encounter
--- OUTSIDE RECORDS SUMMARY | 2023-02-03 13:06 | External Medical Summary ---
Author Name Unknown Address [address] [place] [id number] Phone Organization K01:[facility] [address] [facility] [address] Laboratory Report Ordering Provider Test Date Status JAYDON NOVAK MD [id number] Final Obs # Observation Date Value Abnormality Reference Status Performing Location 0 TSH [id number] 2.23 0.27-4.2 Final [facility] [address] [facility] [address]
--- OUTSIDE RECORDS SUMMARY | 2023-02-03 13:06 | External Medical Summary ---
Author Name Unknown Organization K0G:[facility] [place] Tiffanie Castañeda, [address], [place] [address] Laboratory Report Ordering Provider Test Date Status KISHORE INTERIANO MD 09/25/2014 08:47:00-0400 Final Obs # Observation Date Value ABNL Reference Status Pe rforming Location 1 WBC 09/25/2014 09: 4.18 4.00-10.80 K/uL Final 2 RBC 09/25/2014 09: 4.27 3.85-5.15 M/uL Final 3 HGB 09/25/2014 09:040 13.4 12.0-15.3 g/dL Final 4 HCT 09/25/2014 09: 41.4 36.0-45.2 % Final 5 MCV 09/25/2014 09: 97.0 81.5-97.5 fL Final 6 MCH 09/25/2014 09: 31.4 27.0-34.0 pg Final 7 MCHC 09/25/2014 09: 32.4 32.0-36.0 g/dL Final 8 RDW 09/25/2014 09: 12.6 11.5-15.5 % Final 9 PLT 09/25/2014 09: 166 140-400 K/uL Final 10 MPV 09/25/2014 09: 9.9 6.6-11.1 fL Final
--- OUTSIDE RECORDS SUMMARY | 2023-02-03 13:06 | External Medical Summary ---
Author Name Unknown Address [facility] [address] [place] [id number] Phone Organization K01:[facility] [address] [place] [id number] Laboratory Report Ordering Provider Test Date Status JAYDON NOVAK MD [id number] Final Obs # Observation Date Value Abnormality Reference Status Performing Location 0 T4, Free [id number] 1.34 0.9-1.7 Final [facility] [address] [facility] [address]
--- OUTSIDE RECORDS SUMMARY | 2023-02-03 13:06 | External Medical Summary ---
Author Name Unknown Address [facility] [address] [place] [id number] Phone Organization K01:[facility] [address] [place] [address] Laboratory Report Ordering Provider Test Date Status JAYDON NOVAK MD [id number] Final Obs # Observation Date Value Abnormality Reference Status Performing Location 0 T3, Free [id number] 3.0 2.5-4.3 Final [facility] [address] [facility] [address]
--- OUTSIDE RECORDS SUMMARY | 2023-02-03 13:06 | External Medical Summary ---
Author Name Unknown Organization K01:[facility] [employer] [facility], [address] [place] [address] Laboratory Report Ordering Provider Test Date Status KISHORE INTERIANO MD 09/25/2014 08:47:00-0400 Final Obs # Observation Date Value ABNL Reference Status Pe rforming Location 1 25OH VITAMIN D TOTAL 09/25/2014 13:28-0400 34 >19 ng/mL Final Deficient: <20 ng/mL Insufficient: 20-29 ng/mL Recommended/Optimum:30-50 ng/mL Vitamin D intoxication is rare. If suspicious of Vitamin D toxicity, evaluation of serum Calcium and PTH is recommended.
--- OUTSIDE RECORDS SUMMARY | 2023-02-03 13:06 | External Medical Summary ---
Author Name Unknown Address [address] [place] [address] Phone Organization K0G:[facility] Tiffanie Castañeda [address] [place] [address] Laboratory Report Ordering Provider Test Date Status JAYDON NOVAK MD [id number] Final Obs # Observation Date Value Abnormality Reference Status Performing Location 0 BUN [id number] 25 Above high normal 6-20 Final [facility] Tiffanie Castañeda [address] [place] [address] 1 Creatinine [id number] 0.8 0.5-1.0 Final [facility] Tiffanie Castañeda [address] [place] [address]
--- OUTSIDE RECORDS SUMMARY | 2023-02-03 13:06 | External Medical Summary ---
Author Name Unknown Address Unknown Organization [id number]:Performed at [facility] [address] [facility] [address] [place] [address] Laboratory Report Ordering Provider Test Date Status JAYDON NOVAK MD [id number] Final Obs # Observation Date Value Abnormality Reference Status Performing Location 0 hours fasting 095318932332 12 Final Performed at [facility] [address] [place] [address] 1 Triglyceride 296965599508 101 <200 Final Performed at [facility] 132 [facility] [place] [address]
--- OUTSIDE RECORDS SUMMARY | 2023-02-03 13:06 | External Medical Summary ---
Author Name Unknown Address [address] [place] [phone] Phone Organization K01:[facility] [address] [facility] [address] Laboratory Report Ordering Provider Test Date Status JAYDON NOVAK MD [id number] Final Obs # Observation Date Value Abnormality Reference Status Performing Location 0 T3, Total [id number] 106 80-200 Final [facility] [address] [facility] [address]
--- OUTSIDE RECORDS SUMMARY | 2023-02-03 13:06 | External Medical Summary ---
Author Name Unknown Address [facility] [place] [address] Phone Organization K01:[place] [address] [address] [place] [address] Laboratory Report Ordering Provider Test Date Status JAYDON NOVAK MD [id number] Final Obs # Observation Date Value Abnormality Reference Status Performing Location 0 Borrelia burgdorferi IgG and IgM [Interpretati on] in Serum by Immunoassay [id number] NEGATIVE NEG Final [place] [address]100[address] 1 B. burgdorferi IgG / IgM Index (Lyme Dz) 645632780546 0.09 <0.91 Final [place] [address] [address] [place] [address] 2 Annotation comment [Interpretati on] Narrative [id number] Lyme screen negative,per CDC guidelines Western blot testing not performed. Final [place] [address]100122
--- OUTSIDE RECORDS SUMMARY | 2023-02-03 13:06 | External Medical Summary ---
Author Name Unknown Organization K0G:[facility] [place] Tiffanie Castañeda, [address], [place] [address] Laboratory Report Ordering Provider Test Date Status KISHORE INTERIANO MD 09/25/2014 08:47:00-0400 Final Obs # Observation Date Value ABNL Reference Status Pe rforming Location 1 BUN 09/25/2014 09:44-0400 20 6-20 mg/dL Final 2 Creatinine 09/25/2014 09:44-0400 0.8 0.5-1.2 mg/dL Final GFR should be used to assess renal function. Plasma/Serum creatinine may not be able to properly reflect renal function in some cases. If patient is , multiply estimated GFR by 1.159.
--- OUTSIDE RECORDS SUMMARY | 2023-02-03 13:06 | External Medical Summary ---
Author Name Unknown Address [facility] [address] [place] [phone] Phone Organization K01:[facility] [address] [place] [address] Laboratory Report Ordering Provider Test Date Status JAYDON NOVAK MD [id number] Final Obs # Observation Date Value Abnormality Reference Status Performing Location 0 T4, Free [id number] 1.32 0.9-1.7 Final [facility] 100 [address] [facility] [address]
--- OUTSIDE RECORDS SUMMARY | 2023-02-03 13:06 | External Medical Summary ---
Author Name Unknown Organization K0G:[facility] [facility] [place] Tiffanie Castañeda, [address], [place] [address] Laboratory Report Ordering Provider Test Date Status KISHORE INTERIANO MD 09/25/2014 08:47:00-0400 Final Obs # Observation Date Value ABNL Reference Status Pe rforming Location 1 hours fasting 09/25/2014 08:49-0400 12 hours Final 2 Triglyceride 09/25/2014 13:21-0400 141 <200 mg/dL Final TRIGLYCERIDE REFERENCE RANGES (mg/dL) <150 NORMAL 150-199 BORDERLINE HIGH 200-499 HIGH >499 VERY HIGH TOTAL CHOLESTEROL REFERENCE RANGES(mg/dL) <200 DESIRABLE 200-239 BORDERLINE HIGH >239 HIGH HDL CHOLESTEROL REFERENCE RANGES(mg/dL) <40 LOW(UNDESIRABLE) >59 HIGH(DESIRABLE) LDL CHOLESTEROL REFERENCE RANGES(mg/dL) <100 OPTIMAL GOAL FOR HIGH RISK PATIENTS 100-129 NEAR OR ABOVE NORMAL 130-159 BORDERLINE HIGH 160-189 HIGH >189 VERY HIGH
--- OUTSIDE RECORDS SUMMARY | 2023-02-03 13:06 | External Medical Summary ---
Author Name Unknown Organization K0G:[facility] [place] Tiffanie Castañeda, [address], [place] [address] Laboratory Report Ordering Provider Test Date Status Letty INTERIANO MD 10/03/2013 08:15:00-0400 Final Obs # Observation Date Value ABNL Reference Status Pe rforming Location 1 hours fasting 10/03/2013 08:17-0400 12 hours Final 2 Triglyceride 10/03/2013 22:12-0400 92 <200 mg/dL Final TRIGLYCERIDE REFERENCE RANGES (mg/dL) [...]
--- OUTSIDE RECORDS SUMMARY | 2023-02-03 13:06 | External Medical Summary ---
Author Name Unknown Organization K01:[employer] [facility], [address] [place] [address] Laboratory Report Ordering Provider Test Date Status Letty INTERIANO MD 03/21/2013 14:55:00-0400 Final Obs # Observation Date Value ABNL Reference Status Pe rforming Location 1 LYME G/M AB 3 10:42-040 0 NEGATIVE NEG Final 2 B. burgdorferi IgG / IgM Index (Lyme Dz) 3 10:42-040 0 0.10 <0.91 INDEX Final 3 LYME G/M COMMENT 3 10:42-040 0 Lyme screen negative,per CDC guidelines Western blot testing not performed. Final
--- OUTSIDE RECORDS SUMMARY | 2023-02-03 13:06 | External Medical Summary ---
Author Name Unknown Organization K09:[facility] [address] [facility] [address] Laboratory Report Ordering Provider Test Date Status Letty INTERIANO MD 10/03/2013 08:15:00-0400 Final Obs # Observation Date Value ABNL Reference Status Pe rforming Location 1 BUN 10/03/2013 12:18-0400 22 H 6-20 mg/dL Final 2 Creatinine 10/03/2013 12:18-0400 0.7 0.5-1.2 mg/dL Final GFR should be used to assess renal function. Plasma/Serum creatinine may not be able to properly reflect renal function in some cases. If patient is , multiply estimated GFR by 1.159.
--- OUTSIDE RECORDS SUMMARY | 2023-02-03 13:06 | External Medical Summary ---
Author Name Unknown Address [address] [place] [address] Phone Organization K09:[facility] [address] [place] [address] Laboratory Report Ordering Provider Test Date Status JAYDON NOVAK MD [id number] Final Obs # Observation Date Value Abnormality Reference Status Performing Location 0 WBC [id number] 4.08 4.00-10.80 Final [facility] [address] [place] [address] 1 RBC [id number] 4.31 3.85-5.15 Final G [facility] [address] [place] [address] 2 Hemoglobin [id number] 13.2 12.0-15.3 Final [facility] [address] [place] [address] 3 HCT [id number] 40.5 36.0-45.2 Final [facility] [address] [place] [address] 4 MCV [id number] 94.0 81.5-97.5 Final [facility] [address] [place] [address] 5 MCH 251389479623 30.6 27.0-34.0 Final [facility] [address] [place] [address] 6 MCHC [id number] 32.6 32.0-36.0 Final G [facility] [place] [address] [place] [address] 7 RDW [id number] 14.1 11.5-15.5 Final G [facility] [address] [place] [address] 8 Platelets 519304329474 159 140-400 Final G [facility] [address] [place] [address] 9 MPV [id number] 10.1 6.6-11.1 Final [facility] [place] [address] [place] [address] 10 Segs 096656005395 57 40-75 Final [facility] [address] [place] [address] 11 Lymphocytes 977760001510 32 18-42 Final [facility] [address] [place] [address] 12 Monos [id number] 10 1-11 Final [facility] [address] [place] [address] 13 Eosinophils [id number] 1 0-6 Final [facility] [address] [place] [address] 14 Basos [id number] 0 0-2 Final [facility] [address] [place] [address] 15 Segmented Neutrophils, Abs [id number] 2.31 1.8-7.7 Final [facility] [address] [place] [address] 16 Lymphs, Abs [id number] 1.32 1.0-4.8 Final [facility] [address] [place] [address] 17 Monos, Abs [id number] 0.40 0.0-1.1 Final [facility] [address] [place] [address] 18 Eos, Abs [id number] 0.04 0.0-0.7 Final [facility] [place] [address] [place] [address] 19 Basos, Abs [id number] 0.01 0.0-0.2 Final [facility] [address] [place] [address]
--- OUTSIDE RECORDS SUMMARY | 2023-02-03 13:06 | External Medical Summary ---
Author Name Unknown Organization K01[facility] [address] [place] [address] Laboratory Report Ordering Provider Test Date Status Letty INTERIANO MD 03/21/2013 14:55:00-0400 Final Obs # Observation Date Value ABNL Reference Status Pe rforming Location 1 BUN 03/21/2013 22:14-0400 24 H 6-20 mg/dL Final 2 Creatinine 03/21/2013 22:14-0400 0.9 0.5-1.2 mg/dL Final GFR should be used to assess renal function. Plasma/Serum creatinine may not be able to properly reflect renal function in some cases.
--- OUTSIDE RECORDS SUMMARY | 2023-02-03 13:06 | External Medical Summary ---
Author Name Unknown Address [address] [place] [phone] Phone Organization K01:[facility] [address] [facility] [address] Laboratory Report Ordering Provider Test Date Status JAYDON NOVAK MD [id number] Final Obs # Observation Date Value Abnormality Reference Status Performing Location 0 T4, Total [id number] 7.8 4.6-12.[address] [facility] [address] [facility] [address]
--- OUTSIDE RECORDS SUMMARY | 2023-02-03 13:06 | External Medical Summary ---
Author Name Unknown Address [address] [place] [address] Phone Organization K0G:[facility] Tiffanie Castañeda [address] [facility] [place] [address] Laboratory Report Ordering Provider Test Date Status JAYDON NOVAK MD [id number] Final Obs # Observation Date Value Abnormality Reference Status Performing Location 0 Leukocytes [#/volume] in Blood by Automated count [id number] 4.91 4.00-10.80 Final [facility] Gra ys Castañeda [address] [facility] [place] [address] 1 Erythrocytes [#/volume] in Blood by Automated count [id number] 4.22 3.85-5.15 Final [facility] Gra ys Castañeda [address] [facility] [place] [address] 2 Hemoglobin [id number] 13.3 12.0-15.3 Final [facility] Tiffanie Castañeda [address] [facility] [place] [address] 3 HCT [id number] 40.1 36.0-45.2 Final G MG Tiffanie Castañeda [address] [facility] [place] [address] 4 Erythrocyte mean corpuscular volume [Entitic volume] by Automated count [id number] 95.0 81.5-97.5 Final [facility] Gra ys Castañeda [address] [facility] [address] 5 Erythrocyte mean corpuscular hemoglobin [Entitic mass] by Automated count [id number] 31.5 27.0-34.0 Final [facility] Gra ys Castañeda [address] [facility] [place] [address] 6 Erythrocyte mean corpuscular hemoglobin concentration [Mass/volume] by Automated count [id number] 33.2 32.0-36.0 Final [facility] Gra ys Castañeda [address] [facility] [place] [address] 7 Erythrocyte distribution width [Ratio] by Automated count [id number] 13.4 11.5-15.5 Final [facility] Gra ys Castañeda [address] [facility] [place] [address] 8 Platelets [#/volume] in Blood by Automated count [id number] 165 140-400 Final [facility] Gra ys Castañeda [address] [place] [address] 9 Platelet mean volume [Entitic volume] in Blood by Automated count [id number] 10.1 6.6-11.1 Final [facility] Tiffanie Castañeda [address] [place] [address] 10 Neutrophils/100 leukocytes in Blood by Automated count [id number] 68 40-75 Final [facility] Gra ys Castañeda [address] [place] [address] 11 Lymphocytes/100 leukocytes in Blood by Automated count [id number] 23 18-42 Final [facility] Gra ys Castañeda [address] [place] [address] 12 Monocytes/100 leukocytes in Blood by Automated count [id number] 8 1-11 Final [facility] Gra ys Castañeda [address] [place] [address] 13 Eosinophils/100 leukocytes in Blood by Automated count [id number] 1 0-6 Final [facility] Gra ys Castañeda [address] [place] [address] 14 Basophils/100 leukocytes in Blood by Automated count [id number] 0 0-2 Final [facility] Gra ys Castañeda [address] [place] [address] 15 Neutrophils [#/volume] in Blood by Automated count [id number] 3.33 1.8-7.7 Final [facility] Gra ys Castañeda [address] [place] [address] 16 Lymphs, absolute [id number] 1.14 1.0-4.8 Fi nal [facility] Tiffanie Castañeda [address] [place] [address] 17 Monocytes [#/volume] in Blood by Automated count [id number] 0.39 0.0-1.1 Final [facility] Gra ys Castañeda [address] [place] [address] 18 Eosinophils [#/volume] in Blood by Automated count [id number] 0.04 0.0-0.7 Final [facility] Gra ys Castañeda [address] [place] [address] 19 Basophils [#/volume] in Blood by Automated count [id number] 0.01 0.0-0.2 Final [facility] Gra ys Castañeda [address] [place] [address]
--- OUTSIDE RECORDS SUMMARY | 2023-02-03 13:06 | External Medical Summary ---
Author Name Unknown Organization K01[facility] [address] [address] Laboratory Report Ordering Provider Test Date Status Letty INTERIANO MD 10/03/2013 08:15:00-0400 Final Obs # Observation Date Value ABNL Reference Status Pe rforming Location 1 25OH VITAMIN D TOTAL 10/03/2013 14:01-0400 34.2 30.0-100.0 ng/mL Final Deficient: <20.0 ng/mL Insufficient: 20.0-29.9 ng/ml Sufficient: 30.0-100.0 ng/ml High: >100.0 ng/ml Refer to [facility] Osteoporosis for Practitioners Best Practice Guidelines for therapeutic recommendations.
--- OUTSIDE RECORDS SUMMARY | 2023-02-03 13:06 | External Medical Summary ---
Author Name Unknown Address [address] [id number] Phone Organization K01:[facility] [address] [id number] Laboratory Report Ordering Provider Test Date Status JAYDON NOVAK MD [id number] Final Obs # Observation Date Value Abnormality Reference Status Performing Location 0 25-OH Vitamin D total [id number] 33 >19 Final [facility] [address] [facility] [address]
--- OUTSIDE RECORDS SUMMARY | 2023-02-03 13:06 | External Medical Summary ---
Author Name Unknown Address [address] [place] [address] Phone Organization K0G:[facility] Tiffanie Castañeda [address] [place] [address] Laboratory Report Ordering Provider Test Date Status JAYDON NOVAK MD [id number] Final Obs # Observation Date Value Abnormality Reference Status Performing Location 0 BUN [id number] 21 Above high normal 6-20 Final [facility] Tiffanie Castañeda [address] [place] [address] 1 Creatinine [id number] 0.8 0.5-1.2 Final [facility] Tiffanie Castañeda [address] [place] [address]
--- OUTSIDE RECORDS SUMMARY | 2023-02-03 13:06 | External Medical Summary ---
Thyrotropin [Units/volume] in Serum or Plasma by Detection limit <= 0.005 mIU/L Created on: November 05, 2015 MCCARTHY REGGIE : 1940 Sex: Female Author Name Unknown Address [address] [place] [address] Phone Organization K01:[place] [address] Laboratory Report Ordering Provider Test Date Status JAYDON NOVAK MD [id number] Final Obs # Observation Date Value Abnormality Reference Status Performing Location 0 Thyrotropin [Units/volume] in Serum or Plasma by Detection limit <= 0.005 mIU/L [id number] 3.31 0.27-4.[address] [address]
--- OUTSIDE RECORDS SUMMARY | 2023-02-03 13:06 | External Medical Summary ---
Author Name Unknown Address [address] [facility] [place] [address] Phone Organization K0G:[facility] Tiffanie Castañeda [address] [facility] [place] [address] Laboratory Report Ordering Provider Test Date Status JAYDON NOVAK MD [id number] Final Obs # Observation Date Value Abnormality Reference Status Performing Location 0 Erythrocyte sedimentation rate by Westergren method [id number] 17 0-20 Final [facility] G rays Castañeda [address] [facility] [place] [address]
--- OUTSIDE RECORDS SUMMARY | 2023-02-03 13:06 | External Medical Summary ---
Author Name Unknown Organization K01:[place] [address] [address] Laboratory Report Ordering Provider Test Date Status Letty INTERIANO MD 03/21/2013 14:55:00-0400 Final Obs # Observation Date Value ABNL Reference Status Pe rforming Location 1 TSH 03/21/2013 22:26-0400 1.96 0.27-4.2 uIU/mL Final
--- OUTSIDE RECORDS SUMMARY | 2023-02-03 13:07 | External Medical Summary ---
Author Name JAYDON TABOR Organization K0G:[facility] [address], [place] [address] Support Name Relationship Address Phone JAYDON TABOR, Letty PROV Unknown Unavailable Laboratory Report Ordering Provider Test Date Status Letty INTERIANO MD 08/09/2012 08:32:00-0500 Final Obs # Observation Date Value ABNL Reference Status Pe rforming Location 1 hours fasting 08/09/2012 08:34-0500 12 hours Final 2 Triglyceride 08/09/2012 12:54-0500 102 <200 mg/dL Final TRIGLYCERIDE REFERENCE RANGES (mg/dL) [...]
--- OUTSIDE RECORDS SUMMARY | 2023-02-03 13:07 | External Medical Summary ---
Author Name Unknown Organization K01:[facility], [address] [address] Laboratory Report Ordering Provider Test Date Status Letty INTERIANO MD 03/21/2013 14:55:00-0400 Final Obs # Observation Date Value ABNL Reference Status Pe rforming Location 1 ESR 03/21/2013 22:42-0400 11 0-20 mm/hour Final
--- OUTSIDE RECORDS SUMMARY | 2023-02-03 13:07 | External Medical Summary ---
Author Name Unknown Organization K01:[facility] [employer] [facility] [place] [address] [address] Laboratory Report Ordering Provider Test Date Status Letty INTERIANO MD 03/21/2013 14:55:00-0400 Final Obs # Observation Date Value ABNL Reference Status Pe rforming Location 1 T4, Free 03/21/2013 22:26-0400 1.38 0.7-1.7 ng/dL Final
--- OUTSIDE RECORDS SUMMARY | 2023-02-03 13:07 | External Medical Summary ---
Author Name JAYDON TABOR Organization K01:[facility], [address] [address] Support Name Relationship Address Phone JAYDON TABOR, H PROV Unknown Unavailable Laboratory Report Ordering Provider Test Date Status Letty INTERIANO MD 09/16/2011 09:41:00-0400 Final Obs # Observation Date Value ABNL Reference Status Pe rforming Location 1 BUN 09/16/2011 19:28-0400 23 H 6-20 mg/dL Final 2 Creatinine 09/16/2011 19:28-0400 0.7 0.5-1.2 mg/dL Final GFR should be used to assess renal function. Plasma/Serum creatinine may not be able to properly reflect renal function in some cases.
--- OUTSIDE RECORDS SUMMARY | 2023-02-03 13:07 | External Medical Summary ---
Author Name JAYDON TABOR Organization K01:[employer] [facility], [address] [address] Support Name Relationship Address Phone JAYDON TABOR, H PROV Unknown Unavailable Laboratory Report Ordering Provider Test Date Status Letty INTERIANO MD 09/16/2011 09:41:00-0400 Final Obs # Observation Date Value ABNL Reference Status Pe rforming Location 1 WBC 09/16/2011 17:37-0400 4.13 4.00-10.80 K/uL Final 2 RBC 09/16/2011 17:37-0400 4.09 3.85-5.15 M/uL Final 3 HGB 09/16/2011 17:37-0400 12.6 12.0-14.5 g/dL Final 4 HCT 09/16/2011 17:37-0400 38.1 36.0-44.5 % Final 5 MCV 09/16/2011 17:37-0400 93.2 81.5-97.5 fL Final 6 MCH 09/16/2011 17:37-0400 30.8 27.0-34.0 pg Final 7 MCHC 09/16/2011 17:37-0400 33.1 32.0-36.0 g/dL Final 8 RDW 09/16/2011 17:37-0400 14.0 11.5-15.5 % Final 9 PLT 09/16/2011 17:37-0400 145 140-400 K/uL Final 10 MPV 09/16/2011 17:37-0400 11.3 H 6.6-11.1 fL Final 11 Segs 09/16/2011 17:37-0400 50 40-75 % Final 12 Lymphocytes 09/16/2011 17:37-0400 38 18-42 % Final 13 Monos 09/16/2011 17:37-0400 10 1-11 % Final 14 Eosinophils 09/16/2011 17:37-0400 1 0-6 % Final 15 Basos 09/16/2011 17:37-0400 1 0-2 % Final 16 Segmented Neutrophils, Abs 09/16/2011 17:37-0400 2.07 1.8-7.7 K/uL Final 17 Lymphs, Abs 09/16/2011 17:37-0400 1.57 1.0-4.8 K/uL Final 18 Monos, Abs 09/16/2011 17:37-0400 0.42 0.0-1.1 K/uL Final 19 Eos, Abs 09/16/2011 17:37-0400 0.05 0.0-0.7 K/uL Final 20 Basos, Abs 09/16/2011 17:37-0400 0.02 0.0-0.2 K/uL Final
--- OUTSIDE RECORDS SUMMARY | 2023-02-03 13:07 | External Medical Summary ---
Author Name JAYDON TABOR Organization K09:[facility] [address] , [place] [address] Support Name Relationship Address Phone JAYDON TABOR, Letty PROV Unknown Unavailable Laboratory Report Ordering Provider Test Date Status Letty INTERIANO MD 08/09/2012 08:32:00-0500 Final Obs # Observation Date Value ABNL Reference Status Pe rforming Location 1 BUN 08/09/2012 11:02-0500 21 H 6-20 mg/dL Final 2 Creatinine 08/09/2012 11:02-0500 0.7 0.5-1.2 mg/dL Final GFR should be used to assess renal function. Plasma/Serum creatinine may not be able to properly reflect renal function in some cases.
--- OUTSIDE RECORDS SUMMARY | 2023-02-03 13:07 | External Medical Summary ---
Author Name Unknown Organization K01:[facility], [address] [address] Laboratory Report Ordering Provider Test Date Status Letty INTERIANO MD 03/21/2013 14:55:00-0400 Final Obs # Observation Date Value ABNL Reference Status Pe rforming Location 1 WBC 03/21/2013 21:08-0400 5.31 4.00-10.80 K/uL Final 2 RBC 03/21/2013 21:08-0400 4.28 3.85-5.15 M/uL Final 3 HGB 03/21/2013 21:08-0400 13.2 12.0-14.5 g/dL Final 4 HCT 03/21/2013 21:08-0400 41.2 36.0-44.5 % Final 5 MCV 03/21/2013 21:08-0400 96.3 81.5-97.5 fL Final 6 MCH 03/21/2013 21:08-0400 30.8 27.0-34.0 pg Final 7 MCHC 03/21/2013 21:08-0400 32.0 32.0-36.0 g/dL Final 8 RDW 03/21/2013 21:08-0400 13.1 11.5-15.5 % Final 9 PLT 03/21/2013 21:08-0400 160 140-400 K/uL Final 10 MPV 03/21/2013 21:08-0400 11.0 6.6-11.1 fL Final 11 Segs 03/21/2013 21:08-0400 66 40-75 % Final 12 Lymphocytes 03/21/2013 21:08-0400 24 18-42 % Final 13 Monos 03/21/2013 21:08-0400 9 1-11 % Final 14 Eosinophils 03/21/2013 21:08-0400 1 0-6 % Final 15 Basos 03/21/2013 21:08-0400 0 0-2 % Final 16 Segmented Neutrophils, Abs 03/21/2013 21:08-0400 3.53 1.8-7.7 K/uL Final 17 Lymphs, Abs 03/21/2013 21:08-0400 1.28 1.0-4.8 K/uL Final 18 Monos, Abs 03/21/2013 21:08-0400 0.45 0.0-1.1 K/uL Final 19 Eos, Abs 03/21/2013 21:08-0400 0.03 0.0-0.7 K/uL Final 20 Basos, Abs 03/21/2013 21:08-0400 0.01 0.0-0.2 K/uL Final
--- OUTSIDE RECORDS SUMMARY | 2023-02-03 13:07 | External Medical Summary ---
Author Name Unknown Organization [employer] Support Name Relationship Address Phone Letty INTERIANO MD PROV Unknown Unavailabl e Laboratory Report Ordering Provider Test Date Status Letty INTERIANO MD 03/30/2010 09:0400 F Obs # Observation Date Value ABNL Reference Status Pe rforming Location 1 25OH VITAMIN D TOTAL 03/31/20 11:05-08 00 61.9 30.0-100.0 ng/mL Final 2 25OH VITAMIN D TOTAL 03/31/20 11:12 00 Final 3 25OH VITAMIN D TOTAL 03/31/20 11:1204 00 Deficient: <20.0 ng/mL Final 4 25OH VITAMIN D TOTAL 03/31/20 11:1204 00 Insufficient: 20.0-29.9 ng/ml Final 5 25OH VITAMIN D TOTAL 03/31/20 11:1204 00 Sufficient: 30.0-100.0 ng/ml Final 6 25OH VITAMIN D TOTAL 03/31/20 10 11:12-04 00 High: >100.0 ng/ml Final 7 25OH VITAMIN D TOTAL 03/31/20 11:12-04 00 Final 8 25OH VITAMIN D TOTAL 03/31/20 10 11:12-04 00 Refer to [facility] Osteoporosis Final 9 25OH VITAMIN D TOTAL 03/31/20 11:12 00 for Practitioners Best Practice Final 10 25OH VITAMIN D TOTAL 03/31/20 11:1204 00 Guidelines for therapeutic Final 11 25OH VITAMIN D TOTAL 03/31/20 10 11:1204 00 recommendations. Final
--- OUTSIDE RECORDS SUMMARY | 2023-02-03 13:07 | External Medical Summary ---
Author Name Unknown Organization [employer] [facility] tem Support Name Relationship Address Phone Letty INTERIANO MD PROV Unknown Unavailabl e Laboratory Report Ordering Provider Test Date Status Letty INTERIANO MD 03/30/2010 09:0 F Obs # Observation Date Value ABNL Reference Status Pe rforming Location 1 WBC # Bld 03/30/2010 13:55-0400 3.50 L 4.00-10.80 K/uL Final 2 RBC # Bld 03/30/2010 13:55-0400 4.09 3.85-5.15 M/uL Final 3 Hgb Bld-mCnc 03/30/2010 13:55-0400 12.6 12.0-14.5 g/dL Final 4 Hct Fr Bld 03/30/2010 13:55-0400 38.9 36.0-44.5 % Final 5 MCV RBC Qn 03/30/2010 13:55-0400 95.1 81.5-97.5 fL Final 6 MCH RBC Qn 03/30/2010 13:55-0400 30.8 27.0-34.0 pg Final 7 MCHC RBC-mCnc 03/30/2010 13:55-0400 32.4 32.0-36.0 g/dL Final 8 RDW RBC Qn 03/30/2010 13:55-0400 12.7 11.5-15.5 % Final 9 Platelet # Bld 03/30/2010 13:55-0400 153 150-400 K/uL Final 10 PMV Bld Qn 03/30/2010 13:55-0400 11.1 6.6-11.1 fL Final 11 Neuts Seg Fr Bld 03/30/2010 13:55-0400 50 40-75 % Final 12 Lymphocytes Fr Bld 03/30/2010 13:55-0400 39 18-42 % Final 13 Monocytes Fr Bld 03/30/2010 13:55-0400 10 1-11 % Final 14 Eosinophil Fr Bld 03/30/2010 13:55-0400 1 0-6 % Final 15 Basophils Fr d 03/30/2010 13:55-0400 0 0-2 % Final 16 Neuts Seg # d 03/30/2010 13:55-0400 1.72 L 1.8-7.7 K/uL Final 17 Lymphocytes # d 03/30/2010 13:55-0400 1.35 1.0-4.8 K/uL Final 18 Monocytes # d 03/30/2010 13:55-0400 0.36 0.0-1.1 K/uL Final 19 ABS. EOS 03/30/2010 13:55-0400 0.05 0.0-0.7 K/uL Final 20 Basophils # d 03/30/2010 13:55-0400 0.01 0.0-0.2 K/uL Final
--- OUTSIDE RECORDS SUMMARY | 2023-02-03 13:07 | External Medical Summary ---
Author Name JAYDON TABOR Organization K0G:[facility] [employer] [address], [place] [address] Support Name Relationship Address Phone JAYDON TABOR, Letty PROV Unknown Unavailable Laboratory Report Ordering Provider Test Date Status Letty INTERIANO MD 09/16/2011 09:41:00-0400 Final Obs # Observation Date Value ABNL Reference Status Pe rforming Location 1 hours fasting 09/16/2011 09:42-0400 12 hours Final 2 Triglyceride 09/16/2011 19:28-0400 93 <200 mg/dL Final TRIGLYCERIDE REFERENCE RANGES (mg/dL) <150 NORMAL 150-199 BORDERLINE HIGH 200-499 HIGH >499 VERY HIGH TOTAL CHOLESTEROL REFERENCE RANGES(mg/dL) <200 DESIRABLE 200-239 BORDERLINE HIGH >239 HIGH HDL CHOLESTEROL REFERENCE RANGES(mg/dL) <40 LOW >59 HIGH LDL CHOLESTEROL REFERENCE RANGES(mg/dL) <100 OPTIMAL GOAL FOR HIGH RISK PATIENTS 100-129 NEAR OR ABOVE NORMAL 130-159 BORDERLINE HIGH 160-189 HIGH >189 VERY HIGH
--- OUTSIDE RECORDS SUMMARY | 2023-02-03 13:07 | External Medical Summary ---
Author Name JAYDON TABOR Organization K01:[facility] [address] [address] Support Name Relationship Address Phone JAYDON TABOR, H PROV Unknown Unavailable Laboratory Report Ordering Provider Test Date Status Letty INTERIANO MD 09/16/2011 09:41:00-0400 Final Obs # Observation Date Value ABNL Reference Status Pe rforming Location 1 25OH VITAMIN D TOTAL 09/19/2011 10:17-0400 70.6 30.0-100.0 ng/mL Final Deficient: <20.0 ng/mL Insufficient: 20.0-29.9 ng/ml Sufficient: 30.0-100.0 ng/ml High: >100.0 ng/ml Refer to [facility] Osteoporosis for Practitioners Best Practice Guidelines for therapeutic recommendations.
--- NOTE | 2023-02-03 16:55 | Discharge Summary ---
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 Had a chest pressure across her chest while sitting in [employer] on Monday that lasted for 20 minutes before resolving. Had an episode this morning while having a virtual appointment with Robin villatoro and was directed to ED for further evaluation. Endorses non- specific chest pain across chest intermittently over the past few months that mostly occurs at rest. Follows with Rohini MORENO with [facility] and had an outpatient echo done recently. Family is unsure of results and I cannot see in EMR. Pain is non-radiating and not associated with nausea, vomiting or diaphoresis. Progressive SOB over the past year and following with [facility], even more SOB over past week. Has a chronic dry cough but no recent known infection, fever of chills. Also endorsing increased difficulty with swallowing and "feeling full" in AM before eating. Feels like its difficult to even get fluids down in AM. Denies any unintentional weight loss. Lives with family and ambulates with a walker. No lightheadedness, headache, nausea, vomiting, abdominal pain, dysuria, diarrhea or constipation. Admission Exam Per Admitting Provider Physical Exam: General Appearance:WD/WN, vitals as above, NAD, sitting up in bed, pleasant, conversing easily Head: normocephalic, atraumatic Eyes:normal inspection, PERRL, conjunctivae normal, anicteric sclerae ENT: external ear and nose normal, oropharynx normal Neck: normal visual inspection, trachea midline, no thyromegaly Respiratory:normal respiratory effort, lungs clear to auscultation, no wheeze, rales, rhonchi. No accessory muscle use Cardiovascular: regular rate, rhythm, no murmur, normal peripheral pulses, no BLE edema. Vessels: no JVD Chest: normal inspection of chest, cp not reproducible on palpation Abdomen/GI: normal bowel sounds, soft, nontender, no hepatosplenomegaly Extremities/Musculoskeletal: no cyanosis or clubbing, extremities motor strength 5/5 Neurologic: PERRL, EOMI, accommodation nl, no face palsy, no dysarthria, CN's II-XI intact bilaterally and moves all extremities Psychiatric:A+Ox3, euthymic affect Skin: no rashes, normal color, warm/dry Principal Diagnosis Chest pain no ACS, dysphagia no apparent cause found-resolved, shortness of breath on exertion Discharge Exam Lying in bed without any acute distress Constitutional well developed, well nourished and average body habitus; not ill appearing Eyes PERRL, conjunctivae normal, anicteric sclerae ENMT external ear and nose normal, oropharynx normal Neck trachea midline, no thyromegaly Respiratory no respiratory distress Auscultation: lungs clear to auscultation bilaterally Cardiovascular Rate/Rhythm: regular rate, regular rhythm and + bradycardic Heart Sounds: normal S1 and normal S2; no murmur Extremities: no edema Gastrointestinal (Abdomen) Inspection/Auscultation: normal bowel sounds; abdomen not distended Percussion/Palpation: abdomen soft; abdomen nontender Neurologic normal touch/pain/proprioception and moves all extremities; no focal motor deficits Psychiatric A+Ox3, euthymic affect Lymphatic no cervical or axillary lymphadenopathy Discharge Data Allergies Allergy/AdvReac Type Severity Reaction Status Date / Time amoxicillin Allergy Severe RASH Verified 01/31/23 17:35 clavulanic acid Allergy Severe RASH Verified 01/31/23 17:35 Nitrate Analogues AdvReac Severe HEAD ACHE Verified 01/31/23 17:35 isosorbide AdvReac Intermediate PAINFUL Verified 01/31/23 17:35 Consultations 01/31/23 17:39 ED Decision to Admit Stat 01/31/23 19:24 Consult Gastroenterology Routine Procedures Performed Operation Date: 02/01/23 16:30 Actual Procedures p Esophagogastroduodenoscopy - Kelsea Rodriguez, DO Ordered Studies 01/31/23 16:37 CT angio chest PE protocol Stat 02/02/23 10:30 Fluoro video [FL video swallow] Routine Hospital Course (1) Atypical chest pain: This is an 82yo F with a PMH of hypothyroidism, ambulatory dysfunction, nocturnal hypoxia per recent outpatient study, 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 Atypical, doubt ACS. R sided, intermittent, occurs at rest. Possibly multifactorial given ongoing WRIGHT, dysphagia as below D dimer elevated >2,000 but CTA chest negative for PE Serial troponins did not support any ACS, EKG remains sinus bradycardia and otherwise normal Following with [facility], recent evaluation did not feel CP was cardiac, underwent resting echo in December 2022 with EF 60%, grade 1 diastolic dysfunction, mild mitral regurg, mild-mod tricuspid regurg, mild elevated pulm artery pressure Doubt the chest pain is cardiac origin Undergoing evaluation for dysphagia No more chest pain and/or palpitation and no shortness of breath at rest (2) Dysphagia: Notably worsened over past month, difficulty swallowing pills, early satiety, PCP interested in GI involvement as well. Continue Pepcid, GI consulted, NPO @ [place] in case of EGD Status post negative EGD Appreciate speech evaluation and possible fluoroscopic study tomorrow Videofluoroscopic test was negative for any aspiration She has been tolerating regular diet and will be sent home this afternoon (3) WRIGHT (dyspnea on exertion): Worsening WRIGHT now following with Robin villatoro. Received recent PFTs and do not feel they are consistent with COPD diagnosis from prior but more so within range for patient's age. 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 Will order PRN supplemental O2 HS DVT Ppx: SQ heparin Code status: FULL PCP: Iris Dispo: Observation med tele Discharge home this afternoon Total Time Total Time Spent Total Time Spent (In Minutes): 35 minutes Discharge Plan Discharge Items Patient Disposition: Home - Self-Care Reason For Visit: CP RULE OUT Discharge Diagnosis: Chest pain no ACS, dysphagia no apparent cause found-resolved, shortness of breath on exertion Condition on Discharge: Good Activity: Resume your previous activity Non-emergency contact: Primary Care Provider Call non-emergency contact if: you have any medication questions and your symptoms worsen Follow-up/Referrals: Kirit Simmons [Primary Care Provider] - (Please make an appointment with your PCP within 1 week) Diet: Heart Healthy Addtl Attending Provider Instructions: Please take precautions to avoid fall No change in your current medications Take your medications as advised Please have follow-up appointment with your healthcare providers Pending Studies at Discharge: No Stand-Alone Forms: My [facility], Smoking Cessation Medications and DC Order Prescriptions: Continued calcium citrate-vitamin D3 [Calcium Citrate + D] 315-200 mg-unit Tablet 1 tab PO QAM Qty: 0 Patient Comments: mon/mon/mon PreserVision AREDS [id number] Tablet 1 tab PO BID Qty: 0 doxazosin 1 mg tablet 1 mg PO QPM zinc acetate 50 mg (zinc) Capsule 50 mg PO QPM levothyroxine 25 mcg tablet 25 mcg PO DAILYBB famotidine 20 mg tablet 20 mg PO DAILYBB ascorbic acid (vitamin C) [Vitamin C] 500 mg Tablet 500 mg PO QPM Rx Instructions: PT UNSURE OF STRENGTH albuterol sulfate 90 mcg/actuation HFA aerosol inhaler 2 puff INHALATION QID PRN (Reason: Shortness Of Breath Or Wheezing) Rx Instructions: PER PT "USE IT 3 X DAILY, EVERY DAY". cholecalciferol (vitamin D3) [Vitamin D3] 125 mcg (5,000 unit) Tablet 250 mcg PO WK Rx Instructions: MONDAYS fluticasone furoate-vilanterol [Breo Ellipta] 100-25 mcg/dose blister with device 1 inh INHALATION DAILY Discharge Orders: Discharge Order (Routine); Ordered 02/02/23 Ordered By: Bryan Delgado Admission Data Admit Date/Time: 01/31/23 18:07 Attending Provider: Bryan Delgado Admit Provider: Carlos Rios Primary Care Provider: Kirit Simmons Other Providers: Kelsea Rodriguez Other Interventions: Discharge Summary Assessment (RN) Last Done: 02/02/23 13:33
--- NOTE | 2023-02-04 07:17 | Electrocardiogram Report ---
Test Reason : Blood Pressure : / mmHG Vent. Rate : 078 BPM Atrial Rate : 078 BPM P-R Int : 124 ms QRS Dur : 074 ms QT Int : 384 ms P-R-T Axes : 056 -37 052 degrees QTc Int : 437 ms Normal sinus rhythm with sinus arrhythmia Left axis deviation Possible Septal infarct , age undetermined Abnormal ECG When compared with ECG of 18-NOV-2022 09:34, Septal infarct is now Present Confirmed by Doug Brunner ([id number]) on 02/04/2023 7:17:14 AM Referred By: Confirmed By:Doug Brunner
== END 2023-02-02 15:17 | disposition home or self-care (01) ==
LOC: 2W 12:07 → ED 12:07 → SUATTDRO 18:07 → 2W 20:14
DX: Z88.8 Allergy status to other drugs, medicaments and biological substances; Z88.1 Allergy status to other antibiotic agents; R13.10 Dysphagia, unspecified; R07.89 Other chest pain; Z79.899 Other long term (current) drug therapy

== ENCOUNTER 2025-01-17 14:57 | Inpatient (IN) ==
[2025-01-17 16:13] LABS: Appearance Urine Clear (Clear); Bacteria Urine Automated None Seen (None Seen); Cast Urine Automated 0-2 /lpf (0-2); Epithelial Cell Urine Auto 0-2 /hpf (0-2); Glucose Urine UA Negative (Negative); RBC Urine Automated 0-2 /hpf (0-2); WBC Urine Automated 21-50 /hpf (0-5)
[2025-01-17 16:39] LABS: Hematocrit (blood only) 39.3 % (37.0-47.0); Hemoglobin 12.8 g/dl (12.0-16.0); Immature Granulocytes # (auto) 0.01 K/uL (0.01-0.20); Immature Granulocytes % (auto) 0.2 %; Mean Corpuscular Hemoglobin 31.9 pg (25.0-34.0); Mean Corpuscular Volume 98.0 fL (80.0-100.0); Platelet Count 181 K/uL (130-400); RDW Standard Deviation 46.2 fL (36.4-46.3); Red Blood Count 4.01 M/uL (4.20-5.40); White Blood Count 4.49 K/ul (4.8-10.8)
--- NOTE | 2025-01-17 16:45 | Emergency Department Note ---
Impression & Plan Hypoxia, Back pain, Acute UTI ED Provider Note NAME: REGGIE MCCARTHY AGE: 84 SEX: F : 1940 ARRIVES VIA: Ambulance INFORMANT: Patient ED PROVIDER(S): Elbert Vaughn DO CHIEF COMPLAINT: Dysuria, urgency and frequency and back pain HPI: Patient is an 84-year-old female with a past medical history of hypertension and IBS who presents to the ER for dysuria, urgency, or frequency. She notes this has been present for over a week. She started having lower back pain recently and is bilateral in the lower lumbar region. He does radiate down the legs. It is worse when she is up and walking. She denies any focal weakness or numbness in the legs. She able to urinate and move her bowels. Denies any headache or change in vision. No chest pain or shortness of breath. They just recently moved to the [place] and the doctor has been on vacation for the past week and they have been unable to see anybody and consequently came in here today. ADDITIONAL HISTORY OBTAINED: Per HPI Chronic Medical/Social Conditions Affecting Care: Per HPI PAST MEDICAL HISTORY:See Below PAST SURGICAL HISTORY:See Below FAMILY HISTORY:See Below SOCIAL HISTORY:See Below HOME MEDICATIONS:See Below ALLERGIES:See Below VITALS:See Below PHYSICAL EXAMINATION: GENERAL: Sitting up in bed, alert, well appearing, well nourished, no distress, non-toxic EYE EXAM: normal conjunctiva. OROPHARYNX: mucous membranes are moist NECK: supple, no nuchal rigidity, no adenopathy, non-tender LUNGS: Clear to auscultation. Normal chest wall mechanics HEART: no murmurs, S1 normal and S2 normal ABDOMEN: abdomen soft, non-tender, normo-active bowel sounds, no masses, no rebound or guarding. BACK: Back is symmetrical on inspection and there is no deformity, no midline tenderness, no CVA tenderness. SKIN: no rashes and no bruising UPPER EXTREMITIES: upper extremities are grossly normal. LOWER EXTREMITIES: Flexion and extension of the hips, knees, ankles, and EHL 5/5 bilaterally. Gross sensation is intact. DPs are 2/4 bilateral. NEURO EXAM: Normal sensorium, cranial nerves II-XII grossly intact, normal speech, no gross weakness of arms, no gross weakness of legs. MEDICAL DECISION MAKING: Patient is an 84-year-old female who presents ER for the above-stated complaint. IV was established and blood work was obtained. Labs show a leukopenia of 4.4 thousand. No significant anemia. INR unremarkable. VBG with a pH of 7.46 and bicarb of 28. BMP with LFTs bilirubin troponin was negative. UA with leuks and whites consistent with a UTI. CT abdomen pelvis showed no acute pathology. Patient was found to be hypoxic and was placed on 2 L nasal cannula. Chest x- ray was clean. CT lumbar spine showed significant DJD. Patient was given Toradol and morphine following being found to be hypoxic. This was only given after the hypoxia was found and did not cause her hypoxia. She was updated bedside discussed with the hospitalist admitted for further workup. Unclear the true cause of the hypoxia at this time. Consults/Care Managements Discussions: Per [facility] Triage Nursing notes reviewed. Limited review of prior medical records performed Vital Signs: reviewed and remarkable for HTN Differential diagnosis: Differential diagnoses includes but is not limited to gastritis, peptic ulcer disease, GERD, gallbladder disease, pancreatitis, small bowel obstruction, appendicitis, diverticulitis, hernia, urinary tract infection, torsion, perforation, trauma, infectious. ER treatment provided: See below Diagnostics interpreted by me include EKG and cardiac monitoring as listed below: -Cardiac Monitoring: An order was placed for continuous cardiac monitoring. The monitor shows a rate of 70 with sinus rhythm. -ECG: Sinus rhythm rate 85 Normal axis No PVCs QTc 445 -Laboratory studies:Interpreted by me as stated above in MDM and shown below. Imaging studies: Xrays: As interpreted by me: Portable AP upright 1 view of the chest shows no focal Lutrate CTs show: CT abdomen pelvis and lumbar spine as described above Procedures:none Critical Care: I have personally spent 33 minutes of critical care time in the direct management of this patient. This includes bedside care, interpretation of diagnostic studies, and testing, discussion with consultants, patient, and family members, and other required patient management activities. This 33 minutes is in excess of all separately billable procedures. Past Med/Surg History Problem List Acute UTI (Acute) Back pain (Acute) Hypoxia (Acute) Chest pain (Acute) WRIGHT (dyspnea on exertion) Nocturnal hypoxia Hypothyroidism Dysphagia Atypical chest pain Dehydration (Acute) Sinusitis (Acute) Hypertension (Chronic) Irritable bowel syndrome (Chronic) History of appendectomy (Chronic) Medical History Bronchitis Chronic back pain Osteoarthritis Depression Surgical History H/O eye surgery History of cataract surgery 12/27/17. 2mg versed. no issues. History of laparoscopy History of colonoscopy Family History Other Diabetes Heart disease No significant family history Social History Smoking Status: Never smoker Second Hand Exposure: No; Do You Dip or Chew Tobacco: No; Hx Alcohol Use: No Hx Substance Use: No Preferred Language: [place] Communication Ability: Effective Hematology Nurse Required: No Beliefs That Will Affect Care: None Current Living Situation: Family Feels Safe at Home: Yes Assistive Devices: Walker Allergies Allergies Allergy/AdvReac Type Severity Reaction Status Date / Time amoxicillin Allergy Severe RASH Verified 09/22/23 20:45 clavulanic acid Allergy Severe RASH Verified 09/22/23 20:45 Nitrate Analogues AdvReac Severe HEAD ACHE Verified 09/22/23 20:45 isosorbide AdvReac Intermediate PAINFUL Verified 09/22/23 20:45 Home Meds Home Medications Medication Instructions Recorded Confirmed calcium 315 mg (as 1 tab PO QAM ##0 08/31/17 01/17/25 citrate)-vitamin D3 5 mcg (200 unit) tablet (Calcium Citrate + D) vitamins A,C,T-apen-xersrp 2,148 1 tab PO BID #0 tabs 12/18/17 01/17/25 mcg-113 mg-45 mg-17.4 mg tablet (PreserVision AREDS) ascorbic acid (vitamin C) 500 mg 0 mg PO QPM 01/31/23 01/17/25 tablet (Vitamin C) cholecalciferol (vitamin D3) 125 250 mcg PO UD 01/31/23 01/17/25 mcg (5,000 unit) tablet (Vitamin D3) levothyroxine 25 mcg tablet 25 mcg PO DAILYBB 01/31/23 01/17/25 zinc acetate 50 mg (zinc) capsule 50 mg PO QPM 01/31/23 01/17/25 acetaminophen 500 mg tablet 1,000 mg PO BID 01/09/24 01/17/25 doxazosin 2 mg tablet (Cardura) 2 mg PO HS 01/09/24 01/17/25 escitalopram oxalate 20 mg tablet 20 mg PO QAM 01/09/24 01/17/25 Ex-Lax 0 mg PO DIRECTED 01/17/25 01/17/25 ibuprofen 0 mg PO DIRECTED PRN Pain 01/17/25 01/17/25 lorazepam 1 mg tablet 1 mg PO UD PRN Other 01/17/25 01/17/25 quetiapine 25 mg tablet 25 mg PO BID 01/17/25 01/17/25 sennosides 8.6 mg tablet (senna) 8.6 mg PO BID 01/17/25 01/17/25 Results & Data (ED) Vital Signs Vital Signs - 24 hr 01/17/25 15:08 01/17/25 16:55 01/17/25 18:09 Temperature 36.4 C L Temperature Source Oral Pulse Rate 68 78 Pulse Rate [Finger] 56 L Respiratory Rate 20 16 Respiratory Effort / Characteristics Non-Labored Non-Labored Spontaneous Respiratory Depth Normal Normal Respiratory Pattern Regular Regular Blood Pressure 178/86 H Blood Pressure [Right Arm] 190/89 H Blood Pressure Mean 116 Blood Pressure Mean [Right Arm] 122 Blood Pressure Position [Right Arm] Semi-fowlers Pulse Oximetry 93 95 Oxygen Delivery Method Room Air Room Air Oxygen Flow Rate Sepsis Recent Fever Within 48 Hours No Sepsis New/Unexplained Change in Mental Status No Sepsis Action Taken by Nursing No Action Required 01/17/25 18:50 01/17/25 18:58 01/17/25 18:58 Temperature Temperature Source Pulse Rate Pulse Rate [Finger] 60 62 Respiratory Rate 19 19 Respiratory Effort / Characteristics Non-Labored Spontaneous Non-Labored Spontaneous Respiratory Depth Normal Normal Respiratory Pattern Regular Blood Pressure Blood Pressure [Right Arm] 155/89 H 155/89 H Blood Pressure Mean Blood Pressure Mean [Right Arm] 111 111 Blood Pressure Position [Right Arm] Semi-fowlers Pulse Oximetry 100 87 L 98 Oxygen Delivery Method Nasal Cannula Room Air Nasal Cannula Oxygen Flow Rate 2 2 Sepsis Recent Fever Within 48 Hours Sepsis New/Unexplained Change in Mental Status Sepsis Action Taken by Nursing 01/17/25 20:00 Temperature Temperature Source Pulse Rate Pulse Rate [Finger] 60 Respiratory Rate 21 Respiratory Effort / Characteristics Non-Labored Spontaneous Respiratory Depth Normal Respiratory Pattern Regular Blood Pressure Blood Pressure [Right Arm] 178/95 H Blood Pressure Mean Blood Pressure Mean [Right Arm] 122 Blood Pressure Position [Right Arm] Semi-fowlers Pulse Oximetry 93 Oxygen Delivery Method Room Air Oxygen Flow Rate Sepsis Recent Fever Within 48 Hours Sepsis New/Unexplained Change in Mental Status Sepsis Action Taken by Nursing Laboratory Data 01/17/25 15:50 01/17/25 15:50 Lab Results 01/17/25 01/17/25 01/17/25 Range/Units 15:50 15:56 19:55 WBC 4.49 L (4.8-10.8) K/ul RBC 4.01 L (4.20-5.40) M/uL Hgb 12.8 (12.0-16.0) g/dl Hct 39.3 (37.0-47.0) % MCV 98.0 (80.0-100.0) fL MCH 31.9 (25.0-34.0) pg MCHC 32.6 (32.0-36.0) g/dL RDW Std Deviation 46.2 (36.4-46.3) fL RDW Coeff of Heriberto 12.9 (11.5-14.5) % Plt Count 181 (130-400) K/uL MPV 9.6 (9.4-12.4) fL Immature Gran % (Auto) 0.2 % Neut % (Auto) 55.0 % Lymph % (Auto) 32.5 % Weld % (Auto) 9.4 % Eos % (Auto) 2.2 % Baso % (Auto) 0.7 % Neut # (Auto) 2.47 (1.40-6.50) K/uL Lymph # (Auto) 1.46 (1.20-3.40) K/uL Weld # (Auto) 0.42 (0.11-0.59) K/uL Eos # (Auto) 0.10 (0.00-0.50) K/uL Baso # (Auto) 0.03 (0.00-0.20) K/uL Immature Gran # (Auto) 0.01 (0.01-0.20) K/uL PT 10.3 (9.0-12.0) Seconds INR 0.9 (0.9-1.1) APTT 25 (21-31) Seconds PTT Ratio 0.9 VBG pH 7.46 H (7.36-7.41) VBG pCO2 40 (38-50) mmHg VBG pO2 26 mmHg VBG HCO3 28 mmol/L VBG O2 Saturation < 60.0 % VBG Base Excess 4.2 mEq/L Sodium 141 (136-145) mmol/L Potassium 3.8 (3.5-5.1) mmol/L Chloride 106 (98-107) mmol/L Carbon Dioxide 28 (21-32) mmol/L Anion Gap 7 (3-11) BUN 27 H (6-23) mg/dl Creatinine 0.58 L (0.6-1.2) mg/dl Est Cr Clr Drug Dosing Not Reportable eGFR 89.18 BUN/Creatinine Ratio 46.6 H (10-20) Glucose 125 H (70-99(Fasting)) mg/dl Calcium 8.8 (8.6-10.3) mg/dl Total Bilirubin 0.5 (0.2-1.0) mg/dl AST 31 (13-39) U/L ALT 47 (7-52) U/L Alkaline Phosphatase 77 (34-104) U/L Troponin I High Sens 6.0 (0-14) pg/ml B-Natriuretic Peptide 84 (0-100) pg/ml Total Protein 6.6 (6.0-8.3) gm/dl Albumin 3.8 (3.4-5.0) gm/dl Globulin 2.8 (2.5-4.0) gm/dl Albumin/Globulin Ratio 1.4 (0.9-2) Urine Color Yellow Urine Appearance Clear (Clear) Urine pH 6.5 (4.5-7.5) Ur Specific Lebo 1.014 (1.000-1.030) Urine Protein Negative (Negative) Urine Glucose (UA) Negative (Negative) Urine Ketones Negative (Negative) Urine Blood Negative (Negative) Urine Nitrite Negative (Negative) Urine Bilirubin Negative (Negative) Urine Urobilinogen Negative (Negative) Ur Leukocyte Esterase 2+ H (Negative) Urine WBC (Auto) 21-50 H (0-5) /hpf Urine RBC (Auto) 0-2 (0-2) /hpf U Hyaline Cast (Auto) 0-2 (0-2) /lpf U Epithel Cells (Auto) 0-2 (0-2) /hpf Urine Bacteria (Auto) None Seen (None Seen) Urine Comment Administered Medications Discontinued Medications Furosemide (Furosemide Inj 20 Mg/2 Ml Vial) 20 mg IV ONE ONE Stop: 01/17/25 19:54 Last Admin: 01/17/25 20:13 Dose: 20 mg Documented By: JOHAN Ceftriaxone Sodium (Rocephin) 2,000 mg in 50 mls @ 100 mls/hr IV NOW STA Stop: 01/17/25 18:46 Last Infusion: 01/17/25 19:08 Dose: Infused Documented By: Admin: 01/17/25 18:37 Dose: 100 mls/hr Documented By: NIKKI Cefepime HCl (Maxipime 2000mg) 2,000 mg in 20 mls @ 5 mls/min IV NOW STA; Protocol Stop: 01/17/25 20:01 Last Admin: 01/17/25 20:16 Dose: 5 mls/min Documented By: JOHAN Ioversol (Optiray 320 100ml) 92 ml IV ONCE ONE Stop: 01/17/25 17:44 Last Admin: 01/17/25 17:43 Dose: 92 ml Documented By: CLAUDIA Ketorolac Tromethamine (Ketorolac Tromethamine 15 Mg/Ml Vial) 10 mg IV NOW ONE Stop: 01/17/25 16:43 Last Admin: 01/17/25 17:14 Dose: Not Given Documented By: JOHAN Methylprednisolone (Methylprednisolone 125 Mg/2 Ml Vial) 40 mg IV NOW STA Stop: 01/17/25 19:14 Last Admin: 01/17/25 19:23 Dose: 40 mg Documented By: WAQAS Morphine Sulfate (Morphine Sulfate 2 Mg/Ml Carp) 2 mg IV NOW STA Stop: 01/17/25 19:33 Last Admin: 01/17/25 19:57 Dose: 2 mg Documented By: JOHAN Phenazopyridine HCl (Phenazopyridine Hcl 200 Mg Tab) 200 mg PO NOW STA Stop: 01/17/25 18:21 Last Admin: 01/17/25 18:37 Dose: 200 mg Documented By: NIKKI Imaging Data Radiologist's Impression: Abdomen/Pelvis CT 01/17/25 16:42 HISTORY: Urinary symptoms and back pain TECHNIQUE: Helical CT imaging of the abdomen and pelvis was performed without IV contrast. Images are presented in axial, sagittal, and coronal reformats. COMPARISON: None. FINDINGS: Lung Bases/Inferior Mediastinum: Mild atelectasis at the lung bases. Liver: Subcentimeter hypodense lesion in the dome of the right hepatic lobe on series 2 image 10 is too small to accurately characterize. Liver is otherwise unremarkable. Gallbladder: Unremarkable Spleen: Unremarkable Adrenals: Unremarkable Pancreas: Unremarkable Kidneys: Subcentimeter hypodense renal cortical lesions are too small to accurately characterize. Cortical scarring along the posterior cortex of the mid left kidney. Stomach/Bowel: The stomach and duodenum appear unremarkable. Small and large bowel loops are normal in caliber. Lymph nodes: Unremarkable Vasculature: No abdominal aortic aneurysm. Mild atherosclerotic vascular disease. Pelvis: Urinary bladder is unremarkable. Uterus is unremarkable. 2 cm hypodense lesion in the right ovary favors a cyst. Left ovary is unremarkable. No free pelvic fluid. Soft Tissues: Posterior paraspinal muscle atrophy. Soft tissues of the body wall are otherwise unremarkable. Bones: Mild to moderate degenerative changes of the spine.Lumbar IMPRESSION: 1. No acute findings in the abdomen or pelvis. 2. Subcentimeter hypodense lesions within the liver and kidneys are too small to accurately characterize. 3. 2 cm presumed cyst in the right ovary. Follow-up pelvic ultrasound is recommended in 6 to 12 weeks to ensure resolution. ACT 112: Positive. There are findings on this exam that require communication between the performing entity and the patient following Patient Test Result Information Act ([place] ACT 112) guidelines. Electronically signed by Daniel Chakraborty 01-17-2025 6:[address] 01/17/25 16:42 HISTORY: Urinary symptoms and back pain. TECHNIQUE: CT imaging of the lumbar spine without IV contrast. Images are presented in axial, sagittal, coronal reformats. COMPARISON: CT of the abdomen pelvis from the same day. FINDINGS: Lumbar dextroscoliosis. No significant listhesis.Vertebral body heights are preserved without compression deformity.No acute fractures identified. Mild to moderate multilevel degenerative disc disease. Multilevel facet arthrosis is severe in the lower lumbar spine. Severe central canal stenosis suspected at L4-5 and L5-S1. There is multilevel central canal and neuroforaminal stenosis. No prevertebral edema or hematoma.Preparaspinal soft tissues are unremarkable.Included lungs are clear. IMPRESSION: * No evidence of acute lumbar spine fracture. * Multilevel degenerative spondylosis of the lumbar spine. Severe central canal stenosis is suspected at L4-5 and L5-S1. This can be further evaluated with a lumbar spine MRI if clinically warranted. ACT 112: Positive. There are findings on this exam that require communication between the performing entity and the patient following Patient Test Result Information Act ([place] ACT 112) guidelines. Electronically signed by Daniel Chakraborty 01-17-2025 7:04 PM Chest X-Ray 01/17/25 19:12 EXAM: Portable AP chest radiograph TECHNIQUE: AP portable radiograph of the chest was obtained. INDICATION: Shortness of breath Comparison: None FINDINGS: LINES and TUBES: None CARDIOVASCULAR: Cardiac silhouette is mildly enlarged in size. LUNGS/PLEURA: No focal consolidation identified. Bibasilar atelectasis. Mild pulmonary vascular congestion and chronic interstitial lung changes. No significant pleural fluid. No discernible pneumothorax. There is mild elevation of the right hemidiaphragm. OSSEOUS/OTHER: No displaced acute osseous process identified. IMPRESSION: Mild congestive changes of the cardiovascular system. Bibasilar atelectasis. Mild elevation of the right hemidiaphragm. Electronically signed by Timmy Godfrey 01-17-2025 7:47 PM Discharge Plan Visit Data Chief Complaint: Urinary Symptoms Stated Complaint: Urinary Symptoms ED Provider: Elbert Vaughn Discharge Problem: Hypoxia, Back pain, Acute UTI Patient Disposition: Admitted As Inpatient Condition: Fair Discharge Instructions Interventions: ED Discharge Assessment Last Done: 01/17/25 21:04 Discharge Problem: Back pain Qualifiers: Back pain location: low back pain Chronicity: acute Back pain laterality: u nspecified Sciatica presence: unspecified whether sciatica present Qualified Code(s): M54.50 - Low back pain, unspecified
[2025-01-17 16:57] LABS: Alanine Aminotransferase 47 U/L (7-52); Albumin Globulin Ratio 1.4 (0.9-2); Alkaline Phosphatase 77 U/L (34-104); Anion Gap 7 (3-11); Bilirubin,Total 0.5 mg/dl (0.2-1.0); Blood Urea Nitrogen 27 mg/dl (6-23); Calcium 8.8 mg/dl (8.6-10.3); Carbon Dioxide 28 mmol/L (21-32); Chloride 106 mmol/L (98-107); Globulin 2.8 gm/dl (2.5-4.0); Glucose 125 mg/dl (70-99(Fasting)); Potassium 3.8 mmol/L (3.5-5.1); Sodium 141 mmol/L (136-145); Total Protein 6.6 gm/dl (6.0-8.3)
[2025-01-17 17:14] LABS: INR 0.9 (0.9-1.1); Partial Thromboplastin Time 25 Seconds (21-31); Prothrombin Time 10.3 Seconds (9.0-12.0)
[2025-01-17] MEDS: KETOROLAC TROMETHAMINE 15 MG/ML VIAL IV ONE (17:14)
[2025-01-17] MEDS: OPTIRAY 320 100ml IV ONE (17:43)
[2025-01-17] MEDS: cefTRIAXone SODIUM 2,000 MG/50 ML BAG IV STA (18:37)
[2025-01-17] MEDS: PHENAZOPYRIDINE HCL 200 MG TAB PO STA (18:37)
--- NOTE | 2025-01-17 19:00 | CT Scan Report ---
HISTORY: Urinary symptoms and back pain TECHNIQUE: Helical CT imaging of the abdomen and pelvis was performed without IV contrast. Images are presented in axial, sagittal, and coronal reformats. COMPARISON: None. FINDINGS: Lung Bases/Inferior Mediastinum: Mild atelectasis at the lung bases. Liver: Subcentimeter hypodense lesion in the dome of the right hepatic lobe on series 2 image 10 is too small to accurately characterize. Liver is otherwise unremarkable. Gallbladder: Unremarkable Spleen: Unremarkable Adrenals: Unremarkable Pancreas: Unremarkable Kidneys: Subcentimeter hypodense renal cortical lesions are too small to accurately characterize. Cortical scarring along the posterior cortex of the mid left kidney. Stomach/Bowel: The stomach and duodenum appear unremarkable. Small and large bowel loops are normal in caliber. Lymph nodes: Unremarkable Vasculature: No abdominal aortic aneurysm. Mild atherosclerotic vascular disease. Pelvis: Urinary bladder is unremarkable. Uterus is unremarkable. 2 cm hypodense lesion in the right ovary favors a cyst. Left ovary is unremarkable. No free pelvic fluid. Soft Tissues: Posterior paraspinal muscle atrophy. Soft tissues of the body wall are otherwise unremarkable. Bones: Mild to moderate degenerative changes of the spine.Lumbar IMPRESSION: 1. No acute findings in the abdomen or pelvis. 2. Subcentimeter hypodense lesions within the liver and kidneys are too small to accurately characterize. 3. 2 cm presumed cyst in the right ovary. Follow-up pelvic ultrasound is recommended in 6 to 12 weeks to ensure resolution. ACT 112: Positive. There are findings on this exam that require communication between the performing entity and the patient following Patient Test Result Information Act ([place] ACT 112) guidelines. Electronically signed by Daniel Chakraborty 01-17-2025 6:59 PM
--- NOTE | 2025-01-17 19:05 | CT Scan Report ---
HISTORY: Urinary symptoms and back pain. TECHNIQUE: CT imaging of the lumbar spine without IV contrast. Images are presented in axial, sagittal, coronal reformats. COMPARISON: CT of the abdomen pelvis from the same day. FINDINGS: Lumbar dextroscoliosis. No significant listhesis.Vertebral body heights are preserved without compression deformity.No acute fractures identified. Mild to moderate multilevel degenerative disc disease. Multilevel facet arthrosis is severe in the lower lumbar spine. Severe central canal stenosis suspected at L4-5 and L5-S1. There is multilevel central canal and neuroforaminal stenosis. No prevertebral edema or hematoma.Preparaspinal soft tissues are unremarkable.Included lungs are clear. IMPRESSION: * No evidence of acute lumbar spine fracture. * Multilevel degenerative spondylosis of the lumbar spine. Severe central canal stenosis is suspected at L4-5 and L5-S1. This can be further evaluated with a lumbar spine MRI if clinically warranted. ACT 112: Positive. There are findings on this exam that require communication between the performing entity and the patient following Patient Test Result Information Act ([place] ACT 112) guidelines. Electronically signed by Daniel Chakraborty 01-17-2025 7:04 PM
--- NOTE | 2025-01-17 19:48 | XRay Report ---
EXAM: Portable AP chest radiograph TECHNIQUE: AP portable radiograph of the chest was obtained. INDICATION: Shortness of breath Comparison: None FINDINGS: LINES and TUBES: None CARDIOVASCULAR: Cardiac silhouette is mildly enlarged in size. LUNGS/PLEURA: No focal consolidation identified. Bibasilar atelectasis. Mild pulmonary vascular congestion and chronic interstitial lung changes. No significant pleural fluid. No discernible pneumothorax. There is mild elevation of the right hemidiaphragm. OSSEOUS/OTHER: No displaced acute osseous process identified. IMPRESSION: Mild congestive changes of the cardiovascular system. Bibasilar atelectasis. Mild elevation of the right hemidiaphragm. Electronically signed by Timmy Godfrey 01-17-2025 7:47 PM
--- NOTE | 2025-01-17 19:53 | History & Physical Report ---
Date of Service January 17, 2025 Assessment & Plan (1) Acute hypoxemic respiratory failure: Plan: Assessment and plan below following discussion of case with ED provider and reviewing patient history/pertinent normal/abnormal diagnostic test results. Transient hypoxemia Underlying COPD on outpatient PFTs/pulmonary hypertension as per records Possible CHF given mild pulmonary congestion on CXR Rule out PE Complicated UTI, no sepsis for now HTN urgency secondary to illness valvular heart disease (moderate TR, mild MR, TTE 2022) Hyperglycemia likely prediabetes, hemoglobin A1c of 5.7 from 2019 Incidental finding of right ovarian cyst on imaging Admit to PCU Supplemental O2 Baseline VBG Lasix 1 dose now TTE re: possible CHF (Cardiology consult if TTE shows abnormality, patient known to [facility] group) CT chest PE study Urine CS, cefepime Facilitate Cardura Initiate lisinopril if with persistent BP elevation Update hemoglobin A1c Outpatient pelvic ultrasound after 6 weeks to follow-up on ovarian cyst DVT prophylaxis. Lovenox subcu Full code Patient requesting for daughter to be given updates regarding care. Loren Sandy Coyle, contact #[phone]. Total critical care time was 40 minutes. Text document was generated using [employer] voice recognition software. It may contain grammatical or spelling errors. Kindly contact undersigned for clarification of any documentation item in question. History of Present Illness Chief Complaint: Dysuria symptoms Primary Care Provider: Dr. Velazco History obtained from patient and records. Medical history significant for HTN, valvular heart disease (moderate TR, mild MR, TTE 2022), COPD as per records, pulmonary hypertension, irritable bowel syndrome as per records, anxiety/mood disorder Last confinement 2023 for atypical chest pain attributed to GI causes. Patient experienced dysuria symptoms for about a week associated with low back pain. Denies hematuria, Some SOB usually on exertion. Not sure about weight gain. Denies chest pain. Denies headache symptoms. SBP 190s upon arrival at the ER. Lowest O2 sats of 80s documented at the ER. IV cefepime administered at the ER. MEDICAL HISTORY: As above. SURGICAL HISTORY: Appendectomy. Hysterectomy. Eye surgery FAMILY HISTORY: hypertension. Heart disease, diabetes, stroke PERSONAL SOCIAL HISTORY: Nonsmoker. 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 Allergies Allergy/AdvReac Type Severity Reaction Status Date / Time amoxicillin Allergy Severe RASH Verified 09/22/23 20:45 clavulanic acid Allergy Severe RASH Verified 09/22/23 20:45 Nitrate Analogues AdvReac Severe HEAD ACHE Verified 09/22/23 20:45 isosorbide AdvReac Intermediate PAINFUL Verified 09/22/23 20:45 Home Medications Medication Instructions Recorded Confirmed Type calcium 315 mg (as 1 tab PO QAM ##0 08/31/17 01/17/25 History citrate)-vitamin D3 5 mcg (200 unit) tablet (Calcium Citrate + D) vitamins A,C,B-htxc-mndzey 2,148 1 tab PO BID #0 tabs 12/18/17 01/17/25 History mcg-113 mg-45 mg-17.4 mg tablet (PreserVision AREDS) ascorbic acid (vitamin C) 500 mg 0 mg PO QPM 01/31/23 01/17/25 History tablet (Vitamin C) cholecalciferol (vitamin D3) 125 250 mcg PO UD 01/31/23 01/17/25 History mcg (5,000 unit) tablet (Vitamin D3) levothyroxine 25 mcg tablet 25 mcg PO DAILYBB 01/31/23 01/17/25 History zinc acetate 50 mg (zinc) capsule 50 mg PO QPM 01/31/23 01/17/25 History acetaminophen 500 mg tablet 1,000 mg PO BID 01/09/24 01/17/25 History doxazosin 2 mg tablet (Cardura) 2 mg PO HS 01/09/24 01/17/25 History escitalopram oxalate 20 mg tablet 20 mg PO QAM 01/09/24 01/17/25 History Ex-Lax 0 mg PO DIRECTED 01/17/25 01/17/25 History ibuprofen 0 mg PO DIRECTED PRN Pain 01/17/25 01/17/25 History lorazepam 1 mg tablet 1 mg PO UD PRN Other 01/17/25 01/17/25 History quetiapine 25 mg tablet 25 mg PO BID 01/17/25 01/17/25 History sennosides 8.6 mg tablet (senna) 8.6 mg PO BID 01/17/25 01/17/25 History Past Med/Surg History Problem List Acute hypoxemic respiratory failure Acute UTI (Acute) Back pain (Acute) Hypoxia (Acute) Chest pain (Acute) WRIGHT (dyspnea on exertion) Nocturnal hypoxia Hypothyroidism Dysphagia Atypical chest pain Dehydration (Acute) Sinusitis (Acute) Hypertension (Chronic) Irritable bowel syndrome (Chronic) History of appendectomy (Chronic) Medical History Bronchitis Chronic back pain Osteoarthritis Depression Surgical History H/O eye surgery History of cataract surgery 12/27/17. 2mg versed. no issues. History of laparoscopy History of colonoscopy Family History Other Diabetes Heart disease No significant family history Social History Smoking Status: Never smoker Second Hand Exposure: No; Do You Dip or Chew Tobacco: No; Hx Alcohol Use: No Hx Substance Use: No Preferred Language: [place] Communication Ability: Effective Dairy Products Maker Required: No Beliefs That Will Affect Care: None Current Living Situation: Personal Care Facility Current Living Situation Comment: [facility] assisted living Other Information That Helps Us Care for You: No Feels Safe at Home: Yes Safety Concerns: Feels Safe At This Time Assistive Devices: Brace/Splint/Immobilizer and Wheelchair Assistive Devices Comment: motor wheelchair at nursing facility; bilateral knee braces, always on Review of Systems Review of Systems: As per HPI, all other systems reviewed and negative Physical Exam Physical Exam: GENERAL: slightly anxious, pleasant, no respiratory distress SKIN: Normal color, warm HEENT: Hospers palpebral conjunctivae, no ptosis, moist buccal mucosa NECK : Supple, no tenderness CHEST : Decreased breath sounds, no tenderness HEART : RRR, no obvious murmurs ABDOMEN: Some distention, hypogastric tenderness EXTREMITIES : No LE swelling/tenderness, no other conspicuous deformities noted NEUROLOGIC : Coherent, no facial asymmetry, no other gross focality Results & Data Results & Data Vital Signs (Past 12 Hours) Vital Signs Temp Pulse Pulse Resp BP BP Pulse Ox 01/17/25 18:58 98 01/17/25 18:58 62 19 155/89 H 87 L 01/17/25 18:50 60 19 155/89 H 100 01/17/25 18:09 78 01/17/25 16:55 56 L 16 190/89 H 95 01/17/25 15:08 36.4 C L 68 20 178/86 H 93 O2 Del Method O2 Flow Rate 01/17/25 18:58 Nasal Cannula 2 01/17/25 18:58 Room Air 01/17/25 18:50 Nasal Cannula 2 01/17/25 18:09 01/17/25 16:55 Room Air 01/17/25 15:08 Room Air Laboratory Results Laboratory Results WBC 4.49 K/ul (4.8-10.8) L 01/17/25 15:50 RBC 4.01 M/uL (4.20-5.40) L 01/17/25 15:50 Hgb 12.8 g/dl (12.0-16.0) 01/17/25 15:50 Hct 39.3 % (37.0-47.0) 01/17/25 15:50 MCV 98.0 fL (80.0-100.0) 01/17/25 15:50 MCH 31.9 pg (25.0-34.0) 01/17/25 15:50 MCHC 32.6 g/dL (32.0-36.0) 01/17/25 15:50 RDW Std Deviation 46.2 fL (36.4-46.3) 01/17/25 15:50 RDW Coeff of Heriberto 12.9 % (11.5-14.5) 01/17/25 15:50 Plt Count 181 K/uL (130-400) 01/17/25 15:50 MPV 9.6 fL (9.4-12.4) 01/17/25 15:50 Immature Gran % (Auto) 0.2 % 01/17/25 15:50 Neut % (Auto) 55.0 % 01/17/25 15:50 Lymph % (Auto) 32.5 % 01/17/25 15:50 [place] % (Auto) 9.4 % 01/17/25 15:50 Eos % (Auto) 2.2 % 01/17/25 15:50 Baso % (Auto) 0.7 % 01/17/25 15:50 Neut # (Auto) 2.47 K/uL (1.40-6.50) 01/17/25 15:50 Lymph # (Auto) 1.46 K/uL (1.20-3.40) 01/17/25 15:50 [place] # (Auto) 0.42 K/uL (0.11-0.59) 01/17/25 15:50 Eos # (Auto) 0.10 K/uL (0.00-0.50) 01/17/25 15:50 Baso # (Auto) 0.03 K/uL (0.00-0.20) 01/17/25 15:50 Immature Gran # (Auto) 0.01 K/uL (0.01-0.20) 01/17/25 15:50 PT 10.3 Seconds (9.0-12.0) 01/17/25 15:50 INR 0.9 (0.9-1.1) 01/17/25 15:50 APTT 25 Seconds (21-31) 01/17/25 15:50 PTT Ratio 0.9 01/17/25 15:50 Sodium 141 mmol/L (136-145) 01/17/25 15:50 Potassium 3.8 mmol/L (3.5-5.1) 01/17/25 15:50 Chloride 106 mmol/L (98-107) 01/17/25 15:50 Carbon Dioxide 28 mmol/L (21-32) 01/17/25 15:50 Anion Gap 7 (3-11) 01/17/25 15:50 BUN 27 mg/dl (6-23) H 01/17/25 15:50 Creatinine 0.58 mg/dl (0.6-1.2) L 01/17/25 15:50 Est Cr Clr Drug Dosing Not Reportable 01/17/25 15:50 eGFR 89.18 01/17/25 15:50 BUN/Creatinine Ratio 46.6 (10-20) H 01/17/25 15:50 Glucose 125 mg/dl (70-99(Fasting)) H 01/17/25 15:50 Calcium 8.8 mg/dl (8.6-10.3) 01/17/25 15:50 Total Bilirubin 0.5 mg/dl (0.2-1.0) 01/17/25 15:50 AST 31 U/L (13-39) 01/17/25 15:50 ALT 47 U/L (7-52) 01/17/25 15:50 Alkaline Phosphatase 77 U/L (34-104) 01/17/25 15:50 Troponin I High Sens 6.0 pg/ml (0-14) 01/17/25 15:50 Total Protein 6.6 gm/dl (6.0-8.3) 01/17/25 15:50 Albumin 3.8 gm/dl (3.4-5.0) 01/17/25 15:50 Globulin 2.8 gm/dl (2.5-4.0) 01/17/25 15:50 Albumin/Globulin Ratio 1.4 (0.9-2) 01/17/25 15:50 Urine Color Yellow 01/17/25 15:56 Urine Appearance Clear (Clear) 01/17/25 15:56 Urine pH 6.5 (4.5-7.5) 01/17/25 15:56 Ur Specific [place] 1.014 (1.000-1.030) 01/17/25 15:56 Urine Protein Negative (Negative) 01/17/25 15:56 Urine Glucose (UA) Negative (Negative) 01/17/25 15:56 Urine Ketones Negative (Negative) 01/17/25 15:56 Urine Blood Negative (Negative) 01/17/25 15:56 Urine Nitrite Negative (Negative) 01/17/25 15:56 Urine Bilirubin Negative (Negative) 01/17/25 15:56 Urine Urobilinogen Negative (Negative) 01/17/25 15:56 Ur Leukocyte Esterase 2+ (Negative) H 01/17/25 15:56 Urine WBC (Auto) 21-50 /hpf (0-5) H 01/17/25 15:56 Urine RBC (Auto) 0-2 /hpf (0-2) 01/17/25 15:56 U Hyaline Cast (Auto) 0-2 /lpf (0-2) 01/17/25 15:56 U Epithel Cells (Auto) 0-2 /hpf (0-2) 01/17/25 15:56 Urine Bacteria (Auto) None Seen (None Seen) 01/17/25 15:56 Urine Comment 01/17/25 15:56 Impressions Abdomen/Pelvis CT 01/17/25 16:42 HISTORY: Urinary symptoms and back pain TECHNIQUE: Helical CT imaging of the abdomen and pelvis was performed without IV contrast. Images are presented in axial, sagittal, and coronal reformats. COMPARISON: None. FINDINGS: Lung Bases/Inferior Mediastinum: Mild atelectasis at the lung bases. Liver: Subcentimeter hypodense lesion in the dome of the right hepatic lobe on series 2 image 10 is too small to accurately characterize. Liver is otherwise unremarkable. Gallbladder: Unremarkable Spleen: Unremarkable Adrenals: Unremarkable Pancreas: Unremarkable Kidneys: Subcentimeter hypodense renal cortical lesions are too small to accurately characterize. Cortical scarring along the posterior cortex of the mid left kidney. Stomach/Bowel: The stomach and duodenum appear unremarkable. Small and large bowel loops are normal in caliber. Lymph nodes: Unremarkable Vasculature: No abdominal aortic aneurysm. Mild atherosclerotic vascular disease. Pelvis: Urinary bladder is unremarkable. Uterus is unremarkable. 2 cm hypodense lesion in the right ovary favors a cyst. Left ovary is unremarkable. No free pelvic fluid. Soft Tissues: Posterior paraspinal muscle atrophy. Soft tissues of the body wall are otherwise unremarkable. Bones: Mild to moderate degenerative changes of the spine.Lumbar IMPRESSION: 1. No acute findings in the abdomen or pelvis. 2. Subcentimeter hypodense lesions within the liver and kidneys are too small to accurately characterize. 3. 2 cm presumed cyst in the right ovary. Follow-up pelvic ultrasound is recommended in 6 to 12 weeks to ensure resolution. ACT 112: Positive. There are findings on this exam that require communication between the performing entity and the patient following Patient Test Result Information Act ([place] ACT 112) guidelines. Electronically signed by Daniel Chakraborty 01-17-2025 6:[address] 01/17/25 16:42 HISTORY: Urinary symptoms and back pain. TECHNIQUE: CT imaging of the lumbar spine without IV contrast. Images are presented in axial, sagittal, coronal reformats. COMPARISON: CT of the abdomen pelvis from the same day. FINDINGS: Lumbar dextroscoliosis. No significant listhesis.Vertebral body heights are preserved without compression deformity.No acute fractures identified. Mild to moderate multilevel degenerative disc disease. Multilevel facet arthrosis is severe in the lower lumbar spine. Severe central canal stenosis suspected at L4-5 and L5-S1. There is multilevel central canal and neuroforaminal stenosis. No prevertebral edema or hematoma.Preparaspinal soft tissues are unremarkable.Included lungs are clear. IMPRESSION: * No evidence of acute lumbar spine fracture. * Multilevel degenerative spondylosis of the lumbar spine. Severe central canal stenosis is suspected at L4-5 and L5-S1. This can be further evaluated with a lumbar spine MRI if clinically warranted. ACT 112: Positive. There are findings on this exam that require communication between the performing entity and the patient following Patient Test Result Information Act ([place] ACT 112) guidelines. Electronically signed by Daniel Chakraborty 01-17-2025 7:04 PM Chest X-Ray 01/17/25 19:12 EXAM: Portable AP chest radiograph TECHNIQUE: AP portable radiograph of the chest was obtained. INDICATION: Shortness of breath Comparison: None FINDINGS: LINES and TUBES: None CARDIOVASCULAR: Cardiac silhouette is mildly enlarged in size. LUNGS/PLEURA: No focal consolidation identified. Bibasilar atelectasis. Mild pulmonary vascular congestion and chronic interstitial lung changes. No significant pleural fluid. No discernible pneumothorax. There is mild elevation of the right hemidiaphragm. OSSEOUS/OTHER: No displaced acute osseous process identified. IMPRESSION: Mild congestive changes of the cardiovascular system. Bibasilar atelectasis. Mild elevation of the right hemidiaphragm. Electronically signed by Timmy Godfrey 01-17-2025 7:47 PM Diagnostic Findings EKG as per my interpretation :Rate 85, NSR, LAD, LAFB, LVH, multiple artifacts
[2025-01-17] MEDS: MoRPHine SULFATE 2 MG/ML CARP IV STA (19:57)
[2025-01-17 20:10] LABS: Base Excess VBG 4.2 mEq/L; HCO3 VBG 28 mmol/L; Oxygen Saturation VBG < 60.0 %; PCO2 VBG 40 mmHg (38-50); PO2 VBG 26 mmHg; pH VBG 7.46 (7.36-7.41)
[2025-01-17] MEDS: FUROSEMIDE INJ 20 MG/2 ML VIAL IV ONE (20:13)
[2025-01-17] MEDS: CEFEPIME 2000MG 2,000 MG/20 ML SYR IV STA (20:16)
[2025-01-17] MEDS ORDERED: PROMETHAZINE 6.25 MG/50.25 ML BAG IV PRN (21:06)
[2025-01-17] MEDS ORDERED: ACETAMINOPHEN 325 MG TAB PO PRN (21:06)
[2025-01-17] MEDS: ACETAMINOPHEN 500 MG TAB PO SCH (22:26)
[2025-01-17] MEDS: LORazepam 1 MG TAB PO PRN (22:26)
[2025-01-17] MEDS: DOXAZosin MESYLATE TAB 2 MG TAB PO SCH (22:27)
[2025-01-17] MEDS: OPTIRAY 320 125ml IV ONE (23:10)
--- NOTE | 2025-01-18 02:06 | CT Scan Report ---
Exam(s): CTA CHEST IV Amt: 116 cc opti 320 EXAM: CT Angiography Chest With Intravenous Contrast CLINICAL HISTORY: low o2. TECHNIQUE: Axial computed tomographic angiography images of the chest with intravenous contrast. CTDI is 22.77 mGy and DLP is 648.71 mGy-cm. Automated exposure control was utilized for the study. A dose lowering technique was utilized adhering to the principles of ALARA. 3D and MIP reconstructed images were created and reviewed. COMPARISON: CXR 01-17-2025. FINDINGS: Study is limited by patient motion. Pulmonary arteries: No pulmonary embolism. Aorta: No thoracic aortic aneurysm or dissection. Atherosclerotic vascular calcifications. Lungs: Mild peribronchial thickening greatest in the right lower lobe. Right lower lobe platelike atelectasis. Minimal left basilar atelectasis. No definite lobar pneumonia. Punctate peripheral left upper lobe calcification/granuloma. Pleural space: No pleural effusion. No pneumothorax. Heart: No cardiomegaly. No pericardial effusion. No evidence of RV dysfunction. Bones/joints: No acute fracture. Multiple likely chronic upper and mid thoracic vertebral body compression deformities. Bones are diffusely osteopenic. Marked deformity of the sternum with up to 1.1 cm anterior displacement of the inferior aspect of the sternum. Degenerative changes of the spine. Soft tissues: Unremarkable. Lymph nodes: Unremarkable. No enlarged lymph nodes. IMPRESSION: No pulmonary embolism. Mild peribronchial thickening suggesting inflammation/bronchitis. Right lower lobe platelike atelectasis. Bilateral dependent atelectasis. Old sternal fracture. Likely old thoracic spine vertebral body compression deformities. Electronically signed by: Jaydon Mark M.D. 01/18/25 02:05 AM
[2025-01-18] MEDS: CEFEPIME 2000MG 2,000 MG/20 ML SYR IV SCH (04:28)
[2025-01-18] MEDS: LEVOTHYROXINE SODIUM 25 MCG TABLET PO SCH (05:24)
[2025-01-18 07:44] LABS: Hematocrit (blood only) 40.2 % (37.0-47.0); Hemoglobin 13.4 g/dl (12.0-16.0); Immature Granulocytes # (auto) 0.02 K/uL (0.01-0.20); Immature Granulocytes % (auto) 0.3 %; Mean Corpuscular Hemoglobin 31.7 pg (25.0-34.0); Mean Corpuscular Volume 95.0 fL (80.0-100.0); Platelet Count 183 K/uL (130-400); RDW Standard Deviation 44.2 fL (36.4-46.3); Red Blood Count 4.23 M/uL (4.20-5.40); White Blood Count 5.81 K/ul (4.8-10.8)
[2025-01-18 08:06] LABS: Hemoglobin A1C 5.7 % (4.5-5.6)
[2025-01-18 08:33] LABS: Anion Gap 10.0 (3-11); Blood Urea Nitrogen 29.0 mg/dl (6-23); Calcium 8.6 mg/dl (8.6-10.3); Carbon Dioxide 28.0 mmol/L (21-32); Chloride 101.0 mmol/L (98-107); Creatinine Clr Calc Pharmacy 54.6 ml/min; Glucose 144.0 mg/dl (70-99(Fasting)); Potassium 4.0 mmol/L (3.5-5.1); Sodium 139.0 mmol/L (136-145)
[2025-01-18] MEDS: ENOXAPARIN INJ 40 MG/0.4 ML SYR SQ SCH (08:52)
[2025-01-18] MEDS: CEROVITE ADV FORMULA TAB PO SCH (08:53)
[2025-01-18] MEDS: CALCIUM 600MG + VIT D 400 IU TAB PO SCH (08:53)
[2025-01-18] MEDS: ESCITALOPRAM OXALATE 20 MG TAB PO SCH (08:53)
[2025-01-18] MEDS: SENNA 8.6 MG TAB PO SCH (09:04)
--- NOTE | 2025-01-18 13:28 | Electrocardiogram Report ---
Test Reason : Blood Pressure : */* mmHG Vent. Rate : 85 BPM Atrial Rate : * BPM P-R Int : * ms QRS Dur : 74 ms QT Int : 374 ms P-R-T Axes : * -21 82 degrees QTcB Int : 445 ms Poor data quality, interpretation may be adversely affected Sinus rhythm Left ventricular hypertrophy with repolarization abnormality ( R in aVL ) Abnormal ECG When compared with ECG of 12-Oct-2023 13:35, Probable No significant change Confirmed by Gabriel Blandon ([id number]) on 01/18/2025 1:28:03 PM Referred By: REFERRED SELF Confirmed By: Gabriel Blandon
--- NOTE | 2025-01-18 14:56 | Hospitalist Progress Note ---
Date of Service January 18, 2025 Assessment & Plan (1) Acute hypoxemic respiratory failure: Plan: 84 yo female with pmhx HTN, valvular heart disease (moderate TR, mild MR, TTE 2022), COPD as per records, pulmonary hypertension, irritable bowel syndrome as per records, anxiety/mood disorder who presented for hypoxemia that is now resolved. #Severe COPD #Pulmonary Hyptension #Acute Hypoxic Respiratory Failure, resolved #Bronchiolitis -start duonebs prn, incentive spirometer ordered -f/u echo results -monitor oxygenation #Complicated UTI -as evidenced by positive UA with symptoms and elderly -only one prior culture grew Strep Plan: -stop cefepime, start ceftriaxone -f/u urine culture #Severe Spinal Stenosis -with lower back pain shooting to knees bilaterally -no saddle paresthesias, still able to move legs, no urinary incontinence Plan: -start decadron 6mg daily -ortho consult, appreciate recs -PT/OT ordered -voltaren cream for lower back #HTN -monitor #Valvular heart disease (moderate TR, mild MR, TTE 2022) #Hyperglycemia likely prediabetes, hemoglobin A1c of 5.7 from 2019 -Incidental finding of right ovarian cyst on imaging I spent a total of 45 minutes in direct patient care, including [id number] time with the patient and/or family, reviewing medical records, ordering and reviewing diagnostic tests, and coordinating care with other healthcare providers. This time includes: history taking, physical examination, medical decision making, counseling, ECG interpretation, imaging interpretation, lab interpretation, orders, and education, excluding time spent in the performance of separately billed services. Admission and Anticipated Discharge Date Admission Date: January 17, 2025 Subjective Patient seen and examined at bedside. Patient doing ok today. States she is having significant pain in her back. Otherwise feels fine, SOB improved. Review of Systems Review of Systems: CONSTITUTIONAL: Patient denies fevers, chills, sweats and weight changes. EYES: Patient denies any visual symptoms. EARS, NOSE, AND THROAT: No difficulties with hearing. No symptoms of rhinitis or sore throat. CARDIOVASCULAR: Patient denies chest pains, palpitations, orthopnea and paroxysmal nocturnal dyspnea. RESPIRATORY: No dyspnea on exertion, no wheezing or cough. GI: No nausea, vomiting, diarrhea, constipation, abdominal pain, hematochezia or melena. : No urinary hesitancy or dribbling. No nocturia or urinary frequency. No abnormal urethral discharge. MUSCULOSKELETAL: back pain NEUROLOGIC: No chronic headaches, no seizures. Patient denies numbness, tingling or weakness. PSYCHIATRIC: Patient denies problems with mood disturbance. No problems with anxiety. ENDOCRINE: No excessive urination or excessive thirst. DERMATOLOGIC: Patient denies any rashes or skin changes. Physical Exam Physical Exam: Gen: A&O 3 NAD HEENT: NCAT, EOMI, not icteric. External ears normal. No rhinorrhea. Moist mucous membranes. Neck: Supple, full range of motion, no observable masses, No meningeal sign. Lungs: No Respiratory distress. CV: RRR, no edema. Abdomen: suprapubic tenderness to palpation MSK: tenderness in lower back radiating to knees bilaterally Skin: No rashes, petechiae, lesions. Normal color per patient. Neuro: Normal Gait, Grossly intact. Psych: Appropriate for situation. Results & Data Results & Data Vital Signs (Past 12 Hours) Vital Signs Temp Pulse Pulse Resp BP Pulse Ox O2 Del Method 01/18/25 11:04 36.4 C L 65 21 156/78 H 97 Room Air 01/18/25 07:55 36.4 C L 73 20 133/71 94 Room Air 01/18/25 07:00 Room Air 01/18/25 05:36 55 L Laboratory Results -personally reviewed, UA and lower abdominal tenderness consistent with UTI Medications Administered Acetaminophen (Acetaminophen 500 Mg Tab) 1,000 mg PO BID [facility] Stop: 02/16/25 21:14 Last Admin: 01/18/25 08:52 Dose: 1,000 mg Documented By: Admin: 01/17/25 22:26 Dose: 1,000 mg Documented By: FABIAN Calcium/Vitamin D (Calcium 600mg + Vit D 400 Iu Tab) [facility] [place] [place]: 02/17/25 08:59 Last Admin: 01/18/25 08:53 Dose: 1 tab Documented By: LOUIS Doxazosin Mesylate (Doxazosin Mesylate Tab 2 Mg Tab) 2 mg PO HS [facility] Stop: 02/16/25 21:04 Last Admin: 01/17/25 22:27 Dose: 2 mg Documented By: FABIAN Enoxaparin Sodium (Enoxaparin Inj 40 Mg/0.4 Ml Syr) 40 mg SQ QAM [facility] Stop: 02/17/25 08:59 Last Admin: 01/18/25 08:52 Dose: 40 mg Documented By: LOUIS Escitalopram Oxalate (Escitalopram Oxalate 20 Mg Tab) 20 mg PO QAM [facility] Stop: 02/17/25 08:59 Last Admin: 01/18/25 08:53 Dose: 20 mg Documented By: LOUIS Levothyroxine Sodium (Levothyroxine Sodium 25 Mcg Tablet) 25 mcg PO DAILYBB [facility] Stop: 02/17/25 06:29 Last Admin: 01/18/25 05:24 Dose: 25 mcg Documented By: FABIAN Lorazepam (Lorazepam 1 Mg Tab) 1 mg PO DAILY PRN PRN Reason: Anxiety Stop: 02/16/25 21:35 Last Admin: 01/17/25 22:26 Dose: 1 mg Documented By: FABIAN Multivitamins/Minerals (Cerovite Adv Formula Tab) 1 tab PO BID [facility] Stop: 02/17/25 08:59 Last Admin: 01/18/25 08:53 Dose: 1 tab Documented By: LOUIS Quetiapine Fumarate (Quetiapine Fumarate 25 Mg Tablet) 25 mg PO BID [facility] Stop: 02/17/25 08:59 Last Admin: 01/18/25 08:53 Dose: 25 mg Documented By: OLUIS Sennosides (Senna 8.6 Mg Tab) 8.6 mg PO BID [facility] Stop: 02/17/25 08:59 Last Admin: 01/18/25 09:04 Dose: Not Given Documented By: LOUIS
[2025-01-18] MEDS ORDERED: ONDANSETRON INJ 2 MG/ML 2 ML VIAL IV PRN (14:58)
[2025-01-18] MEDS ORDERED: ALBUT/IPRATROP 3MG/0.5MG NEB 3 ML VIAL NEB PRN (15:00)
[2025-01-18] MEDS ORDERED: CEFEPIME 2000MG 2,000 MG/20 ML SYR IV SCH (16:00)
[2025-01-18] MEDS: dexAMETHasone 6 MG in SYRINGE 0 ML IV SCH (16:41)
[2025-01-18] MEDS: cefTRIAXone SODIUM 2,000 MG/50 ML BAG IV SCH (16:42)
[2025-01-18] MEDS: DICLOFENAC SOD 1% GEL 100 GM TUBE EXT SCH (19:51)
[2025-01-19 07:59] LABS: Hematocrit (blood only) 37.9 % (37.0-47.0); Hemoglobin 12.9 g/dl (12.0-16.0); Mean Corpuscular Hemoglobin 32.0 pg (25.0-34.0); Mean Corpuscular Volume 94.0 fL (80.0-100.0); Platelet Count 176 K/uL (130-400); RDW Standard Deviation 43.7 fL (36.4-46.3); Red Blood Count 4.03 M/uL (4.20-5.40); White Blood Count 6.03 K/ul (4.8-10.8)
[2025-01-19 08:12] LABS: Anion Gap 7.0 (3-11); Blood Urea Nitrogen 22.0 mg/dl (6-23); Calcium 8.8 mg/dl (8.6-10.3); Carbon Dioxide 30.0 mmol/L (21-32); Chloride 102.0 mmol/L (98-107); Creatinine Clr Calc Pharmacy 63.9 ml/min; Glucose 107.0 mg/dl (70-99(Fasting)); Potassium 3.7 mmol/L (3.5-5.1); Sodium 139.0 mmol/L (136-145)
--- NOTE | 2025-01-19 08:32 | Magnetic Resonance Report ---
Technique: Sagittal and axial T1 and T2-weighted magnetic resonance images were obtained of the lumbar spine without gadolinium contrast. Comparison is made to the CT dated 01/17/2025 Findings: Some sequences are limited by motion artifact. There is scoliosis. There is slight grade 1 anterolisthesis at L4-5. There are mild degenerative endplate changes at L1-2 and to a lesser extent at other levels. There are multiple apparent vertebral hemangiomas with characteristic increased T1 and increased T2 signal intensity. No other focal osseous lesion is evident. No fracture is identified. There is no definite sign of infection. There is no sign of acute ligamentous injury. The conus medullaris appears normal, terminating at the level of L1. There are small bilateral ovarian cysts, measuring up to 2 cm At L1-L2, there is mild spinal stenosis due to a disc bulge and a right paracentral disc herniation. There is no visible compression of the traversing nerve roots. There is left greater than right neural foramen narrowing that may affect the left L1 nerve root At L2-L3, there is mild spinal stenosis due to a disc bulge and a mild central disc protrusion. There is no compression of the traversing nerve roots. There is right greater than left neural foramen narrowing that may affect the right L2 nerve root At L3-L4, there is mild spinal stenosis due to a disc bulge and facet osteoarthritis. There is no compression of the traversing nerve roots. There is left greater than right neural foramen narrowing that may affect the left L3 nerve root At L4-L5, there is severe spinal stenosis due to a disc bulge and facet osteoarthritis with ligamentum flavum hypertrophy. There is bilateral neural foramen narrowing that may affect the exiting L4 nerve roots At L5-S1, there is a disc bulge without spinal stenosis. There is facet osteoarthritis. There is mild bilateral neural foramen narrowing Impression: 1. Scoliosis 2. Mild anterolisthesis at L4-5 3. Severe spinal stenosis at L4-5 with compression of the traversing nerve roots 4. Mild spinal stenosis from L1-2 through L3-4, without compression of the traversing nerve roots 5. Left L1-2, right L2-3, left L3-4, and bilateral L4-5 neural foramen narrowing. This may affect the exiting nerve roots 6. Small bilateral ovarian cysts, likely benign but indeterminate in nature in this postmenopausal patient. A pelvic ultrasound could be obtained for further evaluation ACT 112: Positive. There are findings on this exam that require communication between the performing entity and the patient following Patient Test Result Information Act ([place] ACT 112) guidelines. Electronically signed by Tomas Alvarez 01-19-2025 08:32 AM
--- NOTE | 2025-01-19 08:50 | Consultation ---
Date of Consultation January 19, 2025 Assessment & Plan (1) Back pain: Alta is a pleasant 84-year-old female who presented with a UTI and acute respiratory distress. She has been declining over the past several weeks at home secondary to her lumbar issues. She does have severe central canal stenosi s at the L4-5 level. This is consistent with her symptoms. We have discussed both nonsurgical options and the for pain management versus surgical intervention which would require lumbar decompression and fusion at L4-5. She is going to discuss her options with her family. Ultimately she is not medically optimized for surgery right now. If she decides to pursue surgery I feel the best plan will be for her to be medically optimized then discharge and we can follow her up in the office with her family to review surgical options. She is comfortable with this plan History of Present Illness Reason for Consultation: Spinal stenosis Attending Physician: Tyler Awad MD History of Present Illness Is a very pleasant 84-year-old female who presented to the ER on January 17, 2025 with complaints of dysuria, back pain and shortness of breath. She was subsequently admitted found to be in acute respiratory distress and had a urinary tract infection. Regarding her back she states she has been struggling over the past several weeks. She has back pain that radiates into bilateral lower extremities. Standing and seated position are most uncomfortable for her. She and her has Parkinson's just recently moved into the [facility] for further assistance. She denies bowel or bladder dysfunction. Denies perineum numbness. Typically ambulates around her home in a motorized wheelchair. Has had no recent physical therapy or pain management. Allergies Allergy/AdvReac Type Severity Reaction Status Date / Time amoxicillin Allergy Severe RASH Verified 09/22/23 20:45 clavulanic acid Allergy Severe RASH Verified 09/22/23 20:45 Nitrate Analogues AdvReac Severe HEAD ACHE Verified 09/22/23 20:45 isosorbide AdvReac Intermediate PAINFUL Verified 09/22/23 20:45 Home Medications Medication Instructions Recorded Confirmed Type calcium 315 mg (as 1 tab PO QAM ##0 08/31/17 01/17/25 History citrate)-vitamin D3 5 mcg (200 unit) tablet (Calcium Citrate + D) vitamins A,C,I-ahvs-[id number] 2,148 1 tab PO BID #0 tabs 12/18/17 01/17/25 History mcg-113 mg-45 mg-17.4 mg tablet (PreserVision AREDS) ascorbic acid (vitamin C) 500 mg 0 mg PO QPM 01/31/23 01/17/25 History tablet (Vitamin C) cholecalciferol (vitamin D3) 125 250 mcg PO UD 01/31/23 01/17/25 History mcg (5,000 unit) tablet (Vitamin D3) levothyroxine 25 mcg tablet 25 mcg PO DAILYBB 01/31/23 01/17/25 History zinc acetate 50 mg (zinc) capsule 50 mg PO QPM 01/31/23 01/17/25 History acetaminophen 500 mg tablet 1,000 mg PO BID 01/09/24 01/17/25 History doxazosin 2 mg tablet (Cardura) 2 mg PO HS 01/09/24 01/17/25 History escitalopram oxalate 20 mg tablet 20 mg PO QAM 01/09/24 01/17/25 History Ex-Lax 0 mg PO DIRECTED 01/17/25 01/17/25 History ibuprofen 0 mg PO DIRECTED PRN Pain 01/17/25 01/17/25 History lorazepam 1 mg tablet 1 mg PO UD PRN Other 01/17/25 01/17/25 History quetiapine 25 mg tablet 25 mg PO BID 01/17/25 01/17/25 History sennosides 8.6 mg tablet (senna) 8.6 mg PO BID 01/17/25 01/17/25 History Patient History Medical History Bronchitis Chronic back pain Osteoarthritis Depression Surgical History H/O eye surgery History of cataract surgery 12/27/17. 2mg versed. no issues. History of laparoscopy History of colonoscopy Family History Other Diabetes Heart disease No significant family history Social History Smoking Status: Never smoker Second Hand Exposure: No; Do You Dip or Chew Tobacco: No; Hx Alcohol Use: No Hx Substance Use: No Preferred Language: Chinese Communication Ability: Effective Diffusion Operator Required: No Beliefs That Will Affect Care: None Current Living Situation: Personal Care Facility Current Living Situation Comment: [facility] Other Information That Helps Us Care for You: No Feels Safe at Home: Yes Safety Concerns: Feels Safe At This Time Assistive Devices: Scooter/Electric Scooter Assistive Devices Comment: motor wheelchair at nursing facility; bilateral knee braces, always on Review of Systems Review of Systems: All systems reviewed & are unremarkable except as noted in HPI & below Physical Exam Physical Exam: She is laying in bed in no acute distress. Alert and oriented x 3 Cooperative with exam She has a neoprene sleeve knee braces bilaterally 5/5 strength bilateral EHL, dorsiflexion , plantarflexion, quadriceps, hamstrings, hip flexors Negative logrolling bilateral lower extremities No evidence of ankle clonus bilaterally Results & Data Vital Signs (Past 12 Hours) Vital Signs Temp Pulse Pulse Resp BP Pulse Ox O2 Del Method 01/18/25 23:04 36.4 C L 61 16 125/74 93 Room Air 01/18/25 22:33 Room Air 01/18/25 22:15 65 Diagnostic Findings [place], [place] [phone] Magnetic Resonance Report Patient: ALTA MCCARTHY Admit Date: 01/17/25 MR#: [id number] Address1: [address] Acct ID:[id number] Address2: Date: [address] Zip: [place] [address] Age: 84 Location: Sex: F Room/Bed: [facility] Att Phy: Tyler Awad MD Diagnosis: RESP FAILURE, POSS CHF Anne Marie Phy: Selam Simmons MD Service Date: 01/18/25 Fam Phy: Interpreting Phy: Tomas Snowden Phy: Eduar Rubin MD Ordering Phy: Tyler Awad MD cc: ~ Technique: Sagittal and axial T1 and T2-weighted magnetic resonance images were obtained of the lumbar spine without gadolinium contrast. Comparison is made to the CT dated 01/17/2025 Findings: Some sequences are limited by motion artifact. There is scoliosis. There is slight grade 1 anterolisthesis at L4-5. There are mild degenerative endplate changes at L1-2 and to a lesser extent at other levels. There are multiple apparent vertebral hemangiomas with characteristic increased T1 and increased T2 signal intensity. No other focal osseous lesion is evident. No fracture is identified. There is no definite sign of infection. There is no sign of acute ligamentous injury. The conus medullaris appears normal, terminating at the level of L1. There are small bilateral ovarian cysts, measuring up to 2 cm At L1-L2, there is mild spinal stenosis due to a disc bulge and a right paracentral disc herniation. There is no visible compression of the traversing nerve roots. There is left greater than right neural foramen narrowing that may affect the left L1 nerve root At L2-L3, there is mild spinal stenosis due to a disc bulge and a mild central disc protrusion. There is no compression of the traversing nerve roots. There is right greater than left neural foramen narrowing that may affect the right L2 nerve root At L3-L4, there is mild spinal stenosis due to a disc bulge and facet osteoarthritis. There is no compression of the traversing nerve roots. There is left greater than right neural foramen narrowing that may affect the left L3 nerve root At L4-L5, there is severe spinal stenosis due to a disc bulge and facet osteoarthritis with ligamentum flavum hypertrophy. There is bilateral neural foramen narrowing that may affect the exiting L4 nerve roots At L5-S1, there is a disc bulge without spinal stenosis. There is facet osteoarthritis. There is mild bilateral neural foramen narrowing Impression: 1. Scoliosis 2. Mild anterolisthesis at L4-5 3. Severe spinal stenosis at L4-5 with compression of the traversing nerve roots 4. Mild spinal stenosis from L1-2 through L3-4, without compression of the traversing nerve roots 5. Left L1-2, right L2-3, left L3-4, and bilateral L4-5 neural foramen narrowing. This may affect the exiting nerve roots 6. Small bilateral ovarian cysts, likely benign but indeterminate in nature in this postmenopausal patient. A pelvic ultrasound could be obtained for further evaluation ACT 112: Positive. There are findings on this exam that require communication between the performing entity and the patient following Patient Test Result Information Act ([place] ACT 112) guidelines. Electronically signed by Tomas Alvarez 01-19-2025 08:32 AM Dictated: 01/18/25 1550 Transcribed: (1) Back pain Back pain laterality: unspecified Back pain location: low back pain Chronicity: acute Sciatica presence: unspecified whether sciatica present Qualified Code(s): M54.50 - Low back pain, unspecified
--- NOTE | 2025-01-19 14:29 | Hospitalist Progress Note ---
Date of Service January 19, 2025 Assessment & Plan (1) Acute hypoxemic respiratory failure: Plan: 84 yo female with pmhx HTN, valvular heart disease (moderate TR, mild MR, TTE 2022), COPD as per records, pulmonary hypertension, irritable bowel syndrome as per records, anxiety/mood disorder who presented for hypoxemia that is now resolved. #Severe COPD #Pulmonary Hyptension #Acute Hypoxic Respiratory Failure, resolved #Bronchiolitis -start duonebs prn, incentive spirometer ordered -f/u echo results -monitor oxygenation #Complicated UTI -as evidenced by positive UA with symptoms and elderly -only one prior culture grew Strep Plan: -continue ceftriaxone -f/u urine culture #Severe Spinal Stenosis -with lower back pain shooting to knees bilaterally -no saddle paresthesias, still able to move legs, no urinary incontinence Plan: -continue decadron 6mg daily -ortho consult, appreciate recs -will consider surgery outpatient once pain control achieved vs. conservative management -PT/OT ordered -voltaren cream for lower back #HTN -monitor #Valvular heart disease (moderate TR, mild MR, TTE 2022) #Hyperglycemia likely prediabetes, hemoglobin A1c of 5.7 from 2019 -Incidental finding of right ovarian cyst on imaging I spent a total of 45 minutes in direct patient care, including [id number] time with the patient and/or family, reviewing medical records, ordering and reviewing diagnostic tests, and coordinating care with other healthcare providers. This time includes: history taking, physical examination, medical decision making, counseling, ECG interpretation, imaging interpretation, lab interpretation, orders, and education, excluding time spent in the performance of separately billed services. Admission and Anticipated Discharge Date Admission Date: January 17, 2025 Subjective Patient seen and examined at bedside. Patient doing well today on phone during conversation. Pain in back is improved. Review of Systems Review of Systems: CONSTITUTIONAL: Patient denies fevers, chills, sweats and weight changes. EYES: Patient denies any visual symptoms. EARS, NOSE, AND THROAT: No difficulties with hearing. No symptoms of rhinitis or sore throat. CARDIOVASCULAR: Patient denies chest pains, palpitations, orthopnea and paroxy smal nocturnal dyspnea. RESPIRATORY: No dyspnea on exertion, no wheezing or cough. GI: No nausea, vomiting, diarrhea, constipation, abdominal pain, hematochezia or melena. : No urinary hesitancy or dribbling. No nocturia or urinary frequency. No abnormal urethral discharge. MUSCULOSKELETAL: back pain, improving NEUROLOGIC: No chronic headaches, no seizures. Patient denies numbness, tingling or weakness. PSYCHIATRIC: Patient denies problems with mood disturbance. No problems with anxiety. ENDOCRINE: No excessive urination or excessive thirst. DERMATOLOGIC: Patient denies any rashes or skin changes. Physical Exam Physical Exam: Gen: A&O 3 NAD HEENT: NCAT, EOMI, not icteric. External ears normal. No rhinorrhea. Moist mucous membranes. Neck: Supple, full range of motion, no observable masses, No meningeal sign. Lungs: No Respiratory distress. CV: RRR, no edema. Abdomen: suprapubic tenderness to palpation MSK: tenderness in lower back radiating to knees bilaterally Skin: No rashes, petechiae, lesions. Normal color per patient. Neuro: Normal Gait, Grossly intact. Psych: Appropriate for situation. Results & Data Results & Data Vital Signs (Past 12 Hours) Vital Signs Temp Pulse Pulse Resp BP Pulse Ox O2 Del Method 01/19/25 10:00 81 01/19/25 10:00 Room Air 01/19/25 09:22 36.4 C L 56 L 17 160/77 H 94 Room Air Laboratory Results -personally reviewed, creatinine at baseline, Hgb at baseline Medications Administered Acetaminophen (Acetaminophen 500 Mg Tab) 1,000 mg PO BID [facility] Stop: 02/16/25 21:14 Last Admin: 01/19/25 09:20 Dose: 1,000 mg Documented By: Admin: 01/18/25 19:55 Dose: 1,000 mg Documented By: Admin: 01/18/25 08:52 Dose: 1,000 mg Documented By: Admin: 01/17/25 22:26 Dose: 1,000 mg Documented By: FABIAN Calcium/Vitamin D (Calcium 600mg + Vit D 400 Iu Tab) 1 tab PO [facility] Stop: 02/17/25 08:59 Last Admin: 01/19/25 09:18 Dose: 1 tab Documented By: Admin: 01/18/25 08:53 Dose: 1 tab Documented By: LOUIS Diclofenac Sodium (Diclofenac Sod 1% Gel 100 Gm Tube) 4 gm EXT Q12 [facility]; Protocol Stop: 02/17/25 20:59 Last Admin: 01/19/25 09:19 Dose: 4 gm Documented By: Admin: 01/18/25 19:51 Dose: Not Given Documented By: FABIAN Doxazosin Mesylate (Doxazosin Mesylate Tab 2 Mg Tab) 2 mg PO HS [facility] Stop: 02/16/25 21:04 Last Admin: 01/18/25 19:55 Dose: 2 mg Documented By: Admin: 01/17/25 22:27 Dose: 2 mg Documented By: FABIAN Enoxaparin Sodium (Enoxaparin Inj 40 Mg/0.4 Ml Syr) 40 mg SQ QA [facility] Stop: 02/17/25 08:59 Last Admin: 01/19/25 09:18 Dose: 40 mg Documented By: Admin: 01/18/25 08:52 Dose: 40 mg Documented By: LOUIS Escitalopram Oxalate (Escitalopram Oxalate 20 Mg Tab) [facility] [place]: 02/17/25 08:59 Last Admin: 01/19/25 09:18 Dose: 20 mg Documented By: Admin: 01/18/25 08:53 Dose: 20 mg Documented By: LOUIS Ceftriaxone Sodium (Rocephin) 2,000 mg in 50 mls @ 100 mls/hr IV Q24H [facility] Stop: 01/23/25 15:14 Last Infusion: 01/18/25 17:34 Dose: Infused Documented By: Admin: 01/18/25 16:42 Dose: 100 mls/hr Documented By: LOUIS Dexamethasone 6 mg/ Syringe 1.5 mls @ 1 mls/min IV Q24H [facility] Stop: 02/17/25 15:59 Last Admin: 01/18/25 16:41 Dose: 1 mls/min Documented By: LOUIS Levothyroxine Sodium (Levothyroxine Sodium 25 Mcg Tablet) 25 mcg PO DAILYBB [facility] Stop: 02/17/25 06:29 Last Admin: 01/19/25 06:18 Dose: 25 mcg Documented By: Admin: 01/18/25 05:24 Dose: 25 mcg Documented By: FABIAN Lorazepam (Lorazepam 1 Mg Tab) 1 mg PO DAILY PRN PRN Reason: Anxiety Stop: 02/16/25 21:35 Last Admin: 01/17/25 22:26 Dose: 1 mg Documented By: FABIAN Multivitamins/Minerals (Cerovite Adv Formula Tab) 1 tab PO BID [facility] Stop: 02/17/25 08:59 Last Admin: 01/19/25 09:19 Dose: 1 tab Documented By: Admin: 01/18/25 19:56 Dose: 1 tab Documented By: Admin: 01/18/25 08:53 Dose: 1 tab Documented By: LOUIS Quetiapine Fumarate (Quetiapine Fumarate 25 Mg Tablet) 25 mg PO BID [facility] Stop: 02/17/25 08:59 Last Admin: 01/19/25 09:19 Dose: 25 mg Documented By: Admin: 01/18/25 19:56 Dose: 25 mg Documented By: Admin: 01/18/25 08:53 Dose: 25 mg Documented By: LOUIS Sennosides (Senna 8.6 Mg Tab) 8.6 mg PO BID ANNE Stop: 02/17/25 08:59 Last Admin: 01/19/25 09:18 Dose: 8.6 mg Documented By: Admin: 01/18/25 19:55 Dose: 8.6 mg Documented By: Admin: 01/18/25 09:04 Dose: Not Given Documented By: LOUIS
[2025-01-20 07:17] LABS: Hematocrit (blood only) 37.8 % (37.0-47.0); Hemoglobin 12.8 g/dl (12.0-16.0); Mean Corpuscular Hemoglobin 32.5 pg (25.0-34.0); Mean Corpuscular Volume 95.9 fL (80.0-100.0); Platelet Count 186 K/uL (130-400); RDW Standard Deviation 44.4 fL (36.4-46.3); Red Blood Count 3.94 M/uL (4.20-5.40); White Blood Count 6.35 K/ul (4.8-10.8)
[2025-01-20 07:42] LABS: Anion Gap 5.0 (3-11); Blood Urea Nitrogen 19.0 mg/dl (6-23); Calcium 8.6 mg/dl (8.6-10.3); Carbon Dioxide 33.0 mmol/L (21-32); Chloride 103.0 mmol/L (98-107); Creatinine Clr Calc Pharmacy 62.8 ml/min; Glucose 99.0 mg/dl (70-99(Fasting)); Potassium 4.0 mmol/L (3.5-5.1); Sodium 141.0 mmol/L (136-145)
--- NOTE | 2025-01-20 14:34 | Hospitalist Progress Note ---
Date of Service January 20, 2025 Assessment & Plan (1) Acute hypoxemic respiratory failure: Plan: 84 yo female with pmhx HTN, valvular heart disease (moderate TR, mild MR, TTE 2022), COPD as per records, pulmonary hypertension, irritable bowel syndrome as per records, anxiety/mood disorder who presented for hypoxemia that is now resolved. #Severe COPD #Pulmonary Hyptension #Acute Hypoxic Respiratory Failure, resolved #Bronchiolitis -continue duonebs prn, incentive spirometer ordered -monitor oxygenation #Complicated UTI -as evidenced by positive UA with symptoms and elderly -only one prior culture grew Strep Plan: -continue ceftriaxone, will do 3 day course total (finish today) #Severe Spinal Stenosis -with lower back pain shooting to knees bilaterally -no saddle paresthesias, still able to move legs, no urinary incontinence Plan: -continue decadron 6mg daily until discharge -ortho consult, appreciate recs -will consider surgery outpatient once pain control achieved vs. conservative management -PT/OT ordered, awaiting SNF -voltaren cream for lower back -medically stable for discharge at this time #HTN -monitor #Valvular heart disease (moderate TR, mild MR, TTE 2022) #Hyperglycemia likely prediabetes, hemoglobin A1c of 5.7 from 2019 -Incidental finding of right ovarian cyst on imaging I spent a total of 40 minutes in direct patient care, including [id number] time with the patient and/or family, reviewing medical records, ordering and reviewing diagnostic tests, and coordinating care with other healthcare providers. This time includes: history taking, physical examination, medical decision making, counseling, ECG interpretation, imaging interpretation, lab interpretation, orders, and education, excluding time spent in the performance of separately billed services. Admission and Anticipated Discharge Date Admission Date: January 17, 2025 Subjective Patient seen and examined at bedside. Patient comfortable today, feeling well overall. Review of Systems Review of Systems: CONSTITUTIONAL: Patient denies fevers, chills, sweats and weight changes. EYES: Patient denies any visual symptoms. EARS, NOSE, AND THROAT: No difficulties with hearing. No symptoms of rhinitis or sore throat. CARDIOVASCULAR: Patient denies chest pains, palpitations, orthopnea and paroxysmal nocturnal dyspnea. RESPIRATORY: No dyspnea on exertion, no wheezing or cough. GI: No nausea, vomiting, diarrhea, constipation, abdominal pain, hematochezia or melena. : No urinary hesitancy or dribbling. No nocturia or urinary frequency. No abnormal urethral discharge. MUSCULOSKELETAL: back pain, improving NEUROLOGIC: No chronic headaches, no seizures. Patient denies numbness, tingling or weakness. PSYCHIATRIC: Patient denies problems with mood disturbance. No problems with anxiety. ENDOCRINE: No excessive urination or excessive thirst. DERMATOLOGIC: Patient denies any rashes or skin changes. Physical Exam Physical Exam: Gen: A&O 3 NAD HEENT: NCAT, EOMI, not icteric. External ears normal. No rhinorrhea. Moist mucous membranes. Neck: Supple, full range of motion, no observable masses, No meningeal sign. Lungs: No Respiratory distress. CV: RRR, no edema. Abdomen: no pain or tenderness MSK: tenderness in lower back radiating to knees bilaterally Skin: No rashes, petechiae, lesions. Normal color per patient. Neuro: Normal Gait, Grossly intact. Psych: Appropriate for situation. Results & Data Results & Data Vital Signs (Past 12 Hours) Vital Signs Temp Pulse Pulse Resp BP Pulse Ox O2 Del Method 01/20/25 08:08 36.3 C L 58 L 18 178/67 H 96 Room Air 01/20/25 08:00 Room Air 01/20/25 07:00 48 L Laboratory Results -personally reviewed, creatinine at baseline, no leukocytosis Medications Administered Acetaminophen (Acetaminophen 500 Mg Tab) 1,000 mg PO BID [facility] Stop: 02/16/25 21:14 Last Admin: 01/20/25 10:00 Dose: 1,000 mg Documented By: Admin: 01/19/25 20:08 Dose: 1,000 mg Documented By: Admin: 01/19/25 09:20 Dose: 1,000 mg Documented By: Admin: 01/18/25 19:55 Dose: 1,000 mg Documented By: Admin: 01/18/25 08:52 Dose: 1,000 mg Documented By: Admin: 01/17/25 22:26 Dose: 1,000 mg Documented By: FABIAN Calcium/Vitamin D (Calcium 600mg + Vit D 400 Iu Tab) 1 tab PO QAM [facility] Stop: 02/17/25 08:59 Last Admin: 01/20/25 10:02 Dose: 1 tab Documented By: Admin: 01/19/25 09:18 Dose: 1 tab Documented By: Admin: 01/18/25 08:53 Dose: 1 tab Documented By: LOUIS Diclofenac Sodium (Diclofenac Sod 1% Gel 100 Gm Tube) 4 gm EXT Q12 [facility]; P rotocol Stop: 02/17/25 20:59 Last Admin: 01/20/25 10:03 Dose: Not Given Documented By: Admin: 01/19/25 20:07 Dose: 4 gm Documented By: Admin: 01/19/25 09:19 Dose: 4 gm Documented By: Admin: 01/18/25 19:51 Dose: Not Given Documented By: FABIAN Doxazosin Mesylate (Doxazosin Mesylate Tab 2 Mg Tab) 2 mg PO HS [facility] Stop: 02/16/25 21:04 Last Admin: 01/19/25 20:08 Dose: 2 mg Documented By: Admin: 01/18/25 19:55 Dose: 2 mg Documented By: Admin: 01/17/25 22:27 Dose: 2 mg Documented By: FABIAN Enoxaparin Sodium (Enoxaparin Inj 40 Mg/0.4 Ml Syr) [facility] [place]: 02/17/25 08:59 Last Admin: 01/20/25 10:01 Dose: 40 mg Documented By: Admin: 01/19/25 09:18 Dose: 40 mg Documented By: Admin: 01/18/25 08:52 Dose: 40 mg Documented By: LOUIS Escitalopram Oxalate (Escitalopram Oxalate 20 Mg Tab) [facility] [place] Stop: 02/17/25 08:59 Last Admin: 01/20/25 10:01 Dose: 20 mg Documented By: Admin: 01/19/25 09:18 Dose: 20 mg Documented By: Admin: 01/18/25 08:53 Dose: 20 mg Documented By: LOUIS Ceftriaxone Sodium (Rocephin) 2,000 mg in 50 mls @ 100 mls/hr IV Q24H [facility] Stop: 01/23/25 15:14 Last Infusion: 01/19/25 16:36 Dose: Infused Documented By: Admin: 01/19/25 16:05 Dose: 100 mls/hr Documented By: Infusion: 01/18/25 17:34 Dose: Infused Documented By: Admin: 01/18/25 16:42 Dose: 100 mls/hr Documented By: LOUIS Dexamethasone 6 mg/ Syringe 1.5 mls @ 1 mls/min IV Q24H [facility] Stop: 02/17/25 15:59 Last Admin: 01/19/25 16:04 Dose: 1 mls/min Documented By: Admin: 01/18/25 16:41 Dose: 1 mls/min Documented By: LOUIS Levothyroxine Sodium (Levothyroxine Sodium 25 Mcg Tablet) 25 mcg PO DAILYBB [facility] Stop: 02/17/25 06:29 Last Admin: 01/20/25 06:34 Dose: 25 mcg Documented By: Admin: 01/19/25 06:18 Dose: 25 mcg Documented By: Admin: 01/18/25 05:24 Dose: 25 mcg Documented By: FABIAN Lorazepam (Lorazepam 1 Mg Tab) 1 mg PO DAILY PRN PRN Reason: Anxiety Stop: 02/16/25 21:35 Last Admin: 01/19/25 20:08 Dose: 1 mg Documented By: Admin: 01/17/25 22:26 Dose: 1 mg Documented By: FABIAN Multivitamins/Minerals (Cerovite Adv Formula Tab) 1 tab PO BID [facility] Stop: 02/17/25 08:59 Last Admin: 01/20/25 10:01 Dose: 1 tab Documented By: Admin: 01/19/25 20:08 Dose: 1 tab Documented By: Admin: 01/19/25 09:19 Dose: 1 tab Documented By: Admin: 01/18/25 19:56 Dose: 1 tab Documented By: Admin: 01/18/25 08:53 Dose: 1 tab Documented By: LOUIS Quetiapine Fumarate (Quetiapine Fumarate 25 Mg Tablet) 25 mg PO BID [facility] Stop: 02/17/25 08:59 Last Admin: 01/20/25 10:02 Dose: 25 mg Documented By: Admin: 01/19/25 21:20 Dose: 25 mg Documented By: Admin: 01/19/25 09:19 Dose: 25 mg Documented By: Admin: 01/18/25 19:56 Dose: 25 mg Documented By: Admin: 01/18/25 08:53 Dose: 25 mg Documented By: LOUIS Sennosides (Senna 8.6 Mg Tab) 8.6 mg PO BID [facility] Stop: 02/17/25 08:59 Last Admin: 01/20/25 10:04 Dose: Not Given Documented By: Admin: 01/19/25 21:20 Dose: 8.6 mg Documented By: Admin: 01/19/25 09:18 Dose: 8.6 mg Documented By: Admin: 01/18/25 19:55 Dose: 8.6 mg Documented By: Admin: 01/18/25 09:04 Dose: Not Given Documented By: LOUIS
[2025-01-20 18:34] VITALS: TEMP 97.7
[2025-01-21 07:14] LABS: Hematocrit (blood only) 37.3 % (37.0-47.0); Hemoglobin 12.6 g/dl (12.0-16.0); Mean Corpuscular Hemoglobin 32.1 pg (25.0-34.0); Mean Corpuscular Volume 95.2 fL (80.0-100.0); Platelet Count 179 K/uL (130-400); RDW Standard Deviation 43.2 fL (36.4-46.3); Red Blood Count 3.92 M/uL (4.20-5.40); White Blood Count 5.96 K/ul (4.8-10.8)
[2025-01-21 07:33] VITALS: BP 174/77; PULSE 47; RESP 20; O2SAT 96
[2025-01-21 07:33] LABS: Anion Gap 5.0 (3-11); Blood Urea Nitrogen 23.0 mg/dl (6-23); Calcium 8.5 mg/dl (8.6-10.3); Carbon Dioxide 32.0 mmol/L (21-32); Chloride 103.0 mmol/L (98-107); Creatinine Clr Calc Pharmacy 59.8 ml/min; Glucose 101.0 mg/dl (70-99(Fasting)); Potassium 4.2 mmol/L (3.5-5.1); Sodium 140.0 mmol/L (136-145)
--- NOTE | 2025-01-21 10:48 | Hospitalist Progress Note ---
Date of Service January 21, 2025 Assessment & Plan (1) Acute hypoxemic respiratory failure: Plan: 84 yo female with H/O HTN, valvular heart disease (moderate TR, mild MR, TTE 2022), COPD as per records, pulmonary hypertension, irritable bowel syndrome as per records, anxiety/mood disorder who presented for hypoxemia that is now resolved. Severe COPD Pulmonary Hypertension Acute Hypoxic Respiratory Failure, resolved Bronchiolitis --Chest CTA:No pulmonary embolism. Mild peribronchial thickening suggesting inflammation/bronchitis. Right lower lobe platelike atelectasis. Bilateral dependent atelectasis. Old sternal fracture. Likely old thoracic spine vertebral body compression deformities. --Hypoxia resolved --Received Rocephin empirically as below --Saturating well on room air --IV Decadron transition to prednisone tapering course ---continue Duonebs PRN, incentive spirometer Complicated UTI -as evidenced by positive UA with symptoms and elderly - Prior culture grew strep -- Urine culture currently not contributory -- Completed 3-day course of IV Rocephin Severe Spinal Stenosis -with lower back pain shooting to knees bilaterally -no saddle paresthesias, still able to move legs, no urinary incontinence Plan: -continue decadron 6mg daily>> transition to prednisone tapering course -ortho consult, appreciate recs --Patient prefers to follow-up as outpatient for further management Continue PT/OT -voltaren cream for lower back Advised to follow-up with spine surgery on discharge HTN Mildly elevated secondary to IV steroids, pain Monitor blood pressure Valvular heart disease (moderate TR, mild MR, TTE 2022) Follow-up as outpatient Prediabetes HbA1c 4.7 Kidney, liver lesions Bilateral ovarian cyst Incidental findings on CT --CT abd:Subcentimeter hypodense lesions within the liver and kidneys are too small to accurately characterize. 2 cm presumed cyst in the right ovary. Follow-up pelvic ultrasound is recommended in 6 to 12 weeks to ensure resolution. Follow-up as outpatient DVT Px: Lovenox SQ CODE STATUS Full code Disposition Personal care facility today Admission and Anticipated Discharge Date Admission Date: January 17, 2025 Subjective Patient is seen and examined at bedside Denies any significant lower back pain today Eager to get discharged Denies any chest pain, dyspnea, nausea, vomiting, abdominal pain No other complaints Review of Systems Review of Systems: All systems reviewed & are unremarkable except as noted in Subjective Physical Exam Physical Exam: Physical Exam: Vitals signs as noted above General Appearance:Thin, frail, elderly, no apparent distress Head: normocephalic, Atraumatic Eyes: normal inspection, EOMI Neck: supple, Trachea midline Respiratory/Chest: Normal breath sounds, CTA, No accessory muscle use Cardiovascular: S1, S2, No murmur Abdomen/GI:Soft, Non tender, Bowel sounds present Back: Lower poultry tender Extremities/Musculoskeletal:normal inspection, no edema Neurologic/Psych:AAO, grossly no focal neurological deficits Skin: normal color, warm Results & Data Results & Data Vital Signs (Past 12 Hours) Vital Signs Temp Pulse Resp BP Pulse Ox O2 Del Method 01/21/25 07:31 36.5 C 47 L 20 174/77 H 96 Room Air Laboratory Results Short CBC 01/21/25 Range/Units 06:49 WBC 5.96 (4.8-10.8) K/ul Hgb 12.6 (12.0-16.0) g/dl Hct 37.3 (37.0-47.0) % Plt Count 179 (130-400) K/uL BMP 01/21/25 06:49 Sodium 140 Potassium 4.2 Chloride 103 Carbon Dioxide 32 BUN 23 Creatinine 0.63 Glucose 101 H Calcium 8.5 L
--- NOTE | 2025-01-21 11:23 | Discharge Summary ---
Date of Service January 21, 2025 Admission HPI Per Admitting Provider History obtained from patient and records. Medical history significant for HTN, valvular heart disease (moderate TR, mild MR, TTE 2022), COPD as per records, pulmonary hypertension, irritable bowel syndrome as per records, anxiety/mood disorder Last confinement 2023 for atypical chest pain attributed to GI causes. Patient experienced dysuria symptoms for about a week associated with low back pain. Denies hematuria, Some SOB usually on exertion. Not sure about weight gain. Denies chest pain. Denies headache symptoms. SBP 190s upon arrival at the ER. Lowest O2 sats of 80s documented at the ER. IV cefepime administered at the ER. MEDICAL HISTORY: As above. SURGICAL HISTORY: Appendectomy. Hysterectomy. Eye surgery FAMILY HISTORY: hypertension. Heart disease, diabetes, stroke PERSONAL SOCIAL HISTORY: Nonsmoker. 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 Admission Exam Per Admitting Provider GENERAL: slightly anxious, pleasant, no respiratory distress SKIN: Normal color, warm HEENT: Remer palpebral conjunctivae, no ptosis, moist buccal mucosa NECK : Supple, no tenderness CHEST : Decreased breath sounds, no tenderness HEART : RRR, no obvious murmurs ABDOMEN: Some distention, hypogastric tenderness EXTREMITIES : No LE swelling/tenderness, no other conspicuous deformities noted NEUROLOGIC : Coherent, no facial asymmetry, no other gross focality Principal Diagnosis COPD Bronchiolitis Acute hypoxic respiratory failure Lumbar spinal stenosis Urinary tract infection Kidney, liver lesions Ovarian cysts Discharge Data Allergies Allergy/AdvReac Type Severity Reaction Status Date / Time amoxicillin Allergy Severe RASH Verified 09/22/23 20:45 clavulanic acid Allergy Severe RASH Verified 09/22/23 20:45 Nitrate Analogues AdvReac Severe HEAD ACHE Verified 09/22/23 20:45 isosorbide AdvReac Intermediate PAINFUL Verified 09/22/23 20:45 Consultations 01/17/25 19:36 ED Decision to Admit Stat 01/18/25 15:07 Consult Orthopedic Spine Surgery Routine Procedures Performed Laboratory Results WBC 5.96 K/ul (4.8-10.8) 01/21/25 06:49 RBC 3.92 M/uL (4.20-5.40) L 01/21/25 06:49 Hgb 12.6 g/dl (12.0-16.0) 01/21/25 06:49 Hct 37.3 % (37.0-47.0) 01/21/25 06:49 MCV 95.2 fL (80.0-100.0) 01/21/25 06:49 MCH 32.1 pg (25.0-34.0) 01/21/25 06:49 MCHC 33.8 g/dL (32.0-36.0) 01/21/25 06:49 RDW Std Deviation 43.2 fL (36.4-46.3) 01/21/25 06:49 RDW Coeff of Heriberto 12.4 % (11.5-14.5) 01/21/25 06:49 Plt Count 179 K/uL (130-400) 01/21/25 06:49 MPV 9.6 fL (9.4-12.4) 01/21/25 06:49 Immature Gran % (Auto) 0.3 % 01/18/25 06: Neut % (Auto) 83.4 % 01/18/25 06: Lymph % (Auto) 13.4 % 01/18/25 06:29 Reagan % (Auto) 2.9 % 01/18/25 06:29 Eos % (Auto) 0.0 % 01/18/25 06:29 Baso % (Auto) 0.0 % 01/18/25 06: Neut # (Auto) 4.84 K/uL (1.40-6.50) 01/18/25 06:29 Lymph # (Auto) 0.78 K/uL (1.20-3.40) L 01/18/25 06:29 Reagan # (Auto) 0.17 K/uL (0.11-0.59) 01/18/25 06:29 Eos # (Auto) 0.00 K/uL (0.00-0.50) 01/18/25 06:29 Baso # (Auto) 0.00 K/uL (0.00-0.20) 01/18/25 06:29 Immature Gran # (Auto) 0.02 K/uL (0.01-0.20) 01/18/25 06:29 PT 10.3 Seconds (9.0-12.0) 01/17/25 15:50 INR 0.9 (0.9-1.1) 01/17/25 15:50 APTT 25 Seconds (21-31) 01/17/25 15:50 PTT Ratio 0.9 01/17/25 15:50 VBG pH 7.46 (7.36-7.41) H 01/17/25 19:55 VBG pCO2 40 mmHg (38-50) 01/17/25 19:55 VBG pO2 26 mmHg 01/17/25 19:55 VBG HCO3 28 mmol/L 01/17/25 19:55 VBG O2 Saturation < 60.0 % 01/17/25 19:55 VBG Base Excess 4.2 mEq/L 01/17/25 19:55 Sodium 140 mmol/L (136-145) 01/21/25 06:49 Potassium 4.2 mmol/L (3.5-5.1) 01/21/25 06:49 Chloride 103 mmol/L (98-107) 01/21/25 06:49 Carbon Dioxide 32 mmol/L (21-32) 01/21/25 06:49 Anion Gap 5 (3-11) 01/21/25 06:49 BUN 23 mg/dl (6-23) 01/21/25 06:49 Creatinine 0.63 mg/dl (0.6-1.2) 01/21/25 06:49 Est Cr Clr Drug Dosing 59.8 ml/min 01/21/25 06:49 eGFR 87.42 01/21/25 06:49 BUN/Creatinine Ratio 36.5 (10-20) H 01/21/25 06:49 Glucose 101 mg/dl (70-99(Fasting)) H 01/21/25 06:49 Estimat Average Glucose 117 mg/dl 01/18/25 06:29 Hemoglobin A1c 5.7 % (4.5-5.6) H 01/18/25 06:29 Calcium 8.5 mg/dl (8.6-10.3) L 01/21/25 06:49 Total Bilirubin 0.5 mg/dl (0.2-1.0) 01/17/25 15:50 AST 31 U/L (13-39) 01/17/25 15:50 ALT 47 U/L (7-52) 01/17/25 15:50 Alkaline Phosphatase 77 U/L (34-104) 01/17/25 15:50 Troponin I High Sens 6.0 pg/ml (0-14) 01/17/25 15:50 B-Natriuretic Peptide 84 pg/ml (0-100) 01/17/25 19:55 Total Protein 6.6 gm/dl (6.0-8.3) 01/17/25 15:50 Albumin 3.8 gm/dl (3.4-5.0) 01/17/25 15:50 Globulin 2.8 gm/dl (2.5-4.0) 01/17/25 15:50 Albumin/Globulin Ratio 1.4 (0.9-2) 01/17/25 15:50 Urine Color Yellow 01/17/25 15:56 Urine Appearance Clear (Clear) 01/17/25 15:56 Urine pH 6.5 (4.5-7.5) 01/17/25 15:56 Ur Specific [place] 1.014 (1.000-1.030) 01/17/25 15:56 Urine Protein Negative (Negative) 01/17/25 15:56 Urine Glucose (UA) Negative (Negative) 01/17/25 15:56 Urine Ketones Negative (Negative) 01/17/25 15:56 Urine Blood Negative (Negative) 01/17/25 15:56 Urine Nitrite Negative (Negative) 01/17/25 15:56 Urine Bilirubin Negative (Negative) 01/17/25 15:56 Urine Urobilinogen Negative (Negative) 01/17/25 15:56 Ur Leukocyte Esterase 2+ (Negative) H 01/17/25 15:56 Urine WBC (Auto) 21-50 /hpf (0-5) H 01/17/25 15:56 Urine RBC (Auto) 0-2 /hpf (0-2) 01/17/25 15:56 U Hyaline Cast (Auto) 0-2 /lpf (0-2) 01/17/25 15:56 U Epithel Cells (Auto) 0-2 /hpf (0-2) 01/17/25 15:56 Urine Bacteria (Auto) None Seen (None Seen) 01/17/25 15:56 Urine Comment 01/17/25 15:56 Nasal Screen MRSA (PCR) Negative (Negative) 01/18/25 20:00 Impressions Abdomen/Pelvis CT 01/17/25 16:42 HISTORY: Urinary symptoms and back pain TECHNIQUE: Helical CT imaging of the abdomen and pelvis was performed without IV contrast. Images are presented in axial, sagittal, and coronal reformats. COMPARISON: None. FINDINGS: Lung Bases/Inferior Mediastinum: Mild atelectasis at the lung bases. Liver: Subcentimeter hypodense lesion in the dome of the right hepatic lobe on series 2 image 10 is too small to accurately characterize. Liver is otherwise unremarkable. Gallbladder: Unremarkable Spleen: Unremarkable Adrenals: Unremarkable Pancreas: Unremarkable Kidneys: Subcentimeter hypodense renal cortical lesions are too small to accurately characterize. Cortical scarring along the posterior cortex of the mid left kidney. Stomach/Bowel: The stomach and duodenum appear unremarkable. Small and large bowel loops are normal in caliber. Lymph nodes: Unremarkable Vasculature: No abdominal aortic aneurysm. Mild atherosclerotic vascular disease. Pelvis: Urinary bladder is unremarkable. Uterus is unremarkable. 2 cm hypodense lesion in the right ovary favors a cyst. Left ovary is unremarkable. No free pelvic fluid. Soft Tissues: Posterior paraspinal muscle atrophy. Soft tissues of the body wall are otherwise unremarkable. Bones: Mild to moderate degenerative changes of the spine.Lumbar IMPRESSION: 1. No acute findings in the abdomen or pelvis. 2. Subcentimeter hypodense lesions within the liver and kidneys are too small to accurately characterize. 3. 2 cm presumed cyst in the right ovary. Follow-up pelvic ultrasound is recommended in 6 to 12 weeks to ensure resolution. ACT 112: Positive. There are findings on this exam that require communication between the performing entity and the patient following Patient Test Result Information Act ([place] ACT 112) guidelines. Electronically signed by Daniel Chakraborty 01-17-2025 6:[address] 01/17/25 16:42 HISTORY: Urinary symptoms and back pain. TECHNIQUE: CT imaging of the lumbar spine without IV contrast. Images are presented in axial, sagittal, coronal reformats. COMPARISON: CT of the abdomen pelvis from the same day. FINDINGS: Lumbar dextroscoliosis. No significant listhesis.Vertebral body heights are preserved without compression deformity.No acute fractures identified. Mild to moderate multilevel degenerative disc disease. Multilevel facet arthrosis is severe in the lower lumbar spine. Severe central canal stenosis suspected at L4-5 and L5-S1. There is multilevel central canal and neuroforaminal stenosis. No prevertebral edema or hematoma.Preparaspinal soft tissues are unremarkable.Included lungs are clear. IMPRESSION: * No evidence of acute lumbar spine fracture. * Multilevel degenerative spondylosis of the lumbar spine. Severe central canal stenosis is suspected at L4-5 and L5-S1. This can be further evaluated with a lumbar spine MRI if clinically warranted. ACT 112: Positive. There are findings on this exam that require communication between the performing entity and the patient following Patient Test Result Information Act ([place] ACT 112) guidelines. Electronically signed by Daniel Chakraborty 01-17-2025 7:04 PM Chest X-Ray 01/17/25 19:12 EXAM: Portable AP chest radiograph TECHNIQUE: AP portable radiograph of the chest was obtained. INDICATION: Shortness of breath Comparison: None FINDINGS: LINES and TUBES: None CARDIOVASCULAR: Cardiac silhouette is mildly enlarged in size. LUNGS/PLEURA: No focal consolidation identified. Bibasilar atelectasis. Mild pulmonary vascular congestion and chronic interstitial lung changes. No significant pleural fluid. No discernible pneumothorax. There is mild elevation of the right hemidiaphragm. OSSEOUS/OTHER: No displaced acute osseous process identified. IMPRESSION: Mild congestive changes of the cardiovascular system. Bibasilar atelectasis. Mild elevation of the right hemidiaphragm. Electronically signed by Timmy Godfrey 01-17-2025 7:47 PM Chest CTA 01/17/25 21:07 Exam(s): CTA CHEST IV Amt: 116 cc opti 320 EXAM: CT Angiography Chest With Intravenous Contrast CLINICAL HISTORY: low o2. TECHNIQUE: Axial computed tomographic angiography images of the chest with intravenous contrast. CTDI is 22.77 mGy and DLP is 648.71 mGy-cm. Automated exposure control was utilized for the study. A dose lowering technique was utilized adhering to the principles of ALARA. 3D and MIP reconstructed images were created and reviewed. COMPARISON: CXR 01-17-2025. FINDINGS: Study is limited by patient motion. Pulmonary arteries: No pulmonary embolism. Aorta: No thoracic aortic aneurysm or dissection. Atherosclerotic vascular calcifications. Lungs: Mild peribronchial thickening greatest in the right lower lobe. Right lower lobe platelike atelectasis. Minimal left basilar atelectasis. No definite lobar pneumonia. Punctate peripheral left upper lobe calcification/granuloma. Pleural space: No pleural effusion. No pneumothorax. Heart: No cardiomegaly. No pericardial effusion. No evidence of RV dysfunction. Bones/joints: No acute fracture. Multiple likely chronic upper and mid thoracic vertebral body compression deformities. Bones are diffusely osteopenic. Marked deformity of the sternum with up to 1.1 cm anterior displacement of the inferior aspect of the sternum. Degenerative changes of the spine. Soft tissues: Unremarkable. Lymph nodes: Unremarkable. No enlarged lymph nodes. IMPRESSION: No pulmonary embolism. Mild peribronchial thickening suggesting inflammation/bronchitis. Right lower lobe platelike atelectasis. Bilateral dependent atelectasis. Old sternal fracture. Likely old thoracic spine vertebral body compression deformities. Electronically signed by: Jaydon Mark M.D. 01/18/25 02:05 AM Lumbar Spine MRI 01/18/25 15:05 Technique: Sagittal and axial T1 and T2-weighted magnetic resonance images were obtained of the lumbar spine without gadolinium contrast. Comparison is made to the CT dated 01/17/2025 Findings: Some sequences are limited by motion artifact. There is scoliosis. There is slight grade 1 anterolisthesis at L4-5. There are mild degenerative endplate changes at L1-2 and to a lesser extent at other levels. There are multiple apparent vertebral hemangiomas with characteristic increased T1 and increased T2 signal intensity. No other focal osseous lesion is evident. No fracture is identified. There is no definite sign of infection. There is no sign of acute ligamentous injury. The conus medullaris appears normal, terminating at the level of L1. There are small bilateral ovarian cysts, measuring up to 2 cm At L1-L2, there is mild spinal stenosis due to a disc bulge and a right paracentral disc herniation. There is no visible compression of the traversing nerve roots. There is left greater than right neural foramen narrowing that may affect the left L1 nerve root At L2-L3, there is mild spinal stenosis due to a disc bulge and a mild central disc protrusion. There is no compression of the traversing nerve roots. There is right greater than left neural foramen narrowing that may affect the right L2 nerve root At L3-L4, there is mild spinal stenosis due to a disc bulge and facet osteoarthritis. There is no compression of the traversing nerve roots. There is left greater than right neural foramen narrowing that may affect the left L3 nerve root At L4-L5, there is severe spinal stenosis due to a disc bulge and facet osteoarthritis with ligamentum flavum hypertrophy. There is bilateral neural foramen narrowing that may affect the exiting L4 nerve roots At L5-S1, there is a disc bulge without spinal stenosis. There is facet osteoarthritis. There is mild bilateral neural foramen narrowing Impression: 1. Scoliosis 2. Mild anterolisthesis at L4-5 3. Severe spinal stenosis at L4-5 with compression of the traversing nerve roots 4. Mild spinal stenosis from L1-2 through L3-4, without compression of the traversing nerve roots 5. Left L1-2, right L2-3, left L3-4, and bilateral L4-5 neural foramen narrowing. This may affect the exiting nerve roots 6. Small bilateral ovarian cysts, likely benign but indeterminate in nature in this postmenopausal patient. A pelvic ultrasound could be obtained for further evaluation ACT 112: Positive. There are findings on this exam that require communication between the performing entity and the patient following Patient Test Result Information Act ([place] ACT 112) guidelines. Electronically signed by Tomas Alvarez 01-19-2025 08:32 AM Ordered Studies 01/17/25 16:42 CT abd pelvis IV con only Stat CT lumbar spine w con Stat 01/17/25 21:07 CT angio chest PE protocol Stat 01/18/25 15:05 MR lumbar spine wo con Urgent Hospital Course (1) Acute hypoxemic respiratory failure: 84 yo female with H/O HTN, valvular heart disease (moderate TR, mild MR, TTE 2022), COPD as per records, pulmonary hypertension, irritable bowel syndrome as per records, anxiety/mood disorder who presented for hypoxemia that is now resolved. Severe COPD Pulmonary Hypertension Acute Hypoxic Respiratory Failure, resolved Bronchiolitis --Chest CTA:No pulmonary embolism. Mild peribronchial thickening suggesting inflammation/bronchitis. Right lower lobe platelike atelectasis. Bilateral dependent atelectasis. Old sternal fracture. Likely old thoracic spine verte bral body compression deformities. --Hypoxia resolved --Received Rocephin empirically as below --Saturating well on room air --IV Decadron transition to prednisone tapering course ---continue Duonebs PRN, incentive spirometer Complicated UTI -as evidenced by positive UA with symptoms and elderly - Prior culture grew strep -- Urine culture currently not contributory -- Completed 3-day course of IV Rocephin Severe Spinal Stenosis -with lower back pain shooting to knees bilaterally -no saddle paresthesias, still able to move legs, no urinary incontinence Plan: -continue decadron 6mg daily>> transition to prednisone tapering course -ortho consult, appreciate recs --Patient prefers to follow-up as outpatient for further management Continue PT/OT -voltaren cream for lower back Advised to follow-up with spine surgery on discharge HTN Mildly elevated secondary to IV steroids, pain Monitor blood pressure Valvular heart disease (moderate TR, mild MR, TTE 2022) Follow-up as outpatient Prediabetes HbA1c 4.7 Kidney, liver lesions Bilateral ovarian cyst Incidental findings on CT --CT abd:Subcentimeter hypodense lesions within the liver and kidneys are too small to accurately characterize. 2 cm presumed cyst in the right ovary. Follow-up pelvic ultrasound is recommended in 6 to 12 weeks to ensure resolution. Follow-up as outpatient DVT Px: Lovenox SQ CODE STATUS Full code Disposition Personal care facility today Total Time Total Time Spent Total Time Spent (In Minutes): 54 minutes Discharge Plan Discharge Items Patient Disposition: [facility] Reason For Visit: RESP FAILURE, POSS CHF Discharge Diagnosis: COPD Bronchiolitis Acute hypoxic respiratory failure Lumbar spinal stenosis Urinary tract infection Kidney, liver lesions Ovarian cysts Condition on Discharge: Fair Activity: Per Instructions section Exercise/Sports: Gradually increase as tolerated Non-emergency contact: Primary Care Provider and Surgeon Call non-emergency contact if: you have any medication questions, your symptoms worsen, your pain is concerning for you and you have a fever Follow-up/Referrals: Selam Simmons MD [Primary Care Provider] - Diet: Heart Healthy Addtl Attending Provider Instructions: --Follow-up with your primary care physician Dr. Simmons/ 1 week --Follow-up with your spine surgeon Dr. Dietrich in 2-3 weeks -- Complete the prednisone tapering course as prescribed Resume tapering course: --Start taking prednisone 30 mg daily for 1 day, then 20 mg daily for 2 days, then 10 mg daily for 2 days then stop -- You are incidentally noted to have lesions on your kidney and liver and also were noted to have cysts on your ovaries on CT scan. Discuss with your primary care physician for further management as outpatient. Seek immediate medical attention if your symptoms reoccur or worsen Please review medication list provided on discharge for any medication changes as instructed. Please call if you have any questions or problems. You can reach a [facility] hospitalist on duty at [facility] 24 hours a day by calling [phone] Pending Studies at Discharge: No Stand-Alone Forms: My [facility], Smoking Cessation Skilled Items Patient informed of condition?: Yes DNR: No Discharge Level of Care: Other Communicable Disease: No Discharge Prognosis: Stable Lines: None Urinary Catheter: No Medications and DC Order Prescriptions: New diclofenac sodium [Voltaren Arthritis Pain] 1 % Gel 4 g EXT Q12 PRN (Reason: back pain) Qty: 50 0RF prednisone 10 mg Tablet 30 mg PO UD Qty: 9 0RF Rx Instructions: Start taking prednisone 30 mg daily for 1 day, then 20 mg daily for 2 days, then 10 mg daily for 2 days then stop Continued calcium citrate-vitamin D3 [Calcium Citrate + D] 315-200 mg-unit Tablet 1 tab PO QAM Qty: 0 Patient Comments: mon/wed/fri PreserVision AREDS [id number] Tablet 1 tab PO BID Qty: 0 zinc acetate 50 mg (zinc) Capsule 50 mg PO QPM levothyroxine 25 mcg tablet 25 mcg PO DAILYBB ascorbic acid (vitamin C) [Vitamin C] 500 mg Tablet 0 mg PO QPM Rx Instructions: PT UNSURE OF STRENGTH cholecalciferol (vitamin D3) [Vitamin D3] 125 mcg (5,000 unit) Tablet 250 mcg PO UD quetiapine 25 mg tablet 25 mg PO BID Patient Comments: per pt, she isnt sure of medication. Has fill history of 01/17 24 day supply sennosides [senna] 8.6 mg Tablet 8.6 mg PO BID lorazepam 1 mg tablet 1 mg PO UD PRN (Reason: Other) ibuprofen 0 mg PO DIRECTED PRN (Reason: Pain) Ex-Lax 0 mg PO DIRECTED Patient Comments: OTC unknown dose acetaminophen [Tylenol Ex Str Rapid Release] 500 mg Tablet 1,000 mg PO BID escitalopram oxalate 20 mg tablet 20 mg PO QAM Patient Comments: per pt, she isnt sure of this medication. Has fill history of 01/11/25 28 day supply doxazosin [Cardura] 2 mg tablet 2 mg PO HS Discharge Orders: Discharge Order (Routine); Ordered 01/21/25 Ordered By: Willy Guerrero Admission Data Admit Date/Time: 01/17/25 20:15 Attending Provider: Willy Guerrero Admit Provider: Eduar Rubin Primary Care Provider: Selam Simmons Other Providers: Jaydon Velazco; Eduar Rubin; Nestor Dietrich
== END 2025-01-21 14:59 | disposition home or self-care (01) | DRG 189 ==
LOC: ED 14:57 → 2S 20:15 → SUATTDRO 20:15 → 2S 21:04 → 3N 01-20 18:29